=== PATIENT | female | born 1960 | race Caucasian/White ===

== ENCOUNTER 2020-12-22 10:20 | Emergency (ER) | payer MEDICAID, SELFPAY ==
[2020-12-22 10:53] VITALS: BP 140/69; PULSE 76; RESP 16; TEMP 36.8; O2SAT 97
--- NOTE | 2020-12-22 11:11 | ED_ITS ---
HPI - General Adult General Chief complaint: General Medical Stated complaint: fall Time Seen by Provider: 12/22/20 10:54 Source: patient Mode of arrival: ambulatory Limitations: no limitations History of Present Illness HPI narrative: 60yoF asthma, hypothyroidism and chronic pain presenting to the ED with complaints of left anterior/lateral rib cage pain for the past week and a half after she had a mechanical fall while helping her with niece fix up the baby's room and she did not notice there was a board across the door at her niece's house and she tripped over the board hitting her left anterior/la teral rib cage, right knee/lower leg and ankle and since then has been having pain. Patient also requesting a COVID 19 swab as she lives in [place] and is traveling home this week. Denies head injury or loss of consciousness. Denies being on any blood thinners. Denies pre symptoms prior to the fall and any symptoms at this time other than pain. Denies any dizziness, headaches, lightheadedness, changes in vision, nausea/vomiting, jaw pain, paresthesias, focal weakness, chest pain or shortness of breath, symptoms or any other symptoms complaints or concerns at this time. Related Data Previous Rx's Medication Instructions Recorded diphenhydramine HCl [Benadryl 50 mg PO TID PRN #10 tab 12/22/20 Allergy] oxycodone 5 mg PO BID PRN #10 tab 12/22/20 Allergies Allergy/AdvReac Type Severity Reaction Status Date / Time acetaminophen [From VICODIN] Allergy Mild ITCH Unverified 08/14/20 15:53 aspirin [ASA] Allergy Mild BRUISE, Unverified 08/14/20 15:53 bruising hydrocodone [From VICODIN] Allergy Mild ITCH Unverified 08/14/20 15:53 ibuprofen [From MOTRIN] Allergy Mild BRUISE Unverified 08/14/20 15:53 trazodone [TRAZODONE] Allergy Mild RESTLESS Unverified 08/14/20 15:53 quetiapine [From SEROQUEL] AdvReac Mild RESTLESS Unverified 08/14/20 15:53 Motrin Allergy Unknown bruising Uncoded 07/14/20 00:00 Vicodin Allergy Unknown Uncoded 07/14/20 00:00 Review of Systems Review of Systems: Constitutional : No changes in activity, No lethargy, No recent prior head injury, No agitation, No increased fussiness ENT/Mouth : No Ear Pain, No Nasal discharge/drainage Eyes: No Eye Pain, No Swelling, No Redness, No Foreign Body, No Vision Changes Cardiovascular : +Rib cage pain, No Chest Pain, No SOB Respiratory : No Cough Gastrointestinal : No Nausea, No Vomiting, No abdominal Pain Genitourinary : No Dysuria, No Urinary Frequency, No Urinary Incontinence, No Urgency, No Flank Pain Musculoskeletal : No joint pain, No neck stiffness, No back pain/injury Skin : No lacerations Neuro : No unsteady gait, No Paresthesias, No Loss of Consciousness, No altered mental status, No Headache Yes all other systems are reviewed and are negative PMFSH Past Medical History Attestation statement: The following information was validated with the patient. Surgical History H/O tubal ligation History of back surgery Hx of arthroscopy of right knee S/P arthroscopy of left shoulder S/P arthroscopy of right shoulder Social History Social History Smoked in Last 30 Days: No Use of substances other than those prescribed or required for medical reasons: No Advance Directives: No Advance Directives Information Provided: No Physical Exam Vital Signs: Vital Signs: Last Vital Signs Temp 98.3 F 12/22/20 10:53 Pulse 76 12/22/20 10:53 Resp 16 12/22/20 10:53 BP 140/69 H 12/22/20 10:53 Pulse Ox 97 12/22/20 10:53 Body Mass Index 0.3 vital signs have been reviewed as normal and appeared to be correct. Blood pressure normal. Heart rate normal. Respiration rate normal. Temperature normal. Oxygen saturation normal. Appearance: Alert. Oriented X3. No acute distress. Head: Normal external exam. Normocephalic. Atraumatic. No Byers signs noted. No raccoon eyes noted Eyes: PERRLA. EOMI. Conjunctiva and sclera normal. Eyelids normal. ENT: EAC normal. TM's Normal. No septal hematoma. No hemotympanum noted. Pharynx normal. Uvula midline. Moist mucous membranes. No trismus noted. No drooling noted. No muffled voice noted. Neck: Normal inspection. Neck supple. FROM. No adenopathy. Thyroid Normal. No meningeal signs. No neck mass noted. Patient has full range of motion no obvious deformities. No mid cervical tenderness step-offs or deformities noted. Patient neuro intact bilaterally and distally in all 4 extremities. Reflexes intact bilaterally and distally in all 4 extremities. CVS: Normal heart rate and rhythm. Heart sound normal. No murmurs noted. Pulses normal throughout. Respiratory: No respiratory distress. Painless inspiration. Breath sounds normal. No wheezes/rales/rhonchi noted. Left lower anterior/lateral chest wall with tenderness to palpation. No obvious deformity/ecchymosis/abrasion/lacerations noted. No flail chest noted. No accessory muscle usage noted or decreased air movement noted. Abdomen: Soft and nontender. Bowel sounds normal in all 4 quadrants. No distention noted. No organomegaly noted. No visible injury noted. Back: No CVA tenderness. Full range of motion noted. Skin: Skin warm and dry. Normal skin color. Normal skin turgor. No rashes/lesions/lacerations noted. Extremities: Patient tender to palpation to right knee/lower leg/ankle. Ecchymosis noted. Although no obvious deformities noted. No laxity of ligaments or tendons at the knee/lower leg or ankle. No lower extremity edema. No calf tenderness noted. Extremities exhibit normal range of motion. Extremities nontender. Neuro: Oriented X 3. No motor deficit. No sensory deficit. Reflexes normal. Patient has a normal steady gait. Course Course Course Narrative: 11:10am - 60yoF asthma, hypothyroidism and chronic pain presenting to the ED with complaints of left anterior/lateral rib cage pain, right knee/lower leg/ankle pain after she had a mechanical fall. Denies head injury or loss of consciousness. Not on any blood thinners. Denies pre symptoms prior to the fall. Also requesting a COVID swab. Denies any URI symptoms or symptoms. - Plan: x-ray of left ribs/chest, x-ray of right knee/lower leg/ankle and perform a COVID/RSV/flu swab for travel then re-evaluate. Reevaluation(s) Reevaluation #1: - x-ray of rib cage last anterior chest within normal limits no evidence of fractures. X-ray of right knee/ankle/lower leg within normal limits no evidence of fracture. COVID/RSV/flu still pending. Will DC home with symptomatic treatment instructions return if any new or worsening symptoms and to follow up with primary care provider. Patient's and agrees the plan. Time: 12:38 Medical Decision Making Medical Records Medical records reviewed: Yes I reviewed the patient's medical records. Imaging Data Rib/chest/right ankle/right lower leg/right knee: Attestation: I personally reviewed and interpreted this imaging study as follows: Radiologist's impression: EXAMINATION: CHEST AND LEFT RIBS. RIGHT ANKLE, RIGHT KNEE AND RIGHT TIBIA AND FIBULA. CLINICAL INFORMATION: Status post fall x1 week ago. Pain and bruising right knee. COMPARISON: None TECHNIQUE: 3 views right ankle. 2 views right tibia and fibula. 4 views right knee. Chest and left RIBS 4 views. FINDINGS: RIGHT ANKLE: There is no visible acute fracture, dislocation. Ankle mortise and subtalar joints are normal. There is a moderate to large calcaneal heel spur. There is dorsal talonavicular spurring. The soft tissues are normal. RIGHT TIBIA AND FIBULA: There is no visible fracture or bony abnormality. The soft tissues are normal. RIGHT KNEE: There is mild loss of medial and patellofemoral compartment joint space with mild periarticular spurring medial compartment. No loose bodies, joint effusion or bony erosive changes seen. The soft tissues are normal. CHEST AND LEFT RIBS: The lungs are well-expanded and clear of acute process. The heart size and pulmonary vascularity is normal. No gross bony abnormality seen Multiple views of left ribs reveal no visible rib fracture or bony abnormality. The soft tissues are normal. XR/XR ankle RT min 3V IMPRESSION: Unremarkable right ankle, right tibia and fibula. Degenerative arthritic changes medial and patellofemoral compartment joint space. Unremarkable chest x-ray. No visible left rib fractures seen. Discharge Plan Discharge Clinical Impression: Fall Qualifiers: Encounter type: initial encounter Qualified Code(s): W19.XXXA - Unspecified fall, initial encounter Chest wall muscle strain Qualifiers: Encounter type: initial encounter Qualified Code(s): S29.011A - Strain of muscle and tendon of front wall of thorax, initial encounter Right knee sprain Qualifiers: Encounter type: initial encounter Right ankle sprain Qualifiers: Encounter type: initial encounter Sprain of right knee/leg Qualifiers: Encounter type: initial encounter Qualified Code(s): S83.91XA - Sprain of unspecified site of right knee, initial encounter Patient Disposition: Home, Self-Care Instructions: Sprain (ED), Fall Prevention for Older Adults (ED) Additional Instructions: Based on your symptoms and history we have sent a COVID-19. Although your RESULT IS PENDING at this time. RESULTS should return within 72 hours. At this time you will be contacted with either NEGATIVE OR POSITIVE results. -Please wait until we contact you for your results. At this time you will be okay for discharge. Please plan for self quarantine for up to 14 days. Do not expose yourself to others. You may not go to work. If testing does come back negative you may return to activities as long as you are no longer having any symptoms for at least 3 days. Please continue to follow cold instructions and wash your hands frequently. You may take Tylenol as directed on the bottle for pain or fever. Patient seen in the emergency department on 09/12/2020 and should be excused from work until negative test results AND until 72 hours without any symptoms AND at least 10 days have passed since symptoms first appeared or since last exposure to COVID-19 positive patient CDC Guidelines for home isolation: - Stay away from others - WEAR A MASK if you are sick AND STAY HOME - Cover your mouth and nose with a tissue when you cough or sneeze. Dispose of tissues in a lined trash can and wash your hands immediately with soap and water for at least 20 seconds. If soap and water are not available, clean hands with alcohol-based hand platen press operator apprentice that contains at least 60% alcohol. - Clean your hands often with soap and water for at least 20 seconds - Avoid touching your eyes, nose and mouth with unwashed hands - Do not share dishes, drinking glasses, cups, eating utensils, towels, or bedding with other people in your home. After using these items, wash them thoroughly with soap and water or put in the aerial advertiser. - Clean high-touch surfaces in your isolation area ( sick room and bathroom) every day; let a caregiver clean and disinfect high-touch surfaces in other areas of the home. Clean the area or item with soap and water or another detergent if it is dirty. Then, use a household disinfectant. - Limit contact with pets and animals: If you must care for a pet, wash your hands before and after interacting with them). Prescriptions: New oxycodone 5 mg tablet 5 mg PO BID PRN (Reason: pain) Qty: 10 RF: 0 diphenhydramine HCl [Benadryl Allergy] 25 mg tablet 50 mg PO TID PRN (Reason: itching) Qty: 10 RF: 0 Referrals: Physician,None [Primary Care Provider] - 2 days (your pcp) Print Language: Telugu
[2020-12-22] MEDS: oxyCODONE HCl Immed Release 5 MG TABLET PO (12:43)
[2020-12-22 13:05] LABS: Influenza A PCR NEGATIVE (Negative); Influenza B PCR NEGATIVE (Negative); Resp Syncy Virus RNA Qual PCR NEGATIVE (Negative); SARS COV2 PCR INHOUSE NEGATIVE (Negative)
== END 2020-12-22 12:55 | disposition home or self-care (01) ==
PROVIDERS: Physician Assistant Medical; Emergency Provider Internal Medicine
DX: S29.011A Strain of muscle and tendon of front wall of thorax, initial encounter (principal); S83.91XA Sprain of unspecified site of right knee, initial encounter; S93.401A Sprain of unspecified ligament of right ankle, initial encounter; W18.31XA Fall on same level due to stepping on an object, initial encounter; Z20.822 Contact with and (suspected) exposure to COVID-19; Y93.E9 Activity, other interior property and clothing maintenance; Y92.013 Bedroom of single-family (private) house as the place of occurrence of the external cause; Y99.9 Unspecified external cause status
CPT/HCPCS: 0241U; 36415; 71101; 73564; 73590; 73610; 99283

== ENCOUNTER 2022-04-14 09:25 | Emergency (ER) | payer MEDICAID, SELFPAY ==
--- NOTE | ~2022-04-14 | XR_ITS ---
EXAMINATION: XR wrist LT min 3V CLINICAL INFORMATION: Atraumatic pain COMPARISON: None TECHNIQUE: 4 views of the wrist XR/XR wrist LT min 3V FINDINGS/IMPRESSION: * Ulnar styloid avulsion fracture and scaphoid fracture with nonunion and some sclerosis along the margins favoring subacuity however recommend correlation with history of trauma, as there is overlying soft tissue swelling. * Plate and screw fixation of the distal radial metadiaphysis without evidence of hardware failure or complication with mild volar angulation of the wrist. * Mild degenerative changes of the wrist involving the triscaphe joint. * Osteopenia.
--- NOTE | ~2022-04-14 | XR_ITS ---
EXAMINATION: XR knee RT 2V CLINICAL INFORMATION: Pain COMPARISON: None TECHNIQUE: 4 views of the knee XR/XR knee RT 2V FINDINGS/IMPRESSION: * Moderate degenerative changes of the knee predominantly involving the medial compartment with there is loss of joint space with small medial and lateral compartment osteophytes. * No acute fracture or dislocation. * No joint effusion or appreciable soft tissue abnormality.
[2022-04-14 09:31] VITALS: BP 154/65; PULSE 74; RESP 16; TEMP 36.7; O2SAT 96; BMI 36.3
--- NOTE | 2022-04-14 12:41 | ED_ITS ---
HPI - General Adult General Chief complaint: Extremity Problem Stated complaint: knee, wrist inj std ? Time Seen by Provider: 04/14/22 12:41 Source: patient Mode of arrival: ambulatory Limitations: no limitations History of Present Illness HPI narrative: 61-year-old female with a past medical history of chronic pain, arthritis, asthma, hypothyroid, who normally uses a walker to ambulate, presents for right knee pain, left wrist pain, and concern for STDs. Patient states she has had right knee pain that has worsened in last 2 weeks, that she was up all night in tears. No recent trauma. Patient states she has to hold onto her walker, and it is painful to go up and down the stairs. Patient has had left wrist pain, she had a fracture and had surgery in [place] in November of 2021, states that since the surgery she cannot bend her wrist her flows her fingers, and the pain is worsening. Patient states she recently had sex with a person who tested positive for syphilis and gonorrhea, and she wants to be treated for STDs. Denies vaginal bleeding pelvic pain vaginal itching or vaginal discharge. She would like to have sex with a new person, so wants to make sure she has no STDs Related Data Previous Rx's Medication Instructions Recorded diphenhydramine HCl 25 mg tablet 50 mg PO TID PRN #10 tab 12/22/20 (Benadryl Allergy) oxycodone 5 mg tablet 5 mg PO BID PRN #10 tab 12/22/20 doxycycline hyclate 100 mg tablet 100 mg PO BID 7 Days #14 tab 04/14/22 oxycodone 5 mg capsule 5 mg PO BID PRN #9 cap 04/14/22 oxycodone 5 mg capsule 5 mg PO Q8H PRN #9 cap 04/14/22 Allergies Allergy/AdvReac Type Severity Reaction Status Date / Time acetaminophen [From VICODIN] Allergy Mild ITCH Unverified 08/14/20 15:53 aspirin [ASA] Allergy Mild BRUISE, Unverified 08/14/20 15:53 bruising hydrocodone [From VICODIN] Allergy Mild ITCH Unverified 08/14/20 15:53 ibuprofen [From MOTRIN] Allergy Mild BRUISE Unverified 08/14/20 15:53 trazodone [TRAZODONE] Allergy Mild RESTLESS Unverified 08/14/20 15:53 quetiapine [From SEROQUEL] AdvReac Mild RESTLESS Unverified 08/14/20 15:53 Motrin Allergy Unknown bruising Uncoded 07/14/20 00:00 Vicodin Allergy Unknown Uncoded 07/14/20 00:00 Review of Systems Constitutional: Constitutional: Denies body ache(s), Denies chills, Denies fatigue, Denies fever(s), Denies headache(s), Denies malaise and Denies weakness Eyes: Eyes: Denies diplopia ENT: Denies vertigo, Denies dizziness, Denies headache(s) and Denies throat swelling Cardiovascular: Cardiovascular: Denies chest pain, Denies syncope, Denies leg edema, Denies lightheadedness, Denies Loss of Consciousness, Denies palpitations and Denies dyspnea Respiratory: Respiratory: Denies chest congestion, Denies cough and Denies dyspnea Gastrointestinal: Gastrointestinal: Denies abdominal pain, Denies hematochezia, Denies constipation, Denies diarrhea and Denies vomiting Genitourinary: Genitourinary: Denies hematuria, Denies change in libido, Denies genital pruritis, Denies genital lesions, Denies dysuria, Denies pelvic pain, Denies sexual dysfunction, Denies flank pain, Denies urinary incontinence, Denies urinary hesitancy, Denies urinary urgency, Denies vaginal discharge and Denies vaginal pruritus Musculoskeletal: Musculoskeletal: Reports arthralgias and Reports limited range of motion Neurologic: Denies confusion, Denies vertigo, Denies dizziness, Denies syncope, Denies headache(s) and Denies weakness Psychiatric: Psychiatric: Denies anxiety, Denies change in libido, Denies confusion and Denies depression Endocrine: Endocrine: Denies change in libido, Denies fatigue and Denies palpitations Allergic/Immunologic: Allergic/Immunologic: Denies throat swelling PMFSH Past Medical History Surgical History H/O tubal ligation History of back surgery Hx of arthroscopy of right knee S/P arthroscopy of left shoulder S/P arthroscopy of right shoulder Social History Social History Advance Directives: No Advance Directives Information Provided: No Physical Exam ED Vital Signs: Vital Signs - 24 hr 04/14/22 09:31 Temperature 98.0 F Pulse Rate 74 Respiratory Rate 16 Blood Pressure 154/65 H Pulse Oximetry 96 BMI result Body Mass Index 36.3 Const General: no acute distress, alert and awake; No confusion Nutritional Appearance: well nourished and obese Orientation/consciousness: patient oriented x3 and No confusion Limitations: no limitations Eyes Conjunctivae: conjunctivae normal Pupils: Equal, round and reactive pupils present EOM: EOMs intact bilaterally Neck Neck: Yes full ROM, Yes no lymphadenopathy and Yes supple Resp Effort & Inspection: normal respiratory effort and able to speak in complete sentences Auscultation: clear to auscultation bilaterally, no crackles, no rales, no rhonchi and no wheezes Cardio Rate: regular rate Rhythm: regular rhythm Heart sounds: S1 normal heart sound present and S2 normal heart sound present GI Inspection: Yes normal to inspection Palpation (GI): Soft to palpation, nontender, no guarding and not rigid Percussion: Yes normal to percussion Auscultation: normal bowel sounds General: Yes Bimanual renal exam normal bilaterally External Female Exam: normal external appearance Speculum Exam - Vagina: normal appearance of the vagina and No vaginal bleeding Speculum Exam - Cervix: normal appearance of the cervix, normal palpation and normal vervical discharge Bimanual exam- vagina & uterus: normal palpation Bimanual Exam- Adnexa, other: No adnexal tenderness OB/external & speculum: No vaginal bleeding Skin General skin exam: no rashes or lesions noted Neuro General: patient oriented x3 and No confusion Cranial nerves: Yes Equal, round and reactive pupils present Extrem Left upper extremity: normal capillary refill and wrist (left); No ROM limited Right lower extremity: normal capillary refill and knee Details: tenderness Location: of the medial joint line and swelling Location: of the infrapatellar area; No ROM limited, no cyanosis and no edema Psych Appearance: grossly normal Affect: normal affect Attitude: cooperative Thought process: Normal thought process present Course Course Course Narrative: 61-year-old female presents for concerns for STDs, right knee pain, left wrist pain. On gynecological exam, patient had no cervical motion tenderness, no adnexal tenderness, normal vaginal discharge. Patient negative for Trichomonas, yeast, patient treated for syphilis with RPR lab drawn, patient given Rocephin, and doxycycline sent to her pharmacy. Told patient we would call her if her gonorrhea, chlamydia, or syphilis test returns positive, but we have treated her anyways. Urine is negative for infection. X-rays are as follows below, right knee has osteoarthritis especially in the medial compartment, left wrist has scaphoid fracture with nonunion and sclerosis, and ulnar styloid avulsion fracture. Patient splinted and thumb spica, ataxia with orthopedic PA, who is aware of patient, referred patient to orthopedics. Prescribed oxycodone, doxycycline. XR/XR knee RT 2V FINDINGS/IMPRESSION: ? *? Moderate degenerative changes of the knee predominantly involving the medial compartment with there is loss of joint space with small medial and lateral compartment osteophytes. ? *? No acute fracture or dislocation. ? *? No joint effusion or appreciable soft tissue abnormality. XR/XR wrist LT min 3V FINDINGS/IMPRESSION: ? *? Ulnar styloid avulsion fracture and scaphoid fracture with nonunion and some sclerosis along the margins favoring subacuity however recommend correlation with history of trauma, as there is overlying soft tissue swelling. ? *? Plate and screw fixation of the distal radial metadiaphysis without evidence of hardware failure or complication with mild volar angulation of the wrist. ? *? Mild degenerative changes of the wrist involving the triscaphe joint. ? *? Osteopenia. Reevaluation(s) Reevaluation #1: Patient's oxycodone was sent to the wrong pharmacy. Called [facility], discontinued oxycodone, sent new prescription to [facility] Medical Decision Making Lab Data Labs: Lab Results 04/14/22 04/14/22 04/14/22 Range/Units 13:22 13:22 13:22 Urine Color YELLOW Urine Appearance CLEAR Urine pH 6.5 (5.0-8.0) Ur Specific [place] 1.010 (1.005-1.025) Urine Protein NEG (NEG-TRACE) MG/DL Urine Glucose (UA) NEG (NEG) MG/DL Urine Ketones NEG (NEG) MG/DL Urine Blood NEG (NEG) Urine Nitrite NEG (NEG) Ur Leukocyte Esterase NEG (NEG) T.pallidum Ab (EIA) Nonreactive (Nonreactive) Chlam trachomat DNA PCR NOT DETECTED (Not Detect.) N.gonorrhoeae DNA (PCR) NOT DETECTED (Not Detect.) Discharge Plan Discharge Clinical Impression: Exposure to sexually transmitted disease (STD), Fracture of scaphoid bone of left wrist Osteoarthritis of right knee Qualifiers: Osteoarthritis type: unspecified Qualified Code(s): M17.11 - Unilateral primary osteoarthritis, right knee Closed nondisplaced fracture of ulnar styloid with delayed healing Qualifiers: Laterality: left Qualified Code(s): S52.615G - Nondisplaced fracture of left ulna styloid process, subsequent encounter for closed fracture with delayed healing Patient Disposition: Home, Self-Care Instructions: Sexually Transmitted Diseases (ED), Osteoarthritis (ED), Scaphoid Fracture (ED) Additional Instructions: I have referred you to orthopedics. They should be calling you. If you do not hear from them by tomorrow afternoon, please call the following number [phone] Please rest, ice, elevate your knee, and keep the Markell wrap on except when you are sleeping Please keep the splint on your left rest and keep it clean and dry do not remove until you are seen by orthopedics We have tested you for gonorrhea, chlamydia, and syphilis today. Those test results are not back yet, I am treating you with antibiotics and you have been treated for all 3 of these diseases if you finish your outpatient antibiotics, the doxycycline that I prescribed. Your Trichomonas and yeast test were negative today. You have no urinary tract infection today. We will call you if any of the test results come back positive, if you do not hear from us in 3 days and he want to know the results, you may call here as annabelle jasmine. In addition, please use condoms and practice safe sex Prescriptions: New doxycycline hyclate 100 mg tablet 100 mg PO BID 7 Days Qty: 14 0RF oxycodone 5 mg capsule 5 mg PO BID PRN (Reason: pain) Qty: 9 0RF oxycodone 5 mg capsule 5 mg PO Q8H PRN (Reason: pain) Qty: 9 0RF No Action oxycodone 5 mg tablet 5 mg PO BID PRN (Reason: pain) Qty: 10 0RF diphenhydramine HCl [Benadryl Allergy] 25 mg tablet 50 mg PO TID PRN (Reason: itching) Qty: 10 0RF Referrals: Laverne Salgado MD [Physician] - Interventions: ED Discharge Assessment Last Done: 04/14/22 14:55 Discharge Date/Time: 04/14/22 15:04
[2022-04-14 13:39] LABS: Appearance Urine CLEAR; Color Urine YELLOW; Glucose Urine UA NEG (NEG); Leukocyte Esterase Urine NEG (NEG); Nitrite Urine NEG (NEG); PH 6.5 (5.0-8.0); Urine Blood NEG (NEG); Urine Ketones NEG (NEG); Urine Protein NEG (NEG-TRACE)
[2022-04-14] MEDS: oxyCODONE HCl Immed Release 5 MG TABLET PO (13:47)
[2022-04-14] MEDS: cefTRIAXone sodium 500 MG, Lidocaine HCl 1 % MPF 1 ML IM (14:37)
[2022-04-14] MEDS: Penicillin G Benzathine 2,400,000 UNIT/4 ML SYRINGE 2400000 UNIT IM (14:38)
[2022-04-14 14:49] LABS: Syphilis Screen Nonreactive (Nonreactive)
[2022-04-14 19:03] LABS: CT PCR NOT DETECTED (Not Detect.); NG PCR NOT DETECTED (Not Detect.)
[2022-04-15 09:18] LABS: BV Int Neg Control Negative (Negative); BV Int Pos Control Positive (Positive)
== END 2022-04-14 15:04 | disposition home or self-care (01) ==
PROVIDERS: Physician Assistant; Emergency Provider Emergency Medicine
DX: Z20.2 Contact with and (suspected) exposure to infections with a predominantly sexual mode of transmission (principal); M17.11 Unilateral primary osteoarthritis, right knee; M25.561 Pain in right knee; S52.615G Nondisplaced fracture of left ulna styloid process, subsequent encounter for closed fracture with delayed healing; X58.XXXD Exposure to other specified factors, subsequent encounter
CPT/HCPCS: 36415; 73110; 73560; 81003; 86780; 87480; 87491; 87510; 87591; 87660; 96372; 99283; 99284; J0561; J0696

== ENCOUNTER 2022-04-21 11:08 | Outpatient (REF) | payer OTHER, MEDICAID, SELFPAY ==
--- NOTE | ~2022-04-21 | XR_ITS ---
EXAMINATION: XR WRIST, LEFT CLINICAL INFORMATION: Pain left wrist. COMPARISON: Prior radiographs, most recent 04/14/2022. TECHNIQUE: PA, lateral, and oblique views of the left wrist. FINDINGS: Again noted is postsurgical changes in the distal radius with plate and screw fixation overlying the distal radius in the area of previously noted fracture. No change in alignment and appearance. Mildly displaced fracture of the ulnar styloid and ulnar aspect of the distal ulna unchanged. Ununited scaphoid fracture likely old unchanged. Mild osteoarthritis of the 1st metacarpophalangeal joint XR/XR wrist LT min 3V IMPRESSION: No change compared to prior examination 04/14/2022.
== END 2022-04-21 11:09 | disposition home or self-care (01) ==
LOC: HO.HOSX 11:08
PROVIDERS: Visit Provider Physician Assistant
DX: S52.502D Unspecified fracture of the lower end of left radius, subsequent encounter for closed fracture with routine healing (principal)
CPT/HCPCS: 73110; 99202

== ENCOUNTER 2022-04-28 08:58 | Outpatient (REF) | payer OTHER, MEDICAID, SELFPAY ==
--- NOTE | 2022-04-28 09:04 | EMG_ITS ---
This is a 61-year-old woman with fracture of the left wrist in October and surgery in [place]. Since then she feels her hand is nonfunctional and in lot of pain and has very little feeling. PHYSICAL EXAMINATION: On examination, she has a surgical scar on the volar surface of the wrist and restriction of rotation of the wrist, extension, flexion, slight muscle atrophy, but is able to move her fingers, although weakly. IMPRESSION: Wrist fracture, rule out nerve entrapment. Nerve conduction EMG study: Normal electrodiagnostic study of the left upper extremity with no evidence of carpal tunnel syndrome or nerve injury. Normal EMG of the left C7-T1 innervated muscles. MD PAULA Mejias/JOSE CRUZ / [id number]
== END 2022-04-28 08:59 | disposition home or self-care (01) ==
LOC: HO.NEURO 08:58
PROVIDERS: Visit Provider Physician Assistant
DX: R20.0 Anesthesia of skin (principal); R20.2 Paresthesia of skin
CPT/HCPCS: 95885; 95910

== ENCOUNTER 2022-05-04 11:04 | Outpatient (REF) | payer OTHER, MEDICAID, SELFPAY ==
--- NOTE | ~2022-05-04 | CT_ITS ---
EXAMINATION: CT SCAN OF THE LEFT WRIST CLINICAL INFORMATION: Nondisplaced fracture ulnar styloid. COMPARISON: X-rays of the left wrist most recent 04/21/2022. TECHNIQUE: CT scan of the left wrist without contrast. FINDINGS: There is an ununited fracture of the distal ulna including the ulnar styloid and a portion of the ulnar metaphysis unchanged. Postoperative changes along the distal radius with plate and screw fixation noted as before. The most ulnar positioned distal 2 screws extend through the subchondral bone of the radius into the joint space as seen on the sagittal image 51 series 8 and sagittal image 57 series 8. This is located at the junction between the scaphoid and lunate fossa. The hardware is otherwise intact without fracture or surrounding lucency. The distal radius fracture appears healed with osseous bridging noted across the areas of fracture. There is some irregularity of the articular surface of the radius related to residual osteochondral defect from the intercondylar fracture. This measures up to 10 mm AP and 6.5 mm transverse. Remaining bone and joints are normal. CT/CT wrist LT wo con IMPRESSION: The distal radius fracture appears healed with osseous bridging across the fracture. There is some residual incongruity at the articular surface of the radius related to the fracture. Two of the distal screws protrude into the radiocarpal joint space. Ununited distal ulnar fracture.
== END 2022-05-04 11:05 | disposition home or self-care (01) ==
LOC: HO.CT 11:04
PROVIDERS: Visit Provider Physician Assistant
DX: G56.02 Carpal tunnel syndrome, left upper limb (principal); S52.502D Unspecified fracture of the lower end of left radius, subsequent encounter for closed fracture with routine healing; S52.616 Nondisplaced fracture of unspecified ulna styloid process
CPT/HCPCS: 73200

== ENCOUNTER 2022-08-04 09:59 | Emergency (ER) | payer OTHER, SELFPAY ==
--- NOTE | ~2022-08-04 | XR_ITS ---
EXAMINATION: LEFT WRIST X-RAY CLINICAL INFORMATION: Pain COMPARISON: Previous x-ray most recent March [address] April 29 TECHNIQUE: 4 views of the left wrist FINDINGS: No acute fracture or dislocation. There is an old ununited fracture of the scaphoid bone that appears unchanged. There is widening of the scapholunate distance and slight dorsal tilt of the lunate that is unchanged. There is an ununited ulnar styloid fracture that is unchanged. There is hardware with plate and screws in the distal radius. No distal radius fracture is seen. Orthopedic hardware appears unchanged. There is arthritis at the trapezoid trapezium scaphoid joints and mild arthritis at the first PENITENTIARY joint. Soft tissues are unremarkable. XR/XR hand wrist LT IMPRESSION: No acute fracture or dislocation. Evidence of old trauma. Findings are similar to previous exams march and April 2022.
[2022-08-04 10:21] VITALS: BP 134/92; PULSE 85; RESP 17; O2SAT 96; BMI 34.7
== END 2022-08-04 20:12 | disposition left against medical advice (07) ==
PROVIDERS: Emergency Provider Emergency Medicine; PCP Internal Medicine
DX: S89.92XA Unspecified injury of left lower leg, initial encounter (principal); S69.92XA Unspecified injury of left wrist, hand and finger(s), initial encounter; W19.XXXA Unspecified fall, initial encounter; Z91.81 History of falling; Y93.9 Activity, unspecified; Y92.019 Unspecified place in single-family (private) house as the place of occurrence of the external cause; Y99.9 Unspecified external cause status
CPT/HCPCS: 73110; 73130; 99281; 99283; 99284

== ENCOUNTER → 2022-09-14 09:00 | Outpatient (BNVA) | payer OTHER, SELFPAY | PROVIDERS: PCP Internal Medicine; Visit Provider Orthopaedic Surgery | DX: M25.642 Stiffness of left hand, not elsewhere classified (principal); M25.632 Stiffness of left wrist, not elsewhere classified; T85.9XXA Unspecified complication of internal prosthetic device, implant and graft, initial encounter; S52.502D Unspecified fracture of the lower end of left radius, subsequent encounter for closed fracture with routine healing; S52.615G Nondisplaced fracture of left ulna styloid process, subsequent encounter for closed fracture with delayed healing | CPT/HCPCS: 97140; 99202 ==

== ENCOUNTER 2022-09-20 | Outpatient (REF) | payer OTHER, SELFPAY ==
--- NOTE | ~2022-09-20 | XR_ITS ---
EXAMINATION: XR knee RT 1V, XR knee standing BI CLINICAL INFORMATION: Reason for Exam M25.569 - Pain in unspecified knee COMPARISON: 04/18/2022 TECHNIQUE: [place] view of the right knee and standing views of the bilateral knees. XR/XR knee standing BI FINDINGS/IMPRESSION: * Right greater than left narrowing of the medial compartments. * No soft tissue abnormality.
--- NOTE | ~2022-09-20 | XR_ITS ---
EXAMINATION: XR knee RT 1V, XR knee standing BI CLINICAL INFORMATION: Reason for Exam M25.569 - Pain in unspecified knee COMPARISON: 04/18/2022 TECHNIQUE: [place] view of the right knee and standing views of the bilateral knees. XR/XR knee RT 1V FINDINGS/IMPRESSION: * Right greater than left narrowing of the medial compartments. * No soft tissue abnormality.
== END 2022-09-20 00:01 | disposition home or self-care (01) ==
LOC: HO.HOSX
PROVIDERS: Visit Provider Physician Assistant
DX: M17.11 Unilateral primary osteoarthritis, right knee (principal); M54.16 Radiculopathy, lumbar region
CPT/HCPCS: 73560; 73565; 99212

== ENCOUNTER 2022-10-18 16:22 | Outpatient (REF) | payer OTHER, SELFPAY ==
--- NOTE | ~2022-10-18 | XR_ITS ---
EXAMINATION: XR WRIST, LEFT CLINICAL INFORMATION: M25.532 - Pain in left wrist COMPARISON: Radiographs left hand and wrist 08/04/2022, 04/21/2022 TECHNIQUE: PA, lateral, and oblique views of the left wrist. FINDINGS: There are stable old posttraumatic changes again seen. No acute or healing fracture, dislocation, or destructive process. No interval arthropathy. There is a compression plate and screws volar side distal radius. Hardware intact. Ununited corticated fracture fragment again seen distal ulnar. There is a nonunited fracture again noted carpal navicular and mild widening at the scapholunate articulation suggesting ligamentous degeneration/tear. XR/XR wrist LT min 3V IMPRESSION: 1. Old posttraumatic and postsurgical changes similar to prior exam. 2. No acute or healing fracture or dislocation. No interval arthropathy.
== END 2022-10-18 16:23 | disposition home or self-care (01) ==
LOC: HO.HOSX 16:22
PROVIDERS: Visit Provider Orthopaedic Surgery
DX: M25.532 Pain in left wrist (principal)
CPT/HCPCS: 73110

== ENCOUNTER → 2022-10-19 09:04 | Outpatient (BNVA) | payer OTHER, SELFPAY | PROVIDERS: PCP Internal Medicine; Visit Provider Orthopaedic Surgery | DX: M25.532 Pain in left wrist (principal); T85.9XXA Unspecified complication of internal prosthetic device, implant and graft, initial encounter; S52.615G Nondisplaced fracture of left ulna styloid process, subsequent encounter for closed fracture with delayed healing | CPT/HCPCS: 99212 ==

== ENCOUNTER 2022-10-27 14:45 | Outpatient (REF) | payer OTHER, SELFPAY ==
--- NOTE | ~2022-10-27 | XR_ITS ---
EXAMINATION: XR HAND/WRIST, LEFT CLINICAL INFORMATION: Multiple priors, most recent left wrist radiographs dated 10/19/2022. COMPARISON: Multiple priors, most recent hand and wrist radiographs dated 10/19/2022 and 08/04/2022. TECHNIQUE: PA, oblique, and lateral views of the left hand and wrist. FINDINGS: Volar stabilization plate with fixation screws redemonstrated at the anterior radius. No hardware fracture. No perihardware lucency to suggest loosening or infection. Distal screws are again noted to extend into the radiocarpal joint space, unchanged. Chronic ulnar styloid fracture which appears corticated in unchanged anatomic alignment. No acute fracture or dislocation. Joint space narrowing with marginal osteophytes at the triscaphe and 1st carpometacarpal joint as well as scattered throughout the metacarpophalangeal and interphalangeal joints. No new osseous erosion. No abnormal soft tissue calcification. XR/XR hand wrist LT IMPRESSION: 1. Distal radial ORIF without evidence of hardware complication. Distal screws extend into the radiocarpal joint space, unchanged. 2. Chronic ulnar styloid fracture in unchanged anatomic alignment. 3. Mild osteoarthritis at the triscaphe and 1st carpometacarpal joints as well as scattered throughout the metacarpophalangeal and interphalangeal joints, unchanged.
== END 2022-10-27 14:46 | disposition home or self-care (01) ==
LOC: HO.HOSX 14:45
PROVIDERS: Visit Provider Orthopaedic Surgery
DX: T85.9XXA Unspecified complication of internal prosthetic device, implant and graft, initial encounter (principal); S52.615G Nondisplaced fracture of left ulna styloid process, subsequent encounter for closed fracture with delayed healing
CPT/HCPCS: 73110; 73130; 99212

== ENCOUNTER → 2022-11-01 11:17 | Outpatient (BNVA) | payer OTHER, SELFPAY | PROVIDERS: PCP Internal Medicine; Visit Provider Anesthesiology | DX: M96.1 Postlaminectomy syndrome, not elsewhere classified (principal); G24.01 Drug induced subacute dyskinesia; T50.995A Adverse effect of other drugs, medicaments and biological substances, initial encounter; G89.4 Chronic pain syndrome; B18.2 Chronic viral hepatitis C; F31.9 Bipolar disorder, unspecified | CPT/HCPCS: 99202 ==

== ENCOUNTER 2022-11-17 09:36 | Outpatient (REF) | payer OTHER, SELFPAY ==
--- NOTE | ~2022-11-17 | MR_ITS ---
EXAMINATION: MR LUMBAR SPINE WITHOUT AND WITH CONTRAST CLINICAL INFORMATION: Post laminectomy syndrome. Right lower extremity weakness and numbness. COMPARISON: No relevant prior imaging. TECHNIQUE: Multiplanar MR imaging of the lumbar spine was performed without and with contrast. A total of 10 mL Gadavist was utilized for this examination. FINDINGS: There are chronic postoperative changes of a spinal fusion at L5-S1. Alignment is normal. Vertebral heights are preserved. No acute bone marrow signal changes. There are mixed type II degenerative endplate changes at L1-L2. There is loss of intervertebral disc height and T2 signal intensity at multiple levels related to disc degeneration. The tip of the conus medullaris is located at L1. No mass effect on the conus. Visualized distal cord signal intensity is normal. At T12-L1 the annular contour is normal. No canal or neuroforaminal compromise. At L1-L2 there is a slightly bulging disc. Bilateral facet degenerative change. No canal stenosis. No mass effect on the traversing or foraminal nerve roots. At L2-L3 there is a slightly bulging disc. No canal stenosis. No mass effect on the traversing or foraminal nerve roots. At L3-L4 there is a slightly bulging disc. Bilateral facet degenerative change. No canal stenosis. No mass effect on the traversing or foraminal nerve roots. At L4-L5 there is a slightly bulging disc. Bilateral facet degenerative change. No canal stenosis. Moderate compression of the left L4 foraminal nerve root. At L5-S1 there is a slightly bulging disc. No canal stenosis. No mass effect on the traversing or foraminal nerve roots. Postcontrast images reveal no evidence of recurrent disc herniation or perineural fibrosis. Limited visualization of the retroperitoneal anatomy reveals no abnormal finding. Psoas and paraspinal groups are symmetric. MR/MR lumbar spine wo/w con IMPRESSION: There are chronic postoperative changes of a spinal fusion at L5-S1. No evidence of recurrent disc herniation or perineural fibrosis. There is a bulging disc in conjunction with facet degenerative change at L4-L5 causing moderate compression of the left L4 foraminal nerve root. Otherwise no substantial mass effect on the traversing or foraminal nerve roots elsewhere within the lumbar spine. No canal stenosis.
== END 2022-11-17 09:37 | disposition home or self-care (01) ==
LOC: HO.MRI 09:36
PROVIDERS: Visit Provider Anesthesiology
DX: M96.1 Postlaminectomy syndrome, not elsewhere classified (principal); G89.4 Chronic pain syndrome
CPT/HCPCS: 72158; A9585

== ENCOUNTER 2022-11-30 09:01 | Outpatient (REF) | payer OTHER, SELFPAY ==
--- NOTE | ~2022-11-30 | XR_ITS ---
EXAMINATION: XR wrist LT min 3V CLINICAL INFORMATION: Pain COMPARISON: Wrist radiographs 10/27/2022 TECHNIQUE: 3 views of the wrist XR/XR wrist LT min 3V FINDINGS/IMPRESSION: * No acute fracture or dislocation. * Redemonstration of a chronic ulnar styloid fracture and ORIF of the distal radius in unchanged alignment. No evidence of hardware fracture or complication. * Mild degenerative changes of the wrist similar to prior worst involving the triscaphe joint. * Soft tissues are unremarkable.
== END 2022-11-30 09:02 | disposition home or self-care (01) ==
LOC: HO.HOSX 09:01
PROVIDERS: Visit Provider Orthopaedic Surgery
DX: M25.532 Pain in left wrist (principal)
CPT/HCPCS: 73110

== ENCOUNTER → 2022-12-01 09:28 | Outpatient (BNVA) | payer OTHER, SELFPAY | PROVIDERS: PCP Internal Medicine; Visit Provider Orthopaedic Surgery | DX: S52.616 Nondisplaced fracture of unspecified ulna styloid process (principal); T85.9XXA Unspecified complication of internal prosthetic device, implant and graft, initial encounter | CPT/HCPCS: 99212 ==

== ENCOUNTER 2022-12-06 07:13 | Day surgery (SDC) | payer OTHER, SELFPAY ==
[2022-12-01 10:30] VITALS: BMI 38.7
[2022-12-06] VITALS (8 sets, daily range): BP systolic 105–135; BP diastolic 58–89; PULSE 80–88; RESP 16–20; TEMP 36.2–36.9; O2SAT 95–100
--- NOTE | ~2022-12-06 | FL_ITS ---
EXAMINATION: XR FLUOROSCOPY WITH IMAGES CLINICAL INFORMATION: Orthopedic hardware removal left wrist. COMPARISON: Left wrist radiographs 12/01/2022 TECHNIQUE: Fluoroscopy Supervised By: Dr. Laverne Salgado. Fluoroscopy Time: 6 seconds. Cumulative Dose: 0.2026 mGy. DAP: 0.0122 Gycm2. Images: 4. FINDINGS: Distal radial hardware noted on prior study is no longer demonstrated. There are expected screw tracts in the distal radius. There are chronic posttraumatic changes similar to previous study. FL/FL guidance in OR IMPRESSION: Fluoroscopy for orthopedic procedure.
--- NOTE | 2022-12-06 08:43 | P.CONAN_ITS ---
[facility] Active Problems Active Problems: All Active Problems (Updated 11/01/22 @ 12:05 by José Miguel Lopez MD) Chronic pain syndrome (Acute) Postlaminectomy syndrome (Acute) Breast cancer screening by mammogram (Acute) Colon cancer screening (Acute) Tinea corporis (Acute) Bipolar disorder (Acute) Tardive dyskinesia (Acute) Hepatitis C (Acute) Hepatitis B (Acute) Obesity (BMI 30-39.9) (Acute) Lumbar radiculopathy (Acute) Osteoarthritis of right knee (Acute) Closed nondisplaced fracture of ulnar styloid with delayed healing (Acute) Asthma (Acute) S/P arthroscopy of right shoulder (Acute) S/P arthroscopy of left shoulder (Acute) Hx of arthroscopy of right knee (Acute) History of back surgery (Acute) H/O tubal ligation (Acute) Past Medical History Medical History Chronic pain Fracture of distal end of left radius with routine healing Hypothyroidism Stiffness of left hand joint Stiffness of left wrist joint Family History Family History Sister Thyroid cancer Maternal Grandmother Colon cancer Son Substance abuse Depression Surgical History Surgical History H/O tubal ligation History of back surgery History of surgery on wrist Hx of arthroscopy of right knee Hx of hysterectomy S/P arthroscopy of left shoulder S/P arthroscopy of right shoulder S/P tonsillectomy Social History Social History Housing: House Alcohol intake: former Patient Tobacco Use Status: Never used Tobacco e-Cigarette/Vaping Use: Never Used Second Hand Smoke Exposure: No Use of substances other than those prescribed or required for medical reasons: No Are you DNR?: No Advance Directives: No Advance Directives Information Provided: Yes Advance Directives on File: No Current occupational status: disabled Cognitive needs: No Hearing needs: No Vision needs: Yes Meds Allergies Allergy/AdvReac Type Severity Reaction Status Date / Time aspirin [ASA] Allergy Mild BRUISE, Verified 12/01/22 09:49 bruising hydrocodone [From VICODIN] Allergy Mild ITCH/BRUISE Verified 12/01/22 09:49 ibuprofen [From MOTRIN] Allergy Mild BRUISE Verified 12/01/22 09:49 trazodone [TRAZODONE] Allergy Mild RESTLESS Verified 12/01/22 09:49 quetiapine [From SEROQUEL] AdvReac Mild RESTLESS Verified 12/01/22 09:49 Active Medications: Current Medications Lactated Ringer's (Lr) 1,000 mls @ 80 mls/hr IVCONT .[id number] [facility] Home Medications Medication Instructions Recorded Confirmed Last Taken Type acetaminophen 500 mg tablet 500 mg PO Q6H PRN 11/01/22 Unknown History (Tylenol Extra Strength) Exam Exam Date and Time: December 06, 2022 0843 Height,Weight and Vital Signs: Height 5 ft 2 in Weight 96.162 kg Last Vital Signs Temp 98.4 F 12/06/22 08:06 Pulse 87 12/06/22 08:06 Resp 18 12/06/22 08:06 BP 135/89 12/06/22 08:06 Pulse Ox 95 12/06/22 08:06 O2 Del Method 12/06/22 08:06 Airway Mallampati Class: II TM Dist: >3cm Neck ROM: Full Denture: Upper and Lower Assessment and Plan Final Anesthetic Review ASA Class: III Final Preanesthetic Review: No Changes in Pt Med Stat, Meds/Allgs Chart Reviewed, Consent Obtained/Reviewed and Anes Risks/Benef Reviewed Patient Risk: Intermediate Procedure Risk: Intermediate Anesthetic Plan Anesthetic Plan: GA and Regional Block Disposition: Standard PACU
--- NOTE | 2022-12-06 08:59 | MHC.SHP ---
Pre-Procedural Eval Section A Date of Service: 12/06/22 The patient is an INPATIENT: No Changes since office visit: No Cold of Flu in the past 2 weeks, No New Medical Problems, No Changes in Medication and No Patient answered all questions The History & Physical has been completed within 30 days and I have reviewed it.: Yes Section B Chief Complaint: Nondisplaced fracture of unspecified ulna styloid Allergies: Allergies Allergy/AdvReac Type Severity Reaction Status Date / Time aspirin [ASA] Allergy Mild BRUISE, Verified 12/01/22 09:49 bruising hydrocodone [From VICODIN] Allergy Mild ITCH/BRUISE Verified 12/01/22 09:49 ibuprofen [From MOTRIN] Allergy Mild BRUISE Verified 12/01/22 09:49 trazodone [TRAZODONE] Allergy Mild RESTLESS Verified 12/01/22 09:49 quetiapine [From SEROQUEL] AdvReac Mild RESTLESS Verified 12/01/22 09:49 Plan I have reviewed the history and physical and performed a pertinent physical examination on my patient. No changes have occurred unless specified. Time Spent With Patient Time: Total time managing care of this patient today ____ minutes.
--- NOTE | 2022-12-06 09:11 | W.PM.OPN ---
Operative Note Operative Note Date of Service: 12/06/22 Narrative: Operative Note Narrative: Preop diagnosis: 1. left distal radius symptomatic retained implants Postop diagnosis: Same Procedure: 1. Left distal radius removal of implants x9 Surgeon: Laverne Salgado MD Anesthesia: General Anesthesia plus regional block Findings: volar locking plate and screws, with several screws penetrating into the radiocarpal joint Implants: implants removed: A [place] distal radius volar locking plate and 9 screws Tourniquet time: 53 minutes EBL: 5.0 ml Specimen: none Drains: None Complications: None Disposition: Brought to the recovery room in stable condition Plan: Follow-up in 10-14 days for wound check, suture removal and pre clinic radiographs. I counseled the patient about avoiding heavy activities or activities prone to falling, as there is an increased risk of fracture through the screw holes for the next several weeks. Place in of volar locking splint to be used with daytime activities until 4 weeks postop, and for an additional 4 weeks in snowy or icy conditions Begin gentle wrist range of motion exercises, may need OT referral to begin at 4 weeks postop Indications: The patient is a 62 year old woman with a retained left distal radius volar locking plate and screws with several screws penetrating the radiocarpal joint. . The risks and benefits of operative treatment, including but not limited to risk of damage to blood vessels, nerves, tendons, infection, recurrence, persistent pain or numbness, incomplete resolution of preoperative symptoms, or need for further surgery were discussed with the patient and they wished to proceed with surgery. Procedure: Once consent was obtained patient was brought back to the operating suite and placed in the operating table in a supine position. A regional block was performed by the anesthesia team. Perioperative antibiotics and anesthesia was administered by the anesthesia team. A tourniquet was applied to the proximal aspect of the left upper extremity and the limb was prepped and draped in a standard surgical fashion. The limb was elevated exsanguinated with Esmarch bandage and the tourniquet inflated to 250 mm of mercury for a total tourniquet time of 53 minutes. a 7 cm longitudinal incision was made in line with the previous surgical scar over the volar aspect of her left wrist. Was done using a 15. Blade through the skin to the subcutaneous tissues. We then opened up the tendon sheath over the FCR tendon and then opened up the floor of the FCR tendon sheath using tenotomy scissors under direct visualization. The tendons and muscle bellies were retracted ulnarly. We were able to dissect down to the level of the volar locking plate on the volar surface of the distal radius. The scar tissue was dissected free from the volar locking plate and screws using a 15. Blade. I then removed 9 screws from the [place] volar locking plate and screws , and the screws were placed on the back table. I was then able to use a [place] elevator to dissect around the edge of the plate and then elevate the plate off of the volar surface of the distal radius. This was also placed on the back table. I then used a rongeur were to smooth the protruding bone in the area where the screws had been present. I also removed the cicatrix from the screw holes using a rongeur and then using a curette in each of the screw holes to facilitate bony healing through the screw holes. Was very satisfied with the removal of these implants. Fluoroscopic images were then taken. I also performed some gentle range of motion at the wrist joint in took fluoroscopic images in flexion and extension. At this point the tourniquet was deflated and hemostasis obtained with a brief period of local pressure and bipolar electrocautery. The wound was copiously irrigated with normal saline. The subcutaneous layer was closed with 4-0 Vicryl suture, and the skin edges were reapproximated with 5-0 nylon suture. The wound was infiltrated with some 0.5% plain ropivacainefor postop pain control and a sterile dressing and volar splint was applied. The patient appears to have tolerated the procedure well and with no complications. All digits were well vascularized conclusion of the case.
[2022-12-06] MEDS: ondansetron HCL 4 MG/2 ML VIAL IVPUSH (11:12)
== END 2022-12-06 12:11 ==
LOC: HO.SSS 07:13
PROVIDERS: PCP Internal Medicine; Visit Provider Orthopaedic Surgery
PROC: (CPT 20680; principal; 2022-12-06 08:50)
DX: T84.84XA Pain due to internal orthopedic prosthetic devices, implants and grafts, initial encounter (principal); G89.28 Other chronic postprocedural pain; M25.632 Stiffness of left wrist, not elsewhere classified; M25.532 Pain in left wrist; Y79.3 Surgical instruments, materials and orthopedic devices (including sutures) associated with adverse incidents; Y92.9 Unspecified place or not applicable; Z88.8 Allergy status to other drugs, medicaments and biological substances
CPT/HCPCS: 20680; J0690; J1100; J2250; J2370; J2405; J2795; J3010

== ENCOUNTER 2022-12-13 09:03 | Outpatient (REF) | payer OTHER, SELFPAY ==
--- NOTE | ~2022-12-13 | XR_ITS ---
EXAMINATION: XR WRIST, LEFT CLINICAL INFORMATION: Pain left wrist. COMPARISON: Left wrist 12/01/2022 TECHNIQUE: PA, lateral, and oblique views of the left wrist. FINDINGS: The dorsal plate and screws have been removed. The left distal fracture has healed. There is an old ulnar styloid process fracture, unchanged. There is mild left distal forearm and wrist soft tissue swelling. Mild osteopenia. Soft tissues are normal XR/XR wrist LT min 3V IMPRESSION: 1. Mild left distal forearm and wrist soft tissue swelling. 2. The dorsal plate and screws have been removed from the distal radius. There is no acute fracture or dislocation. No change in old ulnar styloid process fracture.
== END 2022-12-13 09:04 | disposition home or self-care (01) ==
LOC: HO.HOSX 09:03
PROVIDERS: Visit Provider Physician Assistant
DX: S52.615G Nondisplaced fracture of left ulna styloid process, subsequent encounter for closed fracture with delayed healing (principal); Z98.890 Other specified postprocedural states
CPT/HCPCS: 73110

== ENCOUNTER 2022-12-21 10:01 | Outpatient (REF) | payer OTHER, SELFPAY ==
--- NOTE | ~2022-12-21 | XR_ITS ---
EXAMINATION: XR WRIST, LEFT CLINICAL INFORMATION: Left wrist pain. COMPARISON: Left wrist radiographs dated 12/13/2022. TECHNIQUE: PA, lateral, and oblique views of the left wrist. FINDINGS: Postsurgical change within the distal radius consistent with multiple screw tracks and prior orthopedic hardware. Healed distal radial fracture in unchanged anatomic alignment. Chronic ulnar styloid fracture, unchanged. No acute fracture or dislocation. Radiocarpal joint space narrowing with marginal osteophytes. There is redemonstration of a chronic scaphoid fracture in unchanged anatomic alignment. Mild anterior and proximal migration of the distal fracture fragment associated with the radiocarpal osteoarthritis. 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 Joint space narrowing with marginal osteophytes at the triscaphe and 1st carpometacarpal joints. No new osseous erosion. No abnormal soft tissue calcification. XR/XR wrist LT min 3V IMPRESSION: 1. Chronic scaphoid fracture in unchanged anatomic alignment with mild anterior and proximal migration of the distal fracture fragment associated with the radiocarpal osteoarthritis. 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 2. Healed distal radial fracture in unchanged anatomic alignment. Chronic ulnar styloid fracture, unchanged. 3. [id number] radiocarpal, triscaphe, and first carpometacarpal joint osteoarthritis, unchanged.
== END 2022-12-21 10:02 | disposition home or self-care (01) ==
LOC: HO.HOSX 10:01
PROVIDERS: Visit Provider Orthopaedic Surgery
DX: S52.615G Nondisplaced fracture of left ulna styloid process, subsequent encounter for closed fracture with delayed healing (principal); Z98.890 Other specified postprocedural states
CPT/HCPCS: 73110

== ENCOUNTER 2023-01-19 09:58 | Outpatient (REF) | payer OTHER, SELFPAY | END 2023-01-19 09:59 | disposition home or self-care (01) | LOC: HO.HOSX 09:58 | PROVIDERS: Visit Provider Orthopaedic Surgery | DX: Z13.89 Encounter for screening for other disorder (principal) ==

== ENCOUNTER 2023-03-09 15:13 | Outpatient (REF) | payer OTHER, SELFPAY ==
--- NOTE | ~2023-03-09 | XR_ITS ---
EXAMINATION: XR FOOT, LEFT CLINICAL INFORMATION: Injury COMPARISON: None available. TECHNIQUE: AP, lateral, and oblique views of the left foot. FINDINGS: Bone alignment is normal. No fracture or dislocation. There are degenerative changes at the midfoot greatest at the talonavicular and naviculocuneiform joints and fifth MTT joint. Joint spaces are otherwise normal. There are are calcaneal spurs. Soft tissues are otherwise normal. XR/XR foot LT min 3V IMPRESSION: No fracture or dislocation. Arthritis of the midfoot. Calcaneal spurs.
== END 2023-03-09 15:14 | disposition home or self-care (01) ==
LOC: HO.HMGCLDS 15:13
PROVIDERS: PCP Internal Medicine; Visit Provider Emergency Medicine
DX: S99.922A Unspecified injury of left foot, initial encounter (principal); X58.XXXA Exposure to other specified factors, initial encounter; Y93.9 Activity, unspecified; Y92.9 Unspecified place or not applicable; Y99.9 Unspecified external cause status
CPT/HCPCS: 73630

== ENCOUNTER 2023-04-14 11:54 | Emergency (ER) | payer OTHER, SELFPAY ==
--- NOTE | ~2023-04-14 | CT_ITS ---
EXAMINATION: CT ABDOMEN AND PELVIS WITHOUT CONTRAST CLINICAL INFORMATION: Diffuse abdominal pain and diarrhea for 2 weeks COMPARISON: None available. TECHNIQUE: Multidetector volumetric imaging was performed from the superior aspect of the liver through the pubic symphysis. Sagittal and coronal reformatted images were obtained on the technologist's workstation. This CT examination was performed using dose optimization techniques as appropriate, variously including the following: *Automated exposure control *Adjustment of mA and/or kV according to patient size (this includes techniques or standardized protocols for targeted exams where dose is matched to indication/reason for exam; i.e. extremities or head) *Use of iterative reconstruction technique DLP: 953 mGy-cm FINDINGS: LUNG BASES: No confluent parenchymal disease identified. No pleural effusion. No pericardial effusion. LIVER, GALLBLADDER, AND BILIARY TREE: There is hepatomegaly with diffuse fatty infiltration of the liver. No focal mass or intrahepatic bile duct dilatation identified. The gallbladder is unremarkable with no evidence of radiopaque gallstones, gallbladder wall thickening, or obvious pericholecystic inflammatory changes. PANCREAS: Unremarkable. No abnormal mass or peripancreatic inflammatory change. SPLEEN: Unremarkable. Small splenial vs 1.2 cm lymph node present. ADRENAL GLANDS: Left renal gland appears unremarkable. The right adrenal gland contains a 1.3 cm in diameter nodule with Hounsfield unit measurements of 27 Hounsfield units which is not a lipid rich nodule. KIDNEYS AND URETERS: The right kidney is normal in size, shape, and attenuation. No hydronephrosis, hydroureter, or calculi seen. No perinephric stranding. The left kidney contains an approximately 6.3 x 4.8 cm simple appearing cyst. No hydronephrosis identified. No renal calculi. No cortical thinning. Ureter appears unremarkable. BLADDER: Decompressed but visualized portions unremarkable. GASTROINTESTINAL TRACT: No dilated loops of large or small bowel are evident. No free air or free fluid is seen. No pericolonic inflammatory changes seen. There is question of possible apple core lesion with some wall thickening seen at the splenic flexure. Question adjacent splenial or lymph node to this region of bowel. Above finding could be related to colonic peristalsis. The appendix is not visualized. ABDOMINAL WALL: No significant hernia is appreciated. LYMPH NODES: No lymphadenopathy identified. VASCULAR: Unremarkable. PELVIC VISCERA: Unremarkable. OSSEOUS STRUCTURES: No suspicious destructive bony lesion identified. There is multilevel degenerative disc disease present. Disc spaces seen in place at the L5-S1 level. CT/CT abdomen pelvis wo IV con IMPRESSION: Septation of the liver with hepatomegaly. 1.3 cm right adrenal gland nodule which is not lipid rich and for which one-year follow-up study is recommended. Question focal region of colonic bowel wall thickening with possible apple core type lesion within the splenic flexure which further evaluation with colonoscopy, barium enema, or CT colonography could be performed. Fleischner guidelines were followed.
[2023-04-14 12:03] VITALS: BP 136/110; PULSE 74; RESP 18; TEMP 36.8; O2SAT 100; BMI 35.1
--- NOTE | 2023-04-14 12:09 | ED_ITS ---
HPI - Abdominal Pain General Chief Complaint: Abdominal Pain Stated Complaint: abd pain Time Seen by Provider: 04/14/23 13:43 Related Data Home Medications Medication Instructions Recorded Confirmed acetaminophen 500 mg tablet 500 mg PO Q6H PRN 11/01/22 (Tylenol Extra Strength) Previous Rx's Medication Instructions Recorded albuterol sulfate 90 mcg/actuation 2 puff inhalation Q4H PRN 10/15/22 aerosol inhaler (ProAir HFA) shortness of breath or wheezing #8.5 grams cyclobenzaprine 5 mg tablet 5 mg PO TID PRN muscle spasm #90 10/15/22 tabs lidocaine 5 % topical patch 1 patch topical DAILY #15 ea 10/15/22 nystatin 100,000 unit/gram topical 1 appl topical TID #3 tubes 10/15/22 cream nystatin 100,000 unit/gram topical 1 appl topical TID #60 grams 10/15/22 powder oxycodone-acetaminophen 5 mg-325 1 tab PO Q8H PRN pain 7 days #21 12/13/22 mg tablet tabs cetirizine 10 mg capsule (Zyrtec) 10 mg PO DAILY #30 caps 03/09/23 Allergies Allergy/AdvReac Type Severity Reaction Status Date / Time aspirin [ASA] Allergy Mild BRUISE, Verified 03/09/23 15:02 bruising hydrocodone [From VICODIN] Allergy Mild ITCH/BRUISE Verified 03/09/23 15:02 ibuprofen [From MOTRIN] Allergy Mild BRUISE Verified 03/09/23 15:02 trazodone [TRAZODONE] Allergy Mild RESTLESS Verified 03/09/23 15:02 quetiapine [From SEROQUEL] AdvReac Mild RESTLESS Verified 03/09/23 15:02 [facility] Past Medical History Medical History Chronic pain Fracture of distal end of left radius with routine healing Hypothyroidism Stiffness of left hand joint Stiffness of left wrist joint Surgical History H/O tubal ligation History of back surgery History of surgery on wrist Hx of arthroscopy of right knee Hx of hysterectomy S/P arthroscopy of left shoulder S/P arthroscopy of right shoulder S/P tonsillectomy Family History Family History Sister Thyroid cancer Maternal Grandmother Colon cancer Son Substance abuse Depression Social History Social History Housing: House Alcohol intake: former Patient Tobacco Use Status: Never used Tobacco e-Cigarette/Vaping Use: Never Used Second Hand Smoke Exposure: No Advance Directives: No Current occupational status: disabled Cognitive needs: No Hearing needs: No Vision needs: Yes Physical Exam ED Vital Signs: Vital Signs - 24 hr 04/14/23 12:03 Temperature 98.3 F Pulse Rate 74 Respiratory Rate 18 Blood Pressure 136/110 H Pulse Oximetry 100 Oxygen Delivery Method Room Air BMI result Body Mass Index 35.1 Course Course Course Narrative: This is an RME: Additional HPI, ROS, PE not included below will be deferred to primary provider. 62-year-old female presents the emergency department for evaluation of diarrhea for the past week and a half, was advised to come in by her primary care provider. Diarrhea is brown, completely liquid, without blood. She reports that this morning she did note that there is some mucus in the diarrhea. She has not been on antibiotics slightly. The area is foul-smelling per patient. Abdominal cramping however no significant pain. No one sick at home. Denies fevers and chills, nausea, vomiting, chest pain, shortness of breath. Eating and drinking well. Physical exam benign plan basic labs, GI panel Medical Decision Making Lab Data 04/14/23 12:23 04/14/23 12:23 Labs: Lab Results 04/14/23 04/14/23 04/14/23 Range/Units 12:23 12:23 12:23 WBC 4.1 L (4.8-10.8) X10*3/uL RBC 4.92 (4.20-5.50) X10*6/uL Hgb 14.8 (12.0-16.0) g/dl Hct 44.5 (37.0-47.0) % MCV 90.4 (80.0-98.0) fL MCH 30.1 (27.0-33.0) pg MCHC 33.3 (31.0-35.0) g/dl RDW 13.5 (11.0-16.0) % Plt Count 305 (160-400) X10*3/uL MPV 9.5 (9.4-12.3) fL Immature Gran % (Auto) 0.5 H (0.0-0.4) % Neut % (Auto) 56.0 (45-73) % Lymph % (Auto) 28.3 (20-40) % [place] % (Auto) 12.8 H (2-11) % Eos % (Auto) 1.9 (0-4) % Baso % (Auto) 0.5 (0-2) % Lymph # (Auto) 1.2 (1.2-4.9) X10*3/uL [place] # (Auto) 0.5 (0.1-1.2) X10*3/uL Eos # (Auto) 0.1 (0.0-0.4) X10*3/uL Baso # (Auto) 0.0 (0.0-0.2) X10*3/uL Abs Immat Gran (auto) 0.02 (0.00-0.03) X10*3/uL Absolute Neuts (auto) 2.3 (2.0-8.3) x10*3/uL Absolute Nucleated RBC 0.000 (0.0-0.012) X10*3/uL Nucleated RBC % (auto) 0.0 (0.0-0.2) /100WBC Sodium 144 (135-145) mmol/L Potassium 4.6 (3.3-5.1) mmol/L Chloride 114 H (96-108) mmol/L Carbon Dioxide 24 (22-29) mmol/L Anion Gap 11 L (12-20) BUN 14 (9-16) mg/dL Creatinine 0.84 (0.5-1.4) mg/dL Estim Creat Clear Calc 79.4 Estimated GFR > 60 Random Glucose 101 (60-115) mg/dL Calcium 8.7 (8.4-10.2) mg/dL Magnesium 2.1 (1.6-2.6) mg/dL Total Bilirubin 0.5 (0.0-1.0) mg/dL AST 26 (5-31) U/L ALT 20 (0-31) U/L Alkaline Phosphatase 122 H (39-117) U/L Total Protein 6.7 (6.5-8.0) g/dL Albumin 3.7 (3.5-5.0) g/dL Lipase 21 (8-78) U/L Urine Color Urine Appearance Urine pH (5.0-9.0) Ur Specific [place] (1.005-1.025) Urine Protein (Neg-Trace) mg/dL Urine Glucose (UA) (Negative) mg/dL Urine Ketones (Negative) mg/dL Urine Blood (Negative) Urine Nitrite (Negative) Ur Leukocyte Esterase (Negative) Urine RBC (0-2) /HPF Urine WBC (0-5) /HPF Ur Squamous Epith Cells (0-2) /HPF Urine Bacteria (None Seen) Hyaline Casts (0-2) /LPF COVID-19 (OTTONIEL) Negative (Negative) COVID-19 Clin Com See Note 04/14/23 Range/Units 12:38 WBC (4.8-10.8) X10*3/uL RBC (4.20-5.50) X10*6/uL Hgb (12.0-16.0) g/dl Hct (37.0-47.0) % MCV (80.0-98.0) fL MCH (27.0-33.0) pg MCHC (31.0-35.0) g/dl RDW (11.0-16.0) % Plt Count (160-400) X10*3/uL MPV (9.4-12.3) fL Immature Gran % (Auto) (0.0-0.4) % Neut % (Auto) (45-73) % Lymph % (Auto) (20-40) % [place] % (Auto) (2-11) % Eos % (Auto) (0-4) % Baso % (Auto) (0-2) % Lymph # (Auto) (1.2-4.9) X10*3/uL [place] # (Auto) (0.1-1.2) X10*3/uL Eos # (Auto) (0.0-0.4) X10*3/uL Baso # (Auto) (0.0-0.2) X10*3/uL Abs Immat Gran (auto) (0.00-0.03) X10*3/uL Absolute Neuts (auto) (2.0-8.3) x10*3/uL Absolute Nucleated RBC (0.0-0.012) X10*3/uL Nucleated RBC % (auto) (0.0-0.2) /100WBC Sodium (135-145) mmol/L Potassium (3.3-5.1) mmol/L Chloride (96-108) mmol/L Carbon Dioxide (22-29) mmol/L Anion Gap (12-20) BUN (9-16) mg/dL Creatinine (0.5-1.4) mg/dL Estim Creat Clear Calc Estimated GFR Random Glucose (60-115) mg/dL Calcium (8.4-10.2) mg/dL Magnesium (1.6-2.6) mg/dL Total Bilirubin (0.0-1.0) mg/dL AST (5-31) U/L ALT (0-31) U/L Alkaline Phosphatase (39-117) U/L Total Protein (6.5-8.0) g/dL Albumin (3.5-5.0) g/dL Lipase (8-78) U/L Urine Color Dark Yellow Urine Appearance Clear Urine pH 5.5 (5.0-9.0) Ur Specific [place] >= 1.030 H (1.005-1.025) Urine Protein Trace (Neg-Trace) mg/dL Urine Glucose (UA) Negative (Negative) mg/dL Urine Ketones Trace (Negative) mg/dL Urine Blood Negative (Negative) Urine Nitrite Negative (Negative) Ur Leukocyte Esterase Small (1+) H (Negative) Urine RBC 0-2 (0-2) /HPF Urine WBC 6-10 H (0-5) /HPF Ur Squamous Epith Cells 6-10 (0-2) /HPF Urine Bacteria None Seen (None Seen) Hyaline Casts 0-2 (0-2) /LPF COVID-19 (OTTONIEL) (Negative) COVID-19 Clin Com Discharge Plan Discharge Prescriptions: No Action albuterol sulfate [ProAir HFA] 90 mcg/actuation HFA aerosol inhaler 2 puff inhalation Q4H PRN (Reason: shortness of breath or wheezing) Qty: 8.5 0RF nystatin 100,000 unit/gram cream 1 appl topical TID Qty: 3 3RF nystatin 100,000 unit/gram powder 1 appl topical TID Qty: 60 2RF lidocaine 5 % adhesive patch,medicated 1 patch topical DAILY Qty: 15 3RF Rx Instructions: leave on most painful area for up to 12 hrs cyclobenzaprine 5 mg tablet 5 mg PO TID PRN (Reason: muscle spasm) Qty: 90 1RF Zyrtec 10 mg capsule 10 mg PO DAILY Qty: 30 0RF acetaminophen [Tylenol Extra Strength] 500 mg tablet 500 mg PO Q6H PRN oxycodone-acetaminophen 5-325 mg tablet 1 tab PO Q8H PRN (Reason: pain) 7 Days Qty: 21 0RF Rx Instructions: Partial Fill upon patient request.
[2023-04-14 12:28] LABS: MANUAL DIFF FLAG NO
[2023-04-14 12:30] LABS: Basophils Percent Auto 0.5 % (0-2); Eosinophils Absolute Auto 0.1 X10*3/uL (0.0-0.4); Eosinophils Percent Auto 1.9 % (0-4); Hematocrit 44.5 % (37.0-47.0); Hemoglobin 14.8 g/dl (12.0-16.0); Imm Gran Abs Auto 0.02 X10*3/uL (0.00-0.03); Imm Gran Pct Auto 0.5 % (0.0-0.4); Lymphocytes Absolute Auto 1.2 X10*3/uL (1.2-4.9); Lymphocytes Percent Auto 28.3 % (20-40); Mean Corpuscular HGB Conc 33.3 g/dl (31.0-35.0); Mean Corpuscular Hemoglobin 30.1 pg (27.0-33.0); Mean Corpuscular Volume 90.4 fL (80.0-98.0); Mean Platelet Volume 9.5 fL (9.4-12.3); Monocytes Absolute Auto 0.5 X10*3/uL (0.1-1.2); Monocytes Percent Auto 12.8 % (2-11); Neutrophils Absolute Auto 2.3 x10*3/uL (2.0-8.3); Platelet Count 305 X10*3/uL (160-400); Red Blood Count 4.92 X10*6/uL (4.20-5.50); Red Cell Distribution Width 13.5 % (11.0-16.0); White Blood Count 4.1 X10*3/uL (4.8-10.8)
[2023-04-14 12:45] LABS: Appearance Urine Clear; Color Urine Dark Yellow; Glucose Urine UA Negative (Negative); Leukocyte Esterase Urine Small (1+) (Negative); Nitrite Urine Negative (Negative); PH 5.5 (5.0-9.0); Specific Gravity - Urine >= 1.030 (1.005-1.025); UMIC TRIGGER UACC YES; Urine Blood Negative (Negative); Urine Ketones Trace mg/dL (Negative); Urine Protein Trace mg/dL (Neg-Trace)
[2023-04-14 12:48] LABS: Bacteria Urine None Seen (None Seen); Hyaline Casts Urine 0-2 /LPF (0-2); RBC Urine 0-2 /HPF (0-2); UACC Culture Trigger YES
[2023-04-14 12:59] LABS: Alanine Aminotransferase 20 U/L (0-31); Albumin Level 3.7 g/dL (3.5-5.0); Alkaline Phosphatase 122 U/L (39-117); Anion Gap 11 (12-20); Aspartate Amino Transferase 26 U/L (5-31); Bilirubin Total 0.5 mg/dL (0.0-1.0); Blood Urea Nitrogen 14 mg/dL (9-16); Calcium 8.7 mg/dL (8.4-10.2); Carbon Dioxide 24 mmol/L (22-29); Chloride 114 mmol/L (96-108); Creatinine Clr Calc Pharmacy 79.4; Estimated Glomerular Filt Rate > 60; Glucose Random 101 mg/dL (60-115); Lipase 21 U/L (8-78); Magnesium 2.1 mg/dL (1.6-2.6); Potassium 4.6 mmol/L (3.3-5.1); Sodium 144 mmol/L (135-145); Total Protein 6.7 g/dL (6.5-8.0)
[2023-04-14 13:06] LABS: COVID-19 Test Negative (Negative); IDNOW Serial# BCCEAD1C
--- NOTE | 2023-04-14 13:57 | ED.GENADULT ---
HPI - General Adult General Chief complaint: Abdominal Pain Stated complaint: abd pain Time Seen by Provider: 04/14/23 13:43 Source: patient Mode of arrival: ambulatory Limitations: no limitations History of Present Illness HPI narrative: 62-year-old female came in for evaluation of 2 weeks of generalized abdominal pain with nonbloody watery diarrhea, patient declined any recent use of antibiotics, no recent travel, no history of eating a suspicious bad food. Patient declined any blood in the diarrhea, while patient in the emergency department unable to give stool sample for further evaluation. Related Data Home Medications Medication Instructions Recorded Confirmed acetaminophen 500 mg tablet 500 mg PO Q6H PRN 11/01/22 (Tylenol Extra Strength) Previous Rx's Medication Instructions Recorded albuterol sulfate 90 mcg/actuation 2 puff inhalation Q4H PRN 10/15/22 aerosol inhaler (ProAir HFA) shortness of breath or wheezing #8.5 grams cyclobenzaprine 5 mg tablet 5 mg PO TID PRN muscle spasm #90 10/15/22 tabs lidocaine 5 % topical patch 1 patch topical DAILY #15 ea 10/15/22 nystatin 100,000 unit/gram topical 1 appl topical TID #3 tubes 10/15/22 cream nystatin 100,000 unit/gram topical 1 appl topical TID #60 grams 10/15/22 powder oxycodone-acetaminophen 5 mg-325 1 tab PO Q8H PRN pain 7 days #21 12/13/22 mg tablet tabs cetirizine 10 mg capsule (Zyrtec) 10 mg PO DAILY #30 caps 03/09/23 Allergies Allergy/AdvReac Type Severity Reaction Status Date / Time aspirin [ASA] Allergy Mild BRUISE, Verified 03/09/23 15:02 bruising hydrocodone [From VICODIN] Allergy Mild ITCH/BRUISE Verified 03/09/23 15:02 ibuprofen [From MOTRIN] Allergy Mild BRUISE Verified 03/09/23 15:02 trazodone [TRAZODONE] Allergy Mild RESTLESS Verified 03/09/23 15:02 quetiapine [From SEROQUEL] AdvReac Mild RESTLESS Verified 03/09/23 15:02 Review of Systems Review of Systems: All other systems are reviewed and are negative Constitutional: Reports as per HPI and Reports no additional constitutional complaints Eyes: Reports as per HPI and Reports no additional eye complaints Reports system reviewed and no additional complaints, except as documented Cardiovascular: Reports as per HPI and Reports no additional cardiovascular complaints Respiratory: Reports as per HPI and Reports no additional respiratory complaints Gastrointestinal: Reports as per HPI and Reports no additional gastrointestinal complaints Genitourinary: Reports no additional female genitourinary complaints Musculoskeletal: Reports no additional musculoskeletal complaints Skin/Breast: Reports system reviewed and no additional complaints, except as docu Psychiatric: Reports no additional psychiatric complaints Endocrine: Reports no additional endocrine complaints Hematologic/Lymphatic: Reports no additional hematologic/lymphatic complaints Allergic/Immunologic: Reports no additional allergic/immunologic complaints Reports system reviewed and no additional complaints, except as documented and Reports Abnormal speech present [facility] Past Medical History Medical History Chronic pain Fracture of distal end of left radius with routine healing Hypothyroidism Stiffness of left hand joint Stiffness of left wrist joint Surgical History H/O tubal ligation History of back surgery History of surgery on wrist Hx of arthroscopy of right knee Hx of hysterectomy S/P arthroscopy of left shoulder S/P arthroscopy of right shoulder S/P tonsillectomy Family History Family History Sister Thyroid cancer Maternal Grandmother Colon cancer Son Substance abuse Depression Social History Social History Housing: House Alcohol intake: former Patient Tobacco Use Status: Never used Tobacco e-Cigarette/Vaping Use: Never Used Second Hand Smoke Exposure: No Advance Directives: No Current occupational status: disabled Cognitive needs: No Hearing needs: No Vision needs: Yes Physical Exam ED Vital Signs: Vital Signs - 24 hr 04/14/23 12:03 Temperature 98.3 F Pulse Rate 74 Respiratory Rate 18 Blood Pressure 136/110 H Pulse Oximetry 100 Oxygen Delivery Method Room Air BMI result Body Mass Index 35.1 Vital signs have been reviewed as appeared to be correct. Blood pressure normal. Heart rate normal. Respiration rate normal. Temperature normal. Oxygen saturation normal. Appearance: Alert. Oriented X3. No acute distress. Head: Normal external exam. Normocephalic. Atraumatic. No Byers signs noted. No raccoon eyes noted Eyes: PERRLA. EOMI. Conjunctiva and sclera normal. Eyelids normal. ENT: TM's Normal. Pharynx normal. Uvula midline. Moist mucous membranes. No trismus noted. No drooling noted. No muffled voice noted. Neck: Normal inspection. Neck supple. FROM. No adenopathy. Thyroid Normal. No meningeal signs. No neck mass noted. CVS: Normal heart rate and rhythm. Heart sound normal. No murmurs noted. Pulses normal throughout. Respiratory: No respiratory distress. Painless inspiration. Breath sounds normal. No wheezes/rales/rhonchi noted. Chest nontender. No accessory muscle usage noted or decreased air movement noted. Abdomen: Soft and nontender. Bowel sounds normal in all 4 quadrants. No distention noted. No organomegaly noted. No visible injury noted. Rectal exam: Empty vault, no fluctuation, no mass, no hemorrhoid. Back: No CVA tenderness. Full range of motion noted. Skin: Skin warm and dry. Normal skin color. Normal skin turgor. No rashes/lesions/lacerations noted. Extremities: No lower extremity edema. Extremities exhibit normal range of motion. Extremities nontender. Neuro: Oriented X 3. Cranial nerve exam: II-XII are grossly intact No motor deficit. No sensory deficit. Reflexes normal. Course Course Course Narrative: 62-year-old female came in with 2 weeks of abdominal pain and constant nonbloody watery diarrhea for the past 2 weeks, however patient unable to provide stool sample and the vault is empty from stool, patient at low risk for C diff no recent use of antibiotic, CT is concerning of colonic lesion, patient just missed her appointment for colonoscopy I explained to the patient the importance of getting colonoscopy to biopsy the lesion of concern on the CT scan patient fully understood my instruction and will call her PCP to schedule colonoscopy. Patient otherwise hemodynamically stable with unremarkable labs. Medical Decision Making Differential Diagnosis Differential Diagnoses: The differential diagnosis associated with the presentation includes (Abdominal pain, colitis, diverticulitis, GI bleed, C diff, electrolyte abnormalities, dehydration, severe anemia.) Admission/Observation Consideration of admission/observation: Escalation of care including admission/observation considered Lab Data MDM Lab Attestation statement: I reviewed the patient's lab results. 04/14/23 12:23 04/14/23 12:23 Labs: Lab Results 0504/14/23 04/14/23 Range/Units 12:23 12:23 12:23 WBC 4.1 L (4.8-10.8) X10*3/uL RBC 4.92 (4.20-5.50) X10*6/uL Hgb 14.8 (12.0-16.0) g/dl Hct 44.5 (37.0-47.0) % MCV 90.4 (80.0-98.0) fL MCH 30.1 (27.0-33.0) pg MCHC 33.3 (31.0-35.0) g/dl RDW 13.5 (11.0-16.0) % Plt Count 305 (160-400) X10*3/uL MPV 9.5 (9.4-12.3) fL Immature Gran % (Auto) 0.5 H (0.0-0.4) % Neut % (Auto) 56.0 (45-73) % Lymph % (Auto) 28.3 (20-40) % [place] % (Auto) 12.8 H (2-11) % Eos % (Auto) 1.9 (0-4) % Baso % (Auto) 0.5 (0-2) % Lymph # (Auto) 1.2 (1.2-4.9) X10*3/uL [place] # (Auto) 0.5 (0.1-1.2) X10*3/uL Eos # (Auto) 0.1 (0.0-0.4) X10*3/uL Baso # (Auto) 0.0 (0.0-0.2) X10*3/uL Abs Immat Gran (auto) 0.02 (0.00-0.03) X10*3/uL Absolute Neuts (auto) 2.3 (2.0-8.3) x10*3/uL Absolute Nucleated RBC 0.000 (0.0-0.012) X10*3/uL Nucleated RBC % (auto) 0.0 (0.0-0.2) /100WBC Sodium 144 (135-145) mmol/L Potassium 4.6 (3.3-5.1) mmol/L Chloride 114 H (96-108) mmol/L Carbon Dioxide 24 (22-29) mmol/L Anion Gap 11 L (12-20) BUN 14 (9-16) mg/dL Creatinine 0.84 (0.5-1.4) mg/dL Estim Creat Clear Calc 79.4 Estimated GFR > 60 Random Glucose 101 (60-115) mg/dL Calcium 8.7 (8.4-10.2) mg/dL Magnesium 2.1 (1.6-2.6) mg/dL Total Bilirubin 0.5 (0.0-1.0) mg/dL AST 26 (5-31) U/L ALT 20 (0-31) U/L Alkaline Phosphatase 122 H (39-117) U/L Total Protein 6.7 (6.5-8.0) g/dL Albumin 3.7 (3.5-5.0) g/dL Lipase 21 (8-78) U/L Urine Color Urine Appearance Urine pH (5.0-9.0) Ur Specific [place] (1.005-1.025) Urine Protein (Neg-Trace) mg/dL Urine Glucose (UA) (Negative) mg/dL Urine Ketones (Negative) mg/dL Urine Blood (Negative) Urine Nitrite (Negative) Ur Leukocyte Esterase (Negative) Urine RBC (0-2) /HPF Urine WBC (0-5) /HPF Ur Squamous Epith Cells (0-2) /HPF Urine Bacteria (None Seen) Hyaline Casts (0-2) /LPF COVID-19 ([facility]IEL) Negative (Negative) COVID-19 Clin Com See Note 04/14/23 Range/Units 12:38 WBC (4.8-10.8) X10*3/uL RBC (4.20-5.50) X10*6/uL Hgb (12.0-16.0) g/dl Hct (37.0-47.0) % MCV (80.0-98.0) fL MCH (27.0-33.0) pg MCHC (31.0-35.0) g/dl RDW (11.0-16.0) % Plt Count (160-400) X10*3/uL MPV (9.4-12.3) fL Immature Gran % (Auto) (0.0-0.4) % Neut % (Auto) (45-73) % Lymph % (Auto) (20-40) % [place] % (Auto) (2-11) % Eos % (Auto) (0-4) % Baso % (Auto) (0-2) % Lymph # (Auto) (1.2-4.9) X10*3/uL [place] # (Auto) (0.1-1.2) X10*3/uL Eos # (Auto) (0.0-0.4) X10*3/uL Baso # (Auto) (0.0-0.2) X10*3/uL Abs Immat Gran (auto) (0.00-0.03) X10*3/uL Absolute Neuts (auto) (2.0-8.3) x10*3/uL Absolute Nucleated RBC (0.0-0.012) X10*3/uL Nucleated RBC % (auto) (0.0-0.2) /100WBC Sodium (135-145) mmol/L Potassium (3.3-5.1) mmol/L Chloride (96-108) mmol/L Carbon Dioxide (22-29) mmol/L Anion Gap (12-20) BUN (9-16) mg/dL Creatinine (0.5-1.4) mg/dL Estim Creat Clear Calc Estimated GFR Random Glucose (60-115) mg/dL Calcium (8.4-10.2) mg/dL Magnesium (1.6-2.6) mg/dL Total Bilirubin (0.0-1.0) mg/dL AST (5-31) U/L ALT (0-31) U/L Alkaline Phosphatase (39-117) U/L Total Protein (6.5-8.0) g/dL Albumin (3.5-5.0) g/dL Lipase (8-78) U/L Urine Color Dark Yellow Urine Appearance Clear Urine pH 5.5 (5.0-9.0) Ur Specific [place] >= 1.030 H (1.005-1.025) Urine Protein Trace (Neg-Trace) mg/dL Urine Glucose (UA) Negative (Negative) mg/dL Urine Ketones Trace (Negative) mg/dL Urine Blood Negative (Negative) Urine Nitrite Negative (Negative) Ur Leukocyte Esterase Small (1+) H (Negative) Urine RBC 0-2 (0-2) /HPF Urine WBC 6-10 H (0-5) /HPF Ur Squamous Epith Cells 6-10 (0-2) /HPF Urine Bacteria None Seen (None Seen) Hyaline Casts 0-2 (0-2) /LPF COVID-19 (OTTONIEL) (Negative) COVID-19 Clin Com Independent Interpretation I performed an independent interpretation of an: CT Scan (Abdomen and pelvis: Focal colonic bowel wall thickening with possible apple-core type lesion within the splenic flexure.) Radiology Impression Discussion of test interpretation with radiology: I have reviewed the radiologist's reading. Discharge Plan Discharge Clinical Impression: Abdominal pain, Lesion of colon Patient Disposition: Home, Self-Care Instructions: Abdominal Pain (ED) Additional Instructions: Need to follow-up with your PCP and arrange for sooner in a copy as we discussed your CT scan is concern of cold region that need to be biopsied carlos manuel. Prescriptions: No Action albuterol sulfate [ProAir HFA] 90 mcg/actuation HFA aerosol inhaler 2 puff inhalation Q4H PRN (Reason: shortness of breath or wheezing) Qty: 8.5 0RF nystatin 100,000 unit/gram cream 1 appl topical TID Qty: 3 3RF nystatin 100,000 unit/gram powder 1 appl topical TID Qty: 60 2RF lidocaine 5 % adhesive patch,medicated 1 patch topical DAILY Qty: 15 3RF Rx Instructions: leave on most painful area for up to 12 hrs cyclobenzaprine 5 mg tablet 5 mg PO TID PRN (Reason: muscle spasm) Qty: 90 1RF Zyrtec 10 mg capsule 10 mg PO DAILY Qty: 30 0RF acetaminophen [Tylenol Extra Strength] 500 mg tablet 500 mg PO Q6H PRN oxycodone-acetaminophen 5-325 mg tablet 1 tab PO Q8H PRN (Reason: pain) 7 Days Qty: 21 0RF Rx Instructions: Partial Fill upon patient request. Referrals: Denise Redmond MD [Physician] - Po,Alan Andrade MD [Primary Care Provider] -
--- NOTE | 2023-04-14 15:59 | PC.NURSE ---
given food and drink per request. md mckay
== END 2023-04-14 17:56 | disposition home or self-care (01) ==
PROVIDERS: Physician Assistant; Emergency Provider Emergency Medicine; PCP Internal Medicine
DX: R10.9 Unspecified abdominal pain (principal); K63.9 Disease of intestine, unspecified; R19.7 Diarrhea, unspecified; Z20.822 Contact with and (suspected) exposure to COVID-19
CPT/HCPCS: 74176; 80053; 81001; 83690; 83735; 85025; 87086; 87635; 99284

== ENCOUNTER 2023-05-18 10:58 | Emergency (ER) | payer OTHER, SELFPAY ==
--- NOTE | ~2023-05-18 | XR_ITS ---
EXAMINATION: XR FOOT, RIGHT CLINICAL INFORMATION: Pain, discolored toes COMPARISON: None available. TECHNIQUE: Right foot is imaged in 3 views. FINDINGS: There is a transverse fracture versus congenital bifid lateral sesamoid beneath the first metatarsal head. Recommend correlation with patient's symptoms and clinical exam. Otherwise, there is no acute or healing fracture, dislocation, or destructive process. No periostitis. No focal joint narrowing or erosive changes. There is bulky plantar and smaller posterior calcaneal spurs. Retrocalcaneal recess is preserved. There is dorsal spurring from the talonavicular region. XR/XR foot RT min 3V IMPRESSION: - Transverse fracture versus congenital bifid lateral sesamoid beneath first metatarsal head. Recommend correlation with patient's symptoms and clinical exam. - Otherwise, no acute or healing fracture, dislocation, or destructive process.
[2023-05-18 11:04] VITALS: BP 96/70; PULSE 72; RESP 18; TEMP 36.6; O2SAT 96; BMI 33.6
[2023-05-18 15:03] VITALS: BP 140/94; PULSE 74; RESP 18; O2SAT 96
--- NOTE | 2023-05-18 16:09 | ED_ITS ---
HPI - General Adult General Chief complaint: General Medical Stated complaint: Multiple Complaints Time Seen by Provider: 05/18/23 15:51 Source: patient Mode of arrival: ambulatory Limitations: no limitations History of Present Illness HPI narrative: 62 yo female with history of bipolar disorder, asthma, hepatitis C, substance abuse, chronic pain syndrome who presents to the ER for evaluation of cold/flu like symptoms that started yesterday, including chills, N/V, coughing, lightheadedness. She also reports acute on chronic pain in the right lateral foot & with bruising & a lump to the bottom foot that she noticed yesterday. She states no trauma to the right foot. She denies SOB, dyspnea, fever, and sick contacts. She reports cocaine use a few days ago, stating she relapsed after the passing of her family member. She states that she has been experiencing depression like symptoms since the passing of a close family member. She denies suicidal ideation or self harm. MD complaint: flu/covid symptoms, right foot pain Onset (ago): day(s) Location: lower extremity Radiation: non-radiation Severity: moderate Quality: aching Pain Consistency: constant Relieving factors: none Exacerbating factors: none Associated symptoms: denies other symptoms Treatments prior to arrival: none Related Data Home Medications Medication Instructions Recorded Confirmed acetaminophen 500 mg tablet 500 mg PO Q6H PRN 11/01/22 04/20/23 (Tylenol Extra Strength) Previous Rx's Medication Instructions Recorded albuterol sulfate 90 mcg/actuation 2 puff inhalation Q4H PRN 10/15/22 aerosol inhaler (ProAir HFA) shortness of breath or wheezing #8.5 grams cyclobenzaprine 5 mg tablet 5 mg PO TID PRN muscle spasm #90 10/15/22 tabs lidocaine 5 % topical patch 1 patch topical DAILY #15 ea 10/15/22 nystatin 100,000 unit/gram topical 1 appl topical TID #3 tubes 10/15/22 cream nystatin 100,000 unit/gram topical 1 appl topical TID #60 grams 10/15/22 powder cetirizine 10 mg capsule (Zyrtec) 10 mg PO DAILY #30 caps 03/09/23 naproxen 500 mg tablet 500 mg PO BID PRN pain #20 tabs 05/18/23 Allergies Allergy/AdvReac Type Severity Reaction Status Date / Time aspirin [ASA] Allergy Mild BRUISE, Verified 04/20/23 16:15 bruising hydrocodone [From VICODIN] Allergy Mild ITCH/BRUISE Verified 04/20/23 16:15 ibuprofen [From MOTRIN] Allergy Mild BRUISE Verified 04/20/23 16:15 trazodone [TRAZODONE] Allergy Mild RESTLESS Verified 04/20/23 16:15 quetiapine [From SEROQUEL] AdvReac Mild RESTLESS Verified 04/20/23 16:15 Review of Systems Review of Systems: Yes all other systems are reviewed and are negative [facility] Past Medical History Medical History (Updated 05/18/23 @ 18:52 by GENIE Goodwin) Abdominal pain Chronic pain Fracture of distal end of left radius with routine healing Hypothyroidism Lesion of colon Stiffness of left hand joint Stiffness of left wrist joint Surgical History H/O tubal ligation History of back surgery History of surgery on wrist Hx of arthroscopy of right knee Hx of hysterectomy S/P arthroscopy of left shoulder S/P arthroscopy of right shoulder S/P tonsillectomy Family History Family History Sister Thyroid cancer Maternal Grandmother Colon cancer Son Substance abuse Depression Social History Social History Housing: House Alcohol intake: former Patient Tobacco Use Status: Never used Tobacco e-Cigarette/Vaping Use: Never Used Second Hand Smoke Exposure: No Advance Directives: No Advance Directives Information Provided: No Current occupational status: disabled Cognitive needs: No Hearing needs: No Vision needs: Yes Physical Exam ED Vital Signs: Vital Signs - 24 hr 05/18/23 11:04 05/18/23 15:03 05/18/23 16:43 Temperature 97.8 F Pulse Rate 72 74 82 Respiratory Rate 18 18 16 Blood Pressure 96/70 140/94 H 112/55 L Pulse Oximetry 96 96 98 Oxygen Delivery Method Room Air Room Air BMI result Body Mass Index 33.6 Appearance: Alert. Oriented X3. No acute distress. Head: normocephalic, atraumatic. Eyes: Pupils equal, round and reactive to light. ENT: Pharynx normal. No tonsillar swelling or exudate. Mildly erythematour turbinates with clear dischrage Neck: Normal inspection. Neck supple. CVS: Normal heart rate and rhythm. Pulses normal. Respiratory: No respiratory distress. Breath sounds normal. Lungs clear to auscultation bilaterally Abdomen: Soft and nontender. +BS x4 Skin: Skin warm and dry. Normal skin color. Normal skin turgor. No rashes. Extremities: No lower extremity edema. No joint swelling. Large tender mass on the lateral aspect of the right bottom of the foot with callused skin overylying, second to the fourth digit of the dorsal right foot is tender to palpation with reddish dark discoloration. no tenderness of the 1st metatarsal. warm and well perfused, normal pulses Neuro/psych: Oriented X 3. No motor deficit. No sensory deficit. CN II-XII intact. Normal speech and cognition. Medical Decision Making Medical Decision Making [facility] Narrative: 62 yo female with history of bipolar disorder, asthma, hepatitis C, substance abuse, chronic pain syndrome who presents to the ER for evaluation of cold/flu like symptoms that started yesterday, including chills, N/V, coughing, lightheadedness. She also reports acute on chronic pain in the right foot with bruising & a lump to the foot that she noticed yesterday. Physical exam demonstrated a large tender boggy fluctuant mass on the lateral aspect of the right foot and discoloration and tenderness on the dorsal side of the right foot long the second though 4th digits. Longstanding history of arthritis in her feet and follows w/ podiatry. Xr reviewed - unlikely fx given exam of the 1st metatarsal without tenderness. Labs unremarkable, covid negative. chronic pain of the foot and will need to see podiatry. attempted to provide a walking boot but none available at s time. Differential Diagnosis Differential Diagnoses: The differential diagnosis associated with the presentation includes PVD, fracture, cellulitis, arthritis, plantar wart Lab Data [facility] Lab Attestation statement: I reviewed the patient's lab results. 05/18/23 16:48 05/18/23 16:48 Labs: Lab Results 05/18/23 05/18/23 05/18/23 Range/Units 15:53 16:44 16:48 WBC 6.1 (4.8-10.8) X10*3/uL RBC 4.68 (4.20-5.50) X10*6/uL Hgb 13.9 (12.0-16.0) g/dl Hct 42.8 (37.0-47.0) % MCV 91.5 (80.0-98.0) fL MCH 29.7 (27.0-33.0) pg MCHC 32.5 (31.0-35.0) g/dl RDW 13.4 (11.0-16.0) % Plt Count 317 (160-400) X10*3/uL MPV 8.6 L (9.4-12.3) fL Immature Gran % (Auto) 0.5 H (0.0-0.4) % Neut % (Auto) 65.1 (45-73) % Lymph % (Auto) 21.9 (20-40) % [place] % (Auto) 7.9 (2-11) % Eos % (Auto) 3.9 (0-4) % Baso % (Auto) 0.7 (0-2) % Lymph # (Auto) 1.3 (1.2-4.9) X10*3/uL [place] # (Auto) 0.5 (0.1-1.2) X10*3/uL Eos # (Auto) 0.2 (0.0-0.4) X10*3/uL Baso # (Auto) 0.0 (0.0-0.2) X10*3/uL Abs Immat Gran (auto) 0.03 (0.00-0.03) X10*3/uL Absolute Neuts (auto) 4.0 (2.0-8.3) x10*3/uL Absolute Nucleated RBC 0.000 (0.0-0.012) X10*3/uL Nucleated RBC % (auto) 0.0 (0.0-0.2) /100WBC Sodium (135-145) mmol/L Potassium (3.3-5.1) mmol/L Chloride (96-108) mmol/L Carbon Dioxide (22-29) mmol/L Anion Gap (12-20) BUN (9-16) mg/dL Creatinine (0.5-1.4) mg/dL Estim Creat Clear Calc Estimated GFR Random Glucose (60-115) mg/dL Calcium (8.4-10.2) mg/dL Magnesium (1.6-2.6) mg/dL Total Bilirubin (0.0-1.0) mg/dL Direct Bilirubin (0.0-0.5) mg/dL AST (5-31) U/L ALT (0-31) U/L Alkaline Phosphatase (39-117) U/L Total Protein (6.5-8.0) g/dL Albumin (3.5-5.0) g/dL Lipase (8-78) U/L Urine Color Yellow Urine Appearance Clear Urine pH 6.5 (5.0-9.0) Ur Specific [place] 1.010 (1.005-1.025) Urine Protein Negative (Neg-Trace) mg/dL Urine Glucose (UA) Negative (Negative) mg/dL Urine Ketones Negative (Negative) mg/dL Urine Blood Negative (Negative) Urine Nitrite Negative (Negative) Ur Leukocyte Esterase Moderate (2+) H (Negative) Urine RBC 0-2 (0-2) /HPF Urine WBC 0-5 (0-5) /HPF Ur Squamous Epith Cells 3-5 (0-2) /HPF Urine Bacteria Trace (None Seen) Hyaline Casts 0-2 (0-2) /LPF Ethyl Alcohol mg/dL COVID-19 (OTTONIEL) Negative (Negative) COVID-19 Clin Com See Note 05/18/23 Range/Units 16:48 WBC (4.8-10.8) X10*3/uL RBC (4.20-5.50) X10*6/uL Hgb (12.0-16.0) g/dl Hct (37.0-47.0) % MCV (80.0-98.0) fL MCH (27.0-33.0) pg MCHC (31.0-35.0) g/dl RDW (11.0-16.0) % Plt Count (160-400) X10*3/uL MPV (9.4-12.3) fL Immature Gran % (Auto) (0.0-0.4) % Neut % (Auto) (45-73) % Lymph % (Auto) (20-40) % [place] % (Auto) (2-11) % Eos % (Auto) (0-4) % Baso % (Auto) (0-2) % Lymph # (Auto) (1.2-4.9) X10*3/uL [place] # (Auto) (0.1-1.2) X10*3/uL Eos # (Auto) (0.0-0.4) X10*3/uL Baso # (Auto) (0.0-0.2) X10*3/uL Abs Immat Gran (auto) (0.00-0.03) X10*3/uL Absolute Neuts (auto) (2.0-8.3) x10*3/uL Absolute Nucleated RBC (0.0-0.012) X10*3/uL Nucleated RBC % (auto) (0.0-0.2) /100WBC Sodium 143 (135-145) mmol/L Potassium 4.1 (3.3-5.1) mmol/L Chloride 109 H (96-108) mmol/L Carbon Dioxide 27 (22-29) mmol/L Anion Gap 11 L (12-20) BUN 11 (9-16) mg/dL Creatinine 0.73 (0.5-1.4) mg/dL Estim Creat Clear Calc 89.3 Estimated GFR > 60 Random Glucose 92 (60-115) mg/dL Calcium 9.4 D (8.4-10.2) mg/dL Magnesium 2.2 (1.6-2.6) mg/dL Total Bilirubin 0.4 (0.0-1.0) mg/dL Direct Bilirubin 0.2 (0.0-0.5) mg/dL AST 19 (5-31) U/L ALT 14 (0-31) U/L Alkaline Phosphatase 128 H (39-117) U/L Total Protein 6.8 (6.5-8.0) g/dL Albumin 3.5 (3.5-5.0) g/dL Lipase 33 (8-78) U/L Urine Color Urine Appearance Urine pH (5.0-9.0) Ur Specific [place] (1.005-1.025) Urine Protein (Neg-Trace) mg/dL Urine Glucose (UA) (Negative) mg/dL Urine Ketones (Negative) mg/dL Urine Blood (Negative) Urine Nitrite (Negative) Ur Leukocyte Esterase (Negative) Urine RBC (0-2) /HPF Urine WBC (0-5) /HPF Ur Squamous Epith Cells (0-2) /HPF Urine Bacteria (None Seen) Hyaline Casts (0-2) /LPF Ethyl Alcohol < 10 mg/dL COVID-19 (OTTONIEL) (Negative) COVID-19 Clin Com Independent Interpretation I performed an independent interpretation of an: Plain X-Ray Interpretation: x-ray reviewed - agree w/ radiology read Radiology Impression Discussion of test interpretation with radiology: I have reviewed the ra diologist's reading. 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 Recommend correlation with patient's symptoms and clinical exam. ? - Otherwise, no acute or healing fracture, dislocation, or destructive process. External Record Review External record reviewed: Office record, Outpatient record and Prior outpatient labs Prescription Management I considered prescription management with: Pain Medication Social Determinants Patient?s care significantly limited by Social Determinants of Health including: Problems related to primary support group, Unemployment and Other Social Determinant of Health Critical Care Time Critical Care Time Critical Care Time: No Discharge Plan Discharge Clinical Impression: Chronic pain in right foot, Acute viral syndrome Patient Disposition: Home, Self-Care Instructions: Viral Syndrome (ED), Metatarsalgia (DC) Additional Instructions: Follow up with your fpga engineer Take the prescribed medications as directed Rest, ice and elevate your foot when possible Use the MARIO wrap as needed for compression and support If you develop new or worsening symptoms call 911 or come back to the ER for further evaluation. Prescriptions: New naproxen 500 mg tablet 500 mg PO BID PRN (Reason: pain) Qty: 20 0RF No Action albuterol sulfate [ProAir HFA] 90 mcg/actuation HFA aerosol inhaler 2 puff inhalation Q4H PRN (Reason: shortness of breath or wheezing) Qty: 8.5 0RF nystatin 100,000 unit/gram cream 1 appl topical TID Qty: 3 3RF nystatin 100,000 unit/gram powder 1 appl topical TID Qty: 60 2RF lidocaine 5 % adhesive patch,medicated 1 patch topical DAILY Qty: 15 3RF Rx Instructions: leave on most painful area for up to 12 hrs cyclobenzaprine 5 mg tablet 5 mg PO TID PRN (Reason: muscle spasm) Qty: 90 1RF Zyrtec 10 mg capsule 10 mg PO DAILY Qty: 30 0RF acetaminophen [Tylenol Extra Strength] 500 mg tablet 500 mg PO Q6H PRN
[2023-05-18 16:12] LABS: Appearance Urine Clear; Color Urine Yellow; Glucose Urine UA Negative (Negative); Leukocyte Esterase Urine Moderate (2+) (Negative); Nitrite Urine Negative (Negative); PH 6.5 (5.0-9.0); UMIC TRIGGER UACC YES; Urine Blood Negative (Negative); Urine Ketones Negative (Negative); Urine Protein Negative (Neg-Trace)
[2023-05-18 16:43] VITALS: BP 112/55; PULSE 82; RESP 16; O2SAT 98
[2023-05-18 16:53] LABS: MANUAL DIFF FLAG NO
[2023-05-18 16:55] LABS: Basophils Percent Auto 0.7 % (0-2); Eosinophils Absolute Auto 0.2 X10*3/uL (0.0-0.4); Eosinophils Percent Auto 3.9 % (0-4); Hematocrit 42.8 % (37.0-47.0); Hemoglobin 13.9 g/dl (12.0-16.0); Imm Gran Abs Auto 0.03 X10*3/uL (0.00-0.03); Imm Gran Pct Auto 0.5 % (0.0-0.4); Lymphocytes Absolute Auto 1.3 X10*3/uL (1.2-4.9); Lymphocytes Percent Auto 21.9 % (20-40); Mean Corpuscular HGB Conc 32.5 g/dl (31.0-35.0); Mean Corpuscular Hemoglobin 29.7 pg (27.0-33.0); Mean Corpuscular Volume 91.5 fL (80.0-98.0); Mean Platelet Volume 8.6 fL (9.4-12.3); Monocytes Absolute Auto 0.5 X10*3/uL (0.1-1.2); Monocytes Percent Auto 7.9 % (2-11); Neutrophils Percent Auto 65.1 % (45-73); Platelet Count 317 X10*3/uL (160-400); Red Blood Count 4.68 X10*6/uL (4.20-5.50); Red Cell Distribution Width 13.4 % (11.0-16.0); White Blood Count 6.1 X10*3/uL (4.8-10.8)
[2023-05-18 17:11] LABS: Alanine Aminotransferase 14 U/L (0-31); Albumin Level 3.5 g/dL (3.5-5.0); Alkaline Phosphatase 128 U/L (39-117); Anion Gap 11 (12-20); Aspartate Amino Transferase 19 U/L (5-31); Bilirubin Direct 0.2 mg/dL (0.0-0.5); Bilirubin Total 0.4 mg/dL (0.0-1.0); Blood Urea Nitrogen 11 mg/dL (9-16); Calcium 9.4 mg/dL (8.4-10.2); Carbon Dioxide 27 mmol/L (22-29); Chloride 109 mmol/L (96-108); Creatinine Clr Calc Pharmacy 89.3; Estimated Glomerular Filt Rate > 60; Ethanol < 10 mg/dL; Glucose Random 92 mg/dL (60-115); Lipase 33 U/L (8-78); Magnesium 2.2 mg/dL (1.6-2.6); Potassium 4.1 mmol/L (3.3-5.1); Sodium 143 mmol/L (135-145); Total Protein 6.8 g/dL (6.5-8.0)
[2023-05-18 17:41] LABS: COVID-19 Test Negative (Negative); IDNOW Serial# 6674DD1D
[2023-05-18 18:33] LABS: Bacteria Urine Trace (None Seen); Hyaline Casts Urine 0-2 /LPF (0-2); RBC Urine 0-2 /HPF (0-2); WBC Urine 0-5 /HPF (0-5)
[2023-05-18 19:59] LABS: Amphetamine Screen Urine Not Detected (Not Detect); Barbiturates, Urine Not Detected (Not Detect); Benzodiazepines Screen Urine Not Detected (Not Detect); Cannabinoid Screen Urine Not Detected (Not Detect); Cocaine Screen Urine POSITIVE (Not Detect); Fentanyl, urine Not Detected (Not Detect); Opiate Screen Urine Not Detected (Not Detect); Phencyclidine Screen Urine Not Detected (Not Detect)
== END 2023-05-18 19:37 | disposition home or self-care (01) ==
PROVIDERS: Physician Assistant; Emergency Provider Emergency Medicine Emergency Medical Services; PCP Internal Medicine
DX: B34.9 Viral infection, unspecified (principal); M79.671 Pain in right foot; G89.4 Chronic pain syndrome; Z20.822 Contact with and (suspected) exposure to COVID-19; F19.10 Other psychoactive substance abuse, uncomplicated
CPT/HCPCS: 73630; 80048; 80076; 80307; 81001; 81003; 83690; 83735; 85025; 87635; 99283

== ENCOUNTER → 2023-05-30 13:36 | Outpatient (BNVA) | payer OTHER, SELFPAY | PROVIDERS: PCP Internal Medicine; Visit Provider Internal Medicine | DX: K63.9 Disease of intestine, unspecified (principal); B19.20 Unspecified viral hepatitis C without hepatic coma; B19.10 Unspecified viral hepatitis B without hepatic coma | CPT/HCPCS: 99202 ==

== ENCOUNTER 2023-06-16 08:25 | Outpatient (REF) | payer OTHER, SELFPAY ==
--- NOTE | ~2023-06-16 | MM_ITS ---
EXAMINATION: MM SCREENING DIGITAL BREAST TOMOSYNTHESIS, BILATERAL CLINICAL INFORMATION: Screening. Asymptomatic. The lifetime risk of breast cancer based on the Tyrer-Cuzick Model is 6.3%. COMPARISON: Mammography: This study is compared with prior exams dating back to TECHNIQUE: Digital breast tomosynthesis is performed in both the craniocaudal and mediolateral oblique views along with computer-aided detection (CAD). Synthesized 2D images are generated from the tomosynthesis. FINDINGS: The breasts are almost entirely fatty (ACR BI-RADS breast composition Category a). There are no significant masses, abnormal calcifications, or other abnormalities. MM/MM tomosynthesis screening BI IMPRESSION: No mammographic evidence of malignancy. ASSESSMENT: BI-RADS BI-RADS 1 - Negative RECOMMENDATION: Routine annual mammography screening. 1 year F/U This examination should not preclude the clinical evaluation of a suspicious palpable abnormality. This patient's information was entered into a reminder system with a target due date for their next mammogram.
== END 2023-06-16 08:26 | disposition home or self-care (01) ==
LOC: HO.MAMMO 08:25
PROVIDERS: PCP Internal Medicine; Visit Provider Internal Medicine
DX: Z12.31 Encounter for screening mammogram for malignant neoplasm of breast (principal)
CPT/HCPCS: 77063; 77067

== ENCOUNTER → 2023-06-16 08:45 | Outpatient (BNV) | payer OTHER, SELFPAY | PROVIDERS: PCP Internal Medicine; Visit Provider Radiology Diagnostic Radiology | DX: Z12.31 Encounter for screening mammogram for malignant neoplasm of breast (principal) | CPT/HCPCS: 77063; 77067 ==

== ENCOUNTER 2023-06-17 09:58 | Outpatient (AMB) | payer OTHER, SELFPAY ==
--- NOTE | 2023-06-17 10:00 | MHC.PC.OV ---
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 Required: No Accompanied by: Self / Same As Patient Allergies aspirin [ASA] Allergy (Mild, Verified 06/17/23 10:00) BRUISE, bruising hydrocodone [From VICODIN] Allergy (Mild, Verified 06/17/23 10:00) ITCH/BRUISE ibuprofen [From MOTRIN] Allergy (Mild, Verified 06/17/23 10:00) BRUISE trazodone [TRAZODONE] Allergy (Mild, Verified 06/17/23 10:00) RESTLESS quetiapine [From SEROQUEL] Adverse Reaction (Mild, Verified 06/17/23 10:00) RESTLESS Medication List - Last Reconciled 06/17/23 by Alan Mccray MD acetaminophen (Tylenol Extra Strength) 500 mg PO Q6H PRN albuterol sulfate 90 mcg/actuation (Ventolin HFA) 2 puffs inhalation Q6H PRN cyclobenzaprine 5 mg PO TID PRN diclofenac sodium 1% (Arthritis Pain (diclofenac)) 4 grams topical QID gabapentin 300 mg PO BEDTIME lidocaine 5% 1 patch topical DAILY nystatin 1 appl topical TID Tobacco use date assessed: 04/20/23 Dental Screening Dental Screen Date: 06/17/23 Did you have a dental visit in the last 12 months?: No Did you have a dental problem in the last 6 months where you did not have access to dental care?: No Was dental information given to patient?: Patient declined HPI follow up HPI Details 63-year-old obese female with a history of left nondisplaced fracture of the ulnar styloid(November 2021 to [facility]), adrenal nodule hypersomnia tardive dyskinesia bipolar disorder coming in for follow-up. Patient has been referred to Gastroenterology the last time and for sleep study last seen March 2023. Patient has seen gastroenterology 05/30/2023 colonoscopy scheduled for June 03. colon test rescheduled. sleep study - does not want to do the test . decline CPAP. PAtient complains of having arthritis of the feet and was advised to off load and be in a wheelchair. Presently on the walker. Discuss with the patient concerns about being on wheelchair. [facility] Medical History Abdominal pain Chronic pain Fracture of distal end of left radius with routine healing Hypothyroidism Lesion of colon Stiffness of left hand joint Stiffness of left wrist joint Surgical History H/O tubal ligation History of back surgery History of surgery on wrist Hx of arthroscopy of right knee Hx of colonoscopy Hx of hysterectomy S/P arthroscopy of left shoulder S/P arthroscopy of right shoulder S/P tonsillectomy Family History Sister Thyroid cancer Maternal Grandmother Colon cancer Son Substance abuse Depression Social History Housing: House Alcohol intake: former Patient Tobacco Use Status: Never used Tobacco e-Cigarette/Vaping Use: Never Used Second Hand Smoke Exposure: No Current occupational status: disabled Cognitive needs: No Hearing needs: No Vision needs: Yes Questionnaire Thrive Questionnaire Date Thrive assessed: 04/20/23 ROMA-7 AMB Questionnaire ROMA-7 Date ROMA - 7 assessed: 04/20/23 Source: Developed by Drs. Lukas Walton, Liliana Naranjo, Andre Del Angel and colleagues, with an educational princess from [employer]. Physical exam (Primary Care) Vital Signs: Last Vital Signs Pulse 78 06/17/23 10:01 BP 140/70 H 06/17/23 10:01 Pulse Ox 98 06/17/23 10:01 Oxygen Delivery Method Room Air 06/17/23 10:01 BMI result Body Mass Index 34.5 Tobacco/Smoking Status: Tobacco use Status Tobacco use date assessed 04/20/23 06/17/23 10:06 Patient Tobacco Use Status Never used Tobacco 06/17/23 10:06 e-Cigarette/Vaping Use Never Used 06/17/23 10:06 Thrive Assessment: Date of Thrive Assessment Date Thrive assessed 04/20/23 06/17/23 10:06 Const General: alert; No acute distress Eyes Conjunctivae: conjunctivae normal Resp Auscultation: clear to auscultation bilaterally Cardio Rate: regular rate Rhythm: regular rhythm GI Inspection: Yes normal to inspection Extrem General: Yes normal to inspection and No edema Assessment and Plan Assessment & Plan (1) Closed nondisplaced fracture of ulnar styloid with delayed healing: Comment: 10/2021 surgery in [place] Left Code(s): S52.616G - Nondisplaced fracture of unspecified ulna styloid process, subsequent encounter for closed fracture with delayed healing Qualifiers: Laterality: left Qualified Code(s): S52.615G - Nondisplaced fracture of left ulna styloid process, subsequent encounter for closed fracture with delayed healing Plan: Stable (2) Asthma: Code(s): J45.909 - Unspecified asthma, uncomplicated Plan: Continue with inhaler, refill done on the rescue inhaler (3) Tardive dyskinesia: Comment: [place] Code(s): G24.01 - Drug induced subacute dyskinesia Plan: Continue with medication (4) Bipolar disorder: Comment: decline counselling Code(s): F31.9 - Bipolar disorder, unspecified Plan: Continue with the medication (5) Hypersomnia: Comment: sleepy afternoon , sleep after meals always tired, states dx of ARMANDO before Code(s): G47.10 - Hypersomnia, unspecified Plan: Sleep study requested will follow-up (6) Lesion of colon: Code(s): K63.9 - Disease of intestine, unspecified Plan: Patient has met with gastroenterology but colonoscopy not done yet. Discussed importance of getting this scheduled, on the other hand will call Gastroenterology to make the schedule. (7) Postlaminectomy syndrome: Code(s): M96.1 - Postlaminectomy syndrome, not elsewhere classified Plan: Gabapentin prescription sent in. Medications: New albuterol sulfate 90 mcg/actuation (Ventolin HFA) 2 puffs inhalation Q6H PRN 8.5 grams 0RF shortness of breath or wheezing gabapentin 300 mg PO BEDTIME 30 caps 0RF M96.1 - Postlaminectomy syndrome, not elsewhere classified Discontinued albuterol sulfate 90 mcg/actuation (ProAir HFA) Discontinued Reason: Ancillary Entered New Order 2 puffs inhalation Q4H PRN 8.5 grams 0RF shortness of breath or wheezing J45.909 - Unspecified asthma, uncomplicated Coding Level of Care Code Est Pt Level 4 (91545) Diagnoses Closed nondisplaced fracture of ulnar styloid with delayed healing S52.615G Laterality: left Asthma J45.909 Tardive dyskinesia G24.01 Bipolar disorder F31.9 Hypersomnia G47.10 Lesion of colon K63.9 Postlaminectomy syndrome M96.1
[2023-06-17 10:01] VITALS: BP 140/70; PULSE 78; O2SAT 98; BMI 34.5
== END 2023-06-17 10:57 | disposition home or self-care (01) ==
PROVIDERS: PCP Internal Medicine; Visit Provider Internal Medicine
DX: J45.909 Unspecified asthma, uncomplicated (principal); F31.9 Bipolar disorder, unspecified; G24.01 Drug induced subacute dyskinesia; S52.615G Nondisplaced fracture of left ulna styloid process, subsequent encounter for closed fracture with delayed healing; G47.10 Hypersomnia, unspecified; K63.9 Disease of intestine, unspecified; M96.1 Postlaminectomy syndrome, not elsewhere classified
CPT/HCPCS: 99214

== ENCOUNTER 2023-06-17 11:08 | Outpatient (REF) | payer OTHER, SELFPAY ==
[2023-06-17 13:55] LABS: MANUAL DIFF FLAG NO
[2023-06-17 14:23] LABS: Basophils Absolute Auto 0.1 X10*3/uL (0.0-0.2); Basophils Percent Auto 0.9 % (0-2); Eosinophils Absolute Auto 0.2 X10*3/uL (0.0-0.4); Eosinophils Percent Auto 3.3 % (0-4); Hematocrit 44.5 % (37.0-47.0); Hemoglobin 14.5 g/dl (12.0-16.0); Imm Gran Abs Auto 0.02 X10*3/uL (0.00-0.03); Imm Gran Pct Auto 0.3 % (0.0-0.4); Lymphocytes Absolute Auto 1.3 X10*3/uL (1.2-4.9); Lymphocytes Percent Auto 19.2 % (20-40); Mean Corpuscular HGB Conc 32.6 g/dl (31.0-35.0); Mean Corpuscular Hemoglobin 30.1 pg (27.0-33.0); Mean Corpuscular Volume 92.5 fL (80.0-98.0); Monocytes Absolute Auto 0.6 X10*3/uL (0.1-1.2); Monocytes Percent Auto 8.8 % (2-11); Neutrophils Absolute Auto 4.5 x10*3/uL (2.0-8.3); Neutrophils Percent Auto 67.5 % (45-73); Platelet Count 309 X10*3/uL (160-400); Red Blood Count 4.81 X10*6/uL (4.20-5.50); Red Cell Distribution Width 13.5 % (11.0-16.0); White Blood Count 6.7 X10*3/uL (4.8-10.8)
[2023-06-17 14:36] LABS: Estimated Average Glucose 91 mg/dL; Hemoglobin A1c % 4.8 %
[2023-06-17 14:47] LABS: Appearance Urine Clear; Color Urine Yellow; Glucose Urine UA Negative (Negative); Leukocyte Esterase Urine Negative (Negative); Nitrite Urine Negative (Negative); PH 7.5 (5.0-9.0); Specific Gravity - Urine 1.015 (1.005-1.025); Urine Blood Negative (Negative); Urine Ketones Negative (Negative); Urine Protein Negative (Neg-Trace)
[2023-06-17 14:52] LABS: Bacteria Urine None Seen (None Seen); Hyaline Casts Urine 0-2 /LPF (0-2); RBC Urine 0-2 /HPF (0-2); Squamous Epithelial Cell Urine 0-2 /HPF (0-2); WBC Urine 0-5 /HPF (0-5)
[2023-06-17 15:31] LABS: Alanine Aminotransferase 23 U/L (0-31); Albumin Level 3.9 g/dL (3.5-5.0); Alkaline Phosphatase 132 U/L (39-117); Anion Gap 10 (12-20); Aspartate Amino Transferase 23 U/L (5-31); Bilirubin Direct 0.1 mg/dL (0.0-0.5); Bilirubin Total 0.4 mg/dL (0.0-1.0); Blood Urea Nitrogen 12 mg/dL (9-16); Calcium 9.1 mg/dL (8.4-10.2); Carbon Dioxide 27 mmol/L (22-29); Chloride 109 mmol/L (96-108); Cholesterol 139 mg/dL; Estimated Glomerular Filt Rate > 60; Glucose Random 70 mg/dL (60-115); HDL Cholesterol 51 mg/dL; LDL Cholesterol Calculated 61 mg/dl; Potassium 3.7 mmol/L (3.3-5.1); Sodium 142 mmol/L (135-145); Total Protein 6.9 g/dL (6.5-8.0); Triglycerides 137 mg/dL
[2023-06-17 15:55] LABS: Free T4 (Free Thyroxine) 0.73 ng/dL (0.71-1.85); Vitamin D 25-OH Total 18.9 ng/mL (>30)
[2023-06-17 15:59] LABS: Ferritin 35 ng/mL (10-250); Folate 6.6 ng/mL (> or = 4.0); Thyroid Stimulating Hormone 5.92 uIU/mL (0.32-4.0); Vitamin B12 397 pg/mL (200-900)
[2023-06-20 08:52] LABS: HBS Num1 110.51 mIU/mL (0-7.99); HBc Num1 7.25 S/CO (0.00-0.79); HBsAGNum1 0.34 S/CO (0.00-0.99); Hepatitis B Surface Antigen Negative (Negative); ~Hepatitis B Surface Antibody REACTIVE (Nonreactive)
[2023-06-20 09:13] LABS: HBS Num1 105.76 mIU/mL (0-7.99); HIV AB/AG Nonreactive (Nonreactive); HIV Num 1 0.07 S/CO (0.00-0.99); Hepatitis B Surface Antigen Negative (Negative); ~HepC Num1 1.69 S/CO (0.00-0.79); ~Hepatitis B Surface Antibody REACTIVE (Nonreactive); ~Hepatitis C Antibody Reactive (Nonreactive)
[2023-06-20 10:14] LABS: HBc Num2 7.48 S/CO; HBc Num3 7.26 S/CO; Hepatitis B Core Antibody Reactive (Nonreactive)
[2023-06-21 15:14] LABS: Hepatitis B Viral DNA Qn - cp NOT DETECTED Log IU/mL (NOT DETECTED); Hepatitis B Viral DNA Qn-IU/mL NOT DETECTED (NOT DETECTED)
[2023-06-22 14:18] LABS: HCV RNA PCR Qn <1.18 NOT DETECTED Log IU/mL (NOT DETECTED); HCV RNA PCR Qn <15 NOT DETECTED IU/mL (NOT DETECTED)
== END 2023-06-17 11:09 | disposition home or self-care (01) ==
LOC: HO.LAB 11:08
PROVIDERS: Internal Medicine; PCP Internal Medicine; Visit Provider Internal Medicine
DX: Z11.4 Encounter for screening for human immunodeficiency virus [HIV] (principal); B19.20 Unspecified viral hepatitis C without hepatic coma; R79.89 Other specified abnormal findings of blood chemistry; E66.9 Obesity, unspecified; E78.00 Pure hypercholesterolemia, unspecified
CPT/HCPCS: 36415; 80053; 80061; 80076; 81001; 82248; 82306; 82607; 82728; 82746; 83036; 84439; 84443; 85025; 86704; 86706; 86803; 87340; 87389; 87517; 87522; 87902

== ENCOUNTER 2023-08-04 09:28 | Outpatient (AMB) | payer OTHER, SELFPAY ==
[2023-08-04 09:29] VITALS: BP 126/78; PULSE 72; O2SAT 98; BMI 34.8
--- NOTE | 2023-08-04 09:29 | A.OFFPC_ITS ---
Vital Signs 08/04/23 09:29 Height 5 ft 5 in Weight 209 lb BMI 34.8 BP 126/78 Blood Pressure Location Lt brachial Position Sitting Pulse 72 Pulse Source Pulse Oximeter Temp Source Skin Pulse Oximetry (%) 98 Oxygen Delivery Method Room Air Intake Visit Reasons: 3mth f/u Allergies aspirin [ASA] Allergy (Mild, Verified 08/04/23 09:30) BRUISE, bruising hydrocodone [From VICODIN] Allergy (Mild, Verified 08/04/23 09:30) ITCH/BRUISE ibuprofen [From MOTRIN] Allergy (Mild, Verified 08/04/23 09:30) BRUISE trazodone [TRAZODONE] Allergy (Mild, Verified 08/04/23 09:30) RESTLESS quetiapine [From SEROQUEL] Adverse Reaction (Mild, Verified 08/04/23 09:30) RESTLESS Tobacco use date assessed: 08/04/23 Dental Screening Dental Screen Date: 08/04/23 Did you have a dental visit in the last 12 months?: No Did you have a dental problem in the last 6 months where you did not have access to dental care?: No HPI 3mth f/u HPI Details 63-year-old female with a history of L u lnar styloid fracture which is stable asthma tardive dyskinesia bipolar disorder hypersomnia (decline sleep study) and colon lesion w()will have colon test tomorrow) patient was last seen in May 2023. Patient also has a history of post laminectomy syndrome and on gabapentin patient is here for follow-up review of the notes April 2023 had positive cocaine in the urine. Patient is asking for me to see the next patient 09:58 PAteint admits to do cacaine 04/2023 and know not to do them - states son and was desperate . [facility] Medical History Abdominal pain Chronic pain Fracture of distal end of left radius with routine healing Hypothyroidism Lesion of colon Stiffness of left hand joint Stiffness of left wrist joint Surgical History H/O tubal ligation History of back surgery History of surgery on wrist Hx of arthroscopy of right knee Hx of colonoscopy Hx of hysterectomy S/P arthroscopy of left shoulder S/P arthroscopy of right shoulder S/P tonsillectomy Family History Sister Thyroid cancer Maternal Grandmother Colon cancer Son Substance abuse Depression Social History Housing: House Alcohol intake: former Patient Tobacco Use Status: Never used Tobacco e-Cigarette/Vaping Use: Never Used Second Hand Smoke Exposure: No Current occupational status: disabled Cognitive needs: No Hearing needs: No Vision needs: Yes Questionnaire PHQ-9 Over the last 2 weeks, how often have you been bothered by any of the following problems? 1. Little interest or pleasure in doing things: not at all 2. Feeling down, depressed, or hopeless: not at all 3. Trouble falling or staying asleep, or sleeping too much: not at all 4. Feeling tired or having little energy: not at all 5. Poor appetite or overeating: not at all 6. Feeling bad about yourself - or that you are a failure or have let yourself or your family down: not at all 7. Trouble concentrating on things, such as reading the newspaper or watching television: not at all 8. Moving or speaking so slowly that other people could have noticed. Or the opposite - being so fidgety or restless that you have been moving around a lot more than usual: not at all 9. Thoughts that you would be better off or of hurting yourself in some way: not at all Total score: 0 Depression Screening Interpretation: Negative Source: Developed by Drs. Lukas Walton, Liliana Naranjo, Andre Del Angel and colleagues, with an educational princess from [email or web address]. Thrive Questionnaire Date Thrive assessed: 04/20/23 AUDIT C Alcohol Use Questionnaire (AUDIT-C) 1. How often do you have a drink containing alcohol?: Monthly or less 2. How many drinks containing alcohol do you have on a typical day when you are drinking?: 1 or 2 3. How often do you have six or more drinks on one occasion?: Never Total Score: 1 ROMA-7 AMB Questionnaire ROMA-7 Date ROMA - 7 assessed: 04/20/23 Source: Developed by Drs. Lukas Walton, Andre Sweet and colleagues, with an educational princess from [email or web address]. Physical exam (Primary Care) Vital Signs: Last Vital Signs Pulse 72 08/04/23 09:29 BP 126/78 08/04/23 09:29 Pulse Ox 98 08/04/23 09:29 Oxygen Delivery Method Room Air 08/04/23 09:29 BMI result Body Mass Index 34.8 Tobacco/Smoking Status: Tobacco use Status Tobacco use date assessed 08/04/23 08/04/23 09:31 Patient Tobacco Use Status Never used Tobacco 08/04/23 09:30 e-Cigarette/Vaping Use Never Used 08/04/23 09:30 PHQ-9: PHQ-9 Score PHQ-9: Total score 0 08/04/23 09:57 Depression Screening Interpretation: Negative Thrive Assessment: Date of Thrive Assessment Date Thrive assessed 04/20/23 08/04/23 09:30 Const General: alert; No acute distress Eyes Conjunctivae: conjunctivae normal Resp Auscultation: clear to auscultation bilaterally Cardio Rate: regular rate Rhythm: regular rhythm GI Inspection: Yes normal to inspection Extrem General: Yes normal to inspection and No edema Assessment and Plan Assessment & Plan (1) Asthma: Code(s): J45.909 - Unspecified asthma, uncomplicated Plan: Continue with the inhalers as needed (2) TSH elevation: Code(s): R79.89 - Other specified abnormal findings of blood chemistry Plan: Patient has advised repeat test in about 2-3 months (3) Obesity (BMI 30-39.9): Code(s): E66.9 - Obesity, unspecified Plan: Diet and exercise (4) Bipolar disorder: Comment: decline counselling Code(s): F31.9 - Bipolar disorder, unspecified Plan: Continue with present medication declined counseling (5) Lesion of colon: Code(s): K63.9 - Disease of intestine, unspecified Plan: Patient was advised to follow-up with gastroenterology (6) Postlaminectomy syndrome: Code(s): M96.1 - Postlaminectomy syndrome, not elsewhere classified Plan: Continue with gabapentin Medications: Changed From gabapentin 300 mg PO BEDTIME 30 caps 0RF M96.1 - Postlaminectomy syndrome, not elsewhere classified To gabapentin 100 mg PO BEDTIME 30 caps 0RF M96.1 - Postlaminectomy syndrome, not elsewhere classified Refilled albuterol sulfate 90 mcg/actuation (Ventolin HFA) 2 puffs inhalation Q6H PRN 8.5 grams 0RF shortness of breath or wheezing diclofenac sodium 1% (Arthritis Pain (diclofenac)) apply to single knee, ankle, foot; for foot includes sole/toes/top of foot 4 grams topical QID 100 grams 0RF lidocaine 5% leave on most painful area for up to 12 hrs 1 patch topical DAILY 15 ea 3RF Z98.890 - Other specified postprocedural states cyclobenzaprine 5 mg PO TID PRN 90 tabs 1RF muscle spasm M54.16 - Radiculopathy, lumbar region Coding Level of Care Code Est Pt Level 4 (77018) Diagnoses Asthma J45.909 TSH elevation R79.89 Obesity (BMI 30-39.9) E66.9 Bipolar disorder F31.9 Lesion of colon K63.9 Postlaminectomy syndrome M96.1
== END 2023-08-04 10:41 | disposition home or self-care (01) ==
PROVIDERS: PCP Internal Medicine; Visit Provider Internal Medicine
DX: J45.909 Unspecified asthma, uncomplicated (principal); R94.6 Abnormal results of thyroid function studies; F31.9 Bipolar disorder, unspecified; K63.9 Disease of intestine, unspecified
CPT/HCPCS: 99214

== ENCOUNTER 2023-08-05 07:22 | Day surgery (SDC) | payer OTHER, SELFPAY ==
[2023-06-14 14:22] VITALS: BMI 34.8
--- NOTE | 2023-06-16 09:33 | HO.ANESPROP2 ---
HPI - Anesthesia Eval Consult details Narrative: 63yo F for Colonoscopy PMFSH Active Problems Active Problems: All Active Problems (Updated 06/14/23 @ 14:17 by Kaci Tran, RN) Asthma (Acute) Closed nondisplaced fracture of ulnar styloid with delayed healing (Acute) Osteoarthritis of right knee (Acute) Lumbar radiculopathy (Acute) Obesity (BMI 30-39.9) (Acute) Hepatitis B (Acute) Hepatitis C (Acute) Tardive dyskinesia (Acute) Bipolar disorder (Acute) Tinea corporis (Acute) Colon cancer screening (Acute) Breast cancer screening by mammogram (Acute) Postlaminectomy syndrome (Acute) Chronic pain syndrome (Acute) Status post hardware removal (Acute) Adrenal nodule (Acute) Hypersomnia (Acute) Lesion of colon (Acute) S/P arthroscopy of right shoulder (Acute) S/P arthroscopy of left shoulder (Acute) Hx of arthroscopy of right knee (Acute) History of back surgery (Acute) H/O tubal ligation (Acute) Past Medical History Medical History (Updated 05/30/23 @ 14:29 by Edith Murphy MD) Abdominal pain Chronic pain Fracture of distal end of left radius with routine healing Hypothyroidism Lesion of colon Stiffness of left hand joint Stiffness of left wrist joint Family History Family History Sister Thyroid cancer Maternal Grandmother Colon cancer Son Substance abuse Depression Surgical History Surgical History (Updated 06/14/23 @ 14:17 by Kaci Tran RN) H/O tubal ligation History of back surgery History of surgery on wrist Hx of arthroscopy of right knee Hx of colonoscopy Hx of hysterectomy S/P arthroscopy of left shoulder S/P arthroscopy of right shoulder S/P tonsillectomy Social History Social History Housing: House Alcohol intake: former Patient Tobacco Use Status: Never used Tobacco e-Cigarette/Vaping Use: Never Used Second Hand Smoke Exposure: No Current occupational status: disabled Cognitive needs: No Hearing needs: No Vision needs: Yes Meds Allergies Allergy/AdvReac Type Severity Reaction Status Date / Time aspirin [ASA] Allergy Mild BRUISE, Verified 05/30/23 13:43 bruising hydrocodone [From VICODIN] Allergy Mild ITCH/BRUISE Verified 05/30/23 13:43 ibuprofen [From MOTRIN] Allergy Mild BRUISE Verified 05/30/23 13:43 trazodone [TRAZODONE] Allergy Mild RESTLESS Verified 05/30/23 13:43 quetiapine [From SEROQUEL] AdvReac Mild RESTLESS Verified 05/30/23 13:43 Home Medications Medication Instructions Recorded Confirmed Last Taken Type acetaminophen 500 mg tablet 500 mg PO Q6H PRN 11/01/22 04/20/23 Unknown History (Tylenol Extra Strength) Exam Exam Date and Time: June 16, 2023 0933 Height,Weight and Vital Signs: Height 5 ft 5 in Weight 94.801 kg Pertinent Lab Results Pertinent Lab Results: Laboratory Tests 05/18/23 05/18/23 16:48 16:48 WBC 6.1 Hgb 13.9 Hct 42.8 Plt Count 317 Sodium 143 Potassium 4.1 Chloride 109 H Carbon Dioxide 27 BUN 11 Creatinine 0.73 Assessment and Plan Assessment Anesthesia Assessment: Chart Reviewed
[2023-08-03 09:42] VITALS: BMI 34.4
--- NOTE | 2023-08-04 12:58 | P.CONAN_ITS ---
Documented by User: Charmaine Valdivia NP 08/04/23 12:59 HPI - Anesthesia Eval Consult details Narrative: 63yo F for Colonoscopy PMFSH Active Problems Active Problems: All Active Problems (Updated 06/14/23 @ 14:17 by Kaci Tran RN) Hearing difficulty (Acute) Vision changes (Acute) TSH elevation (Acute) Asthma (Acute) Closed nondisplaced fracture of ulnar styloid with delayed healing (Acute) Osteoarthritis of right knee (Acute) Lumbar radiculopathy (Acute) Obesity (BMI 30-39.9) (Acute) Hepatitis B (Acute) Hepatitis C (Acute) Tardive dyskinesia (Acute) Bipolar disorder (Acute) Tinea corporis (Acute) Colon cancer screening (Acute) Breast cancer screening by mammogram (Acute) Postlaminectomy syndrome (Acute) Chronic pain syndrome (Acute) Status post hardware removal (Acute) Adrenal nodule (Acute) Hypersomnia (Acute) Lesion of colon (Acute) S/P arthroscopy of right shoulder (Acute) S/P arthroscopy of left shoulder (Acute) Hx of arthroscopy of right knee (Acute) History of back surgery (Acute) H/O tubal ligation (Acute) Past Medical History Medical History Abdominal pain Chronic pain Fracture of distal end of left radius with routine healing Hypothyroidism Lesion of colon Stiffness of left hand joint Stiffness of left wrist joint Family History Family History Sister Thyroid cancer Maternal Grandmother Colon cancer Son Substance abuse Depression Surgical History Surgical History H/O tubal ligation History of back surgery History of surgery on wrist Hx of arthroscopy of right knee Hx of colonoscopy Hx of hysterectomy S/P arthroscopy of left shoulder S/P arthroscopy of right shoulder S/P tonsillectomy Social History Social History Housing: House Alcohol intake: former Patient Tobacco Use Status: Never used Tobacco e-Cigarette/Vaping Use: Never Used Second Hand Smoke Exposure: No Are you DNR?: No Advance Directives: No Advance Directives Information Provided: Yes Nutrition Risks: No Nutritional Risk Current occupational status: disabled Cognitive needs: No Hearing needs: No Vision needs: Yes Meds Allergies Allergy/AdvReac Type Severity Reaction Status Date / Time aspirin [ASA] Allergy Mild BRUISE, Verified 08/04/23 09:30 bruising hydrocodone [From VICODIN] Allergy Mild ITCH/BRUISE Verified 08/04/23 09:30 ibuprofen [From MOTRIN] Allergy Mild BRUISE Verified 08/04/23 09:30 trazodone [TRAZODONE] Allergy Mild RESTLESS Verified 08/04/23 09:30 quetiapine [From SEROQUEL] AdvReac Mild RESTLESS Verified 08/04/23 09:30 Home Medications Medication Instructions Recorded Confirmed Last Taken Type acetaminophen 500 mg tablet 500 mg PO Q6H PRN 11/01/22 06/17/23 Unknown History (Tylenol Extra Strength) Exam Exam Date and Time: August 04, 2023 1258 Height,Weight and Vital Signs: Height 5 ft 5 in Weight 93.894 kg Pertinent Lab Results Pertinent Lab Results: Laboratory Tests 06/17/23 11:33 WBC 6.7 Hgb 14.5 Hct 44.5 Plt Count 309 Sodium 142 Potassium 3.7 Chloride 109 H Carbon Dioxide 27 BUN 12 Creatinine 0.71 Assessment and Plan Assessment Anesthesia Assessment: Chart Reviewed Documented by User: Paul Carrillo MD 08/05/23 08:07 [facility] Past Medical History Medical History Abdominal pain Chronic pain Fracture of distal end of left radius with routine healing Hypothyroidism Lesion of colon Stiffness of left hand joint Stiffness of left wrist joint Family History Family History Sister Thyroid cancer Maternal Grandmother Colon cancer Son Substance abuse Depression Family history of problems with anesthesia: No Surgical History Surgical History H/O tubal ligation History of back surgery History of surgery on wrist Hx of arthroscopy of right knee Hx of colonoscopy Hx of hysterectomy S/P arthroscopy of left shoulder S/P arthroscopy of right shoulder S/P tonsillectomy History of Problems with Anesthesia: No Social History Social History Housing: House Alcohol intake: former Patient Tobacco Use Status: Never used Tobacco e-Cigarette/Vaping Use: Never Used Second Hand Smoke Exposure: No Are you DNR?: No Advance Directives: No Advance Directives Information Provided: Yes Nutrition Risks: No Nutritional Risk Current occupational status: disabled Cognitive needs: No Hearing needs: No Vision needs: Yes Meds Allergies Allergy/AdvReac Type Severity Reaction Status Date / Time aspirin [ASA] Allergy Mild BRUISE, Verified 08/04/23 09:30 bruising hydrocodone [From VICODIN] Allergy Mild ITCH/BRUISE Verified 08/04/23 09:30 ibuprofen [From MOTRIN] Allergy Mild BRUISE Verified 08/04/23 09:30 trazodone [TRAZODONE] Allergy Mild RESTLESS Verified 08/04/23 09:30 quetiapine [From SEROQUEL] AdvReac Mild RESTLESS Verified 08/04/23 09:30 Home Medications Medication Instructions Recorded Confirmed Last Taken Type acetaminophen 500 mg tablet 500 mg PO Q6H PRN 11/01/22 06/17/23 Unknown History (Tylenol Extra Strength) Exam Airway Mallampati Class: II TM Dist: >3cm Neck ROM: Full Denture: Upper Loose/Missing/Broken Teeth: Yes and Lower Assessment and Plan Assessment Anesthesia Assessment: Anesthesia Plan Discussed Final Anesthetic Review Family History of Problems with Anesthesia: No History of Problems with Anesthesia: No NPO: Yes ASA Class: III Final Preanesthetic Review: No Changes in Pt Med Stat, Meds/Allgs Chart Reviewed, Consent Obtained/Reviewed and Anes Risks/Benef Reviewed Patient Risk: Intermediate Procedure Risk: Low Anesthetic Plan Anesthetic Plan: MAC: Disposition: Standard PACU
[2023-08-05] MEDS: Lactated Ringers 1,000 ML 100 ML IVCONT (08:19)
[2023-08-05 08:20] VITALS: BP 125/77; PULSE 81; RESP 18; TEMP 36.7; O2SAT 94
--- NOTE | 2023-08-05 08:33 | MHC.SHP ---
Pre-Procedural Eval Section A Date of Service: 08/05/23 Section B Chief Complaint: Abnormal weight loss,malignant neoplasm of colon Details of Present Illness: PMH: Abdominal pain Chronic pain Fracture of distal end of left radius with routine healing Hypothyroidism Lesion of colon Stiffness of left hand joint Stiffness of left wrist joint Surgical History H/O tubal ligation History of back surgery History of surgery on wrist Hx of arthroscopy of right knee Hx of colonoscopy Hx of hysterectomy S/P arthroscopy of left shoulder S/P arthroscopy of right shoulder S/P tonsillectomy Present Medications: see Short Stay Collaborative assessment Allergies: Allergies Allergy/AdvReac Type Severity Reaction Status Date / Time aspirin [ASA] Allergy Mild BRUISE, Verified 08/05/23 08:21 bruising hydrocodone [From VICODIN] Allergy Mild ITCH/BRUISE Verified 08/05/23 08:21 ibuprofen [From MOTRIN] Allergy Mild BRUISE Verified 08/05/23 08:21 trazodone [TRAZODONE] Allergy Mild RESTLESS Verified 08/05/23 08:21 quetiapine [From SEROQUEL] AdvReac Mild RESTLESS Verified 08/05/23 08:21 Review of Systems Review of Systems Comment: 10 point ROS negative Exam Exam Comment: Gen appear: No acute distress HEENT: no icterus Chest: No overt resp distress Abd: soft, nontender, nondistended Psych: Stable affect, answering questions appropriately Neuro: A/Ox3 noted to move all extremities spontaneously Ext: no peripheral edema Plan Diagnosis/Plan: Unchanged I have reviewed the history and physical and performed a pertinent physical examination on my patient. No changes have occurred unless specified. Time Spent With Patient Time: Total time managing care of this patient today ____ minutes.
--- NOTE | 2023-08-05 08:34 | P.OP_ITS ---
Operative Note Operative Note Date of Service: 08/05/23 Narrative: Procedure: Colonoscopy Indication: Abnormal CT scan, colon wall thickening Endoscopist: Edith Murphy MD Anesthesia Provider: Michaelle Cotter CRNA Anesthesia type: MAC Instrument: Olympus [id number]-[id number] Consent: Indication, risks vs benefits, and alternatives were discussed with the patient who gave written informed consent to proceed. EKG, pulse, pulse oximetry and blood pressure were monitored throughout the procedure. Please see anesthesia flowsheet. Procedure: The patient was brought to the procedure room and placed in the left lateral decubitus position. IV medications were administered by the anesthesia provider in attendance. A digital rectal exam was performed which was normal. A distal attachment cap was affixed to the tip of the colonoscope which was then inserted through the anus and advanced through the colon to the cecum at 75 cm,and terminal ileum. Mucosa was carefully examined under high definition white light as the instrument was slowly withdrawn in a retrograde panoramic fashion. Retroflexion was performed in rectum. The procedure was not difficult. There were no immediate obvious complications. The quality of the prep was BBPS: 1+2+2 = inadequate in R colon Withdrawal time 17 minutes. Limitations: Poor prep. Findings: Mucosa: Semisolid and liquid stool was noted throughout the colon which was extensively flushed and suctioned x 25 minutes. Mucosa otherwise normal to cecum and terminal ileum to the extent visualised. No large mass or stricture was noted in the colon, specifically at the level of splenic flexure. Protruding lesions: * 2 sessile polyp of size 3-5 mm in transverse colon. Cold snare polypectomy was performed. The polyps were completely removed and retrieved. * Medium internal hemorrhoids without stigmata of recent bleeding. Excavated lesions: * Moderate diverticulosis of sigmoid colon. Impression: 1. Poor prep 2. Normal colon and T.I mucosa to the extent visualised 3. Total of 2 polyps removed from transverse colon. 4. Internal hemorrhoids Recommendations: - Follow path results. - Repeat colonoscopy in 6-12 months due to poor prep
[2023-08-05 09:17] VITALS: BP 104/62; PULSE 73; RESP 16; TEMP 36.6; O2SAT 98
[2023-08-05 09:35] VITALS: BP 112/81; PULSE 72; RESP 17; TEMP 36.8; O2SAT 97
== END 2023-08-05 10:05 | disposition home or self-care (01) ==
PROVIDERS: PCP Internal Medicine; Visit Provider Internal Medicine
PROC: 0DJD8ZZ Inspection of Lower Intestinal Tract, Via Natural or Artificial Opening Endoscopic (ICD-10-PCS; CPT 45378; principal; 2023-08-05 08:30)
DX: K63.9 Disease of intestine, unspecified (principal); D12.3 Benign neoplasm of transverse colon; K57.30 Diverticulosis of large intestine without perforation or abscess without bleeding; K64.8 Other hemorrhoids; R19.7 Diarrhea, unspecified; R10.9 Unspecified abdominal pain; G89.29 Other chronic pain; B19.20 Unspecified viral hepatitis C without hepatic coma; R63.4 Abnormal weight loss; B19.10 Unspecified viral hepatitis B without hepatic coma; Z68.34 Body mass index [BMI] 34.0-34.9, adult; E03.9 Hypothyroidism, unspecified; J45.909 Unspecified asthma, uncomplicated; F31.9 Bipolar disorder, unspecified; G24.01 Drug induced subacute dyskinesia; Z79.899 Other long term (current) drug therapy; Z88.8 Allergy status to other drugs, medicaments and biological substances; Z98.51 Tubal ligation status
CPT/HCPCS: 45385; 88305

== ENCOUNTER → 2023-08-05 07:22 | Outpatient (BNV) | payer OTHER, SELFPAY | PROVIDERS: PCP Internal Medicine; Visit Provider Internal Medicine | DX: D12.3 Benign neoplasm of transverse colon (principal); K57.30 Diverticulosis of large intestine without perforation or abscess without bleeding; K64.8 Other hemorrhoids; Z91.199 Patient's noncompliance with other medical treatment and regimen due to unspecified reason; R93.89 Abnormal findings on diagnostic imaging of other specified body structures | CPT/HCPCS: 45385 ==

== ENCOUNTER 2023-11-29 15:31 | Outpatient (REF) | payer OTHER, SELFPAY | END 2023-11-29 15:32 | disposition home or self-care (01) | LOC: HO.SH 15:31 | PROVIDERS: Visit Provider Internal Medicine | DX: Z01.118 Encounter for examination of ears and hearing with other abnormal findings (principal); H90.3 Sensorineural hearing loss, bilateral | CPT/HCPCS: 92557; 92567 ==

== ENCOUNTER 2023-12-29 10:13 | Outpatient (AMB) | payer OTHER, SELFPAY ==
--- NOTE | 2023-12-29 10:16 | A.OFFPC_ITS ---
Vital Signs 12/29/23 10:17 Height 5 ft 5 in Weight 213 lb BMI 35.4 BP 116/70 Blood Pressure Location Lt brachial Position Sitting Pulse 70 Pulse Source Pulse Oximeter Pulse Oximetry (%) 97 Oxygen Delivery Method Room Air Intake Visit Reasons: Bilateral Leg Swelling and Redness, varicose veins Intake Note: pt states bilateral leg swelling and redness X3days Allergies aspirin [ASA] Allergy (Mild, Verified 12/29/23 10:33) BRUISE, bruising hydrocodone [From VICODIN] Allergy (Mild, Verified 12/29/23 10:33) ITCH/BRUISE ibuprofen [From MOTRIN] Allergy (Mild, Verified 12/29/23 10:33) BRUISE trazodone [TRAZODONE] Allergy (Mild, Verified 12/29/23 10:33) RESTLESS quetiapine [From SEROQUEL] Adverse Reaction (Mild, Verified 12/29/23 10:33) RESTLESS Tobacco use date assessed: 12/29/23 Dental Screening Dental Screen Date: 12/29/23 HPI Bilateral Leg Swelling and Redness, varicose veins HPI Details 63-year-old obese female with asthma bip olar disorder post laminectomy syndrome coming in for follow-up. Last seen in July 2023. Review of the notes in July 2023 had colonoscopy done showing poor prep normal colon 2 polyps removed hemorrhoids. Patient was advised repeat colonoscopy in 6-12 months. These were tubular adenoma 3 days ago noted whitish leg discoloration and placedd support stocking.. Patient also complains of having some dysuria and would like to have the urinalysis tested. PFS Medical History Abdominal pain Chronic pain Fracture of distal end of left radius with routine healing Hypothyroidism Lesion of colon Stiffness of left hand joint Stiffness of left wrist joint Surgical History H/O tubal ligation History of back surgery History of surgery on wrist Hx of arthroscopy of right knee Hx of colonoscopy Hx of hysterectomy S/P arthroscopy of left shoulder S/P arthroscopy of right shoulder S/P tonsillectomy Family History Sister Thyroid cancer Maternal Grandmother Colon cancer Son Substance abuse Depression Social History Housing: House Alcohol intake: former Patient Tobacco Use Status: Never used Tobacco e-Cigarette/Vaping Use: Never Used Second Hand Smoke Exposure: No Current occupational status: disabled Cognitive needs: No Hearing needs: No Vision needs: Yes Questionnaire Thrive Questionnaire Date Thrive assessed: 04/20/23 ROMA-7 AMB Questionnaire ROMA-7 Date ROMA - 7 assessed: 04/20/23 Source: Developed by Drs. Lukas Walton, Liliana Naranjo, Andre Del Angel and colleagues, with an educational princess from [employer]. Physical exam (Primary Care) Vital Signs: Last Vital Signs Pulse 70 12/29/23 10:17 BP 116/70 12/29/23 10:17 Pulse Ox 97 12/29/23 10:17 Oxygen Delivery Method Room Air 12/29/23 10:17 BMI result Body Mass Index 35.4 Tobacco/Smoking Status: Tobacco use Status Tobacco use date assessed 12/29/23 12/29/23 10:36 Patient Tobacco Use Status Never used Tobacco 12/29/23 10:17 e-Cigarette/Vaping Use Never Used 12/29/23 10:17 Thrive Assessment: Date of Thrive Assessment Date Thrive assessed 04/20/23 12/29/23 10:17 Const General: alert; No acute distress Eyes Conjunctivae: conjunctivae normal Resp Auscultation: clear to auscultation bilaterally Cardio Rate: regular rate Rhythm: regular rhythm GI Inspection: Yes normal to inspection Extrem General: Yes normal to inspection and No edema Results AMB Urinalysis, Automated UA Leukoctes 15 Thelma/uL Last Edit by FADI Griggs on 12/29/23 11:25 UA Nitrite Negative Last Edit by FADI Griggs on 12/29/23 11:25 UA Urobilinogen 0.2 mg/dL Last Edit by FADI Griggs on 12/29/23 11:25 UA Protein 0 mg/dL Last Edit by FADI Griggs on 12/29/23 11:25 UA pH 7.0 Last Edit by FADI Griggs on 12/29/23 11:25 UA Blood 0 Gavin/uL Last Edit by FADI Griggs on 12/29/23 11:25 UA Specific [place] 1.015 Last Edit by FADI Griggs on 12/29/23 11:25 UA Ketone Negative Last Edit by FADI Griggs on 12/29/23 11:25 UA Bilirubin 0 mg/dL Last Edit by FADI Griggs on 12/29/23 11:25 UA Glucose 0 mg/dL Last Edit by FADI Griggs on 12/29/23 11:25 Assessment and Plan Assessment & Plan (1) Tubular adenoma of colon: Comment: July 2023 Code(s): D12.6 - Benign neoplasm of colon, unspecified Plan: Patient was advised to repeat colonoscopy in 6-12 months due to poor prep. Tubular adenoma noted (2) Postlaminectomy syndrome: Code(s): M96.1 - Postlaminectomy syndrome, not elsewhere classified Plan: Presently on gabapentin 100 mg at bedtime (3) Bipolar disorder: Comment: decline counselling Code(s): F31.9 - Bipolar disorder, unspecified Plan: Stable declined referral for counseling (4) Obesity (BMI 30-39.9): Code(s): E66.9 - Obesity, unspecified Plan: Diet and exercise (5) Peripheral vascular disease: Code(s): I73.9 - Peripheral vascular disease, unspecified Plan: When sitting down elevate the legs, exercise, and support stockings (6) Varicose vein of leg: Code(s): I83.90 - Asymptomatic varicose veins of unspecified lower extremity Plan: When sitting down elevate the legs, exercise, and support stockings but would like to have vascular surgeon to see. (7) Dysuria: Code(s): R30.0 - Dysuria Plan: Urinalysis requested Orders: Orders UA w Microscopic Today I73.9 - Peripheral vascular disease, unspecified Vitamin B12 and Folate Today I73.9 - Peripheral vascular disease, unspecified Vitamin D 25-OH Total Today I73.9 - Peripheral vascular disease, unspecified Phosphorus Today I73.9 - Peripheral vascular disease, unspecified AMB Urinalysis Automated Today R30.0 - Dysuria, Z13.9 - Encounter for screening, unspecified Complete Blood Count Auto Diff Today I73.9 - Peripheral vascular disease, unspecified Comprehensive Met. Panel Today I73.9 - Peripheral vascular disease, unspecified Free T4 (Free Thyroxine) Today I73.9 - Peripheral vascular disease, unspecified Thyroid Stimulating Hormone Today I73.9 - Peripheral vascular disease, unspecified Lipid Panel Today E78.00 - Pure hypercholesterolemia, unspecified, I73.9 - Peripheral vascular disease, unspecified Hemoglobin A1c Today I73.9 - Peripheral vascular disease, unspecified Magnesium Today I73.9 - Peripheral vascular disease, unspecified Referrals Vascular Surgery Referral I73.9 - Peripheral vascular disease, unspecified, I83.90 - Asymptomatic varicose veins of unspecified lower extremity Medications: Refilled lidocaine 5% leave on most painful area for up to 12 hrs 1 patch topical DAILY 15 ea 3RF Z98.890 - Other specified postprocedural states Discontinued gabapentin Discontinued Reason: Change Referral Type 100 mg PO BEDTIME 30 caps 0RF M96.1 - Postlaminectomy syndrome, not elsewhere classified nystatin Discontinued Reason: Doctor's Order 1 appl topical TID 60 grams 2RF B35.4 - Tinea corporis cyclobenzaprine Discontinued Reason: Doctor's Order 5 mg PO TID PRN 90 tabs 1RF muscle spasm M54.16 - Radiculopathy, lumbar region Coding Level of Care Code Est Pt Level 4 (22609) Diagnoses Tubular adenoma of colon D12.6 Postlaminectomy syndrome M96.1 Bipolar disorder F31.9 Obesity (BMI 30-39.9) E66.9 Peripheral vascular disease I73.9 Varicose vein of leg I83.90 Dysuria R30.0
[2023-12-29 10:17] VITALS: BP 116/70; PULSE 70; O2SAT 97; BMI 35.4
== END 2023-12-29 12:43 | disposition home or self-care (01) ==
PROVIDERS: PCP Internal Medicine; Visit Provider Internal Medicine
DX: I73.9 Peripheral vascular disease, unspecified (principal); F31.9 Bipolar disorder, unspecified; D12.6 Benign neoplasm of colon, unspecified; R30.0 Dysuria; M96.1 Postlaminectomy syndrome, not elsewhere classified; E66.9 Obesity, unspecified; I83.90 Asymptomatic varicose veins of unspecified lower extremity
CPT/HCPCS: 81003; 99214

== ENCOUNTER 2024-01-23 14:24 | Outpatient (AMB) | payer OTHER, SELFPAY ==
[2024-01-23 14:32] VITALS: BP 112/78; PULSE 76; O2SAT 97; BMI 35.8
--- NOTE | 2024-01-23 14:32 | A.OFFPC_ITS ---
Vital Signs 01/23/24 14:32 Height 5 ft 5 in Weight 215 lb BMI 35.8 BP 112/78 Blood Pressure Location Lt brachial Position Sitting Pulse 76 Pulse Source Pulse Oximeter Pulse Oximetry (%) 97 Oxygen Delivery Method Room Air Intake Visit Reasons: f/u appt Intake Note: Patient is here to follow up Therapeutic Dietitian Required: No Allergies aspirin [ASA] Allergy (Mild, Verified 01/23/24 14:33) BRUISE, bruising hydrocodone [From VICODIN] Allergy (Mild, Verified 01/23/24 14:33) ITCH/BRUISE ibuprofen [From MOTRIN] Allergy (Mild, Verified 01/23/24 14:33) BRUISE trazodone [TRAZODONE] Allergy (Mild, Verified 01/23/24 14:33) RESTLESS quetiapine [From SEROQUEL] Adverse Reaction (Mild, Verified 01/23/24 14:33) RESTLESS Medication List - Last Reconciled 01/23/24 by Alan Mccray MD acetaminophen (Tylenol Extra Strength) 500 mg PO Q6H PRN albuterol sulfate 90 mcg/actuation (Ventolin HFA) 2 puffs inhalation Q6H PRN amoxicillin-pot clavulanate 500-125 mg (Augmentin) 1 tab PO TID diclofenac sodium 1% (Arthritis Pain (diclofenac)) 4 grams topical QID fexofenadine (Leah Allergy) 180 mg PO DAILY lidocaine 5% 1 patch topical DAILY nystatin 1 appl topical BID Tobacco use date assessed: 01/23/24 Dental Screening Dental Screen Date: 01/23/24 Did you have a dental visit in the last 12 months?: Yes Did you have a dental problem in the last 6 months where you did not have access to dental care?: No Was dental information given to patient?: Patient has dentist HPI f/u appt HPI Details 63-year-old obese female with a history of post laminectomy syndrome on gabapentin bipolar disorder peripheral vascular disease coming in for follow-up. Last seen in December 2023 has tubular adenoma was advised to repeat colon test in 6-12 months.. Patient has peripheral vascular disease and has seen the vascular surgeon. Radiofrequency ablation ff up 04/2024. cough, 1 week , family i s sick, , congested, sneezing , no sore throat, feels tired. [facility] Medical History Abdominal pain Chronic pain Fracture of distal end of left radius with routine healing Hypothyroidism Lesion of colon Stiffness of left hand joint Stiffness of left wrist joint Surgical History H/O tubal ligation History of back surgery History of surgery on wrist Hx of arthroscopy of right knee Hx of colonoscopy Hx of hysterectomy S/P arthroscopy of left shoulder S/P arthroscopy of right shoulder S/P tonsillectomy Family History Sister Thyroid cancer Maternal Grandmother Colon cancer Son Substance abuse Depression Social History Housing: House Alcohol intake: former Patient Tobacco Use Status: Never used Tobacco e-Cigarette/Vaping Use: Never Used Second Hand Smoke Exposure: No Current occupational status: disabled Cognitive needs: No Hearing needs: No Vision needs: Yes Questionnaire Thrive Questionnaire Date Thrive assessed: 01/23/24 I am a: Patient What is your living situation today?: I have a steady place to live Within the past 12 months, did the food you bought not last and you didn't have the money to get more?: Never true Within the past 12 months, did you worry whether your food would run out before you got money to buy more?: Never true Do you have trouble paying for medicines?: No Do you have trouble getting transportation to medical appointments?: No Do you have trouble paying your heating and electricity bill?: No Do you have trouble taking care of your child, family member or friend?: No Do you have trouble with day-to-day activities such as bathing, preparing meals, shopping, managing finances, etc.?: No Are you currently unemployed and looking for a job?: No Are you interested in more education?: No Please select the resources that you would like help with: None THRIVE Score: 0 AUDIT C Alcohol Use Questionnaire (AUDIT-C) 1. How often do you have a drink containing alcohol?: Monthly or less 2. How many drinks containing alcohol do you have on a typical day when you are drinking?: 1 or 2 3. How often do you have six or more drinks on one occasion?: Never Total Score: 1 ROMA-7 AMB Questionnaire ROMA-7 Date ROMA - 7 assessed: 04/20/23 Source: Developed by Drs. Lukas Walton, Liliana Naranjo, Andre Del Angel and colleagues, with an educational princess from [employer]. Physical exam (Primary Care) Vital Signs: Last Vital Signs Pulse 76 01/23/24 14:32 BP 112/78 01/23/24 14:32 Pulse Ox 97 01/23/24 14:32 Oxygen Delivery Method Room Air 01/23/24 14:32 BMI result Body Mass Index 35.8 Tobacco/Smoking Status: Tobacco use Status Tobacco use date assessed 01/23/24 01/23/24 14:33 Patient Tobacco Use Status Never used Tobacco 01/23/24 14:33 e-Cigarette/Vaping Use Never Used 01/23/24 14:33 Thrive Assessment: Date of Thrive Assessment Date Thrive assessed 01/23/24 01/23/24 14:42 Const Other: noted writhing movements of the entire body General: alert; No acute distress Eyes Conjunctivae: conjunctivae normal Resp Auscultation: clear to auscultation bilaterally Cardio Rate: regular rate Rhythm: regular rhythm GI Inspection: Yes normal to inspection Extrem General: Yes normal to inspection and No edema Assessment and Plan Assessment & Plan (1) Peripheral vascular disease: Code(s): I73.9 - Peripheral vascular disease, unspecified Plan: Patient is being followed up by the vascular surgeon. When sitting down elevate the legs, exercise, and support stockings (2) Postlaminectomy syndrome: Code(s): M96.1 - Postlaminectomy syndrome, not elsewhere classified Plan: Continuing on present medication (3) Obesity (BMI 30-39.9): Code(s): E66.9 - Obesity, unspecified Plan: Diet and exercise (4) Asthma: Code(s): J45.909 - Unspecified asthma, uncomplicated Plan: Continue with the inhaler as needed (5) Nasal congestion: Code(s): R09.81 - Nasal congestion Medications: New fexofenadine (Leah Allergy) 180 mg PO DAILY 30 tabs 3RF R09.81 - Nasal congestion amoxicillin-pot clavulanate 500-125 mg (Augmentin) 1 tab PO TID 21 tabs 0RF R09.81 - Nasal congestion Coding Level of Care Code Est Pt Level 4 (87664) Diagnoses Peripheral vascular disease I73.9 Postlaminectomy syndrome M96.1 Obesity (BMI 30-39.9) E66.9 Asthma J45.909 Nasal congestion R09.81
== END 2024-01-23 15:07 | disposition home or self-care (01) ==
PROVIDERS: PCP Internal Medicine; Visit Provider Internal Medicine
DX: I73.9 Peripheral vascular disease, unspecified (principal); M96.1 Postlaminectomy syndrome, not elsewhere classified; Z68.35 Body mass index [BMI] 35.0-35.9, adult; E66.9 Obesity, unspecified; J45.909 Unspecified asthma, uncomplicated; R09.81 Nasal congestion
CPT/HCPCS: 99214

== ENCOUNTER 2024-02-22 12:45 | Outpatient (AMB) | payer OTHER, SELFPAY ==
--- NOTE | 2024-02-22 12:48 | A.OFFVIS_ITS ---
Intake Vital Signs 02/22/24 12:52 Height 5 ft 5 in Weight 209 lb 7.026 oz BMI 34.8 BP 131/60 Blood Pressure Location Lt brachial Position Sitting Pulse 67 Intake Visit Reasons: discuss repeat colonoscopy Intake Note: Idania presents in the office as a follow up. CC: She is here today because her bowels are not under control. Between diarrhea and constipation. Allergies aspirin [ASA] Allergy (Mild, Verified 02/22/24 12:53) BRUISE, bruising hydrocodone [From VICODIN] Allergy (Mild, Verified 02/22/24 12:53) ITCH/BRUISE ibuprofen [From MOTRIN] Allergy (Mild, Verified 02/22/24 12:53) BRUISE trazodone [TRAZODONE] Allergy (Mild, Verified 02/22/24 12:53) RESTLESS quetiapine [From SEROQUEL] Adverse Reaction (Mild, Verified 02/22/24 12:53) RESTLESS HPI HPI Comments History of Present Illness Details 63 y.o F with PMH asthma hepatitis C hep atitis B close nondisplaced fracture of the ulnar styloid(ORIF left distal radial fracture November 2021 in [place]) history of back surgery tardive dyskinesia bipolar disorder coming in for follow up. 05/30/23: Was seen in ER last month for abdominal pain and diarrhea and was found to have questionable apple core lesion in transverse suspicious for colon mass for which she has been referred. Pt reports that for the past 3 months has been noticing persistent diarrhea including at night time. Assoc with night sweats and weight loss of almost 20 lbs in 6 months. No blood in stool. No fam hx of CRC. Last colo was >10 years ago and did have polyps at that time. 08/05/23: [place] 1. Poor prep 2. Normal colon and T.I mucosa to the ex tent visualised 3. Total of 2 polyps removed from transv erse colon. 4. Internal hemorrhoids Recommendations: - Follow path results. - Repeat colonoscopy in 6-12 months due to poor prep Path: Diagnosis Colon, transverse, polypectomy x2: Tubular adenoma (2); negative for high-grade dysplasia 02/22/24: Here for follow up. Reports no acute concerns including abd pain, N,V, weight change. Has adjusted well to her son's (1y ago). Due for repeat colo due to poor prep last time. Reports she cont to be homeless and lives in a detention. Unable to live with her mom (whos in elder care) or sister (having active tx for thyroid cancer). [facility] Medical History Lesion of colon Abdominal pain Stiffness of left wrist joint Stiffness of left hand joint Fracture of distal end of left radius with routine healing Chronic pain Hypothyroidism Surgical History Hx of colonoscopy S/P tonsillectomy Hx of hysterectomy History of surgery on wrist History of back surgery S/P arthroscopy of left shoulder S/P arthroscopy of right shoulder Hx of arthroscopy of right knee H/O tubal ligation Family History Sister Thyroid cancer Maternal Grandmother Colon cancer Son Substance abuse Depression Social History Housing: House Alcohol intake: former Patient Tobacco Use Status: Never used Tobacco e-Cigarette/Vaping Use: Never Used Second Hand Smoke Exposure: No Current occupational status: disabled Cognitive needs: No Hearing needs: No Vision needs: Yes Review of Systems Const All systems reviewed & are unremarkable except as noted in HPI and below Physical Exam Vital Signs: Last Vital Signs Pulse 67 02/22/24 12:52 BP 131/60 02/22/24 12:52 BMI result Body Mass Index 34.8 NAD Nonicteric Abd soft, nondistended A/Ox3, ambulates with a walker Assessment & Plan Assessment & Plan (1) Tubular adenoma of colon: Comment: July 2023 Code(s): D12.6 - Benign neoplasm of colon, unspecified Plan Due for repeat colo due to prep last year. Pt informed that will be booked on an elective basis. Advised to take CLD the day before Start miralax BID 3 days before colo GoLYTELY split prep as per instructions Also add senna 2 tabs the day before colo Follow up after procedure Medications: New peg 3350-electrolytes 236-22.74-6.74 -5.86 gram (Golytely) as per split prep instructions, until fecal effluent is clear 240 mL PO Q10M 4,000 mL 0RF colonoscopy polyethylene glycol 3350 (Miralax) Take twice a day starting 3 days before your colonoscopy 17 grams PO BID 238 grams 0RF sennosides (senna) 17.2 mg (2 x 8.6 mg) PO ONCE 2 tabs 0RF a day before colo noscopy Coding Level of Care Code Est Pt Level 3 (29867) Diagnoses Tubular adenoma of colon D12.6
[2024-02-22 12:52] VITALS: BP 131/60; PULSE 67; BMI 34.8
== END 2024-02-22 14:18 | disposition home or self-care (01) ==
PROVIDERS: PCP Internal Medicine; Visit Provider Internal Medicine
DX: D12.6 Benign neoplasm of colon, unspecified (principal)
CPT/HCPCS: 99213

== ENCOUNTER → 2024-02-22 12:45 | Outpatient (BNVA) | payer OTHER, SELFPAY | PROVIDERS: PCP Internal Medicine; Visit Provider Internal Medicine | DX: D12.6 Benign neoplasm of colon, unspecified (principal); R19.7 Diarrhea, unspecified; K59.00 Constipation, unspecified; R10.9 Unspecified abdominal pain | CPT/HCPCS: 99212 ==

== ENCOUNTER 2024-04-27 14:19 | Outpatient (AMB) | payer OTHER, SELFPAY ==
--- NOTE | 2024-04-27 14:20 | A.OFFPC_ITS ---
Vital Signs 04/27/24 14:21 Height 5 ft 5 in Weight 216 lb 0.6 oz BMI 35.9 BP 118/80 Blood Pressure Location Lt brachial Position Sitting Pulse 76 Pulse Source Pulse Oximeter Pulse Oximetry (%) 97 Oxygen Delivery Method Room Air Intake Visit Reasons: post laminectomy syndrome Biology Specimen Technician Required: No Allergies aspirin [ASA] Allergy (Mild, Verified 04/27/24 14:21) BRUISE, bruising hydrocodone [From VICODIN] Allergy (Mild, Verified 04/27/24 14:21) ITCH/BRUISE ibuprofen [From MOTRIN] Allergy (Mild, Verified 04/27/24 14:21) BRUISE trazodone [TRAZODONE] Allergy (Mild, Verified 04/27/24 14:21) RESTLESS quetiapine [From SEROQUEL] Adverse Reaction (Mild, Verified 04/27/24 14:21) RESTLESS Medication List - Last Reconciled 04/27/24 by Alan Mccray MD acetaminophen (Tylenol Extra Strength) 500 mg PO Q6H PRN albuterol sulfate 90 mcg/actuation (Ventolin HFA) 2 puffs inhalation Q6H PRN cyclobenzaprine 10 mg PO BEDTIME PRN diclofenac sodium 1% (Arthritis Pain (diclofenac)) 4 grams topical QID fexofenadine (Leah Allergy) 180 mg PO DAILY fluticasone propionate 50 mcg/actuation (Flonase Allergy Relief) 2 sprays intranasal DAILY lidocaine 5% 1 patch topical DAILY nystatin 1 appl topical BID nystatin topical peg 3350-electrolytes 236-22.74-6.74 -5.86 gram (Golytely) 240 mL PO Q10M polyethylene glycol 3350 (Miralax) 17 grams PO BID sennosides (senna) 17.2 mg (2 x 8.6 mg) PO ONCE Tobacco use date assessed: 04/27/24 Dental Screening Dental Screen Date: 01/23/24 HPI post laminectomy syndrome HPI Details 63-year-old obese female with a history of post laminectomy syndrome peripheral vascular disease and asthma last seen in 01/17/2024. Mammogram is up-to-date 06/16/2023. Colonoscopy is up-to-date 08/17/2023 and was advised repeat in this year. Patient did see the exhibitor sales 02/15/2024 patient complains of a lot of leg cramps as well as finger cramps and wants some medication for this. Also having headaches because of not sleeping. Patient also has a lot of gas and wants to get some medication for this as for Mary intertrigo states that nystatin is not working would like you to take a different 1. As for blood work noted that the last time it was done was 06/16/2023. Will request for new blood work [facility] Medical History (Updated 04/27/24 @ 14:48 by Alan Mccray MD) Breast cancer screening by mammogram Lesion of colon Abdominal pain Stiffness of left wrist joint Stiffness of left hand joint Fracture of distal end of left radius with routine healing Chronic pain Hypothyroidism Surgical History Hx of colonoscopy S/P tonsillectomy Hx of hysterectomy History of surgery on wrist History of back surgery S/P arthroscopy of left shoulder S/P arthroscopy of right shoulder Hx of arthroscopy of right knee H/O tubal ligation Family History Sister Thyroid cancer Maternal Grandmother Colon cancer Son Substance abuse Depression Social History Housing: House Alcohol intake: former Patient Tobacco Use Status: Never used Tobacco e-Cigarette/Vaping Use: Never Used Second Hand Smoke Exposure: No Current occupational status: disabled Cognitive needs: No Hearing needs: No Vision needs: Yes Questionnaire PHQ-9 Over the last 2 weeks, how often have you been bothered by any of the following problems? 1. Little interest or pleasure in doing things: not at all 2. Feeling down, depressed, or hopeless: not at all 3. Trouble falling or staying asleep, or sleeping too much: not at all 4. Feeling tired or having little energy: not at all 5. Poor appetite or overeating: not at all 6. Feeling bad about yourself - or that you are a failure or have let yourself or your family down: not at all 7. Trouble concentrating on things, such as reading the newspaper or watching television: not at all 8. Moving or speaking so slowly that other people could have noticed. Or the opposite - being so fidgety or restless that you have been moving around a lot more than usual: not at all 9. Thoughts that you would be better off or of hurting yourself in some way: not at all Total score: 0 Depression Screening Interpretation: Negative Depression Screening Done: Yes Source: Developed by Drs. Lukas Walton, Liliana Naranjo, Andre Del Angel and colleagues, with an educational princess from [employer]. Thrive Questionnaire Date Thrive assessed: 01/23/24 I am a: Patient What is your living situation today?: I have a steady place to live Within the past 12 months, did the food you bought not last and you didn't have the money to get more?: Never true Within the past 12 months, did you worry whether your food would run out before you got money to buy more?: Never true Do you have trouble paying for medicines?: No Do you have trouble getting transportation to medical appointments?: No Do you have trouble paying your heating and electricity bill?: No Do you have trouble taking care of your child, family member or friend?: No Do you have trouble with day-to-day activities such as bathing, preparing meals, shopping, managing finances, etc.?: No Are you currently unemployed and looking for a job?: No Are you interested in more education?: No Please select the resources that you would like help with: None THRIVE Score: 0 AUDIT C Alcohol Use Questionnaire (AUDIT-C) 1. How often do you have a drink containing alcohol?: Never 3. How often do you have six or more drinks on one occasion?: Never Total Score: 0 ROMA-7 AMB Questionnaire ROMA-7 Date ROMA - 7 assessed: 04/27/24 Feeling nervous, anxious, or on edge: 0 = Not at all Not being able to stop or control worryin = Not at all Worrying too much about different things: 0 = Not at all Trouble relaxin = Not at all Being so restless that it is hard to sit still: 0 = Not at all Becoming easily annoyed or irritable: 0 = Not at all Feeling afraid as if something awful might happen: 0 = Not at all Total ROMA-7 score (0-4 normal; 5-9 mild; 10-14 moderate; 15-21 severe): 0 Source: Developed by Drs. Lukas Walton, Liliana Naranjo, Andre Del Angel and colleagues, with an educational princess from [employer]. ROMA-7 Assessment Billing ROMA-7 Assessment Tool: ROMA-7 Assessment 15354 Physical exam (Primary Care) Vital Signs: Last Vital Signs Pulse 76 04/27/24 14:21 BP 118/80 04/27/24 14:21 Pulse Ox 97 04/27/24 14:21 Oxygen Delivery Method Room Air 04/27/24 14:21 BMI result Body Mass Index 35.9 Tobacco/Smoking Status: Tobacco use Status Tobacco use date assessed 04/27/24 04/27/24 14:22 Patient Tobacco Use Status Never used Tobacco 04/27/24 14:22 e-Cigarette/Vaping Use Never Used 04/27/24 14:22 PHQ-9: PHQ-9 Score PHQ-9: Total score 0 04/27/24 14:47 Depression Screening Interpretation: Negative Thrive Assessment: Date of Thrive Assessment Date Thrive assessed 01/23/24 04/27/24 14:22 Const General: alert; No acute distress Eyes Conjunctivae: conjunctivae normal Resp Auscultation: clear to auscultation bilaterally Cardio Rate: regular rate Rhythm: regular rhythm GI Inspection: Yes normal to inspection Extrem General: Yes normal to inspection and No edema Results AMB Urinalysis, Automated UA Leukoctes 70 Thelma/uL Last Edit by FADI Griggs on 04/27/24 15:08 UA Nitrite Negative Last Edit by FADI Griggs on 04/27/24 15:08 UA Urobilinogen 0.2 mg/dL Last Edit by FADI Griggs on 04/27/24 15:08 UA Protein 0 mg/dL Last Edit by FADI Griggs on 04/27/24 15:08 UA pH 6.0 Last Edit by FADI Griggs on 04/27/24 15:08 UA Blood 0 Gavin/uL Last Edit by FADI Griggs on 04/27/24 15:08 UA Specific [place] 1.030 Last Edit by FADI Griggs on 04/27/24 15:08 UA Ketone Positive Last Edit by FADI Griggs on 04/27/24 15:08 UA Bilirubin 0 mg/dL Last Edit by FADI Griggs on 04/27/24 15:08 UA Glucose 0 mg/dL Last Edit by FADI Griggs on 04/27/24 15:08 Assessment and Plan Assessment & Plan (1) Obesity (BMI 30-39.9): Code(s): E66.9 - Obesity, unspecified Plan: Diet and exercise (2) Colon cancer screening: Code(s): Z12.11 - Encounter for screening for malignant neoplasm of colon Plan: Patient has met with Gastroenterology and will have colonoscopy done this year (3) Asthma: Code(s): J45.909 - Unspecified asthma, uncomplicated Plan: Continuing with albuterol inhaler (4) Postlaminectomy syndrome: Code(s): M96.1 - Postlaminectomy syndrome, not elsewhere classified Plan: Muscle relaxants sent in (5) Urinary incontinence: Code(s): R32 - Unspecified urinary incontinence Plan: Advised to get urinalysis done Orders: Orders AMB Urinalysis Automated Today R32 - Unspecified urinary incontinence, Z13.9 - Encounter for screening, unspecified UA CC w/rflx Micro + Cult Today E66.9 - Obesity, unspecified, R30.0 - Dysuria Medications: New fluticasone propionate 50 mcg/actuation (Flonase Allergy Relief) administer into each nostril 2 sprays intranasal DAILY 16 grams 0RF R09.81 - Nasal congestion ketoconazole 2% 1 appl topical BID 60 grams 0RF B37.2 - Candidiasis of skin and nail cyclobenzaprine 10 mg PO BEDTIME PRN 30 tabs 0RF muscle spasm M96.1 - Postlaminectomy syndrome, not elsewhere classified simethicone (Gas Relief (simethicone)) 125 mg PO BID-QID PRN 30 caps 0RF abdominal distention E66.9 - Obesity, unspecified Discontinued nystatin Discontinued Reason: Change Referral Type 1 appl topical BID 30 grams 0RF B37.2 - Candidiasis of skin and nail Coding Level of Care Code Est Pt Level 4 (66934) Diagnoses Obesity (BMI 30-39.9) E66.9 Colon cancer screening Z12.11 Asthma J45.909 Postlaminectomy syndrome M96.1 Urinary incontinence R32 Additional Codes ROMA-7 Assessment Billing - ROMA-7 Assessment Tool: ROMA-7 Assessment [id number] ([id number])
[2024-04-27 14:21] VITALS: BP 118/80; PULSE 76; O2SAT 97; BMI 35.9
== END 2024-04-27 15:01 | disposition home or self-care (01) ==
LOC: HO.HMGH 14:19
PROVIDERS: PCP Internal Medicine; Visit Provider Internal Medicine
DX: J45.909 Unspecified asthma, uncomplicated (principal); R32 Unspecified urinary incontinence; E66.9 Obesity, unspecified; Z68.35 Body mass index [BMI] 35.0-35.9, adult; Z12.11 Encounter for screening for malignant neoplasm of colon; M96.1 Postlaminectomy syndrome, not elsewhere classified
CPT/HCPCS: 81003; 99214

== ENCOUNTER 2024-05-21 10:51 | Outpatient (REF) | payer OTHER, SELFPAY ==
--- NOTE | 2024-05-21 11:27 | MHC.AU.HA1 ---
Hearing Aid Evaluation Date of Visit: 05/21/24 Historical Information: Description of Hearing: Right Ear: Mild sensorineural hearing loss through 6 kHz, moderate at 8 kHz; Left Ear: Within normal sloping to moderately-severe sensorineural hearing loss Current personal amplification information: Described as BTEs, fit >15 years ago Summary: Provided updated hearing test and medical clearance from [facility]NT Surgeons. Previous hearing aid user >15 years ago. Has not worn hearing aids in many years, misses being able to hear. Ready to pursue new hearing aids due to increasing frustration with hearing difficulties and understanding speech. Often noisy at home with with nieces and nephews. Attends doctors' appointments, shopping. Discussed styles, manufacturers, and technology. Opted to trial rechargeable RITE compatible with Android cell phone. Will start with dome and discussed possibility of custom ear mold in future, if needed. Hearing Aid Prescription: Based on the individual?s shared listening needs, communication environments, dexterity, desire for connectivity, and personal preferences, the following prescription for amplification has been made: Right ear: Make, Model, Color: Phonak Audeo L70-R Color: Graphite López Battery Size: Rechargeable Managed Care Specialist/Slim Tube: 1M Type of Earmold/Dome/CShell/SlimTip: Medium vented dome Left ear: Left ear prescription to be same as Right Hearing Aid above: Make, Model, Color: Phonak Audeo L70-R Color: Graphite López Battery Size: Rechargeable Managed Care Specialist/Slim Tube: 1M Type of Earmold/Dome/CShell/SlimTip: Medium vented dome Accessories/Assistive Technology: Club Waiter/Waitress Plan of Care: Patient wishes to purchase hearing aids as prescribed Action Taken/Action Needed: Hearing Instrument Fitting to be scheduled when materials arrive Primary Diagnosis: H90.3 Bilateral Sensorineural Hearing Loss Signature: Provider: Red Frost, [facility]
== END 2024-05-21 10:52 | disposition home or self-care (01) ==
LOC: HO.HAP 10:51
PROVIDERS: Visit Provider Internal Medicine
DX: Z46.1 Encounter for fitting and adjustment of hearing aid (principal); H90.3 Sensorineural hearing loss, bilateral
CPT/HCPCS: 92591

== ENCOUNTER 2024-06-04 10:54 | Outpatient (REF) | payer OTHER, SELFPAY ==
--- NOTE | 2024-06-04 11:32 | MHC.AU.HA2 ---
Hearing Instrument Fitting- Adult- Binaural Date of Visit: 06/04/24 Hearing Instruments Dispensed: Right Ear: Sabas, Model, Color, Serial Number: Dante Irving [id number]-[id number] SN: [id number] Color: Graphite López Shipper Receiver Repair Warranty: 06/19/2027 Shipper Receiver Loss and Damage Warranty: 06/19/2027 [facility] Service Plan: 06/04/2025 Battery Size: Rechargeable Padded Products Inspector Trimmer/Slim Tube: 1M Earmold/Dome/CShell/SlimTip: Medium vented dome (no retention tail) Type of Wax Guard: CeruStop Left Ear: Make, Model, Color, Serial Number: Dante Newtono L70-[id number] SN: [id number] Color: Graphite López Shipper Receiver Repair Warranty: 06/19/2027 Shipper Receiver Loss and Damage Warranty: 06/19/2027 [facility] Service Plan: 06/04/2025 Battery Size: Rechargeable Padded Products Inspector Trimmer/Slim Tube: 1M Earmold/Dome/CShell/SlimTip: Medium vented dome (no retention tail) Type of Wax Guard: CeruStop Accessories/Assistive Technology: Phonak Apron Operator Ease SN: [id number] Summary of Fitting: Performed feedback analyzer and real ear measures. Comfortable at real ear settings. Own voice loud but tolerable. Discussed importance of consistent use in acclimating to hearing aids. Discussed care, use, and rechargeability including manually turning on/off, VC use, and changing domes and wax guards. Practiced insertion/removal. Paired to cell phone. Recommendations: A hearing instrument follow-up was scheduled. Diagnosis Code(s): Primary Diagnosis: H90.3 Bilateral Sensorineural Hearing Loss Signature: Provider: Red Frost, [facility]
== END 2024-06-04 10:55 | disposition home or self-care (01) ==
LOC: HO.HAP 10:54
PROVIDERS: Visit Provider Otolaryngology
DX: Z46.1 Encounter for fitting and adjustment of hearing aid (principal)
CPT/HCPCS: V5011; V5020; V5160; V5261

== ENCOUNTER 2024-06-10 09:47 | Emergency (ER) | payer OTHER, SELFPAY ==
--- NOTE | ~2024-06-10 | XR_ITS ---
EXAMINATION: XR FOOT, RIGHT CLINICAL INFORMATION: Erythema pain base of fifth metatarsal COMPARISON: X-ray of the right foot May 18, 2023 TECHNIQUE: AP, lateral, and oblique views of the right foot. FINDINGS: There is a prominent plantar calcaneal spur and small posterior calcaneal spur unchanged. Small ossification overlying the dorsal aspect of the talonavicular joint likely related to old trauma of the capsule. Mild arthrosis of the naviculocuneiform joint. Probable bipartite tibial sesamoid of the hallux sesamoid joints no change. XR/XR foot RT min 3V IMPRESSION: 1. No acute abnormality. Fifth metatarsal base intact without fracture. 2. Calcaneal spurs. 3. Mild arthrosis of the naviculocuneiform joint.
[2024-06-10 10:00] VITALS: BP 152/93; PULSE 79; RESP 20; TEMP 36.8; O2SAT 96; BMI 35.8
--- NOTE | 2024-06-10 10:16 | ED_ITS ---
HPI - General Adult General Chief complaint: Skin/Abscess/Foreign Body Stated complaint: Infected L foot red/painful Time Seen by Provider: 06/10/24 10:14 Source: patient Mode of arrival: ambulatory Limitations: no limitations History of Present Illness ED Provider: Bill FREEMAN narrative: Patient is a 64-year-old female with history of bipolar disorder, chronic pain syndrome, hepatitis-B, hepatitis-C presenting to the emergency department with complaint of right foot pain and redness for the past 7-10 days. She denies any known injury or trauma. States that she never walks around her house barefoot and always wears her slippers even if going to the bathroom. Denies any discharge or drainage from the area. Denies fevers. States she came in today as the redness began to swell to the plantar surface of her foot. Reports history of gout in the past but states this feels different. Has not taken any [id number] medications for her symptoms. MD complaint: Right foot pain Onset (ago): week(s) Location: right and lower extremity Radiation: non-radiation Severity: moderate Quality: aching Pain Consistency: constant Relieving factors: rest Exacerbating factors: movement and other (Weightbearing) Associated symptoms: denies other symptoms Treatments prior to arrival: none Related Data Home Medications ?Medication ?Instructions ?Recorded ?Confirmed acetaminophen 500 mg tablet 500 mg PO Q6H PRN Pain 11/01/22 04/27/24 (Tylenol Extra Strength) Previous Rx's ?Medication ?Instructions ?Recorded diclofenac sodium 1 % topical gel 4 g topical QID #100 grams 08/04/23 (Arthritis Pain (diclofenac)) albuterol sulfate 90 mcg/actuation 2 puff inhalation Q6H PRN 11/09/23 aerosol inhaler (Ventolin HFA) shortness of breath or wheezing #8.5 grams lidocaine 5 % topical patch 1 patch topical DAILY #15 ea 12/29/23 fexofenadine 180 mg tablet 180 mg PO DAILY #30 tabs 01/23/24 (Leah Allergy) peg 3350-electrolytes 236 240 ml PO Q10M colonoscopy #4,000 02/22/24 gram-22.74 gram-6.74 gram-5.86 mL gram solution (Golytely) polyethylene glycol 3350 17 17 g PO BID #238 grams 02/22/24 gram/dose oral powder (Miralax) sennosides 8.6 mg tablet (senna) 17.2 mg (2 x 8.6 mg) PO ONCE a day 02/22/24 before colonoscopy #2 tabs cyclobenzaprine 10 mg tablet 10 mg PO BEDTIME PRN muscle spasm 04/27/24 #30 tabs fluticasone propionate 50 2 spray intranasal DAILY #16 grams 04/27/24 mcg/actuation nasal spray,suspension (Flonase Allergy Relief) ketoconazole 2 % topical cream 1 appl topical BID #60 grams 04/27/24 simethicone 125 mg capsule (Gas 125 mg PO BID-QID PRN abdominal 04/27/24 Relief (simethicone)) distention #30 caps cephalexin 500 mg capsule 500 mg PO QID #28 caps 06/10/24 Allergies Allergy/AdvReac Type Severity Reaction Status Date / Time aspirin [ASA] Allergy Mild BRUISE, Verified 06/10/24 10:01 bruising hydrocodone [From VICODIN] Allergy Mild ITCH/BRUISE Verified 06/10/24 10:01 ibuprofen [From MOTRIN] Allergy Mild BRUISE Verified 06/10/24 10:01 trazodone [TRAZODONE] Allergy Mild RESTLESS Verified 06/10/24 10:01 quetiapine [From SEROQUEL] AdvReac Mild RESTLESS Verified 06/10/24 10:01 Review of Systems 2 Review of Systems: As per HPI. Yes all other systems are reviewed and are negative Constitutional: Constitutional: Reports as per HPI [facility] Past Medical History Medical History (Updated 06/10/24 @ 11:05 by Marta Kahn NP) Breast cancer screening by mammogram Lesion of colon Abdominal pain Stiffness of left wrist joint Stiffness of left hand joint Fracture of distal end of left radius with routine healing Chronic pain Hypothyroidism Surgical History Hx of colonoscopy S/P tonsillectomy Hx of hysterectomy History of surgery on wrist History of back surgery S/P arthroscopy of left shoulder S/P arthroscopy of right shoulder Hx of arthroscopy of right knee H/O tubal ligation Family History Family History Sister Thyroid cancer Maternal Grandmother Colon cancer Son Substance abuse Depression Social History Social History Housing: House Alcohol intake: former Patient Tobacco Use Status: Never used Tobacco e-Cigarette/Vaping Use: Never Used Second Hand Smoke Exposure: No Advance Directives: No Advance Directives Information Provided: No Current occupational status: disabled Cognitive needs: No Hearing needs: No Vision needs: Yes Physical Exam ED Vital Signs: Vital Signs - 24 hr 06/10/24 10:00 Temperature 98.2 F Pulse Rate 79 Respiratory Rate 20 Blood Pressure 152/93 H Pulse Oximetry 96 Oxygen Delivery Method Room Air BMI result Body Mass Index 35.8 Vital signs have been reviewed and appear to be correct. Blood pressure elevated. Heart rate normal. Respiratory rate normal. Temperature normal. Oxygen saturation normal. Const General: cooperative, healthy appearing and no acute distress Orientation/consciousness: oriented to person, oriented to place, oriented to time and patient oriented x3 Limitations: no limitations HENMT Head: Yes normocephalic and Yes atraumatic Ears: external ears normal General nose exam: Normal external nose present Face and sinus: Yes face symmetric Mouth: oropharynx normal and moist mucous membranes Throat: Yes uvula midline Eyes Pupils: Equal, round and reactive pupils present Neck Neck: Yes normal visual inspection and Yes supple Resp Effort & Inspection: normal respiratory effort and able to speak in complete sentences Auscultation: clear to auscultation bilaterally Cardio Rate: regular rate Rhythm: regular rhythm Heart sounds: S1 normal heart sound present and S2 normal heart sound present Skin General skin exam: elasticity normal and turgor normal Neuro General: oriented to person, oriented to place, oriented to time, patient oriented x3, moves all extremities, no focal motor deficits and CN's II-XI intact bilaterally Cranial nerves: Yes Equal, round and reactive pupils present Cognition (Neuro): normal cognition Extrem General: Yes full ROM, Yes no pedal edema and Yes no calf tenderness Ankle/foot/toe images: 2 1. erythema, tenderness 2. erythema, tenderness Psych Mental Status: mental status grossly normal Affect: normal affect Thought process: Normal thought process present Medical Decision Making Medical Decision Making MDM Narrative: Patient is a 64-year-old female with history of bipolar disorder, chronic pain syndrome, hepatitis-B, hepatitis-C presenting to the emergency department with complaint of right foot pain and redness for the past 7-10 days. On exam patient is awake, A+Ox3, VS WNL, afebrile, normal neurological exam without focal deficits, physical exam findings as above. Given reported symptoms and physical exam findings, initial differential includes cellulitis, foreign body, gout, fracture. X-ray notable for no fracture, no evidence of foreign body or osteomyelitis. My interpretation is in agreement with the radiologist's interpretation. Will treat for cellulitis with cephalexin. Advised patient to keep foot elevated while at rest and assess area daily for signs of worsening infection. Instructed patient to follow up with PCP. Return precautions discussed. Patient verbalized understanding of and agreement with plan. Differential Diagnosis Differential Diagnoses: The differential diagnosis associated with the presentation includes As per MDM. Independent Interpretation I performed an independent interpretation of an: Plain X-Ray Interpretation: X-ray notable for no fracture, no evidence of foreign body or osteomyelitis. Radiology Impression Discussion of test interpretation with radiology: I have reviewed the radiologist's reading. Radiologist Impression: XR/XR foot RT min 3V IMPRESSION: 1. No acute abnormality. Fifth metatarsal base intact without fracture. 2. Calcaneal spurs. 3. Mild arthrosis of the naviculocuneiform joint. External Record Review External record reviewed: Inpatient record, Office record and Outpatient record Prescription Management I considered prescription management with: Antibiotic Discharge Plan Discharge Clinical Impression: Cellulitis of foot without toes, right Patient Disposition: Home, Self-Care Instructions: Cephalexin (By mouth), Cellulitis (DC) Additional Instructions: You have been evaluated in the emergency department today for skin infection, also known as cellulitis. If the area of inflammation was outlined today in the ER, please return to the ER immediately if the area of redness increases beyond the border. Please take your prescribed antibiotics as directed for the full course of the medication. You can use Tylenol or ibuprofen per package instructions every 6 hours as needed for pain. If necessary, you can alternate these medications so that you can take one medication every 3 hours. For instance, at noon take ibuprofen, then at 3:00 p.m. take Tylenol, then at 6:00 p.m. take ibuprofen. Please schedule an appointment for follow-up with your primary care physician as soon as possible. Return to the emergency department if you experience recurrent vomiting, fevers greater than 100.4? F, increasing area of redness, warmth around the area, foul-smelling discharge from the area, increased tenderness around the area, or any other concerning symptoms. Prescriptions: New cephalexin 500 mg capsule 500 mg PO QID Qty: 28 0RF No Action albuterol sulfate [Ventolin HFA] 90 mcg/actuation HFA aerosol inhaler 2 puff inhalation Q6H PRN (Reason: shortness of breath or wheezing) Qty: 8.5 3RF fexofenadine [Leah Allergy] 180 mg tablet 180 mg PO DAILY Qty: 30 3RF cyclobenzaprine 10 mg tablet 10 mg PO BEDTIME PRN (Reason: muscle spasm) Qty: 30 0RF fluticasone propionate [Flonase Allergy Relief] 50 mcg/actuation spray,suspension 2 spray intranasal DAILY Qty: 16 0RF Rx Instructions: administer into each nostril ketoconazole 2 % cream 1 appl topical BID Qty: 60 0RF simethicone [Gas Relief (simethicone)] 125 mg capsule 125 mg PO BID-QID PRN (Reason: abdominal distention) Qty: 30 0RF diclofenac sodium [Arthritis Pain (diclofenac)] 1 % gel 4 g topical QID Qty: 100 0RF Rx Instructions: apply to single knee, ankle, foot; for foot includes sole/toes/top of foot lidocaine 5 % adhesive patch,medicated 1 patch topical DAILY Qty: 15 3RF Rx Instructions: leave on most painful area for up to 12 hrs acetaminophen [Tylenol Extra Strength] 500 mg tablet 500 mg PO Q6H PRN (Reason: Pain) peg 3350-electrolytes [Golytely] 236-22.74-6.74 -5.86 gram recon soln 240 ml PO Q10M Qty: 4000 0RF Rx Instructions: as per split prep instructions, until fecal effluent is clear polyethylene glycol 3350 [Miralax] 17 gram/dose powder 17 g PO BID Qty: 238 0RF Rx Instructions: Take twice a day starting 3 days before your colonoscopy sennosides [senna] 8.6 mg tablet 17.2 mg PO ONCE Qty: 2 0RF Print Language: Ukrainian
[2024-06-10 11:49] VITALS: BP 152/93; PULSE 79; RESP 20; TEMP 36.8; O2SAT 96
== END 2024-06-10 11:52 | disposition home or self-care (01) ==
PROVIDERS: Emergency Provider Emergency Medicine; PCP Internal Medicine
DX: L03.115 Cellulitis of right lower limb (principal); M79.671 Pain in right foot
CPT/HCPCS: 73630; 99282; 99283

== ENCOUNTER 2024-06-12 09:44 | Emergency (ER) | payer OTHER, SELFPAY ==
--- NOTE | ~2024-06-12 | CT_ITS ---
EXAMINATION: CT FOOT WITHOUT CONTRAST, RIGHT CLINICAL INFORMATION: Lateral cellulitis. COMPARISON: Radiographs 06/10/2024. TECHNIQUE: A noncontrast CT of the right foot is performed with sagittal and coronal reformats. This CT examination was performed using dose optimization techniques as appropriate, variously including the following: *Automated exposure control *Adjustment of mA and/or kV according to patient size (this includes techniques or standardized protocols for targeted exams where dose is matched to indication/reason for exam; i.e. extremities or head) *Use of iterative reconstruction technique DLP: 144 mGy-cm FINDINGS: There are areas of subcutaneous edema and probable skin thickening including the plantar/lateral aspect of the midfoot which may represent cellulitis. I do not see an ulcer/skin defect. No abscess is evident. No cortical erosion or periosteal reaction to suggest osteomyelitis. There are degenerative changes which are most prominent at the junction of the navicular and the middle and lateral cuneiforms. No acute osseous abnormality. Prominent heel spur. CT/CT foot RT wo IV con IMPRESSION: Possible cellulitis along the plantar/lateral aspect of the midfoot. No abscess or evidence of osteomyelitis.
[2024-06-12 09:47] VITALS: BP 131/74; PULSE 79; RESP 16; TEMP 36.8; O2SAT 95; BMI 36.6
--- NOTE | 2024-06-12 10:45 | ED.LOWEXIN ---
HPI - Extremity Injury (Lower) General Chief Complaint: Extremity Injury, Lower Stated Complaint: R foot infection Time Seen by Provider: 06/12/24 10:13 Source: patient, RN notes reviewed and old records reviewed Mode of arrival: ambulatory Limitations: no limitations History of Present Illness ED Provider: FRENCH YAN PA-C HPI Narrative: 64 year old female with pmhx significant for bipolar disorder, chronic pain syndrome, hepatitis B and hepatitis C presents to the ED today with complaint of right foot pain x12 days. Reports pain and redness along the outer aspect of her right foot. Denies injury or trauma. Admits she was evaluated at [facility] 2 days ago with unremarkable work up. The area was marked with skin pen and she was discharged home with keflex which she has been taking as prescribed. She states the redness has not extended past the marked line however the pain has persisted which makes it difficult for her to stand/ walk. She has not been taking any OTC pain meds at home for this. Admits she was seen at this morning and was advised to come to the ED immediately for MRI. Denies any other concerns at present. Denies fever/chills. Related Data Home Medications ?Medication ?Instructions ?Recorded ?Confirmed acetaminophen 500 mg tablet 500 mg PO Q6H PRN Pain 11/01/22 04/27/24 (Tylenol Extra Strength) Previous Rx's ?Medication ?Instructions ?Recorded diclofenac sodium 1 % topical gel 4 g topical QID #100 grams 08/04/23 (Arthritis Pain (diclofenac)) albuterol sulfate 90 mcg/actuation 2 puff inhalation Q6H PRN 11/09/23 aerosol inhaler (Ventolin HFA) shortness of breath or wheezing #8.5 grams lidocaine 5 % topical patch 1 patch topical DAILY #15 ea 12/29/23 fexofenadine 180 mg tablet 180 mg PO DAILY #30 tabs 01/23/24 (Leah Allergy) peg 3350-electrolytes 236 240 ml PO Q10M colonoscopy #4,000 02/22/24 gram-22.74 gram-6.74 gram-5.86 mL gram solution (Golytely) polyethylene glycol 3350 17 17 g PO BID #238 grams 02/22/24 gram/dose oral powder (Miralax) sennosides 8.6 mg tablet (senna) 17.2 mg (2 x 8.6 mg) PO ONCE a day 02/22/24 before colonoscopy #2 tabs cyclobenzaprine 10 mg tablet 10 mg PO BEDTIME PRN muscle spasm 04/27/24 #30 tabs fluticasone propionate 50 2 spray intranasal DAILY #16 grams 04/27/24 mcg/actuation nasal spray,suspension (Flonase Allergy Relief) ketoconazole 2 % topical cream 1 appl topical BID #60 grams 04/27/24 simethicone 125 mg capsule (Gas 125 mg PO BID-QID PRN abdominal 04/27/24 Relief (simethicone)) distention #30 caps cephalexin 500 mg capsule 500 mg PO QID #28 caps 06/10/24 doxycycline hyclate 100 mg tablet 100 mg PO BID 7 days #14 tabs 06/12/24 oxycodone 5 mg tablet 5 mg PO TID PRN pain (scale score 06/12/24 4-6) 3 days #9 tabs Allergies Allergy/AdvReac Type Severity Reaction Status Date / Time aspirin [ASA] Allergy Mild BRUISE, Verified 06/12/24 09:48 bruising hydrocodone [From VICODIN] Allergy Mild ITCH/BRUISE Verified 06/12/24 09:48 ibuprofen [From MOTRIN] Allergy Mild BRUISE Verified 06/12/24 09:48 trazodone [TRAZODONE] Allergy Mild RESTLESS Verified 06/12/24 09:48 quetiapine [From SEROQUEL] AdvReac Mild RESTLESS Verified 06/12/24 09:48 Review of Systems Review of Systems: Constitutional: No fever, chills, fatigue, night sweats, weight changes ENT/Mouth: No ear pain, hearing loss, nasal congestion, sinus pain, rhinorrhea, sore throat Eyes: No eye pain, swelling, redness, vision changes, discharge Cardio: No chest pain, palpitations, BUSTILLOS, orthopnea, peripheral edema Pulm: No SOB, cough, sputum, wheezing, dyspnea, hemoptysis GI: No nausea, vomiting, hematemesis, abdominal pain, diarrhea, constipation, hematochezia, melena : No irregular bleeding, dysuria, frequency, urgency, hesitancy, hematuria, flank pain, urinary flow changes, urinary incontinence or retention MSK: No back pain, neck pain, joint pain, myalgias, +right foot pain Skin: No lesions, rashes Neuro: No weakness, numbness, paresthesias, LOC, dizziness, headache Psych: No anxiety/panic, depression, SI/HI, AH/VH All other systems reviewed and are negative. [facility] Past Medical History Attestation statement: The following information was validated with the patient. Source: old records reviewed and nursing notes reviewed Medical History Breast cancer screening by mammogram Lesion of colon Abdominal pain Stiffness of left wrist joint Stiffness of left hand joint Fracture of distal end of left radius with routine healing Chronic pain Hypothyroidism Surgical History Hx of colonoscopy S/P tonsillectomy Hx of hysterectomy History of surgery on wrist History of back surgery S/P arthroscopy of left shoulder S/P arthroscopy of right shoulder Hx of arthroscopy of right knee H/O tubal ligation Family History Family History Sister Thyroid cancer Maternal Grandmother Colon cancer Son Substance abuse Depression Social History Social History Housing: House Alcohol intake: former Patient Tobacco Use Status: Never used Tobacco Smoked in Last 30 Days: No e-Cigarette/Vaping Use: Never Used Second Hand Smoke Exposure: No Use of substances other than those prescribed or required for medical reasons: No Advance Directives: No Do you have a plan to hurt others: No Plan Current occupational status: disabled Cognitive needs: No Hearing needs: No Vision needs: Yes Physical Exam Vital Signs: Vital Signs: Last Vital Signs Temp 98.3 F 06/12/24 09:47 Pulse 79 06/12/24 09:47 Resp 16 06/12/24 09:47 BP 131/74 06/12/24 09:47 Pulse Ox 95 06/12/24 09:47 O2 Del Method Room Air 06/12/24 09:47 BMI result Body Mass Index 36.6 vitals stable, afebrile Const: General: cooperative, healthy appearing, comfortable and no acute distress Orientation/consciousness: patient oriented x3 Limitations: no limitations HEENT: Head: Yes normal to inspection, Yes No palpable skull fracture present, Yes normocephalic and Yes atraumatic Eyes: General: appearance normal, both eyes and all related structures Pupils: Equal, round and reactive pupils present Resp: Effort & Inspection: normal respiratory effort and able to speak in complete sentences Auscultation: clear to auscultation bilaterally Cardio: Rate: regular rate Rhythm: regular rhythm Skin: Other: + refer to below Neuro: General: patient oriented x3 and gait normal Cranial nerves: Yes Equal, round and reactive pupils present Extrem: Other: + refer to photos below + area of erythema and induration noted to lateral aspect of right foot extending to the plantar aspect. no extension beyond marked lines. exquisitely tender to palpation. no fluctuance. no pointing. no streaking. no palpable deformity or FB. 2+ dp/pt pulse intact. Course Course Course Narrative: 1200-- CBC without leukocytosis or left shift. no anemia. h&h stable. chemistry without acute electrolyte abnormality requiring intervention. normal renal function. CT right foot showing possible cellulitis of plantar/lateral aspect without evidence of abscess of osteo. > discussed all work up results with patient. oxycodone given for pain control. will add on doxy to her current keflex regimen and send oxycodone to pharmacy for break through pain. patient agreeable. Patient has remained stable throughout ED visit today. Discussed worrisome signs and symptoms and when to return to the ED. All questions answered at this time. Patient is agreeable with disposition and stable for discharge. Medications Administered Discontinued Medications Generic Name Dose Route Start Last Admin Trade Name Freq PRN Reason Stop Dose Admin Oxycodone HCl 5 mg 06/12/24 11:36 06/12/24 11:53 Oxycodone Hcl Immed Release 5 Mg Tablet PO 06/12/24 11:37 5 mg ONCE ONE Administration Medical Decision Making Medical Decision Making [facility] Narrative: 64 year old female with pmhx significant for bipolar disorder, chronic pain syndrome, hepatitis B and hepatitis C presents to the ED today with complaint of right foot pain x12 days. On exam, area of erythema and induration noted to lateral aspect of right foot extending to the plantar aspect. no extension beyond marked lines. exquisitely tender to palpation. no fluctuance. no pointing. no streaking. no palpable deformity or FB. ambulating with steady gait. 2+ pt/dp pulse intact. Differential diagnosis includes cellulitis, callus, plantar fasciitis. unlikely osteomyelitis, retained FB, abscess. Plan for basic labs, CT, pain control, and re-evaluation. Differential Diagnosis Differential Diagnoses: The differential diagnosis associated with the presentation includes as above Admission/Observation Not indicated. Lab Data MDM Lab Attestation statement: I reviewed the patient's lab results. as above. 06/12/24 11:22 06/12/24 11:22 Labs: Lab Results 06/12/24 Range/Units 11:22 WBC 6.2 (4.8-10.8) X10*3/uL RBC 4.73 (4.20-5.50) X10*6/uL Hgb 14.2 (12.0-16.0) g/dl Hct 42.8 (37.0-47.0) % MCV 90.5 (80.0-98.0) fL MCH 30.0 (27.0-33.0) pg MCHC 33.2 (31.0-35.0) g/dl RDW 13.5 (11.0-16.0) % Plt Count 282 (160-400) X10*3/uL MPV 9.2 L (9.4-12.3) fL Immature Gran % (Auto) 0.8 H (0.0-0.4) % Neut % (Auto) 57.1 (45-73) % Lymph % (Auto) 23.8 (20-40) % [place] % (Auto) 12.2 H (2-11) % Eos % (Auto) 5.0 H (0-4) % Baso % (Auto) 1.1 (0-2) % Lymph # (Auto) 1.5 (1.2-4.9) X10*3/uL [place] # (Auto) 0.8 (0.1-1.2) X10*3/uL Eos # (Auto) 0.3 (0.0-0.4) X10*3/uL Baso # (Auto) 0.1 (0.0-0.2) X10*3/uL Abs Immat Gran (auto) 0.05 H (0.00-0.03) X10*3/uL Absolute Neuts (auto) 3.6 (2.0-8.3) x10*3/uL Absolute Nucleated RBC 0.000 (0.0-0.012) X10*3/uL Nucleated RBC % (auto) 0.0 (0.0-0.2) /100WBC Sodium 144 (135-145) mmol/L Potassium 4.5 (3.3-5.1) mmol/L Chloride 110 H (96-108) mmol/L Carbon Dioxide 27 (22-29) mmol/L Anion Gap 12 (12-20) BUN 11 (9-16) mg/dL Creatinine 0.62 (0.5-1.4) mg/dL Estim Creat Clear Calc 107.2 Estimated GFR > 60 Random Glucose 92 (60-115) mg/dL Calcium 9.0 (8.4-10.2) mg/dL Independent Interpretation I performed an independent interpretation of an: Plain X-Ray and CT Scan Interpretation: XR right foot without evidence of fracture, agree with radiologist's interpretation. CT right foot with SQ edema, agree with radiologist's interpretation. Radiology Impression Discussion of test interpretation with radiology: I have reviewed the radiologist's reading. Radiologist Impression: EXAMINATION: XR FOOT, RIGHT CLINICAL INFORMATION: Erythema pain base of fifth metatarsal COMPARISON: X-ray of the right foot May 18, 2023 TECHNIQUE: AP, lateral, and oblique views of the right foot. FINDINGS: There is a prominent plantar calcaneal spur and small posterior calcaneal spur unchanged. Small ossification overlying the dorsal aspect of the talonavicular joint likely related to old trauma of the capsule. Mild arthrosis of the naviculocuneiform joint. Probable bipartite tibial sesamoid of the hallux sesamoid joints no change. XR/XR foot RT min 3V IMPRESSION: 1. No acute abnormality. Fifth metatarsal base intact without fracture. 2. Calcaneal spurs. 3. Mild arthrosis of the naviculocuneiform joint. EXAMINATION: CT FOOT WITHOUT CONTRAST, RIGHT CLINICAL INFORMATION: Lateral cellulitis. COMPARISON: Radiographs 06/10/2024. TECHNIQUE: A noncontrast CT of the right foot is performed with sagittal and coronal reformats. This CT examination was performed using dose optimization techniques as appropriate, variously including the following: *Automated exposure control *Adjustment of mA and/or kV according to patient size (this includes techniques or standardized protocols for targeted exams where dose is matched to indication/reason for exam; i.e. extremities or head) *Use of iterative reconstruction technique DLP: 144 mGy-cm FINDINGS: There are areas of subcutaneous edema and probable skin thickening including the plantar/lateral aspect of the midfoot which may represent cellulitis. I do not see an ulcer/skin defect. No abscess is evident. No cortical erosion or periosteal reaction to suggest osteomyelitis. There are degenerative changes which are most prominent at the junction of the navicular and the middle and lateral cuneiforms. No acute osseous abnormality. Prominent heel spur. CT/CT foot RT wo IV con IMPRESSION: Possible cellulitis along the plantar/lateral aspect of the midfoot. No abscess or evidence of osteomyelitis. External Record Review External record reviewed: Inpatient record, Office record, Outpatient record, Prior outpatient labs, Prior outpatient radiology, Primary care record and Outside ED record Prescription Management I considered prescription management with: Pain Medication (oxycodone) and Antibiotic (doxycycline) Chronic Conditions Patient?s care impacted by: Other (chronic pain syndrome) Social Determinants Patient?s care significantly limited by Social Determinants of Health including: Other Social Determinant of Health Critical Care Time Critical Care Time Critical Care Time: No Discharge Plan Discharge Clinical Impression: Cellulitis of foot without toes, right Patient Disposition: Home, Self-Care Instructions: Cellulitis (ED) Additional Instructions: Your blood work today is reassuring. The CT scan of your foot shows redmonstration of skin infection without involvement of the bone. Doxycycline is an antibiotic that will be added to the current antibiotic you are taking (Keflex). Take this twice daily for 7 days. take this to completion. Continue Keflex. Take tylenol at home as needed for pain. Oxycodone has been sent to your pharamcy for you to take for breal through pain. Use this with caution as this medication can cause addiction. Follow up with your PCP. Return to the ED with new or worsening symptoms. In the case of an emergency call 911. Prescriptions: New doxycycline hyclate 100 mg tablet 100 mg PO BID 7 Days Qty: 14 0RF oxycodone 5 mg tablet 5 mg PO TID PRN (Reason: pain (scale score 4-6)) 3 Days Qty: 9 0RF Rx Instructions: Partial Fill upon patient request. No Action albuterol sulfate [Ventolin HFA] 90 mcg/actuation HFA aerosol inhaler 2 puff inhalation Q6H PRN (Reason: shortness of breath or wheezing) Qty: 8.5 3RF cephalexin 500 mg capsule 500 mg PO QID Qty: 28 0RF fexofenadine [Leah Allergy] 180 mg tablet 180 mg PO DAILY Qty: 30 3RF cyclobenzaprine 10 mg tablet 10 mg PO BEDTIME PRN (Reason: muscle spasm) Qty: 30 0RF fluticasone propionate [Flonase Allergy Relief] 50 mcg/actuation spray,suspension 2 spray intranasal DAILY Qty: 16 0RF Rx Instructions: administer into each nostril ketoconazole 2 % cream 1 appl topical BID Qty: 60 0RF simethicone [Gas Relief (simethicone)] 125 mg capsule 125 mg PO BID-QID PRN (Reason: abdominal distention) Qty: 30 0RF diclofenac sodium [Arthritis Pain (diclofenac)] 1 % gel 4 g topical QID Qty: 100 0RF Rx Instructions: apply to single knee, ankle, foot; for foot includes sole/toes/top of foot lidocaine 5 % adhesive patch,medicated 1 patch topical DAILY Qty: 15 3RF Rx Instructions: leave on most painful area for up to 12 hrs acetaminophen [Tylenol Extra Strength] 500 mg tablet 500 mg PO Q6H PRN (Reason: Pain) peg 3350-electrolytes [Golytely] 236-22.74-6.74 -5.86 gram recon soln 240 ml PO Q10M Qty: 4000 0RF Rx Instructions: as per split prep instructions, until fecal effluent is clear polyethylene glycol 3350 [Miralax] 17 gram/dose powder 17 g PO BID Qty: 238 0RF Rx Instructions: Take twice a day starting 3 days before your colonoscopy sennosides [senna] 8.6 mg tablet 17.2 mg PO ONCE Qty: 2 0RF Referrals: Po,Alan Andrade MD [Primary Care Provider] - Print Language: Belgian
[2024-06-12 11:28] LABS: MANUAL DIFF FLAG NO
[2024-06-12 11:31] LABS: Basophils Absolute Auto 0.1 X10*3/uL (0.0-0.2); Basophils Percent Auto 1.1 % (0-2); Eosinophils Absolute Auto 0.3 X10*3/uL (0.0-0.4); Hematocrit 42.8 % (37.0-47.0); Hemoglobin 14.2 g/dl (12.0-16.0); Imm Gran Abs Auto 0.05 X10*3/uL (0.00-0.03); Imm Gran Pct Auto 0.8 % (0.0-0.4); Lymphocytes Absolute Auto 1.5 X10*3/uL (1.2-4.9); Lymphocytes Percent Auto 23.8 % (20-40); Mean Corpuscular HGB Conc 33.2 g/dl (31.0-35.0); Mean Corpuscular Volume 90.5 fL (80.0-98.0); Mean Platelet Volume 9.2 fL (9.4-12.3); Monocytes Absolute Auto 0.8 X10*3/uL (0.1-1.2); Monocytes Percent Auto 12.2 % (2-11); Neutrophils Absolute Auto 3.6 x10*3/uL (2.0-8.3); Neutrophils Percent Auto 57.1 % (45-73); Platelet Count 282 X10*3/uL (160-400); Red Blood Count 4.73 X10*6/uL (4.20-5.50); Red Cell Distribution Width 13.5 % (11.0-16.0); White Blood Count 6.2 X10*3/uL (4.8-10.8)
[2024-06-12] MEDS: oxyCODONE HCl Immed Release 5 MG TABLET PO (11:53)
[2024-06-12 11:54] LABS: Anion Gap 12 (12-20); Blood Urea Nitrogen 11 mg/dL (9-16); Carbon Dioxide 27 mmol/L (22-29); Chloride 110 mmol/L (96-108); Creatinine Clr Calc Pharmacy 107.2; Estimated Glomerular Filt Rate > 60; Glucose Random 92 mg/dL (60-115); Potassium 4.5 mmol/L (3.3-5.1); Sodium 144 mmol/L (135-145)
[2024-06-12 13:53] VITALS: BP 134/72; PULSE 74; RESP 17; TEMP 36.6; O2SAT 98
== END 2024-06-12 13:53 | disposition home or self-care (01) ==
PROVIDERS: Physician Assistant Medical; Emergency Provider Student in an Organized Health Care Education/Training Program; PCP Internal Medicine
DX: L03.115 Cellulitis of right lower limb (principal); M79.671 Pain in right foot; Z79.899 Other long term (current) drug therapy
CPT/HCPCS: 36415; 73700; 80048; 85025; 99284

== ENCOUNTER 2024-06-23 11:30 | Emergency (ER) | payer OTHER, SELFPAY ==
--- NOTE | ~2024-06-23 | XR_ITS ---
EXAMINATION: XR SHOULDER, LEFT XR HAND/WRIST, RIGHT CLINICAL INFORMATION: Right wrist pain. Fall. Left shoulder pain. COMPARISON: None available. TECHNIQUE: 3 views of the left shoulder. 4 views of the right wrist and hand FINDINGS: Left shoulder: Bones are osteopenic. No fracture or malalignment. Mild and glenohumeral osteoarthritis with marginal osteophytes. Blunting of the undersurface of the distal clavicle is likely result of prior distal clavicular resection. Mild acromioclavicular osteoarthritis. Chronic avulsion fracture at the anterolateral margin of the acromion. Soft tissues are unremarkable. Right hand/wrist : There is mild to moderate osteoarthritis at the first CMC joint and more mild osteoarthritis in the MCP and interphalangeal joints. No erosions. No acute fractures. Mild soft tissue swelling at the wrist. XR/XR shoulder LT min 2V IMPRESSION: 1. No acute fracture or malalignment in the left shoulder, right hand, and right wrist. 2. Mild osteoarthritis in the left glenohumeral and acromioclavicular joints. 3. Mild to moderate osteoarthritis in the right first CMC joint.
--- NOTE | ~2024-06-23 | XR_ITS ---
EXAMINATION: XR SHOULDER, LEFT XR HAND/WRIST, RIGHT CLINICAL INFORMATION: Right wrist pain. Fall. Left shoulder pain. COMPARISON: None available. TECHNIQUE: 3 views of the left shoulder. 4 views of the right wrist and hand FINDINGS: Left shoulder: Bones are osteopenic. No fracture or malalignment. Mild and glenohumeral osteoarthritis with marginal osteophytes. Blunting of the undersurface of the distal clavicle is likely result of prior distal clavicular resection. Mild acromioclavicular osteoarthritis. Chronic avulsion fracture at the anterolateral margin of the acromion. Soft tissues are unremarkable. Right hand/wrist : There is mild to moderate osteoarthritis at the first CMC joint and more mild osteoarthritis in the MCP and interphalangeal joints. No erosions. No acute fractures. Mild soft tissue swelling at the wrist. XR/XR hand wrist RT IMPRESSION: 1. No acute fracture or malalignment in the left shoulder, right hand, and right wrist. 2. Mild osteoarthritis in the left glenohumeral and acromioclavicular joints. 3. Mild to moderate osteoarthritis in the right first CMC joint.
--- NOTE | 2024-06-23 11:45 | ED_ITS ---
HPI - Extremity Injury (Upper) General Chief Complaint: Fall Stated Complaint: L shoulder pain; R wrist pain Time Seen by Provider: 06/23/24 12:00 Source: patient, RN notes reviewed and old records reviewed Mode of arrival: ambulatory History of Present Illness ED Provider: Natalia Valentino PA-C HPI narrative: 64-year-old female with a past medical history hypothyroid, PVD, asthma, bipolar, osteoarthritis, presenting to the ED complaining of left shoulder pain s/p mechanical trip and fall when getting out of bed use bathroom last night. Also reports right hand pain s/p helping her sister move a couch. Denies head trauma or LOC. Denies injury to other area, neck/back pain, symptoms prior to fall Related Data Home Medications ?Medication ?Instructions ?Recorded ?Confirmed acetaminophen 500 mg tablet 500 mg PO Q6H PRN Pain 11/01/22 04/27/24 (Tylenol Extra Strength) Previous Rx's ?Medication ?Instructions ?Recorded diclofenac sodium 1 % topical gel 4 g topical QID #100 grams 08/04/23 (Arthritis Pain (diclofenac)) albuterol sulfate 90 mcg/actuation 2 puff inhalation Q6H PRN 11/09/23 aerosol inhaler (Ventolin HFA) shortness of breath or wheezing #8.5 grams lidocaine 5 % topical patch 1 patch topical DAILY #15 ea 12/29/23 fexofenadine 180 mg tablet 180 mg PO DAILY #30 tabs 01/23/24 (Leah Allergy) peg 3350-electrolytes 236 240 ml PO Q10M colonoscopy #4,000 02/22/24 gram-22.74 gram-6.74 gram-5.86 mL gram solution (Golytely) polyethylene glycol 3350 17 17 g PO BID #238 grams 02/22/24 gram/dose oral powder (Miralax) sennosides 8.6 mg tablet (senna) 17.2 mg (2 x 8.6 mg) PO ONCE a day 02/22/24 before colonoscopy #2 tabs cyclobenzaprine 10 mg tablet 10 mg PO BEDTIME PRN muscle spasm 04/27/24 #30 tabs fluticasone propionate 50 2 spray intranasal DAILY #16 grams 04/27/24 mcg/actuation nasal spray,suspension (Flonase Allergy Relief) ketoconazole 2 % topical cream 1 appl topical BID #60 grams 04/27/24 simethicone 125 mg capsule (Gas 125 mg PO BID-QID PRN abdominal 04/27/24 Relief (simethicone)) distention #30 caps cephalexin 500 mg capsule 500 mg PO QID #28 caps 06/10/24 doxycycline hyclate 100 mg tablet 100 mg PO BID 7 days #14 tabs 06/12/24 oxycodone 5 mg tablet 5 mg PO TID PRN pain (scale score 06/12/24 4-6) 3 days #9 tabs acetaminophen 500 mg tablet 500 mg PO Q6H PRN fever or pain 06/23/24 (Tylenol Extra Strength) #14 tabs cyclobenzaprine 5 mg tablet 5 mg PO Q8H PRN pain (scale score 06/23/24 7-10) 5 days #14 tabs lidocaine 5 % topical patch 1 patch topical DAILY PRN pain #30 06/23/24 (Lidoderm) ea Allergies Allergy/AdvReac Type Severity Reaction Status Date / Time aspirin [ASA] Allergy Mild BRUISE, Verified 06/23/24 11:49 bruising hydrocodone [From VICODIN] Allergy Mild ITCH/BRUISE Verified 06/23/24 11:49 ibuprofen [From MOTRIN] Allergy Mild BRUISE Verified 06/23/24 11:49 trazodone [TRAZODONE] Allergy Mild RESTLESS Verified 06/23/24 11:49 quetiapine [From SEROQUEL] AdvReac Mild RESTLESS Verified 06/23/24 11:49 NSAIDS (Non-Steroidal AdvReac Unknown Verified 06/23/24 11:49 Anti-Inflamma Review of Systems Review of Systems: Constitutional: No Fever, No Chills ENT/Mouth: No Ear Pain, No Nasal Congestion, No sore throat, No Rhinorrhea, No Swallowing Difficulty Cardiovascular: No Chest Pain, No SOB Respiratory: No Cough Gastrointestinal: No Nausea, No Vomiting, No Abdominal pain Genitourinary: No Dysuria, No Urinary Frequency, No Hematuria Musculoskeletal: + joint pain, No Myalgias, +Joint Swelling Skin: + Skin Lesions, No rash Neuro: No Weakness, No Numbness, No Paresthesias Yes all other systems are reviewed and are negative Constitutional: Constitutional: Reports as per [facility] Past Medical History Attestation statement: The following information was validated with the patient. Source: old records reviewed Medical History Breast cancer screening by mammogram Lesion of colon Abdominal pain Stiffness of left wrist joint Stiffness of left hand joint Fracture of distal end of left radius with routine healing Chronic pain Hypothyroidism Surgical History Hx of colonoscopy S/P tonsillectomy Hx of hysterectomy History of surgery on wrist History of back surgery S/P arthroscopy of left shoulder S/P arthroscopy of right shoulder Hx of arthroscopy of right knee H/O tubal ligation Family History Family History Sister Thyroid cancer Maternal Grandmother Colon cancer Son Substance abuse Depression Social History Social History Housing: House Alcohol intake: former Patient Tobacco Use Status: Never used Tobacco e-Cigarette/Vaping Use: Never Used Second Hand Smoke Exposure: No Advance Directives: No Advance Directives Information Provided: No Do you have a plan to hurt others: No Plan Current occupational status: disabled Cognitive needs: No Hearing needs: No Vision needs: Yes Physical Exam Vital Signs: Vital Signs: Last Vital Signs Temp 97.1 F 06/23/24 14:27 Pulse 78 06/23/24 14:27 Resp 19 06/23/24 14:27 BP 144/75 H 06/23/24 14:27 Pulse Ox 95 06/23/24 14:27 O2 Del Method Room Air 06/23/24 14:27 BMI result Body Mass Index 36.8 Const: General: cooperative, healthy appearing and no acute distress Orientation/consciousness: patient oriented x3 Limitations: no limitations HEENT: Head: Yes normal to inspection and Yes atraumatic Ears: hearing grossly normal bilaterally General nose exam: Normal external nose present Face and sinus: Yes normal facial exam Eyes: General: appearance normal, both eyes and all related structures EOM: EOMs intact bilaterally Neck: Neck: Yes normal visual inspection and Yes no meningeal signs Resp: Effort & Inspection: normal respiratory effort and no respiratory distress Auscultation: clear to auscultation bilaterally Cardio: Rate: regular rate Heart sounds: S1 normal heart sound present and S2 normal heart sound present Peripheral pulses: Peripheral pulses 2+ throughout Back/Spine/Pelvis: Other: No midline cervical/thoracic/lumbar spinous tenderness/step-off or deformity Skin: Rashes: no rashes Neuro: General: patient oriented x3, tone normal and no meningeal signs Cranial nerves: Yes CN's II-XII intact bilaterally Gait exam (Neuro): Normal gait present Extrem: Other: abrasion & ecchymosis to left shoulder with tenderness to palpation. Limited ROM. Neurovascular intact distally. Right hand volar aspect with palpable lump with tenderness. No fluctuance/induration erythema. No snuffbox tenderness. ROM intact. Elbow nontender Course Course Course Narrative: This is a Rapid Medical Exam performed in triage by Natalia Valentino PA-C. Full HPI, ROS and PE to be performed by primary ED provider. 64 year-old F w/ PMHx Asthma, OA, hypothyroid, presenting to the ED c/o L shoulder pain s/p fall when getting out of bed to use bathroom last night. denies head trauma or LOC. Also reports R hand pain s/p helping move couch yesterday PE: abrasion/ecchymosis L shoulder w/ttp. NV intact. R hand with palpable lump with ttp Plan: XRs 1401--XR shoulder LT min 2V/XR hand wrist RT IMPRESSION: 1. No acute fracture or malalignment in the left shoulder, right hand, and right wrist. 2. Mild osteoarthritis in the left glenohumeral and acromioclavicular joints. 3. Mild to moderate osteoarthritis in the right first CMC joint. > wrist splint applied for comfort Results discussed with patient including worrisome signs and symptoms and strict return precautions, and when to return to the emergency department. They verbalized understanding and feel safe for discharge at this time. Medications Administered Discontinued Medications Generic Name Dose Route Start Last Admin Trade Name Freq PRN Reason Stop Dose Admin Acetaminophen 975 mg 06/23/24 14:15 06/23/24 14:24 Acetaminophen 325 Mg Tablet PO 06/23/24 14:16 975 mg ONCE ONE Administration Lidocaine 1 patch 06/23/24 14:15 06/23/24 14:24 Lidocaine 4 % Patch Adh..Patch TRANSDERMA 06/23/24 14:16 1 patch ONCE ONE Administration Protocol Medical Decision Making Medical Decision Making MDM Narrative: 64-year-old female with a past medical history hypothyroid, PVD, asthma, bipolar, osteoarthritis, presenting to the ED complaining of left shoulder pain s/p mechanical trip and fall when getting out of bed use bathroom last night. Also reports right hand pain s/p helping her sister move a couch. On exam vital signs stable, NAD, nontoxic appearing physical exam as noted above. Concern for MSK pain/strain vs fracture vs contusion. Low suspicion for ACS. No snuffbox tenderness Plan: X-ray Please refer to course for remaining clinical decision making, interpretation of labs/imaging results, and discussions with consultants and/or family members. Differential Diagnosis Differential Diagnoses: The differential diagnosis associated with the presentation includes As above Lab Data MDM Lab Attestation statement: I reviewed the patient's lab results. Independent Interpretation I performed an independent interpretation of an: Plain X-Ray Radiology Impression Discussion of test interpretation with radiology: I have reviewed the radiologist's reading. External Record Review External record reviewed: Inpatient record, Office record, Outpatient record, Prior outpatient labs, Prior outpatient radiology, Primary care record and Outside ED record Tests considered The following testing was considered but not selected: As above Prescription Management I considered prescription management with: Pain Medication Discharge Plan Discharge Clinical Impression: Osteoarthritis of shoulder, Hand pain, right Patient Disposition: Home, Self-Care Instructions: Arthralgia (ED) Additional Instructions: Your x-rays do not show any fractures, you do have osteoarthritis of her shoulder Ice shoulder and hand Take Tylenol and use Lidoderm patches as prescribed In addition Flexeril is a muscle relaxer, take as needed, take at night as this will make you drowsy, do not drive, drink alcohol or operate machinery while taking Follow-up with her doctor If pain persists or worsens return to the ED Prescriptions: New acetaminophen [Tylenol Extra Strength] 500 mg tablet 500 mg PO Q6H PRN (Reason: fever or pain) Qty: 14 0RF lidocaine [Lidoderm] 5 % adhesive patch,medicated 1 patch topical DAILY MDD remove after 12 hours PRN (Reason: pain) Qty: 30 0RF Rx Instructions: leave on most painful area for up to 12 hrs cyclobenzaprine 5 mg tablet 5 mg PO Q8H PRN (Reason: pain (scale score 7-10)) 5 Days Qty: 14 0RF No Action albuterol sulfate [Ventolin HFA] 90 mcg/actuation HFA aerosol inhaler 2 puff inhalation Q6H PRN (Reason: shortness of breath or wheezing) Qty: 8.5 3RF cephalexin 500 mg capsule 500 mg PO QID Qty: 28 0RF doxycycline hyclate 100 mg tablet 100 mg PO BID 7 Days Qty: 14 0RF oxycodone 5 mg tablet 5 mg PO TID PRN (Reason: pain (scale score 4-6)) 3 Days Qty: 9 0RF Rx Instructions: Partial Fill upon patient request. fexofenadine [Leah Allergy] 180 mg tablet 180 mg PO DAILY Qty: 30 3RF cyclobenzaprine 10 mg tablet 10 mg PO BEDTIME PRN (Reason: muscle spasm) Qty: 30 0RF fluticasone propionate [Flonase Allergy Relief] 50 mcg/actuation spray,suspension 2 spray intranasal DAILY Qty: 16 0RF Rx Instructions: administer into each nostril ketoconazole 2 % cream 1 appl topical BID Qty: 60 0RF simethicone [Gas Relief (simethicone)] 125 mg capsule 125 mg PO BID-QID PRN (Reason: abdominal distention) Qty: 30 0RF diclofenac sodium [Arthritis Pain (diclofenac)] 1 % gel 4 g topical QID Qty: 100 0RF Rx Instructions: apply to single knee, ankle, foot; for foot includes sole/toes/top of foot lidocaine 5 % adhesive patch,medicated 1 patch topical DAILY Qty: 15 3RF Rx Instructions: leave on most painful area for up to 12 hrs acetaminophen [Tylenol Extra Strength] 500 mg tablet 500 mg PO Q6H PRN (Reason: Pain) peg 3350-electrolytes [Golytely] 236-22.74-6.74 -5.86 gram recon soln 240 ml PO Q10M Qty: 4000 0RF Rx Instructions: as per split prep instructions, until fecal effluent is clear polyethylene glycol 3350 [Miralax] 17 gram/dose powder 17 g PO BID Qty: 238 0RF Rx Instructions: Take twice a day starting 3 days before your colonoscopy sennosides [senna] 8.6 mg tablet 17.2 mg PO ONCE Qty: 2 0RF Referrals: Po,Alan Andrade MD [Primary Care Provider] - 5 days Interventions: ED Discharge Assessment Last Done: 06/23/24 14:27 Discharge Date/Time: 06/23/24 14:29 Print Language: Telugu
[2024-06-23 11:47] VITALS: BP 141/75; PULSE 83; RESP 18; TEMP 36.8; O2SAT 95; BMI 36.8
[2024-06-23 14:19] VITALS: BP 144/75; PULSE 78; RESP 19; TEMP 36.2; O2SAT 95
[2024-06-23] MEDS: Acetaminophen 325 MG TABLET 975 MG PO (14:24)
[2024-06-23] MEDS: Lidocaine 4 % Patch ADH..PATCH 1 PATCH TRANSDERMA (14:24)
[2024-06-23 14:27] VITALS: BP 144/75; PULSE 78; RESP 19; TEMP 36.2; O2SAT 95
== END 2024-06-23 14:29 | disposition home or self-care (01) ==
PROVIDERS: Emergency Provider Emergency Medicine; PCP Internal Medicine
DX: M19.011 Primary osteoarthritis, right shoulder (principal); M19.041 Primary osteoarthritis, right hand; M25.512 Pain in left shoulder; M79.641 Pain in right hand
CPT/HCPCS: 73030; 73110; 73130; 99283

== ENCOUNTER 2024-06-26 10:12 | Outpatient (AMB) | payer OTHER, SELFPAY ==
[2024-06-26 10:15] VITALS: BP 110/70; PULSE 85; O2SAT 98
--- NOTE | 2024-06-26 10:15 | A.OFFPC_ITS ---
Vital Signs 06/26/24 10:15 Height 5 ft 5 in BMI Reason not done Patient refused/unable BP 110/70 Blood Pressure Location Lt brachial Position Sitting Pulse 85 Pulse Source Pulse Oximeter Pulse Oximetry (%) 98 Oxygen Delivery Method Room Air Intake Visit Reasons: EDF [facility] [place]- R hand/shoulder sprain Safety Advisor: Not Required per policy Accompanied by: Self / Same As Patient Allergies aspirin [ASA] Allergy (Mild, Verified 06/26/24 10:16) BRUISE, bruising hydrocodone [From VICODIN] Allergy (Mild, Verified 06/26/24 10:16) ITCH/BRUISE ibuprofen [From MOTRIN] Allergy (Mild, Verified 06/26/24 10:16) BRUISE trazodone [TRAZODONE] Allergy (Mild, Verified 06/26/24 10:16) RESTLESS quetiapine [From SEROQUEL] Adverse Reaction (Mild, Verified 06/26/24 10:16) RESTLESS NSAIDS (Non-Steroidal Anti-Inflamma Adverse Reaction (Verified 06/26/24 10:16) Unknown Tobacco use date assessed: 04/27/24 Dental Screening Dental Screen Date: 01/23/24 HPI HPI Comments History of Present Illness Details 64 y/o female patient who presents to [facility] for EDF. Pt was admitted on 06/23/24 at [facility] [place] for c/o left shoulder pain and right wrist/hand pain. She was discharged home on pain relief medications. Today Pt reports still has pain and nothing given works for her. Pt asking for a different Wrist Brace. Pt does have h/o Osteoarthritis both shoulders, with prior h/o scope surgeries. PFSH Medical History Breast cancer screening by mammogram Lesion of colon Abdominal pain Stiffness of left wrist joint Stiffness of left hand joint Fracture of distal end of left radius with routine healing Chronic pain Hypothyroidism Surgical History Hx of colonoscopy S/P tonsillectomy Hx of hysterectomy History of surgery on wrist History of back surgery S/P arthroscopy of left shoulder S/P arthroscopy of right shoulder Hx of arthroscopy of right knee H/O tubal ligation Family History Sister Thyroid cancer Maternal Grandmother Colon cancer Son Substance abuse Depression Social History Housing: House Alcohol intake: former Patient Tobacco Use Status: Never used Tobacco e-Cigarette/Vaping Use: Never Used Second Hand Smoke Exposure: No Current occupational status: disabled Cognitive needs: No Hearing needs: No Vision needs: Yes Questionnaire Thrive Questionnaire Date Thrive assessed: 01/23/24 ROMA-7 AMB Questionnaire ROMA-7 Date ROMA - 7 assessed: 04/27/24 Source: Developed by Drs. Lukas Walton, Liliana Naranjo, Andre Del Angel and colleagues, with an educational princess from [employer]. Review of Systems Const All systems reviewed & are unremarkable except as noted in HPI and below Physical exam (Primary Care) Vital Signs: Last Vital Signs Pulse 85 06/26/24 10:15 BP 110/70 06/26/24 10:15 Pulse Ox 98 06/26/24 10:15 Oxygen Delivery Method Room Air 06/26/24 10:15 Tobacco/Smoking Status: Tobacco use Status Tobacco use date assessed 04/27/24 06/26/24 10:16 Patient Tobacco Use Status Never used Tobacco 06/26/24 10:16 e-Cigarette/Vaping Use Never Used 06/26/24 10:16 Thrive Assessment: Date of Thrive Assessment Date Thrive assessed 01/23/24 06/26/24 10:16 Const General: healthy appearing and comfortable Nutritional Appearance: obese Orientation/consciousness: patient oriented x3 Limitations: ambulation with walker Skin General skin exam: no rashes or lesions noted Neuro General: patient oriented x3, gait normal and moves all extremities Extrem Right upper extremity: wrist Details: tenderness; no swelling and Extremity exam: right hand (limited ROM. Right hand Volar aspect with palpable lump and tenderness.) Left upper extremity: shoulder/upper arm Details: tenderness, axillary nerve sensory function normal, abnormal ROM (limited ROM due to pain.) Details: pain with active ROM, abrasion (left shoulder) and ecchymosis (left shoulder); no sw elling Psych Speech and movement: Normal speech and movement present Vital Signs: Last Vital Signs Pulse 85 06/26/24 10:15 BP 110/70 06/26/24 10:15 Pulse Ox 98 06/26/24 10:15 Oxygen Delivery Method Room Air 06/26/24 10:15 Const General: healthy appearing and comfortable Nutritional Appearance: obese Orientation/consciousness: patient oriented x3 Limitations: ambulation with walker Skin General skin exam: no rashes or lesions noted Neuro General: patient oriented x3, gait normal and moves all extremities Extrem Right upper extremity: wrist Details: tenderness; no swelling and Extremity exam: right hand (limited ROM. Right hand Volar aspect with palpable lump and tenderness.) Left upper extremity: shoulder/upper arm Details: tenderness, axillary nerve sensory function normal, abnormal ROM (limited ROM due to pain.) Details: pain with active ROM, abrasion (left shoulder) and ecchymosis (left shoulder); no swelling Psych Speech and movement: Normal speech and movement present Assessment and Plan Assessment & Plan (1) Osteoarthritis of left shoulder: Code(s): M19.012 - Primary osteoarthritis, left shoulder Qualifiers: Osteoarthritis type: unspecified Qualified Code(s): M19.012 - Primary osteoarthritis, left shoulder Plan: Ice/Hot Acetaminophen or Ibuprofen for pain relief Recomm Physical Therapy. (2) Osteoarthritis of right hand: Code(s): M19.041 - Primary osteoarthritis, right hand Qualifiers: Osteoarthritis type: unspecified Qualified Code(s): M19.041 - Primary osteoarthritis, right hand Plan: Gave patient a new Brace Ice/Hot Acetaminophen or Ibuprofen for pain relief Recomm Physical Therapy. Coding Level of Care Code Est Pt Level 4 (22290) Diagnoses Osteoarthritis of left shoulder, unspecified osteoarthritis type M19.012 Osteoarthritis type: unspecified Osteoarthritis of right hand, unspecified osteoarthritis type M19.041 Osteoarthritis type: unspecified Comment Spent 20 minutes on hospital review notes and imaging.
== END 2024-06-26 10:38 | disposition home or self-care (01) ==
PROVIDERS: PCP Internal Medicine; Visit Provider Nurse Practitioner Family
DX: M19.012 Primary osteoarthritis, left shoulder (principal); M19.041 Primary osteoarthritis, right hand
CPT/HCPCS: 99214

== ENCOUNTER 2024-07-03 09:14 | Emergency (ER) | payer OTHER, SELFPAY ==
--- NOTE | ~2024-07-03 | XR_ITS ---
EXAMINATION: XR KNEE, LEFT CLINICAL INFORMATION: Patient states no known injury or trauma, pain left knee. COMPARISON: 09/20/2022 TECHNIQUE: 4 views of the left knee. FINDINGS: Moderate joint effusion. Mild narrowing of the medial compartment. Tiny tricompartmental osteophytes. XR/XR knee LT 4V IMPRESSION: Moderate joint effusion. Mild degenerative changes. This study was presented today July 03, 2024 for interpretation. Stat results provided at this time as requested by referring provider.
--- NOTE | ~2024-07-03 | US_ITS ---
EXAMINATION: US VENOUS ULTRASOUND WITH DOPPLER LOWER EXTREMITY, LEFT CLINICAL INFORMATION: Left lower extremity pain and swelling COMPARISON: None available. TECHNIQUE: Ultrasound of the deep veins is performed from the hip to the calf with compression sonography and color and pulse Doppler assessment. Spectral analysis with color-flow imaging is performed. FINDINGS: There is normal venous compression and respiratory variation and augmented flow. The visualized common femoral vein, superficial femoral vein, profunda femoral vein, popliteal vein, and the trifurcation region shows no evidence of deep venous thrombosis. There is a 2.9 x 0.9 x 2.1 cm Summers's cyst present along with an additional fluid collection anterolaterally in the area of the patient's discomfort Thrombus is present in the left great saphenous vein in this patient status post ablation. If the patient's symptoms persist, followup ultrasound in 5 days 7 days might be of value to exclude proximal propagation from a non-visualized calf vein. US/US venous duplex LE IMPRESSION: 1. No DVT demonstrated in the left lower extremity. 2. Thrombus in the left great saphenous vein in this patient status post ablation. 3. Summers's cyst and additional fluid collection anterolaterally in the area of the patient's discomfort.
[2024-07-03 09:53] VITALS: BP 152/81; PULSE 90; RESP 18; TEMP 36.6; O2SAT 95; BMI 36.1
--- NOTE | 2024-07-03 10:03 | ED.GENADULT ---
HPI - General Adult General Chief complaint: Extremity Problem Stated complaint: Pain L leg Time Seen by Provider: 07/03/24 10:03 Source: patient Mode of arrival: ambulatory Limitations: no limitations History of Present Illness ED Provider: delvin FREEMAN narrative: Patient is a 64-year-old female with history of PVD, varicose veins, asthma, osteoarthritis, Hepatitis B&C, chronic pain syndrome presenting to the emergency department with complaint of left knee pain and swelling radiating down left leg for several days. Denies fall or other injury. Seen at urgent care today and referred to ED to rule out DVT. She denies chest pain, dyspnea, palpitations. Denies recent travel, recent surgery or immobilization. She is not anticoagulated. Used Tylenol with little relief. Denies any weakness, numbness or tingling to leg. complaint: left leg pain Onset (ago): day(s) Location: left and lower extremity Radiation: distal Severity: severe Quality: aching Pain Consistency: constant Relieving factors: rest Exacerbating factors: movement Associated symptoms: denies other symptoms Treatments prior to arrival: other Related Data Home Medications ?Medication ?Instructions ?Recorded ?Confirmed acetaminophen 500 mg tablet 500 mg PO Q6H PRN Pain 11/01/22 04/27/24 (Tylenol Extra Strength) Previous Rx's ?Medication ?Instructions ?Recorded diclofenac sodium 1 % topical gel 4 g topical QID #100 grams 08/04/23 (Arthritis Pain (diclofenac)) albuterol sulfate 90 mcg/actuation 2 puff inhalation Q6H PRN 11/09/23 aerosol inhaler (Ventolin HFA) shortness of breath or wheezing #8.5 grams lidocaine 5 % topical patch 1 patch topical DAILY #15 ea 12/29/23 fexofenadine 180 mg tablet 180 mg PO DAILY #30 tabs 01/23/24 (Leah Allergy) peg 3350-electrolytes 236 240 ml PO Q10M colonoscopy #4,000 02/22/24 gram-22.74 gram-6.74 gram-5.86 mL gram solution (Golytely) polyethylene glycol 3350 17 17 g PO BID #238 grams 02/22/24 gram/dose oral powder (Miralax) sennosides 8.6 mg tablet (senna) 17.2 mg (2 x 8.6 mg) PO ONCE a day 02/22/24 before colonoscopy #2 tabs cyclobenzaprine 10 mg tablet 10 mg PO BEDTIME PRN muscle spasm 04/27/24 #30 tabs fluticasone propionate 50 2 spray intranasal DAILY #16 grams 04/27/24 mcg/actuation nasal spray,suspension (Flonase Allergy Relief) ketoconazole 2 % topical cream 1 appl topical BID #60 grams 04/27/24 simethicone 125 mg capsule (Gas 125 mg PO BID-QID PRN abdominal 04/27/24 Relief (simethicone)) distention #30 caps cephalexin 500 mg capsule 500 mg PO QID #28 caps 06/10/24 doxycycline hyclate 100 mg tablet 100 mg PO BID 7 days #14 tabs 06/12/24 oxycodone 5 mg tablet 5 mg PO TID PRN pain (scale score 06/12/24 4-6) 3 days #9 tabs acetaminophen 500 mg tablet 500 mg PO Q6H PRN fever or pain 06/23/24 (Tylenol Extra Strength) #14 tabs cyclobenzaprine 5 mg tablet 5 mg PO Q8H PRN pain (scale score 06/23/24 7-10) 5 days #14 tabs lidocaine 5 % topical patch 1 patch topical DAILY PRN pain #30 06/23/24 (Lidoderm) ea diclofenac sodium 1 % topical gel 2 g topical QID #100 grams 07/03/24 Allergies Allergy/AdvReac Type Severity Reaction Status Date / Time aspirin [ASA] Allergy Mild BRUISE, Verified 07/03/24 10:00 bruising hydrocodone [From VICODIN] Allergy Mild ITCH/BRUISE Verified 07/03/24 10:00 ibuprofen [From MOTRIN] Allergy Mild BRUISE Verified 07/03/24 10:00 trazodone [TRAZODONE] Allergy Mild RESTLESS Verified 07/03/24 10:00 quetiapine [From SEROQUEL] AdvReac Mild RESTLESS Verified 07/03/24 10:00 NSAIDS (Non-Steroidal AdvReac Unknown Verified 07/03/24 10:00 Anti-Inflamma Review of Systems Review of Systems: As per HPI. Yes all other systems are reviewed and are negative Constitutional: Constitutional: Reports as per HPI [facility] Past Medical History Medical History Breast cancer screening by mammogram Lesion of colon Abdominal pain Stiffness of left wrist joint Stiffness of left hand joint Fracture of distal end of left radius with routine healing Chronic pain Hypothyroidism Surgical History Hx of colonoscopy S/P tonsillectomy Hx of hysterectomy History of surgery on wrist History of back surgery S/P arthroscopy of left shoulder S/P arthroscopy of right shoulder Hx of arthroscopy of right knee H/O tubal ligation Family History Family History Sister Thyroid cancer Maternal Grandmother Colon cancer Son Substance abuse Depression Social History Social History Housing: House Alcohol intake: former Patient Tobacco Use Status: Never used Tobacco e-Cigarette/Vaping Use: Never Used Second Hand Smoke Exposure: No Advance Directives: No Advance Directives Information Provided: No Current occupational status: disabled Cognitive needs: No Hearing needs: No Vision needs: Yes Physical Exam ED Vital Signs: Vital Signs - 24 hr 07/03/24 09:53 Temperature 97.9 F Pulse Rate 90 Respiratory Rate 18 Blood Pressure 152/81 H Pulse Oximetry 95 Oxygen Delivery Method Room Air BMI result Body Mass Index 36.1 Vital signs have been reviewed and appear to be correct. Blood pressure elevated. Heart rate normal. Respiratory rate normal. Temperature normal. Oxygen saturation normal. Const General: cooperative, healthy appearing and no acute distress Orientation/consciousness: oriented to person, oriented to place, oriented to time and patient oriented x3 Limitations: no limitations [facility] Head: Yes normocephalic and Yes atraumatic Ears: external ears normal General nose exam: Normal external nose present Face and sinus: Yes face symmetric Mouth: oropharynx normal and moist mucous membranes Throat: Yes uvula midline Eyes Pupils: Equal, round and reactive pupils present Neck Neck: Yes normal visual inspection and Yes supple Resp Effort & Inspection: normal respiratory effort and able to speak in complete sentences Auscultation: clear to auscultation bilaterally Cardio Rate: regular rate Rhythm: regular rhythm Heart sounds: S1 normal heart sound present and S2 normal heart sound present GI Palpation (GI): Soft to palpation and nontender Auscultation: normoactive bowel sounds General: Yes no CVA tenderness Back/Spine/Pelvis Back: no CVA tenderness Skin General skin exam: elasticity normal and turgor normal Neuro General: oriented to person, oriented to place, oriented to time, patient oriented x3, moves all extremities, no focal motor deficits and CN's II-XI intact bilaterally Cranial nerves: Yes Equal, round and reactive pupils present Cognition (Neuro): normal cognition Extrem Other: General: Yes full ROM, Yes no pedal edema and Yes no calf tenderness Left lower extremity: knee Details: swelling (diffuse), normal ROM and knee ligament exam normal, lower leg Details: erythema Location: of the distal lower leg Location: medially (streaking proximally) and tenderness Location: of the posterior calf; no palpable cords and no unusual warmth and foot Details: normal capillary refill and vascular exam Details: dorsalis pedis pulse present and posterior tibial pulse present Psych Mental Status: mental status grossly normal Affect: normal affect Thought process: Normal thought process present Medical Decision Making Medical Decision Making MDM Narrative: Patient is a 64-year-old female with history of PVD, varicose veins, asthma, osteoarthritis, Hepatitis B&C, chronic pain syndrome presenting to the emergency department with complaint of left knee pain and swelling radiating down left leg for several days. On exam patient is awake, A+Ox3, BP elevated, VS otherwise WNL, afebrile, normal neurological exam without focal deficits, physical exam findings as above. Given reported symptoms and physical exam findings, initial differential includes DVT, vasculitis, Summers's cyst, knee effusion, osteoarthritis. Labs unremarkable. U/S notable for no DVT, Summers's cyst, thrombus to great saphenous vein. My interpretation is in agreement with the radiologist's interpretation. Case discussed with Dr. Marquez who states patient does not need to be prophylactically treated with anticoagulation, recommends warm compresses and NSAIDS. Patient has documented allergy to NSAIDs, but has previously tolerated diclofenac, will send prescription for this. States she has ample MARIO wraps at home. Instructed patient to follow-up with primary care provider within the next 2 days. Return precautions discussed at bedside. Patient verbalized understanding of and with plan. Differential Diagnosis Differential Diagnoses: The differential diagnosis associated with the presentation includes As per MDM. Admission/Observation Consideration of admission/observation: Escalation of care including admission/observation considered Patient would have been admitted to the hospital had their work up had any findings where hospital admission was appropriate and their clinical presentation warranted hospital admission. Consult Healthcare Provider Management of the patient was discussed with: Apartment Leasing Specialist (Dr. Marquez) Lab Data [facility] Lab Attestation statement: I reviewed the patient's lab results. as per [facility] 07/03/24 10:28 07/03/24 10:28 Labs: Lab Results 07/03/24 Range/Units 10:28 WBC 9.2 (4.8-10.8) X10*3/uL RBC 4.37 (4.20-5.50) X10*6/uL Hgb 13.2 (12.0-16.0) g/dl Hct 39.7 (37.0-47.0) % MCV 90.8 (80.0-98.0) fL MCH 30.2 (27.0-33.0) pg MCHC 33.2 (31.0-35.0) g/dl RDW 13.6 (11.0-16.0) % Plt Count 299 (160-400) X10*3/uL MPV 8.8 L (9.4-12.3) fL Immature Gran % (Auto) 0.3 (0.0-0.4) % Neut % (Auto) 66.4 (45-73) % Lymph % (Auto) 19.3 L (20-40) % Treasure % (Auto) 11.3 H (2-11) % Eos % (Auto) 1.8 (0-4) % Baso % (Auto) 0.9 (0-2) % Lymph # (Auto) 1.8 (1.2-4.9) X10*3/uL Treasure # (Auto) 1.0 (0.1-1.2) X10*3/uL Eos # (Auto) 0.2 (0.0-0.4) X10*3/uL Baso # (Auto) 0.1 (0.0-0.2) X10*3/uL Abs Immat Gran (auto) 0.03 (0.00-0.03) X10*3/uL Absolute Neuts (auto) 6.1 (2.0-8.3) x10*3/uL Absolute Nucleated RBC 0.000 (0.0-0.012) X10*3/uL Nucleated RBC % (auto) 0.0 (0.0-0.2) /100WBC PT 13.0 (11.1-13.3) SEC INR 1.1 (0.9-1.1) Sodium 144 (135-145) mmol/L Potassium 3.6 (3.3-5.1) mmol/L Chloride 108 (96-108) mmol/L Carbon Dioxide 27 (22-29) mmol/L Anion Gap 13 (12-20) BUN 18 H (9-16) mg/dL Creatinine 0.82 (0.5-1.4) mg/dL Estim Creat Clear Calc 80.5 Estimated GFR > 60 Random Glucose 77 (60-115) mg/dL Calcium 8.9 (8.4-10.2) mg/dL Total Bilirubin 0.6 (0.0-1.0) mg/dL AST 18 (5-31) U/L ALT 16 (0-31) U/L Alkaline Phosphatase 114 (39-117) U/L Total Protein 6.8 (6.5-8.0) g/dL Albumin 3.8 (3.5-5.0) g/dL Independent Interpretation I performed an independent interpretation of an: Ultrasound Interpretation: U/S notable for no DVT, Summers's cyst, thrombus to great saphenous vein. Radiology Impression Discussion of test interpretation with radiology: I have reviewed the radiologist's reading. Radiologist Impression: US/US venous duplex LE LT IMPRESSION: 1. No DVT demonstrated in the left lower extremity. 2. Thrombus in the left great saphenous vein in this patient status post ablation. 3. Summers's cyst and additional fluid collection anterolaterally in the area of the patient's discomfort. External Record Review External record reviewed: Inpatient record, Office record and Outpatient record Prescription Management I considered prescription management with: Other Discharge Plan Discharge Clinical Impression: Summers's cyst of knee, Superficial thrombophlebitis Patient Disposition: Home, Self-Care Instructions: Bakers Cyst (ED) Additional Instructions: You were evaluated in the emergency department today for left leg pain. Your ultrasound did not show evidence of a DVT, but you do have a clot in a superficial vein in your leg. You were also found to have a Summers's cyst on ultrasound. We recommend that you use compression (MARIO wrap, compression socks), apply warm compresses, and keep your legs elevated at rest. You are being prescribed a topical anti-inflammation cream, use as prescribed. Call your primary care provider to schedule a follow up appointment. Return to the emergency department if you develop worsening/severe pain, new weakness, numbness, tingling, change of color to your leg, fever, chest pain or shortness of breath, palpitations or any other concerning symptoms. Prescriptions: New diclofenac sodium 1 % gel 2 g topical QID Qty: 100 0RF Rx Instructions: apply to single elbow, wrist or hand; for hand includes palm/fingers/back of hand No Action albuterol sulfate [Ventolin HFA] 90 mcg/actuation HFA aerosol inhaler 2 puff inhalation Q6H PRN (Reason: shortness of breath or wheezing) Qty: 8.5 3RF cephalexin 500 mg capsule 500 mg PO QID Qty: 28 0RF acetaminophen [Tylenol Extra Strength] 500 mg tablet 500 mg PO Q6H PRN (Reason: fever or pain) Qty: 14 0RF lidocaine [Lidoderm] 5 % adhesive patch,medicated 1 patch topical DAILY MDD remove after 12 hours PRN (Reason: pain) Qty: 30 0RF Rx Instructions: leave on most painful area for up to 12 hrs cyclobenzaprine 5 mg tablet 5 mg PO Q8H PRN (Reason: pain (scale score 7-10)) 5 Days Qty: 14 0RF doxycycline hyclate 100 mg tablet 100 mg PO BID 7 Days Qty: 14 0RF oxycodone 5 mg tablet 5 mg PO TID PRN (Reason: pain (scale score 4-6)) 3 Days Qty: 9 0RF Rx Instructions: Partial Fill upon patient request. fexofenadine [Leah Allergy] 180 mg tablet 180 mg PO DAILY Qty: 30 3RF cyclobenzaprine 10 mg tablet 10 mg PO BEDTIME PRN (Reason: muscle spasm) Qty: 30 0RF fluticasone propionate [Flonase Allergy Relief] 50 mcg/actuation spray,suspension 2 spray intranasal DAILY Qty: 16 0RF Rx Instructions: administer into each nostril ketoconazole 2 % cream 1 appl topical BID Qty: 60 0RF simethicone [Gas Relief (simethicone)] 125 mg capsule 125 mg PO BID-QID PRN (Reason: abdominal distention) Qty: 30 0RF diclofenac sodium [Arthritis Pain (diclofenac)] 1 % gel 4 g topical QID Qty: 100 0RF Rx Instructions: apply to single knee, ankle, foot; for foot includes sole/toes/top of foot lidocaine 5 % adhesive patch,medicated 1 patch topical DAILY Qty: 15 3RF Rx Instructions: leave on most painful area for up to 12 hrs acetaminophen [Tylenol Extra Strength] 500 mg tablet 500 mg PO Q6H PRN (Reason: Pain) peg 3350-electrolytes [Golytely] 236-22.74-6.74 -5.86 gram recon soln 240 ml PO Q10M Qty: 4000 0RF Rx Instructions: as per split prep instructions, until fecal effluent is clear polyethylene glycol 3350 [Miralax] 17 gram/dose powder 17 g PO BID Qty: 238 0RF Rx Instructions: Take twice a day starting 3 days before your colonoscopy sennosides [senna] 8.6 mg tablet 17.2 mg PO ONCE Qty: 2 0RF Print Language: Croatian
[2024-07-03 10:32] LABS: MANUAL DIFF FLAG NO
[2024-07-03 10:35] LABS: Basophils Absolute Auto 0.1 X10*3/uL (0.0-0.2); Basophils Percent Auto 0.9 % (0-2); Eosinophils Absolute Auto 0.2 X10*3/uL (0.0-0.4); Eosinophils Percent Auto 1.8 % (0-4); Hematocrit 39.7 % (37.0-47.0); Hemoglobin 13.2 g/dl (12.0-16.0); Imm Gran Abs Auto 0.03 X10*3/uL (0.00-0.03); Imm Gran Pct Auto 0.3 % (0.0-0.4); Lymphocytes Absolute Auto 1.8 X10*3/uL (1.2-4.9); Lymphocytes Percent Auto 19.3 % (20-40); Mean Corpuscular HGB Conc 33.2 g/dl (31.0-35.0); Mean Corpuscular Hemoglobin 30.2 pg (27.0-33.0); Mean Corpuscular Volume 90.8 fL (80.0-98.0); Mean Platelet Volume 8.8 fL (9.4-12.3); Monocytes Percent Auto 11.3 % (2-11); Neutrophils Absolute Auto 6.1 x10*3/uL (2.0-8.3); Neutrophils Percent Auto 66.4 % (45-73); Platelet Count 299 X10*3/uL (160-400); Red Blood Count 4.37 X10*6/uL (4.20-5.50); Red Cell Distribution Width 13.6 % (11.0-16.0); White Blood Count 9.2 X10*3/uL (4.8-10.8)
[2024-07-03 10:47] LABS: INTERNATIONAL NORM RATIO 1.1 (0.9-1.1)
--- NOTE | 2024-07-03 10:50 | PC.NURSE ---
pt returned from radiology, labs obtained
[2024-07-03 10:56] LABS: Alanine Aminotransferase 16 U/L (0-31); Albumin Level 3.8 g/dL (3.5-5.0); Alkaline Phosphatase 114 U/L (39-117); Anion Gap 13 (12-20); Aspartate Amino Transferase 18 U/L (5-31); Bilirubin Total 0.6 mg/dL (0.0-1.0); Blood Urea Nitrogen 18 mg/dL (9-16); Calcium 8.9 mg/dL (8.4-10.2); Carbon Dioxide 27 mmol/L (22-29); Chloride 108 mmol/L (96-108); Creatinine Clr Calc Pharmacy 80.5; Estimated Glomerular Filt Rate > 60; Glucose Random 77 mg/dL (60-115); Potassium 3.6 mmol/L (3.3-5.1); Sodium 144 mmol/L (135-145); Total Protein 6.8 g/dL (6.5-8.0)
--- NOTE | 2024-07-03 13:22 | MHC.EDTECH ---
This tech responded to call davida. Patient asking for pillows. This tech is unable to locate an unused pillow. Provided patient with towels for head support.
[2024-07-03 14:54] VITALS: BP 123/78; PULSE 87; RESP 20; TEMP 36.5; O2SAT 95
== END 2024-07-03 14:59 | disposition home or self-care (01) ==
PROVIDERS: Registered Nurse Emergency; Emergency Provider Emergency Medicine; PCP Internal Medicine
DX: M71.22 Synovial cyst of popliteal space [Baker], left knee (principal); I80.02 Phlebitis and thrombophlebitis of superficial vessels of left lower extremity; M25.562 Pain in left knee; M25.462 Effusion, left knee; I73.9 Peripheral vascular disease, unspecified; J45.909 Unspecified asthma, uncomplicated; Z86.19 Personal history of other infectious and parasitic diseases
CPT/HCPCS: 36415; 73564; 80053; 85025; 85610; 93971; 99283; 99284

== ENCOUNTER 2024-07-06 12:56 | Outpatient (AMB) | payer OTHER, SELFPAY ==
[2024-07-06 13:02] VITALS: BP 132/88; PULSE 87; O2SAT 96
--- NOTE | 2024-07-06 13:02 | A.OFFPC_ITS ---
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: No Allergies aspirin [ASA] Allergy (Mild, Verified 07/06/24 13:07) BRUISE, bruising hydrocodone [From VICODIN] Allergy (Mild, Verified 07/06/24 13:07) ITCH/BRUISE ibuprofen [From MOTRIN] Allergy (Mild, Verified 07/06/24 13:07) BRUISE trazodone [TRAZODONE] Allergy (Mild, Verified 07/06/24 13:07) RESTLESS quetiapine [From SEROQUEL] Adverse Reaction (Mild, Verified 07/06/24 13:07) RESTLESS NSAIDS (Non-Steroidal Anti-Inflamma Adverse Reaction (Verified 07/06/24 13:07) Unknown Medication List - Last Reconciled 07/06/24 by Sisi Means PA-C acetaminophen (Tylenol Extra Strength) 500 mg PO Q6H PRN acetaminophen (Tylenol Extra Strength) 500 mg PO Q6H PRN albuterol sulfate 90 mcg/actuation (Ventolin HFA) 2 puffs inhalation Q6H PRN cyclobenzaprine 5 mg PO Q8H PRN 5 days cyclobenzaprine 10 mg PO BEDTIME PRN diclofenac sodium 1% 2 grams topical QID diclofenac sodium 1% (Arthritis Pain (diclofenac)) 4 grams topical QID fexofenadine (Leah Allergy) 180 mg PO DAILY fluticasone propionate 50 mcg/actuation (Flonase Allergy Relief) 2 sprays intranasal DAILY ketoconazole 2% 1 appl topical BID lidocaine 5% (Lidoderm) 1 patch topical DAILY PRN MDD remove after 12 hours lidocaine 5% 1 patch topical DAILY oxycodone 5 mg PO TID PRN 3 days peg 3350-electrolytes 236-22.74-6.74 -5.86 gram (Golytely) 240 mL PO Q10M polyethylene glycol 3350 (Miralax) 17 grams PO BID sennosides (senna) 17.2 mg (2 x 8.6 mg) PO ONCE simethicone (Gas Relief (simethicone)) 125 mg PO BID-QID PRN Tobacco use date assessed: 04/27/24 Fall risk assessment: No Falls in past year Last assessed Fall Risk: 07/06/24 Dental Screening Dental Screen Date: 01/23/24 [facility] 07/03 Summers's Cyst HPI Details 63-year-old obese female with a history of post laminectomy syndrome, peripheral vascular disease, and asthma last seen by Dr. Mccray 03/2024 coming in for hospital follow up. In reviewing notes, patient was seen by [facility] 07/03[place]2024 for left knee pain and swelling. Ultrasound negative for DVT but did find Summers's cyst and thrombus to great saphenous vein. Discussed with vascular surgery who did not think anticoagulation was appropriate and recommended warm compress with NSAIDs. Patient states today she continues to have severe left leg pain and difficulty with bending the left leg. She also mentioned that she has pain in bilateral feet and bilateral knees as well as left shoulder. She has been taking Tylenol and Flexeril for her pain with very mild relief. She does mentioned she had good relief from pain with the oxycodone. Also requesting a refill of her albuterol inhaler. [facility] Medical History Breast cancer screening by mammogram Lesion of colon Abdominal pain Stiffness of left wrist joint Stiffness of left hand joint Fracture of distal end of left radius with routine healing Chronic pain Hypothyroidism Surgical History Hx of colonoscopy S/P tonsillectomy Hx of hysterectomy History of surgery on wrist History of back surgery S/P arthroscopy of left shoulder S/P arthroscopy of right shoulder Hx of arthroscopy of right knee H/O tubal ligation Family History Sister Thyroid cancer Maternal Grandmother Colon cancer Son Substance abuse Depression Social History Housing: House Alcohol intake: former Patient Tobacco Use Status: Never used Tobacco e-Cigarette/Vaping Use: Never Used Second Hand Smoke Exposure: No Current occupational status: disabled Cognitive needs: No Hearing needs: No Vision needs: Yes Questionnaire Thrive Questionnaire Date Thrive assessed: 01/23/24 AUDIT C Alcohol Use Questionnaire (AUDIT-C) 1. How often do you have a drink containing alcohol?: Never 3. How often do you have six or more drinks on one occasion?: Never Total Score: 0 ROMA-7 AMB Questionnaire ROMA-7 Date ROMA - 7 assessed: 04/27/24 Source: Developed by Drs. Lukas Walton, Liliana Naranjo, Andre Del Angel and colleagues, with an educational princess from [employer]. Review of Systems Const Denies body aches, Denies chills, Denies fever(s) and Denies poor appetite Eyes Reports no additional complaints ENT Reports no additional complaints Card Denies chest pain, Denies edema, Denies lightheadedness and Denies dyspnea Resp Denies dyspnea GI Reports no additional complaints Reports no additional complaints Musc Reports as per HPI and Reports abnormal gait Skin/Breast Reports system reviewed and no additional complaints, except as documented Neuro Reports abnormal gait Psych Reports no additional complaints Physical exam (Primary Care) Vital Signs: Last Vital Signs Pulse 87 07/06/24 13:02 BP 132/88 07/06/24 13:02 Pulse Ox 96 07/06/24 13:02 Oxygen Delivery Method Room Air 07/06/24 13:02 Tobacco/Smoking Status: Tobacco use Status Tobacco use date assessed 04/27/24 07/06/24 13:05 Patient Tobacco Use Status Never used Tobacco 07/06/24 13:05 e-Cigarette/Vaping Use Never Used 07/06/24 13:05 Thrive Assessment: Date of Thrive Assessment Date Thrive assessed 01/23/24 07/06/24 13:05 Const General: cooperative, healthy appearing, comfortable and no acute distress Orientation/consciousness: patient oriented x3 [facility] Head: Yes normocephalic Ears: hearing grossly normal bilaterally General nose exam: Normal external nose present Eyes General: appearance normal, both eyes and all related structures Conjunctivae: conjunctivae normal Neck Neck: Yes full ROM and Yes no lymphadenopathy Resp Effort & Inspection: normal respiratory effort Auscultation: clear to auscultation bilaterally, no crackles, no rales, no rhonchi and no wheezes Cardio Rate: regular rate Rhythm: regular rhythm Skin General skin exam: no rashes or lesions noted Neuro General: patient oriented x3 Gait exam (Neuro): Normal gait present Extrem Other: Tenderness to left lower extremity primarily on the anterior and posterior aspect of the knee. Mild tenderness to palpation in the left lower leg. No overlying erythema, warmth, or skin changes. Pulses, strength, sensation intact in bilateral lower extremities. General: Yes full ROM and Yes edema Psych Affect: normal affect Attitude: cooperative Insight: Good insight present (Psych) Judgement: Good judgement present (Psych) Assessment and Plan Assessment & Plan (1) Summers's cyst: Code(s): M71.20 - Synovial cyst of popliteal space [Summers], unspecified knee Plan: Patient is still complaining of severe pain in the left lower extremity. Patient did have evidence of Summers's cyst on imaging. Has been taking Tylenol and using lidocaine patches and compression therapy. She did mentioned she just got new compression stockings and has not tried yet. Her Flexeril was not working for her pain and we can trial baclofen for a short period of time. We will try compression stockings and refer to ortho for possible drainage or injection. Please follow up if symptoms worsen or do not improve. Plan This note was constructed using voice recognition software. While every effort has been made to ensure accuracy and recreational specialist, still areas may have been included sometimes these areas may affect the content or meeting of the given symptoms. Total time spent caring for the patient today was 20 minutes. This includes time spent before the visit reviewing the chart, time spent during the visit, and time spent after the visit and documentation. Orders: Referrals Orthopedics Referral M71.20 - Synovial cyst of popliteal space [Summers], unspecified knee Medications: New baclofen 5 mg PO BID 14 tabs 0RF Refilled albuterol sulfate 90 mcg/actuation (Ventolin HFA) 2 puffs inhalation Q6H PRN 8.5 grams 3RF shortness of breath or wheezing J45.909 - Unspecified asthma, uncomplicated Discontinued oxycodone Partial Fill upon patient request. Discontinued Reason: Patient no longer taking 5 mg PO TID 3 days PRN 9 tabs 0RF pain (scale score 4-6) cyclobenzaprine Discontinued Reason: Patient no longer taking 5 mg PO Q8H 5 days PRN 14 tabs 0RF pain (scale score 7-10) diclofenac sodium 1% (Arthritis Pain (diclofenac)) apply to single knee, ankle, foot; for foot includes sole/toes/top of foot Discontinued Reason: Patient no longer taking 4 grams topical QID 100 grams 0RF cyclobenzaprine Discontinued Reason: Patient no longer taking 10 mg PO BEDTIME PRN 30 tabs 0RF muscle spasm M96.1 - Postlaminectomy syndrome, not elsewhere classified Coding Level of Care Code Tele Est Pt Level 4 (61142) Diagnoses Summers's cyst M71.20
== END 2024-07-06 13:52 | disposition home or self-care (01) ==
PROVIDERS: PCP Internal Medicine
DX: M71.20 Synovial cyst of popliteal space [Baker], unspecified knee (principal)
CPT/HCPCS: 99214

== ENCOUNTER 2024-07-26 10:29 | Outpatient (REF) | payer OTHER, SELFPAY | END 2024-07-26 10:30 | disposition home or self-care (01) | LOC: HO.HOSX 10:29 | PROVIDERS: Visit Provider Physician Assistant | DX: M17.12 Unilateral primary osteoarthritis, left knee (principal); M71.22 Synovial cyst of popliteal space [Baker], left knee; M25.561 Pain in right knee | CPT/HCPCS: 99212 ==

== ENCOUNTER 2024-07-26 12:31 | Outpatient (AMB) | payer OTHER, SELFPAY ==
--- NOTE | 2024-07-26 12:53 | MHC.OFFVIS ---
Intake Visit Reasons: New prob- Left Knee Summers's Cyst Intake Note: Idania a 64 year old female who presents today for an evaluation of left knee. Patient reports a painful lump located at the posterior aspect of knee has been present for about a month. She was seen by her PCP who referred to orthopedics. States having an US done and was told having a small blood clot. Her pain radiates up the posterior aspect of leg. Her foot will turn black and julio as well as swelling. Denies injury. Finds no relief with Tylenol, topical cream or lidocaine patches. Allergies aspirin [ASA] Allergy (Mild, Verified 07/26/24 13:03) BRUISE, bruising hydrocodone [From VICODIN] Allergy (Mild, Verified 07/26/24 13:03) ITCH/BRUISE ibuprofen [From MOTRIN] Allergy (Mild, Verified 07/26/24 13:03) BRUISE trazodone [TRAZODONE] Allergy (Mild, Verified 07/26/24 13:03) RESTLESS quetiapine [From SEROQUEL] Adverse Reaction (Mild, Verified 07/26/24 13:03) RESTLESS NSAIDS (Non-Steroidal Anti-Inflamma Adverse Reaction (Verified 07/26/24 13:03) Unknown HPI HPI New prob- Left Knee Summers's Cyst: Details: 64-year-old female who presents to the office today for an evaluation of left knee. She reports she noticed a lump at the posterior aspect of her knee about a month ago. She was seen in the ED, u/s positive for bakers cyst and thrombus in the saphenous vein. She was seen by her PCP for a f/u who referred her to our office [place] to her left knee pain. She currently states she has swelling and pain in the knee that radiates up to posterior aspect of her leg. She also c/o black and blue discoloration in her foot. She has not had any injury in the past. She finds no relief with Tylenol, lidocaine patches or topical cream. [facility] Medical History Breast cancer screening by mammogram Lesion of colon Abdominal pain Stiffness of left wrist joint Stiffness of left hand joint Fracture of distal end of left radius with routine healing Chronic pain Hypothyroidism Surgical History Hx of colonoscopy S/P tonsillectomy Hx of hysterectomy History of surgery on wrist History of back surgery S/P arthroscopy of left shoulder S/P arthroscopy of right shoulder Hx of arthroscopy of right knee H/O tubal ligation Family History Sister Thyroid cancer Maternal Grandmother Colon cancer Son Substance abuse Depression Social History Housing: House Alcohol intake: former Patient Tobacco Use Status: Never used Tobacco e-Cigarette/Vaping Use: Never Used Second Hand Smoke Exposure: No Current occupational status: disabled Cognitive needs: No Hearing needs: No Vision needs: Yes Review of Systems Const All systems reviewed & are unremarkable except as noted in HPI and below Physical Exam Extrem Other: Left knee: Skin intact, no erythema or joint effusion. Tenderness along the medial and lateral joint line. Full ROM with crepitus. Negative Nellie?s. No ligamentous laxity. NVI. ? Results Reviewed Results Reviewed: IMPRESSION: 1. No DVT demonstrated in the left lower extremity. 2. Thrombus in the left great saphenous vein in this patient status post ablation. 3. Summers's cyst and additional fluid collection anterolaterally in the area of the patient's discomfort. Assessment & Plan Assessment & Plan (1) Osteoarthritis of left knee: Code(s): M17.12 - Unilateral primary osteoarthritis, left knee Category: Medical Plan We discussed options today which include cortisone injection and bracing. She will hold off on injection today as she states this does not give her much relief. She was fit for a knee brace in the office today. I recommend compression for her summers?s cyst and anti-inflammatories as needed. If symptoms persist or worsen, patient will contact the office, otherwise follow-up as needed. Orders: Orders XR knee RT 1V Today M25.561 - Pain in right knee XR knee LT 3V Today M25.562 - Pain in left knee Medications: New celecoxib (Celebrex) 200 mg PO BID 60 caps 3RF 30 days Patient Instructions: Scribed for Ta-Kiesha Johnson PA-C, by Jonathan Cash director medical affairs, on 07/26/2024 at 12:45 PM EST.? I, Nimisha Johnson PA-C, have personally reviewed and agree with the information entered by the scribe. Coding Level of Care Code Est Pt Level 3 (37725) Diagnoses Osteoarthritis of left knee M17.12
== END 2024-07-26 13:35 | disposition home or self-care (01) ==
PROVIDERS: PCP Internal Medicine; Visit Provider Physician Assistant
DX: M17.12 Unilateral primary osteoarthritis, left knee (principal)
CPT/HCPCS: 99214

== ENCOUNTER 2024-07-27 10:48 | Outpatient (REF) | payer OTHER, SELFPAY ==
--- NOTE | ~2024-07-27 | XR_ITS ---
EXAMINATION: CR LEFT KNEE. CR RIGHT KNEE. CR RIGHT FOOT. CLINICAL INFORMATION: Pain in left knee. Patient states Summers cyst in posterior left knee. Pain in right knee. Pain and swelling fifth metatarsal. No trauma. COMPARISON: Left knee films dated 07/03/2024, right knee films dated 04/14/2022 CT scan of the right foot dated 06/12/2024, right foot x-ray dated 06/10/2024. TECHNIQUE: Standing upright bilateral AP view of the knees. Lateral and sunrise views of the left knee. 3 views of the right foot. FINDINGS: Left knee: No acute fracture or dislocation. Trace suprapatellar knee joint effusion. Mild joint space narrowing in the patellofemoral and medial femoral compartments seen with associated minimal spurring, consistent with minimal osteoarthritic changes. No chondrocalcinosis or soft tissue calcification noted. Quadriceps tendon and patellar tendon shadows appear intact. Right knee: On single AP standing view, there is moderate, asymmetric to the contralateral mild, joint space narrowing in the medial femoral compartment with associated spurring and mild cystic change. Relative widening of the lateral femoral compartment is noted. No acute fracture or dislocation seen. Right foot: There is focal soft tissue swelling over the base of the fifth metatarsal bone. No associated radiopaque foreign body or soft tissue calcification is seen. The underlying fifth metatarsal head appears intact with no evidence of acute fracture. There is, however, a prominent spur seen arising from the base of the fifth metatarsal bone. There is mild spurring in the intertarsal joints. Prominent plantar calcaneal spur is seen. No ankle joint effusion is noted. XR/XR knee RT 1V IMPRESSION: Right foot: 1. Focal soft tissue swelling over the base of the right fifth metatarsal bone with underlying prominent bony spur arising from the base of the fifth metatarsal bone. 2. Prominent plantar calcaneal spur in the right foot. 3. Mild degenerative changes in the intertarsal joints of the right foot. Bilateral knees: 1. No acute fracture of the left knee or right knee. 2. Mild osteoarthritic changes in both knees. Electronically signed by: Samira Fajardo MD 08/06/2024 10:12 AM EDT
[2024-07-27 11:14] LABS: MANUAL DIFF FLAG NO
[2024-07-27 11:39] LABS: Basophils Absolute Auto 0.1 X10*3/uL (0.0-0.2); Basophils Percent Auto 1.1 % (0-2); Eosinophils Absolute Auto 0.2 X10*3/uL (0.0-0.4); Eosinophils Percent Auto 4.5 % (0-4); Hematocrit 42.4 % (37.0-47.0); Hemoglobin 14.3 g/dl (12.0-16.0); Imm Gran Abs Auto 0.01 X10*3/uL (0.00-0.03); Imm Gran Pct Auto 0.2 % (0.0-0.4); Lymphocytes Absolute Auto 1.5 X10*3/uL (1.2-4.9); Lymphocytes Percent Auto 27.1 % (20-40); Mean Corpuscular HGB Conc 33.7 g/dl (31.0-35.0); Mean Corpuscular Hemoglobin 29.9 pg (27.0-33.0); Mean Corpuscular Volume 88.5 fL (80.0-98.0); Mean Platelet Volume 9.6 fL (9.4-12.3); Monocytes Absolute Auto 0.5 X10*3/uL (0.1-1.2); Monocytes Percent Auto 9.5 % (2-11); Neutrophils Absolute Auto 3.1 x10*3/uL (2.0-8.3); Neutrophils Percent Auto 57.6 % (45-73); Platelet Count 319 X10*3/uL (160-400); Red Blood Count 4.79 X10*6/uL (4.20-5.50); Red Cell Distribution Width 12.7 % (11.0-16.0); White Blood Count 5.4 X10*3/uL (4.8-10.8)
[2024-07-27 12:11] LABS: Appearance Urine Clear; Color Urine Yellow; Glucose Urine UA Negative (Negative); Leukocyte Esterase Urine Small (1+) (Negative); Nitrite Urine Negative (Negative); PH 7.5 (5.0-9.0); UMIC TRIGGER UACC YES; Urine Blood Negative (Negative); Urine Ketones Negative (Negative); Urine Protein Negative (Neg-Trace)
[2024-07-27 12:23] LABS: Bacteria Urine None Seen (None Seen); Hyaline Casts Urine 0-2 /LPF (0-2); RBC Urine 0-2 /HPF (0-2); UACC Culture Trigger YES; WBC Urine 0-5 /HPF (0-5)
[2024-07-27 12:31] LABS: Estimated Average Glucose 100 mg/dL; Hemoglobin A1c % 5.1 % (<6.0)
[2024-07-27 12:36] LABS: Alanine Aminotransferase 28 U/L (0-31); Albumin Level 3.8 g/dL (3.5-5.0); Alkaline Phosphatase 131 U/L (39-117); Anion Gap 9 (12-20); Aspartate Amino Transferase 23 U/L (5-31); Bilirubin Total 0.5 mg/dL (0.0-1.0); Blood Urea Nitrogen 15 mg/dL (9-16); Calcium 9.3 mg/dL (8.4-10.2); Carbon Dioxide 26 mmol/L (22-29); Chloride 109 mmol/L (96-108); Cholesterol 143 mg/dL (<200); Estimated Glomerular Filt Rate > 60; Free T4 (Free Thyroxine) 0.63 ng/dL (0.71-1.85); Glucose Random 101 mg/dL (60-115); HDL Cholesterol 47 mg/dL (>40); LDL Cholesterol Calculated 74 mg/dL (<100); Magnesium 2.1 mg/dL (1.6-2.6); Phosphorus 3.2 mg/dL (2.7-4.5); Potassium 4.2 mmol/L (3.3-5.1); Sodium 140 mmol/L (135-145); Thyroid Stimulating Hormone 2.52 uIU/mL (0.32-4.0); Triglycerides 114 mg/dL (<150); Vitamin D 25-OH Total 13.6 ng/mL (>30)
[2024-07-27 12:51] LABS: Folate 6.8 ng/mL (> or = 4.0); Vitamin B12 341 pg/mL (200-900)
== END 2024-07-27 10:49 | disposition home or self-care (01) ==
LOC: HO.LAB 10:48
PROVIDERS: PCP Internal Medicine; Referring Provider Internal Medicine; Visit Provider Physician Assistant
DX: R79.89 Other specified abnormal findings of blood chemistry (principal); I73.9 Peripheral vascular disease, unspecified; E78.00 Pure hypercholesterolemia, unspecified; M25.561 Pain in right knee; M25.562 Pain in left knee; R30.0 Dysuria; E66.9 Obesity, unspecified
CPT/HCPCS: 36415; 73560; 73562; 80053; 80061; 81001; 82306; 82607; 82746; 83036; 83735; 84100; 84439; 84443; 85025; 87086

== ENCOUNTER 2024-08-06 08:46 | Emergency (ER) | payer OTHER, SELFPAY ==
--- NOTE | ~2024-08-06 | XR_ITS ---
EXAMINATION: CR LEFT KNEE. CR RIGHT KNEE. CR RIGHT FOOT. CLINICAL INFORMATION: Pain in left knee. Patient states Summers cyst in posterior left knee. Pain in right knee. Pain and swelling fifth metatarsal. No trauma. COMPARISON: Left knee films dated 07/03/2024, right knee films dated 04/14/2022 CT scan of the right foot dated 06/12/2024, right foot x-ray dated 06/10/2024. TECHNIQUE: Standing upright bilateral AP view of the knees. Lateral and sunrise views of the left knee. 3 views of the right foot. FINDINGS: Left knee: No acute fracture or dislocation. Trace suprapatellar knee joint effusion. Mild joint space narrowing in the patellofemoral and medial femoral compartments seen with associated minimal spurring, consistent with minimal osteoarthritic changes. No chondrocalcinosis or soft tissue calcification noted. Quadriceps tendon and patellar tendon shadows appear intact. Right knee: On single AP standing view, there is moderate, asymmetric to the contralateral mild, joint space narrowing in the medial femoral compartment with associated spurring and mild cystic change. Relative widening of the lateral femoral compartment is noted. No acute fracture or dislocation seen. Right foot: There is focal soft tissue swelling over the base of the fifth metatarsal bone. No associated radiopaque foreign body or soft tissue calcification is seen. The underlying fifth metatarsal head appears intact with no evidence of acute fracture. There is, however, a prominent spur seen arising from the base of the fifth metatarsal bone. There is mild spurring in the intertarsal joints. Prominent plantar calcaneal spur is seen. No ankle joint effusion is noted. XR/XR foot RT min 3V IMPRESSION: Right foot: 1. Focal soft tissue swelling over the base of the right fifth metatarsal bone with underlying prominent bony spur arising from the base of the fifth metatarsal bone. 2. Prominent plantar calcaneal spur in the right foot. 3. Mild degenerative changes in the intertarsal joints of the right foot. Bilateral knees: 1. No acute fracture of the left knee or right knee. 2. Mild osteoarthritic changes in both knees. Electronically signed by: Samira Fajardo MD 08/06/2024 10:12 AM EDT
--- NOTE | ~2024-08-06 | US_ITS ---
EXAMINATION: US TRIPLEX LOWER EXTREMITY, LEFT CLINICAL INFORMATION: Calf pain COMPARISON: 07/03/2024 TECHNIQUE: Color-flow triplex imaging with spectral analysis and compression Doppler were performed on the left lower extremity. FINDINGS: Respiratory variation, normal compression and augmented flow are noted throughout the left lower extremity. The visualized common femoral vein, superficial femoral vein, profunda femoral vein, popliteal vein and midcalf peroneal and posterior tibial venous segments show no evidence of deep venous thrombosis. There is noncompressibility within the great saphenous vein in the proximal calf with no significant flow on color flow and duplex Doppler consistent with focal thrombophlebitis Summers's cyst in the popliteal fossa measuring 3.8 x 4.4 x 1.0 cm US/US venous duplex LE LT IMPRESSION: 1. No evidence of deep venous thrombosis involving the left lower extremity. 2. Focal thrombophlebitis in the great saphenous vein in the proximal calf. 3. Summers's cyst. Electronically signed by: Drake Rendon MD 08/06/2024 10:42 AM EDT
[2024-08-06 08:50] VITALS: BP 151/81; PULSE 72; RESP 20; TEMP 36.5; O2SAT 97; BMI 38.3
--- NOTE | 2024-08-06 09:11 | ED_ITS ---
HPI - General Adult General Chief complaint: Extremity Injury, Lower Stated complaint: lump l leg, cyst and dvt multiple issues Time Seen by Provider: 08/06/24 09:11 Source: patient Mode of arrival: ambulatory Limitations: no limitations History of Present Illness ED Provider: delvin FREEMAN narrative: Patient is a 64-year-old female with history of PVD, varicose veins, asthma, osteoarthritis, Hepatitis B&C, chronic pain syndrome presenting to the emergency department with complaint of left knee and lower leg pain as well as pain and swelling to right lateral foot. Patient seen here for similar symptoms on 07/03 and had ultrasound with negative DVT, notable for Summers's cyst. Patient states that she was prescribed Celebrex but was unable to tolerate this as it caused GI upset. Has not been using an Markell wrap to her knee but states she was provided with a knee brace and has been using that. Also complains of pain and swelling to right lateral foot for months, states the swelling is increasing in size. Denies numbness or tingling to lower extremities. MD complaint: Left lower leg pain, right foot pain Onset (ago): week(s) Quality: aching Pain Consistency: constant Treatments prior to arrival: other Related Data Home Medications ?Medication ?Instructions ?Recorded ?Confirmed acetaminophen 500 mg tablet 500 mg PO Q6H PRN Pain 11/01/22 07/06/24 (Tylenol Extra Strength) Previous Rx's ?Medication ?Instructions ?Recorded lidocaine 5 % topical patch 1 patch topical DAILY #15 ea 12/29/23 fexofenadine 180 mg tablet 180 mg PO DAILY #30 tabs 01/23/24 (Leah Allergy) peg 3350-electrolytes 236 240 ml PO Q10M colonoscopy #4,000 02/22/24 gram-22.74 gram-6.74 gram-5.86 mL gram solution (Golytely) polyethylene glycol 3350 17 17 g PO BID #238 grams 02/22/24 gram/dose oral powder (Miralax) sennosides 8.6 mg tablet (senna) 17.2 mg (2 x 8.6 mg) PO ONCE a day 02/22/24 before colonoscopy #2 tabs ketoconazole 2 % topical cream 1 appl topical BID #60 grams 04/27/24 simethicone 125 mg capsule (Gas 125 mg PO BID-QID PRN abdominal 04/27/24 Relief (simethicone)) distention #30 caps acetaminophen 500 mg tablet 500 mg PO Q6H PRN fever or pain 06/23/24 (Tylenol Extra Strength) #14 tabs lidocaine 5 % topical patch 1 patch topical DAILY PRN pain #30 06/23/24 (Lidoderm) ea diclofenac sodium 1 % topical gel 2 g topical QID #100 grams 07/03/24 albuterol sulfate 90 mcg/actuation 2 puff inhalation Q6H PRN 07/06/24 aerosol inhaler (Ventolin HFA) shortness of breath or wheezing #8.5 grams baclofen 5 mg tablet 5 mg PO BID #14 tabs 07/06/24 fluticasone propionate 50 2 spray intranasal DAILY #16 grams 07/25/24 mcg/actuation nasal spray,suspension (Flonase Allergy Relief) celecoxib 200 mg capsule (Celebrex) 200 mg PO BID 30 days #60 caps 07/26/24 Allergies Allergy/AdvReac Type Severity Reaction Status Date / Time aspirin [ASA] Allergy Mild BRUISE, Verified 08/06/24 08:55 bruising hydrocodone [From VICODIN] Allergy Mild ITCH/BRUISE Verified 08/06/24 08:55 ibuprofen [From MOTRIN] Allergy Mild BRUISE Verified 08/06/24 08:55 trazodone [TRAZODONE] Allergy Mild RESTLESS Verified 08/06/24 08:55 quetiapine [From SEROQUEL] AdvReac Mild RESTLESS Verified 08/06/24 08:55 NSAIDS (Non-Steroidal AdvReac Unknown Verified 08/06/24 08:55 Anti-Inflamma Review of Systems Review of Systems: As per HPI Yes all other systems are reviewed and are negative Constitutional: Constitutional: Reports as per HPI PMFSH Past Medical History Medical History Breast cancer screening by mammogram Lesion of colon Abdominal pain Stiffness of left wrist joint Stiffness of left hand joint Fracture of distal end of left radius with routine healing Chronic pain Hypothyroidism Surgical History Hx of colonoscopy S/P tonsillectomy Hx of hysterectomy History of surgery on wrist History of back surgery S/P arthroscopy of left shoulder S/P arthroscopy of right shoulder Hx of arthroscopy of right knee H/O tubal ligation Family History Family History Sister Thyroid cancer Maternal Grandmother Colon cancer Son Substance abuse Depression Social History Social History Housing: House Alcohol intake: former Patient Tobacco Use Status: Never used Tobacco e-Cigarette/Vaping Use: Never Used Second Hand Smoke Exposure: No Current occupational status: disabled Cognitive needs: No Hearing needs: No Vision needs: Yes Physical Exam ED Vital Signs: Vital Signs - 24 hr 08/06/24 08:50 Temperature 97.7 F Pulse Rate 72 Respiratory Rate 20 Blood Pressure 151/81 H Pulse Oximetry 97 Oxygen Delivery Method Room Air BMI result Body Mass Index 38.3 Vital signs have been reviewed and appear to be correct. Blood pressure elevated. Heart rate normal. Respiratory rate normal. Temperature normal. Oxygen saturation normal. Const General: cooperative, healthy appearing and no acute distress Orientation/consciousness: oriented to person, oriented to place, oriented to time and patient oriented x3 Limitations: no limitations HENMT Head: Yes normocephalic and Yes atraumatic Ears: external ears normal General nose exam: Normal external nose present Face and sinus: Yes face symmetric Mouth: oropharynx normal and moist mucous membranes Throat: Yes uvula midline Eyes Pupils: Equal, round and reactive pupils present Neck Neck: Yes normal visual inspection and Yes supple Resp Effort & Inspection: normal respiratory effort and able to speak in complete sentences Auscultation: clear to auscultation bilaterally Cardio Rate: regular rate Rhythm: regular rhythm Heart sounds: S1 normal heart sound present and S2 normal heart sound present GI Palpation (GI): Soft to palpation and nontender Auscultation: normoactive bowel sounds General: Yes no CVA tenderness Back/Spine/Pelvis Back: no CVA tenderness Skin General skin exam: elasticity normal and turgor normal Neuro General: oriented to person, oriented to place, oriented to time, patient oriented x3, moves all extremities, no focal motor deficits and CN's II-XI intact bilaterally Cranial nerves: Yes Equal, round and reactive pupils present Cognition (Neuro): normal cognition Extrem General: Yes full ROM, Yes no pedal edema and Yes no calf tenderness Right lower extremity: foot Details: normal capillary refill, tenderness Location: of the lateral foot Location: in the mid-section, toes with normal ROM, vascular exam Details: dorsalis pedis pulse present and posterior tibial pulse present and other (erythema, swelling mid 5th metatarsal); no unusual warmth Left lower extremity: knee Details: normal to inspection, tenderness Location: of the popliteal fossa, normal ROM and knee ligament exam normal; no swelling and lower leg Details: normal to inspection, tenderness Location: of the posterior calf and no edema; no erythema, no localized swelling, no palpable cords, no ecchymosis and no unusual warmth Psych Mental Status: mental status grossly normal Affect: normal affect Thought process: Normal thought process present Medical Decision Making Medical Decision Making MDM Narrative: Patient is a 64-year-old female with history of PVD, varicose veins, asthma, osteoarthritis, Hepatitis B&C, chronic pain syndrome presenting to the emergency department with complaint of left knee and lower leg pain as well as pain and swelling to right lateral foot. On exam patient is awake, A+Ox3, BP elevated, VS otherwise WNL, afebrile, normal neurological exam without focal deficits, physical exam findings as above. Given reported symptoms and physical exam findings, initial differential includes LLE DVT, Summers's cyst/ruptured cyst, hallux vargus versus fracture, osteoarthritis. Ultrasound notable for no DVT, focal thrombophlebitis of great saphenous vein, Summers's cyst still present. X- ray notable for focal soft tissue swelling over base of 5th metatarsal with underlying prominent bone spur, no evidence of acute fracture. My interpretation is in agreement with the radiologist's interpretation. Results discussed with patient and all questions answered. Patient offered treatment with diclofenac gel or lidocaine patches, states she has sufficient supply of both. Advised patient to continue to utilize Markell bandage to left knee to decrease pain related to Summers's cyst. Instructed patient follow-up with PCP. Return precautions discussed at bedside. Patient verbalized understanding of and agreement with plan. Differential Diagnosis Differential Diagnoses: The differential diagnosis associated with the presentation includes As per MDM. Admission/Observation Consideration of admission/observation: Escalation of care including admission/observation considered Patient would have been admitted to the hospital had their work up had any findings where hospital admission was appropriate and their clinical pres entation warranted hospital admission. Independent Interpretation I performed an independent interpretation of an: Plain X-Ray and Ultrasound Interpretation: Ultrasound notable for no DVT, focal thrombophlebitis of great saphenous vein, Summers's cyst still present. X-ray notable for focal soft tissue swelling over base of 5th metatarsal with underlying prominent bone spur, no evidence of acute fracture. Radiology Impression Discussion of test interpretation with radiology: I have reviewed the radiologist's reading. Radiologist Impression: XR/XR foot RT min 3V IMPRESSION: Right foot: 1. Focal soft tissue swelling over the base of the right fifth metatarsal bone with underlying prominent bony spur arising from the base of the fifth metatarsal bone. 2. Prominent plantar calcaneal spur in the right foot. 3. Mild degenerative changes in the intertarsal joints of the right foot. US/US venous duplex LE LT IMPRESSION: 1. No evidence of deep venous thrombosis involving the left lower extremity. 2. Focal thrombophlebitis in the great saphenous vein in the proximal calf. 3. Summers's cyst. External Record Review External record reviewed: Inpatient record, Office record and Outpatient record Prescription Management I considered prescription management with: Pain Medication Discharge Plan Discharge Clinical Impression: Thrombophlebitis, Summers's cyst of knee, Bone spur of right foot Patient Disposition: Home, Self-Care Instructions: Bakers Cyst (ED), Heel Spur (ED) Additional Instructions: You were evaluated in the emergency department today for left leg and right foot pain. Your ultrasound did not show evidence of a DVT, but you still have a clot in a superficial vein in your leg. You were also found to still have a Summers's cyst on ultrasound. We recommend that you use compression (MARKELL wrap, compression socks), apply warm compresses, and keep your legs elevated at rest. Call your primary care provider to schedule a follow up appointment. Return to the emergency department if you develop worsening/severe pain, new weakness, numbness, tingling, change of color to your leg, fever, chest pain or shortness of breath, palpitations or any other concerning symptoms. Prescriptions: No Action fluticasone propionate [Flonase Allergy Relief] 50 mcg/actuation spray,suspension 2 spray intranasal DAILY Qty: 16 0RF Rx Instructions: administer into each nostril acetaminophen [Tylenol Extra Strength] 500 mg tablet 500 mg PO Q6H PRN (Reason: fever or pain) Qty: 14 0RF lidocaine [Lidoderm] 5 % adhesive patch,medicated 1 patch topical DAILY MDD remove after 12 hours PRN (Reason: pain) Qty: 30 0RF Rx Instructions: leave on most painful area for up to 12 hrs diclofenac sodium 1 % gel 2 g topical QID Qty: 100 0RF Rx Instructions: apply to single elbow, wrist or hand; for hand includes palm/fingers/back of hand fexofenadine [Leah Allergy] 180 mg tablet 180 mg PO DAILY Qty: 30 3RF ketoconazole 2 % cream 1 appl topical BID Qty: 60 0RF simethicone [Gas Relief (simethicone)] 125 mg capsule 125 mg PO BID-QID PRN (Reason: abdominal distention) Qty: 30 0RF lidocaine 5 % adhesive patch,medicated 1 patch topical DAILY Qty: 15 3RF Rx Instructions: leave on most painful area for up to 12 hrs albuterol sulfate [Ventolin HFA] 90 mcg/actuation HFA aerosol inhaler 2 puff inhalation Q6H PRN (Reason: shortness of breath or wheezing) Qty: 8.5 3RF baclofen 5 mg tablet 5 mg PO BID Qty: 14 0RF acetaminophen [Tylenol Extra Strength] 500 mg tablet 500 mg PO Q6H PRN (Reason: Pain) peg 3350-electrolytes [Golytely] 236-22.74-6.74 -5.86 gram recon soln 240 ml PO Q10M Qty: 4000 0RF Rx Instructions: as per split prep instructions, until fecal effluent is clear polyethylene glycol 3350 [Miralax] 17 gram/dose powder 17 g PO BID Qty: 238 0RF Rx Instructions: Take twice a day starting 3 days before your colonoscopy sennosides [senna] 8.6 mg tablet 17.2 mg PO ONCE Qty: 2 0RF celecoxib [Celebrex] 200 mg capsule 200 mg PO BID 30 Days Qty: 60 3RF Print Language: Micronesian
[2024-08-06 11:19] VITALS: BP 150/99; PULSE 83; RESP 20; TEMP 36.3; O2SAT 95
[2024-08-06 11:33] VITALS: BP 150/99; PULSE 83; RESP 20; TEMP 36.3; O2SAT 95
== END 2024-08-06 11:33 | disposition home or self-care (01) ==
PROVIDERS: Emergency Provider Emergency Medicine Emergency Medical Services; PCP Internal Medicine
DX: I80.3 Phlebitis and thrombophlebitis of lower extremities, unspecified (principal); M71.21 Synovial cyst of popliteal space [Baker], right knee; R60.0 Localized edema; M79.671 Pain in right foot
CPT/HCPCS: 73630; 93971; 99284

== ENCOUNTER 2024-08-18 19:53 | Emergency (ER) | payer OTHER, SELFPAY ==
--- NOTE | ~2024-08-18 | CT_ITS ---
EXAMINATION: CT FOOT WITHOUT CONTRAST, RIGHT CLINICAL INFORMATION: Fluctuant mass at the lateral plantar foot. COMPARISON: Radiographs dated 08/06/2024 TECHNIQUE: Multidetector volumetric imaging was obtained through the right foot without contrast. Multiplanar reformatted images in coronal and sagittal orientations were submitted. This CT examination was performed using dose optimization techniques as appropriate, variously including the following: *Automated exposure control *Adjustment of mA and/or kV according to patient size (this includes techniques or standardized protocols for targeted exams where dose is matched to indication/reason for exam; i.e. extremities or head) *Use of iterative reconstruction technique DLP: 174 mGy-cm FINDINGS: No fracture or malalignment. 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 More mild to moderate osteoarthritis of the tarsometatarsal joints and multiple interphalangeal joints. No erosions. Mild osteoarthritis in the first MTP and talocrural joints. Bipartite medial hallux sesamoid. Tendons appear intact. No appreciable tenosynovitis on these images. Mild fatty atrophy of the intrinsic foot musculature. Moderate-sized plantar calcaneal enthesopathic spur and smaller enthesopathic spur at the Achilles tendon insertion. There is marked fat stranding at the plantar soft tissues of the foot, most notably at the plantar/lateral aspect of the midfoot. Within the plantar subcutaneous fat at the level of the fourth and fifth TMT joints, there is a 2.5 x 1.5 x 2.5 cm region of ill-defined soft tissue attenuation which could correspond to an adventitious bursa or a developing phlegmon. Specificity is limited without intravenous contrast material. No subcutaneous gas. CT/CT foot RT wo IV con IMPRESSION: 1. A 2.5 cm region of ill-defined soft tissue attenuation in the plantar subcutaneous fat at the level of the fourth and fifth TMT joints. This could correspond to an adventitious bursa or a developing phlegmon. Specificity is limited without intravenous contrast material. 2. 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 Electronically signed by: Wil Starkey MD 08/18/2024 10:55 PM EDT
--- NOTE | 2024-08-18 20:10 | ED_ITS ---
HPI - General Adult General Chief complaint: General Medical Stated complaint: abscess/rt foot came from urgent care Time Seen by Provider: 08/18/24 20:48 Related Data Home Medications ?Medication ?Instructions ?Recorded ?Confirmed acetaminophen 500 mg tablet 500 mg PO Q6H PRN Pain 11/01/22 07/06/24 (Tylenol Extra Strength) Previous Rx's ?Medication ?Instructions ?Recorded lidocaine 5 % topical patch 1 patch topical DAILY #15 ea 12/29/23 fexofenadine 180 mg tablet 180 mg PO DAILY #30 tabs 01/23/24 (Leah Allergy) peg 3350-electrolytes 236 240 ml PO Q10M colonoscopy #4,000 02/22/24 gram-22.74 gram-6.74 gram-5.86 mL gram solution (Golytely) polyethylene glycol 3350 17 17 g PO BID #238 grams 02/22/24 gram/dose oral powder (Miralax) sennosides 8.6 mg tablet (senna) 17.2 mg (2 x 8.6 mg) PO ONCE a day 02/22/24 before colonoscopy #2 tabs ketoconazole 2 % topical cream 1 appl topical BID #60 grams 04/27/24 simethicone 125 mg capsule (Gas 125 mg PO BID-QID PRN abdominal 04/27/24 Relief (simethicone)) distention #30 caps acetaminophen 500 mg tablet 500 mg PO Q6H PRN fever or pain 06/23/24 (Tylenol Extra Strength) #14 tabs lidocaine 5 % topical patch 1 patch topical DAILY PRN pain #30 06/23/24 (Lidoderm) ea diclofenac sodium 1 % topical gel 2 g topical QID #100 grams 07/03/24 albuterol sulfate 90 mcg/actuation 2 puff inhalation Q6H PRN 07/06/24 aerosol inhaler (Ventolin HFA) shortness of breath or wheezing #8.5 grams baclofen 5 mg tablet 5 mg PO BID #14 tabs 07/06/24 fluticasone propionate 50 2 spray intranasal DAILY #16 grams 07/25/24 mcg/actuation nasal spray,suspension (Flonase Allergy Relief) celecoxib 200 mg capsule (Celebrex) 200 mg PO BID 30 days #60 caps 07/26/24 doxycycline hyclate 100 mg tablet 100 mg PO BID #20 tabs 08/18/24 Allergies Allergy/AdvReac Type Severity Reaction Status Date / Time aspirin [ASA] Allergy Mild BRUISE, Verified 08/18/24 20:11 bruising hydrocodone [From VICODIN] Allergy Mild ITCH/BRUISE Verified 08/18/24 20:11 ibuprofen [From MOTRIN] Allergy Mild BRUISE Verified 08/18/24 20:11 trazodone [TRAZODONE] Allergy Mild RESTLESS Verified 08/18/24 20:11 quetiapine [From SEROQUEL] AdvReac Mild RESTLESS Verified 08/18/24 20:11 NSAIDS (Non-Steroidal AdvReac Unknown Verified 08/18/24 20:11 Anti-Inflamma PMFSH Past Medical History Medical History Breast cancer screening by mammogram Lesion of colon Abdominal pain Stiffness of left wrist joint Stiffness of left hand joint Fracture of distal end of left radius with routine healing Chronic pain Hypothyroidism Surgical History Hx of colonoscopy S/P tonsillectomy Hx of hysterectomy History of surgery on wrist History of back surgery S/P arthroscopy of left shoulder S/P arthroscopy of right shoulder Hx of arthroscopy of right knee H/O tubal ligation Family History Family History Sister Thyroid cancer Maternal Grandmother Colon cancer Son Substance abuse Depression Social History Social History Housing: House Alcohol intake: former Patient Tobacco Use Status: Never used Tobacco e-Cigarette/Vaping Use: Never Used Second Hand Smoke Exposure: No Advance Directives: No Advance Directives Information Provided: No Do you have a plan to hurt others: No Plan Current occupational status: disabled Cognitive needs: No Hearing needs: No Vision needs: Yes Physical Exam ED Vital Signs: BMI result Body Mass Index 35.8 Course Course Course Narrative: This is a rapid medical exam performed by Celsa Khan NP: Additional HPI, ROS, PE not included below will be deferred to primary provider. Patient is a 64-year-old female history of PVD, varicose veins, asthma, osteoarthritis, Hepatitis B&C, chronic pain syndrome presenting with complaint of right foot pain. Seen at urgent care today and referred to the ED for evaluation of possible abscess to right foot, told patient she needs CT scan. Fluctuant swelling and erythema to right lateral and plantar foot. Plan: labs, CT foot Medications Administered Discontinued Medications Generic Name Dose Route Start Last Admin Trade Name Freq PRN Reason Stop Dose Admin Doxycycline Monohydrate 100 mg 08/18/24 21:31 08/18/24 21:36 Doxycycline Monohydrate 100 Mg Capsule PO 08/18/24 21:32 100 mg ONCE ONE Administration Medical Decision Making Lab Data 08/18/24 20:57 08/18/24 20:57 Labs: Lab Results 08/18/24 Range/Units 20:57 WBC 7.6 (4.8-10.8) X10*3/uL RBC 4.82 (4.20-5.50) X10*6/uL Hgb 14.4 (12.0-16.0) g/dl Hct 43.4 (37.0-47.0) % MCV 90.0 (80.0-98.0) fL MCH 29.9 (27.0-33.0) pg MCHC 33.2 (31.0-35.0) g/dl RDW 13.0 (11.0-16.0) % Plt Count 294 (160-400) X10*3/uL MPV 9.1 L (9.4-12.3) fL Immature Gran % (Auto) 0.5 H (0.0-0.4) % Neut % (Auto) 55.4 (45-73) % Lymph % (Auto) 28.1 (20-40) % Sebastian % (Auto) 11.4 H (2-11) % Eos % (Auto) 3.7 (0-4) % Baso % (Auto) 0.9 (0-2) % Lymph # (Auto) 2.1 (1.2-4.9) X10*3/uL Sebastian # (Auto) 0.9 (0.1-1.2) X10*3/uL Eos # (Auto) 0.3 (0.0-0.4) X10*3/uL Baso # (Auto) 0.1 (0.0-0.2) X10*3/uL Abs Immat Gran (auto) 0.04 H (0.00-0.03) X10*3/uL Absolute Neuts (auto) 4.2 (2.0-8.3) x10*3/uL Absolute Nucleated RBC 0.000 (0.0-0.012) X10*3/uL Nucleated RBC % (auto) 0.0 (0.0-0.2) /100WBC ESR 14 (0-20) MM/HR Sodium 142 (135-145) mmol/L Potassium 3.9 (3.3-5.1) mmol/L Chloride 108 (96-108) mmol/L Carbon Dioxide 28 (22-29) mmol/L Anion Gap 10 L (12-20) BUN 18 H (9-16) mg/dL Creatinine 0.84 (0.5-1.4) mg/dL Estim Creat Clear Calc 78.1 Estimated GFR > 60 Random Glucose 97 (60-115) mg/dL Calcium 8.9 (8.4-10.2) mg/dL Total Bilirubin 0.5 (0.0-1.0) mg/dL AST 21 (5-31) U/L ALT 19 (0-31) U/L Alkaline Phosphatase 129 H (39-117) U/L C-Reactive Protein 1.09 H (< or = 0.50) mg/dL Total Protein 6.9 (6.5-8.0) g/dL Albumin 3.7 (3.5-5.0) g/dL Discharge Plan Discharge Clinical Impression: Cellulitis of right foot Patient Disposition: Home, Self-Care Instructions: Cellulitis (ED) Additional Instructions: Likely have infected right foot bursitis Take antibiotics as prescribed Local care as advised Follow with your PCP Prescriptions: New doxycycline hyclate 100 mg tablet 100 mg PO BID Qty: 20 0RF No Action fluticasone propionate [Flonase Allergy Relief] 50 mcg/actuation spray,suspension 2 spray intranasal DAILY Qty: 16 0RF Rx Instructions: administer into each nostril acetaminophen [Tylenol Extra Strength] 500 mg tablet 500 mg PO Q6H PRN (Reason: fever or pain) Qty: 14 0RF lidocaine [Lidoderm] 5 % adhesive patch,medicated 1 patch topical DAILY MDD remove after 12 hours PRN (Reason: pain) Qty: 30 0RF Rx Instructions: leave on most painful area for up to 12 hrs diclofenac sodium 1 % gel 2 g topical QID Qty: 100 0RF Rx Instructions: apply to single elbow, wrist or hand; for hand includes palm/fingers/back of hand fexofenadine [Leah Allergy] 180 mg tablet 180 mg PO DAILY Qty: 30 3RF ketoconazole 2 % cream 1 appl topical BID Qty: 60 0RF simethicone [Gas Relief (simethicone)] 125 mg capsule 125 mg PO BID-QID PRN (Reason: abdominal distention) Qty: 30 0RF lidocaine 5 % adhesive patch,medicated 1 patch topical DAILY Qty: 15 3RF Rx Instructions: leave on most painful area for up to 12 hrs albuterol sulfate [Ventolin HFA] 90 mcg/actuation HFA aerosol inhaler 2 puff inhalation Q6H PRN (Reason: shortness of breath or wheezing) Qty: 8.5 3RF baclofen 5 mg tablet 5 mg PO BID Qty: 14 0RF acetaminophen [Tylenol Extra Strength] 500 mg tablet 500 mg PO Q6H PRN (Reason: Pain) peg 3350-electrolytes [Golytely] 236-22.74-6.74 -5.86 gram recon soln 240 ml PO Q10M Qty: 4000 0RF Rx Instructions: as per split prep instructions, until fecal effluent is clear polyethylene glycol 3350 [Miralax] 17 gram/dose powder 17 g PO BID Qty: 238 0RF Rx Instructions: Take twice a day starting 3 days before your colonoscopy sennosides [senna] 8.6 mg tablet 17.2 mg PO ONCE Qty: 2 0RF celecoxib [Celebrex] 200 mg capsule 200 mg PO BID 30 Days Qty: 60 3RF Interventions: ED Discharge Assessment Last Done: 08/18/24 21:41 Discharge Date/Time: 08/18/24 21:42 Print Language: Latvian
[2024-08-18 20:11] VITALS: BP 142/80; PULSE 85; RESP 18; TEMP 36.6; O2SAT 97; BMI 35.8
[2024-08-18 21:02] LABS: MANUAL DIFF FLAG NO
[2024-08-18 21:03] LABS: Basophils Absolute Auto 0.1 X10*3/uL (0.0-0.2); Basophils Percent Auto 0.9 % (0-2); Eosinophils Absolute Auto 0.3 X10*3/uL (0.0-0.4); Eosinophils Percent Auto 3.7 % (0-4); Hematocrit 43.4 % (37.0-47.0); Hemoglobin 14.4 g/dl (12.0-16.0); Imm Gran Abs Auto 0.04 X10*3/uL (0.00-0.03); Imm Gran Pct Auto 0.5 % (0.0-0.4); Lymphocytes Absolute Auto 2.1 X10*3/uL (1.2-4.9); Lymphocytes Percent Auto 28.1 % (20-40); Mean Corpuscular HGB Conc 33.2 g/dl (31.0-35.0); Mean Corpuscular Hemoglobin 29.9 pg (27.0-33.0); Mean Platelet Volume 9.1 fL (9.4-12.3); Monocytes Absolute Auto 0.9 X10*3/uL (0.1-1.2); Monocytes Percent Auto 11.4 % (2-11); Neutrophils Absolute Auto 4.2 x10*3/uL (2.0-8.3); Neutrophils Percent Auto 55.4 % (45-73); Platelet Count 294 X10*3/uL (160-400); Red Blood Count 4.82 X10*6/uL (4.20-5.50); White Blood Count 7.6 X10*3/uL (4.8-10.8)
[2024-08-18 21:15] LABS: Alanine Aminotransferase 19 U/L (0-31); Albumin Level 3.7 g/dL (3.5-5.0); Alkaline Phosphatase 129 U/L (39-117); Anion Gap 10 (12-20); Aspartate Amino Transferase 21 U/L (5-31); Bilirubin Total 0.5 mg/dL (0.0-1.0); Blood Urea Nitrogen 18 mg/dL (9-16); C Reactive Protein 1.09 mg/dL (< or = 0.50); Calcium 8.9 mg/dL (8.4-10.2); Carbon Dioxide 28 mmol/L (22-29); Chloride 108 mmol/L (96-108); Creatinine Clr Calc Pharmacy 78.1; Estimated Glomerular Filt Rate > 60; Glucose Random 97 mg/dL (60-115); Potassium 3.9 mmol/L (3.3-5.1); Sodium 142 mmol/L (135-145); Total Protein 6.9 g/dL (6.5-8.0)
[2024-08-18] MEDS: Doxycycline Monohydrate 100 MG CAPSULE PO (21:36)
[2024-08-18 21:39] LABS: Erythrocyte Sedimentation Rate 14 MM/HR (0-20)
[2024-08-18 21:41] VITALS: BP 142/80; PULSE 85; RESP 18; TEMP 36.6; O2SAT 97
== END 2024-08-18 21:42 | disposition home or self-care (01) ==
PROVIDERS: Registered Nurse Emergency; Emergency Provider Internal Medicine; PCP Internal Medicine
DX: L03.115 Cellulitis of right lower limb (principal); L02.611 Cutaneous abscess of right foot; E03.9 Hypothyroidism, unspecified; Z79.899 Other long term (current) drug therapy
CPT/HCPCS: 36415; 73700; 80053; 85025; 85652; 86140; 99282; 99284

== ENCOUNTER 2024-08-24 14:12 | Outpatient (AMB) | payer OTHER, SELFPAY ==
[2024-08-24 14:17] VITALS: BP 142/90; PULSE 78; O2SAT 94
--- NOTE | 2024-08-24 14:17 | A.OFFPC_ITS ---
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 Allergies aspirin [ASA] Allergy (Mild, Verified 08/24/24 14:17) BRUISE, bruising hydrocodone [From VICODIN] Allergy (Mild, Verified 08/24/24 14:17) ITCH/BRUISE ibuprofen [From MOTRIN] Allergy (Mild, Verified 08/24/24 14:17) BRUISE trazodone [TRAZODONE] Allergy (Mild, Verified 08/24/24 14:17) RESTLESS quetiapine [From SEROQUEL] Adverse Reaction (Mild, Verified 08/24/24 14:17) RESTLESS NSAIDS (Non-Steroidal Anti-Inflamma Adverse Reaction (Verified 08/24/24 14:17) Unknown Medication List - Last Reconciled 08/24/24 by Sisi Means PA-C acetaminophen (Tylenol Extra Strength) 500 mg PO Q6H PRN acetaminophen (Tylenol Extra Strength) 500 mg PO Q6H PRN albuterol sulfate 90 mcg/actuation (Ventolin HFA) 2 puffs inhalation Q6H PRN baclofen 5 mg PO BID celecoxib (Celebrex) 200 mg PO BID 30 days diclofenac sodium 1% 2 grams topical QID doxycycline hyclate 100 mg PO BID fexofenadine (Leah Allergy) 180 mg PO DAILY fluticasone propionate 50 mcg/actuation (Flonase Allergy Relief) 2 sprays intranasal DAILY ketoconazole 2% 1 appl topical BID lidocaine 5% (Lidoderm) 1 patch topical DAILY PRN MDD remove after 12 hours lidocaine 5% 1 patch topical DAILY peg 3350-electrolytes 236-22.74-6.74 -5.86 gram (Golytely) 240 mL PO Q10M polyethylene glycol 3350 (Miralax) 17 grams PO BID sennosides (senna) 17.2 mg (2 x 8.6 mg) PO ONCE simethicone (Gas Relief (simethicone)) 125 mg PO BID-QID PRN Tobacco use date assessed: 08/24/24 Fall risk assessment: No Falls in past year Last assessed Fall Risk: 08/24/24 Dental Screening Dental Screen Date: 01/23/24 HPI [facility] 08/06 lump l leg, cyst and dvt/ xray results HPI Details 63-year-old obese female with a history of post laminectomy syndrome, peripheral vascular disease, and asthma last seen 06/2024 coming in for hospital follow up.? Review of the notes, patient was seen in [facility] ED 08/18/2024 for abscess of right foot patient was diagnosed with cellulitis and given antibiotics and discharged home. Patient was seen by [facility] and was told she needs a right total knee replacement and will eventually need a left total knee replacement with Dr. Simmons. 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 Regarding the abscess patient states the pain and swelling has been worsening since the ER and she has 4 days left of the antibiotic. She is maintained antibiotic as prescribed with no improvement in her symptoms. She still has significant pain over the lateral aspect and bottom of the foot. [facility]MERLY [facility], [facility] Medical History Breast cancer screening by mammogram Lesion of colon Abdominal pain Stiffness of left wrist joint Stiffness of left hand joint Fracture of distal end of left radius with routine healing Chronic pain Hypothyroidism Surgical History Hx of colonoscopy S/P tonsillectomy Hx of hysterectomy History of surgery on wrist History of back surgery S/P arthroscopy of left shoulder S/P arthroscopy of right shoulder Hx of arthroscopy of right knee H/O tubal ligation Family History Sister Thyroid cancer Maternal Grandmother Colon cancer Son Substance abuse Depression Social History Housing: House Alcohol intake: former Patient Tobacco Use Status: Never used Tobacco e-Cigarette/Vaping Use: Never Used Second Hand Smoke Exposure: No Current occupational status: disabled Cognitive needs: No Hearing needs: No Vision needs: Yes Questionnaire Thrive Questionnaire Date Thrive assessed: 01/23/24 I am a: Patient What is your living situation today?: I have a steady place to live Within the past 12 months, did the food you bought not last and you didn't have the money to get more?: Never true Within the past 12 months, did you worry whether your food would run out before you got money to buy more?: Never true Do you have trouble paying for medicines?: No Do you have trouble getting transportation to medical appointments?: No Do you have trouble paying your heating and electricity bill?: No Do you have trouble taking care of your child, family member or friend?: No Do you have trouble with day-to-day activities such as bathing, preparing meals, shopping, managing finances, etc.?: No Are you currently unemployed and looking for a job?: No Are you interested in more education?: No Please select the resources that you would like help with: None Currently or been in a relationship where the following occur: No concerns reported THRIVE Score: 0 AUDIT C Alcohol Use Questionnaire (AUDIT-C) 1. How often do you have a drink containing alcohol?: Never 3. How often do you have six or more drinks on one occasion?: Never Total Score: 0 ROMA-7 AMB Questionnaire ROMA-7 Date ROMA - 7 assessed: 04/27/24 Source: Developed by Drs. Lukas Walton, Liliana Naranjo, Andre Del Angel and colleagues, with an educational princess from [employer]. Review of Systems Const Denies body aches, Denies chills, Denies fever(s), Denies headache(s) and Denies poor appetite Eyes Reports no additional complaints ENT Denies dysphagia, Denies dizziness, Denies headache(s) and Denies odynophagia Card Denies chest pain, Denies syncope, Denies edema, Denies irregular heart rhythm, Denies lightheadedness and Denies dyspnea Resp Denies cough and Denies dyspnea GI Denies abdominal pain, Denies constipation, Denies dysphagia, Denies diarrhea, Denies nausea, Denies odynophagia and Denies vomiting Reports no additional complaints Musc Reports no additional complaints and Denies abnormal gait Skin/Breast Reports system reviewed and no additional complaints, except as documented Neuro Denies abnormal gait, Denies dizziness, Denies syncope and Denies headache(s) Psych Reports no additional complaints Physical exam (Primary Care) Vital Signs: Last Vital Signs Pulse 78 08/24/24 14:17 BP 142/90 H 08/24/24 14:17 Pulse Ox 94 08/24/24 14:17 Oxygen Delivery Method Room Air 08/24/24 14:17 Tobacco/Smoking Status: Tobacco use Status Tobacco use date assessed 08/24/24 08/24/24 14:18 Patient Tobacco Use Status Never used Tobacco 08/24/24 14:18 e-Cigarette/Vaping Use Never Used 08/24/24 14:18 Thrive Assessment: Date of Thrive Assessment Date Thrive assessed 01/23/24 08/24/24 14:18 Currently or been in a relationship where the following occur: No concerns reported Const General: cooperative, healthy appearing, comfortable and no acute distress Orientation/consciousness: patient oriented x3 HENMT Head: Yes normocephalic Ears: hearing grossly normal bilaterally General nose exam: Normal external nose present Eyes General: appearance normal, both eyes and all related structures Conjunctivae: conjunctivae normal Neck Neck: Yes full ROM and Yes no lymphadenopathy Resp Effort & Inspection: normal respiratory effort Auscultation: clear to auscultation bilaterally, no crackles, no rales, no rhonchi and no wheezes Cardio Rate: regular rate Rhythm: regular rhythm Skin General skin exam: no rashes or lesions noted Neuro General: patient oriented x3 Gait exam (Neuro): Normal gait present Extrem Other: Significant swelling over the lateral aspect of the right foot extending into the bottom of the foot. 1-2 cm open incision without surrounding erythema or drainage. General: Yes normal to inspection, Yes full ROM and No edema Psych Affect: normal affect Attitude: cooperative Insight: Good insight present (Psych) Judgement: Good judgement present (Psych) Assessment and Plan Assessment & Plan (1) Swelling of right foot: Code(s): M79.89 - Other specified soft tissue disorders Plan: Discussed with Dr. Mccray who also examined this patient. We will switch antibiotic to Augmentin twice daily for 10 days as she is not having good relief from doxycycline. Also referred to General surgery for urgent appointment as the swelling is growing and may need further intervention. At this point IV antibiotics are not indicated but did discuss with patient if swelling worsens or pain increases or symptoms change she must present to the ER for further evaluation. Patient has a appointment next week with Dr. Mccray for follow up. Patient requesting muscle relaxant for pain and prescription sent. Plan This note was constructed using voice recognition software. While every effort has been made to ensure accuracy and pharmaceutical development technician, still areas may have been included sometimes these areas may affect the content or meeting of the given symptoms. Total time spent caring for the patient today was 30 minutes. This includes time spent before the visit reviewing the chart, time spent during the visit, and time spent after the visit and documentation. Orders: Referrals General Surgery Referral M79.89 - Other specified soft tissue disorders Medications: New methocarbamol 500 mg PO BEDTIME 14 tabs 0RF amoxicillin-pot clavulanate 875-125 mg 1 tab PO BID 10 days 20 tabs 0RF Discontinued doxycycline hyclate Discontinued Reason: Patient no longer taking 100 mg PO BID 20 tabs 0RF baclofen Discontinued Reason: Patient no longer taking 5 mg PO BID 14 tabs 0RF Coding Level of Care Code Est Pt Level 4 (02032) Diagnoses Swelling of right foot M79.89
== END 2024-08-24 15:07 | disposition home or self-care (01) ==
PROVIDERS: PCP Internal Medicine
DX: M79.89 Other specified soft tissue disorders (principal)

== ENCOUNTER → 2024-08-24 14:12 | Outpatient (BNVA) | payer OTHER, SELFPAY | PROVIDERS: PCP Internal Medicine | DX: M79.89 Other specified soft tissue disorders (principal) | CPT/HCPCS: 99212 ==

== ENCOUNTER 2024-08-30 10:35 | Outpatient (AMB) | payer OTHER, SELFPAY ==
--- NOTE | 2024-08-30 10:34 | MHC.PC.OV ---
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 Accompanied by: Self / Same As Patient Allergies aspirin [ASA] Allergy (Mild, Verified 08/30/24 10:36) BRUISE, bruising hydrocodone [From VICODIN] Allergy (Mild, Verified 08/30/24 10:36) ITCH/BRUISE ibuprofen [From MOTRIN] Allergy (Mild, Verified 08/30/24 10:36) BRUISE trazodone [TRAZODONE] Allergy (Mild, Verified 08/30/24 10:36) RESTLESS quetiapine [From SEROQUEL] Adverse Reaction (Mild, Verified 08/30/24 10:36) RESTLESS NSAIDS (Non-Steroidal Anti-Inflamma Adverse Reaction (Verified 08/30/24 10:36) Unknown Tobacco use date assessed: 08/24/24 Fall risk assessment: 1 Fall in past year Last assessed Fall Risk: 08/30/24 Dental Screening Dental Screen Date: 08/30/24 Did you have a dental visit in the last 12 months?: Yes Did you have a dental problem in the last 6 months where you did not have access to dental care?: No Was dental information given to patient?: Patient has dentist HPI 3 Month F/U HPI Details 64-year-old obese female with a history of post laminectomy syndrome bipolar disorder, asthma peripheral vascular disease coming in for follow-up through Telehealth. Last seen in the office 08/24/2024 regarding right foot swelling treated as infection and antibiotic change done. complains of vominting and diarrhea. No fevers concern still of the leg infection. [facility] Medical History Breast cancer screening by mammogram Lesion of colon Abdominal pain Stiffness of left wrist joint Stiffness of left hand joint Fracture of distal end of left radius with routine healing Chronic pain Hypothyroidism Surgical History Hx of colonoscopy S/P tonsillectomy Hx of hysterectomy History of surgery on wrist History of back surgery S/P arthroscopy of left shoulder S/P arthroscopy of right shoulder Hx of arthroscopy of right knee H/O tubal ligation Family History Sister Thyroid cancer Maternal Grandmother Colon cancer Son Substance abuse Depression Social History Housing: House Alcohol intake: former Patient Tobacco Use Status: Never used Tobacco e-Cigarette/Vaping Use: Never Used Second Hand Smoke Exposure: No Current occupational status: disabled Cognitive needs: No Hearing needs: No Vision needs: Yes Questionnaire Thrive Questionnaire Date Thrive assessed: 01/23/24 ROMA-7 AMB Questionnaire ROMA-7 Date ROMA - 7 assessed: 04/27/24 Source: Developed by Drs. Lukas Walton, Liliana Naranjo, Andre Del Angel and colleagues, with an educational princess from [employer] Physical exam (Primary Care) Tobacco/Smoking Status: Tobacco use Status Tobacco use date assessed 08/24/24 08/30/24 10:35 Patient Tobacco Use Status Never used Tobacco 08/30/24 10:35 e-Cigarette/Vaping Use Never Used 08/30/24 10:35 Thrive Assessment: Date of Thrive Assessment Date Thrive assessed 01/23/24 08/30/24 10:35 Office Procedures Flu Questionnaire Does the patient have a severe egg allergy?: No Immunizations Fluarix Triv 8450-1383 (PF) 45 mcg (15 mcg x 3)/0.5 mL IM syringe Performing Provider: Alan Mccray MD [facility] [place] Documented (not given) by: FADI Roach on 08/30/24 10:58 Reason Not Given: Not Given Telehealth Telehealth Telehealth Platform: Telephone Location of provider rendering services: practice address Location of patient: address on file Patient Identification confirmed using: Name, : Yes Telehealth method: voice only Patient verbally consented to treatment: Yes Patient verbally consented to billing insurance company: Yes Patient informed of any privacy concerns related to visit: Yes Minutes spent on Phone/Video with Pt.: 25 Coding Level of Care Code Tele Est Pt Level 4 (47161) Diagnoses Swelling of right foot M79.89 Peripheral vascular disease I73.9 Asthma J45.909 Bipolar disorder F31.9 Postlaminectomy syndrome M96.1 Nausea R11.0 Assessment & Plan Assessment & Plan (1) Swelling of right foot: Code(s): M79.89 - Other specified soft tissue disorders Category: Medical Plan: Patient has been treated with a different antibiotic. As patient complains of nausea vomiting diarrhea. (2) Peripheral vascular disease: Code(s): I73.9 - Peripheral vascular disease, unspecified Category: Medical Plan: When sitting down elevate the legs, exercise, and support stockings (3) Asthma: Code(s): J45.909 - Unspecified asthma, uncomplicated Category: Medical Plan: Patient is on albuterol inhaler only (4) Bipolar disorder: Comment: decline counselling Code(s): F31.9 - Bipolar disorder, unspecified Category: Medical Plan: Continue with present medication declined counseling (5) Postlaminectomy syndrome: Code(s): M96.1 - Postlaminectomy syndrome, not elsewhere classified Category: Medical Plan: Try to lose the weight and keep active (6) Nausea: Code(s): R11.0 - Nausea Category: Medical Plan: Nausea medication prescription sent in Orders: Orders Influenza [id number] Immunization Today Z23 - Encounter for immunization Medications: New Lactobacillus rhamnosus GG (Culturelle) 1 cap PO DAILY 20 caps 0RF M79.89 - Other specified soft tissue disorders sulfamethoxazole-trimethoprim 800-160 mg (Bactrim DS) 1 tab PO BID 14 tabs 0RF M79.89 - Other specified soft tissue disorders Lactobacillus rhamnosus GG (Culturelle) 1 cap PO DAILY 20 caps 0RF M79.89 - Other specified soft tissue disorders sulfamethoxazole-trimethoprim 800-160 mg (Bactrim DS) 1 tab PO BID 14 tabs 0RF M79.89 - Other specified soft tissue disorders ondansetron 8 mg PO Q12H PRN 14 tabs 0RF nausea and vomiting R11.0 - Nausea ondansetron 8 mg PO Q12H PRN 14 tabs 0RF nausea and vomiting R11.0 - Nausea Discontinued amoxicillin-pot clavulanate 875-125 mg Discontinued Reason: Doctor's Order 1 tab PO BID 10 days 20 tabs 0RF
== END 2024-08-30 11:21 | disposition home or self-care (01) ==
LOC: HO.HMCH 10:35
PROVIDERS: PCP Internal Medicine; Visit Provider Internal Medicine
DX: M79.89 Other specified soft tissue disorders (principal); I73.9 Peripheral vascular disease, unspecified; J45.909 Unspecified asthma, uncomplicated; F31.9 Bipolar disorder, unspecified; M96.1 Postlaminectomy syndrome, not elsewhere classified; R11.0 Nausea; Z23 Encounter for immunization

== ENCOUNTER → 2024-08-30 10:35 | Outpatient (BNVA) | payer OTHER, SELFPAY | PROVIDERS: PCP Internal Medicine; Visit Provider Internal Medicine | DX: M79.89 Other specified soft tissue disorders (principal); I73.9 Peripheral vascular disease, unspecified; J45.909 Unspecified asthma, uncomplicated; F41.3 Other mixed anxiety disorders; M96.1 Postlaminectomy syndrome, not elsewhere classified; R11.0 Nausea | CPT/HCPCS: 90471 ==

== ENCOUNTER 2024-09-04 08:50 | Outpatient (AMB) | payer OTHER, SELFPAY ==
--- NOTE | 2024-09-04 09:00 | MHC.OFFVIS ---
Vital Signs 09/04/24 09:07 Height 5 ft 5 in Weight 219 lb BMI 36.4 BP 126/60 Blood Pressure Location Rt brachial Position Sitting Pulse 89 Intake Visit Reasons: Abscess~ Rt foot Intake Note: Patient referred by Herminia Means PA-C for abscess on Rt foot. Present for 1m. Patient c/o: painful. Denies trauma. Blister under foot. 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 She has been seen by a promotions coordinator for many years time and has had a variety of injections with limited success of the right foot complaints. Unfortunately explained to the patient that I am not a promotions coordinator and this is not my field of expertise. Chart was reviewed and patient evaluate. Patient has a collection of intercurrent medical problems and comorbidities. FORMERLY [facility] Medical History Breast cancer screening by mammogram Lesion of colon Abdominal pain Stiffness of left wrist joint Stiffness of left hand joint Fracture of distal end of left radius with routine healing Chronic pain Hypothyroidism Surgical History Hx of colonoscopy S/P tonsillectomy Hx of hysterectomy History of surgery on wrist History of back surgery S/P arthroscopy of left shoulder S/P arthroscopy of right shoulder Hx of arthroscopy of right knee H/O tubal ligation Family History Sister Thyroid cancer Maternal Grandmother Colon cancer Son Substance abuse Depression Social History Housing: House Alcohol intake: former Patient Tobacco Use Status: Never used Tobacco e-Cigarette/Vaping Use: Never Used Second Hand Smoke Exposure: No Current occupational status: disabled Cognitive needs: No Hearing needs: No Vision needs: Yes Physical Exam Vital Signs: Last Vital Signs Pulse 89 09/04/24 09:07 BP 126/60 09/04/24 09:07 BMI result Body Mass Index 36.4 Extrem Other: Patient has a soft tissue mass along the mid lateral aspect of the right foot. She also has what appears to be arthritic changes to the right foot toes. Extremities grossly neurovascularly intact Assessment & Plan Assessment & Plan (1) Mass of right foot: Code(s): R22.41 - Localized swelling, mass and lump, right lower limb Category: Surgical Plan As stated earlier, I am not of podiatric surgeon and I gave the patient options of returning to original promotions coordinator or we can see if we can find another 1 for her. She would like to try the latter. Arrangements made for this if possible. Patient will otherwise follow-up with me p.r.n.. Coding Level of Care Code New Pt Level 4 (24604) Diagnoses Mass of right foot R22.41
[2024-09-04 09:07] VITALS: BP 126/60; PULSE 89; BMI 36.4
== END 2024-09-04 09:21 | disposition home or self-care (01) ==
PROVIDERS: PCP Internal Medicine; Visit Provider Surgery
DX: R22.41 Localized swelling, mass and lump, right lower limb (principal)
CPT/HCPCS: 99204

== ENCOUNTER → 2024-09-04 08:50 | Outpatient (BNVA) | payer OTHER, SELFPAY | PROVIDERS: PCP Internal Medicine; Visit Provider Surgery | DX: R22.41 Localized swelling, mass and lump, right lower limb (principal) | CPT/HCPCS: 99202 ==

== ENCOUNTER 2024-09-14 14:19 | Emergency (ER) | payer OTHER, SELFPAY ==
--- NOTE | ~2024-09-14 | XR_ITS ---
EXAMINATION: XR FOOT, RIGHT CLINICAL INFORMATION: Plantar pain and swelling. Rule out osteomyelitis. COMPARISON: None available. TECHNIQUE: AP, lateral, and oblique views of the right foot. FINDINGS: Examination demonstrates soft tissue swelling over the plantar/lateral soft tissues overlying the base of the fifth metatarsal bone. No subjacent fracture is seen. No lytic or sclerotic bony lesion identified. No significant periosteal reaction appreciated. Plantar calcaneal spur. Mild degenerative changes of the second through fifth interphalangeal joints. XR/XR foot RT min 3V IMPRESSION: Findings as above. Electronically signed by: Grzegorz Dunn MD 09/14/2024 06:27 PM EDT
[2024-09-14 14:21] VITALS: BP 135/92; PULSE 79; RESP 20; TEMP 36.9; O2SAT 96; BMI 35.8
--- NOTE | 2024-09-14 14:21 | ED.GENADULT ---
HPI - General Adult General Chief complaint: Extremity Injury, Lower Stated complaint: R foot pain Time Seen by Provider: 09/14/24 15:12 History of Present Illness HPI narrative: Patient complains of right foot pain unchanged and continuing from prior visits and from many months previous she had a question of an abscess in her foot and it was recently incised with no discharge of pus She has had scans and x-rays which show some swelling in the plantar foot and has been treated with multiple by antibiotics for some possible infection, CT and x-ray have reported it is possibly some arthritic phenomenon She does have an appointment with a conference planning manager but is many months way She denies any acute change or any new injury, pain that has been there for some time does continue Related Data Previous Rx's ?Medication ?Instructions ?Recorded lidocaine 5 % topical patch 1 patch topical DAILY #15 ea 12/29/23 fexofenadine 180 mg tablet 180 mg PO DAILY #30 tabs 01/23/24 (Leah Allergy) peg 3350-electrolytes 236 240 ml PO Q10M colonoscopy #4,000 02/22/24 gram-22.74 gram-6.74 gram-5.86 mL gram solution (Golytely) polyethylene glycol 3350 17 17 g PO BID #238 grams 02/22/24 gram/dose oral powder (Miralax) sennosides 8.6 mg tablet (senna) 17.2 mg (2 x 8.6 mg) PO ONCE a day 02/22/24 before colonoscopy #2 tabs ketoconazole 2 % topical cream 1 appl topical BID #60 grams 04/27/24 simethicone 125 mg capsule (Gas 125 mg PO BID-QID PRN abdominal 04/27/24 Relief (simethicone)) distention #30 caps acetaminophen 500 mg tablet 500 mg PO Q6H PRN fever or pain 06/23/24 (Tylenol Extra Strength) #14 tabs lidocaine 5 % topical patch 1 patch topical DAILY PRN pain #30 06/23/24 (Lidoderm) ea diclofenac sodium 1 % topical gel 2 g topical QID #100 grams 07/03/24 albuterol sulfate 90 mcg/actuation 2 puff inhalation Q6H PRN 07/06/24 aerosol inhaler (Ventolin HFA) shortness of breath or wheezing #8.5 grams fluticasone propionate 50 2 spray intranasal DAILY #16 grams 07/25/24 mcg/actuation nasal spray,suspension (Flonase Allergy Relief) celecoxib 200 mg capsule (Celebrex) 200 mg PO BID 30 days #60 caps 07/26/24 methocarbamol 500 mg tablet 500 mg PO BEDTIME #14 tabs 08/24/24 Lactobacillus rhamnosus GG 10 1 cap PO DAILY #20 caps 08/30/24 billion cell capsule (Culturelle) ondansetron 8 mg disintegrating 8 mg PO Q12H PRN nausea and 08/30/24 tablet vomiting #14 tabs sulfamethoxazole 800 1 tab PO BID #14 tabs 08/30/24 mg-trimethoprim 160 mg tablet (Bactrim DS) oxycodone 5 mg tablet 5 mg PO TID PRN pain 3 days #7 tabs 09/14/24 Allergies Allergy/AdvReac Type Severity Reaction Status Date / Time aspirin [ASA] Allergy Mild BRUISE, Verified 09/14/24 14:23 bruising hydrocodone [From VICODIN] Allergy Mild ITCH/BRUISE Verified 09/14/24 14:23 ibuprofen [From MOTRIN] Allergy Mild BRUISE Verified 09/14/24 14:23 trazodone [TRAZODONE] Allergy Mild RESTLESS Verified 09/14/24 14:23 quetiapine [From SEROQUEL] AdvReac Mild RESTLESS Verified 09/14/24 14:23 NSAIDS (Non-Steroidal AdvReac Unknown Verified 09/14/24 14:23 Anti-Inflamma PMFSH Past Medical History Source: nursing notes reviewed Medical History Breast cancer screening by mammogram Lesion of colon Abdominal pain Stiffness of left wrist joint Stiffness of left hand joint Fracture of distal end of left radius with routine healing Chronic pain Hypothyroidism Surgical History Hx of colonoscopy S/P tonsillectomy Hx of hysterectomy History of surgery on wrist History of back surgery S/P arthroscopy of left shoulder S/P arthroscopy of right shoulder Hx of arthroscopy of right knee H/O tubal ligation Family History Family History Sister Thyroid cancer Maternal Grandmother Colon cancer Son Substance abuse Depression Social History Social History Housing: House Alcohol intake: former Patient Tobacco Use Status: Never used Tobacco e-Cigarette/Vaping Use: Never Used Second Hand Smoke Exposure: No Advance Directives: No Advance Directives Information Provided: Yes Do you have a plan to hurt others: No Plan Current occupational status: disabled Cognitive needs: No Hearing needs: No Vision needs: Yes Physical Exam ED Vital Signs: Vital Signs - 24 hr 09/14/24 14:21 09/14/24 16:53 09/14/24 18:51 Temperature 98.4 F 96.9 F 96.9 F Pulse Rate 79 88 88 Respiratory Rate 20 16 16 Blood Pressure 135/92 H 150/87 H 150/87 H Pulse Oximetry 96 96 96 Oxygen Delivery Method Room Air Room Air Room Air BMI result Body Mass Index 35.8 General appearance no acute distress Neck is supple Respiratory no distress Extremities full range motion x4 including right foot The patient ambulates easily but with a limp The right foot exam there is no significant erythema in the plantar aspect of the foot, there is a healing wound where it was recently incised to make sure there was no abscess in the area of swelling, there is an area of induration and tenderness in the plantar surface of the foot, there is no fluctuance no significant erythema no warmth Neuro no focal deficits Course Course Course Narrative: This is a rapid medical exam performed by Celsa Khan NP: Additional HPI, ROS, PE not included below will be deferred to primary provider. Patient is a 64-year-old female presenting with complaint of right foot pain. Seen here on 08/18, treated with doxycycline. States had some improvement after antibiotics, but pain has worsened. She followed up with surgery who referred her to specialist/conference planning manager, not seeing them until Nov. X-ray did not report any no evidence of osteomyelitis or gas, it did demonstrate the continued soft tissue swelling, it did demonstrate some arthritic changes but no acute finding on the x-ray A CT scan done 3 weeks ago identified in the region of swelling and ill-defined soft tissue attenuation and plantar subcutaneous fat, likely a bursitis or at the time possibly a developing abscess but it has since been incised and today there is no clinical evidence of an abscess on exam, there is no evidence of cellulitis and the incision is healing well in the foot Patient is discharged to follow with orthopedics and can return here any time for any worse condition Discharge Plan Discharge Clinical Impression: Foot pain, right Patient Disposition: Home, Self-Care Additional Instructions: The x-ray did not show any bone infection As the problem has been going on for many months without improvement we are recommending you follow with our orthopedist who should be able to see you within a couple of weeks and provide expert advice Return to the ER any time any worse condition or any concerns Prescriptions: New oxycodone 5 mg tablet 5 mg PO TID PRN (Reason: pain) 3 Days Qty: 7 0RF Rx Instructions: Partial Fill upon patient request. No Action fluticasone propionate [Flonase Allergy Relief] 50 mcg/actuation spray,suspension 2 spray intranasal DAILY Qty: 16 0RF Rx Instructions: administer into each nostril acetaminophen [Tylenol Extra Strength] 500 mg tablet 500 mg PO Q6H PRN (Reason: fever or pain) Qty: 14 0RF lidocaine [Lidoderm] 5 % adhesive patch,medicated 1 patch topical DAILY MDD remove after 12 hours PRN (Reason: pain) Qty: 30 0RF Rx Instructions: leave on most painful area for up to 12 hrs diclofenac sodium 1 % gel 2 g topical QID Qty: 100 0RF Rx Instructions: apply to single elbow, wrist or hand; for hand includes palm/fingers/back of hand fexofenadine [Leah Allergy] 180 mg tablet 180 mg PO DAILY Qty: 30 3RF ketoconazole 2 % cream 1 appl topical BID Qty: 60 0RF simethicone [Gas Relief (simethicone)] 125 mg capsule 125 mg PO BID-QID PRN (Reason: abdominal distention) Qty: 30 0RF lidocaine 5 % adhesive patch,medicated 1 patch topical DAILY Qty: 15 3RF Rx Instructions: leave on most painful area for up to 12 hrs albuterol sulfate [Ventolin HFA] 90 mcg/actuation HFA aerosol inhaler 2 puff inhalation Q6H PRN (Reason: shortness of breath or wheezing) Qty: 8.5 3RF peg 3350-electrolytes [Golytely] 236-22.74-6.74 -5.86 gram recon soln 240 ml PO Q10M Qty: 4000 0RF Rx Instructions: as per split prep instructions, until fecal effluent is clear polyethylene glycol 3350 [Miralax] 17 gram/dose powder 17 g PO BID Qty: 238 0RF Rx Instructions: Take twice a day starting 3 days before your colonoscopy sennosides [senna] 8.6 mg tablet 17.2 mg PO ONCE Qty: 2 0RF celecoxib [Celebrex] 200 mg capsule 200 mg PO BID 30 Days Qty: 60 3RF sulfamethoxazole-trimethoprim [Bactrim DS] 800-160 mg tablet 1 tab PO BID Qty: 14 0RF ondansetron 8 mg tablet,disintegrating 8 mg PO Q12H PRN (Reason: nausea and vomiting) Qty: 14 0RF Culturelle 10 billion cell capsule 1 cap PO DAILY Qty: 20 0RF methocarbamol 500 mg tablet 500 mg PO BEDTIME Qty: 14 0RF Referrals: Kevin Obrien MD [Physician] - Interventions: ED Discharge Assessment Last Done: 09/14/24 18:51 Discharge Date/Time: 09/14/24 18:51 Print Language: Haitian
[2024-09-14 16:53] VITALS: BP 150/87; PULSE 88; RESP 16; TEMP 36.1; O2SAT 96
[2024-09-14 18:51] VITALS: BP 150/87; PULSE 88; RESP 16; TEMP 36.1; O2SAT 96
== END 2024-09-14 18:51 | disposition home or self-care (01) ==
PROVIDERS: Emergency Provider Internal Medicine; PCP Internal Medicine
DX: M79.671 Pain in right foot (principal); L02.611 Cutaneous abscess of right foot; E03.9 Hypothyroidism, unspecified; Z79.899 Other long term (current) drug therapy
CPT/HCPCS: 73630; 99283

== ENCOUNTER 2024-10-03 08:56 | Outpatient (AMB) | payer OTHER, SELFPAY ==
--- NOTE | 2024-10-03 09:20 | A.OFFPC_ITS ---
Vital Signs 10/03/24 09:21 Height 5 ft 5 in Weight 219 lb BMI 36.4 BP 128/88 Blood Pressure Location Lt brachial Position Sitting Pulse 80 Pulse Source Pulse Oximeter Pulse Oximetry (%) 96 Oxygen Delivery Method Room Air Intake Visit Reasons: [facility] 09/14 rt foot pain Medical Economics Consultant Required: No Accompanied by: Self / Same As Patient Allergies aspirin [ASA] Allergy (Mild, Verified 10/03/24 09:22) BRUISE, bruising hydrocodone [From VICODIN] Allergy (Mild, Verified 10/03/24 09:22) ITCH/BRUISE ibuprofen [From MOTRIN] Allergy (Mild, Verified 10/03/24 09:22) BRUISE trazodone [TRAZODONE] Allergy (Mild, Verified 10/03/24 09:22) RESTLESS quetiapine [From SEROQUEL] Adverse Reaction (Mild, Verified 10/03/24 09:22) RESTLESS NSAIDS (Non-Steroidal Anti-Inflamma Adverse Reaction (Verified 10/03/24 09:22) Unknown Medication List - Last Reconciled 10/03/24 by Sisi Means PA-C acetaminophen (Tylenol Extra Strength) 500 mg PO Q6H PRN albuterol sulfate 90 mcg/actuation (Ventolin HFA) 2 puffs inhalation Q6H PRN celecoxib (Celebrex) 200 mg PO BID 30 days diclofenac sodium 1% 2 grams topical QID fexofenadine (Leah Allergy) 180 mg PO DAILY fluticasone propionate 50 mcg/actuation (Flonase Allergy Relief) 2 sprays intranasal DAILY ketoconazole 2% 1 appl topical BID Lactobacillus rhamnosus GG (Culturelle) 1 cap PO DAILY lidocaine 5% (Lidoderm) 1 patch topical DAILY PRN MDD remove after 12 hours lidocaine 5% 1 patch topical DAILY methocarbamol 500 mg PO BEDTIME ondansetron 8 mg PO Q12H PRN oxycodone 5 mg PO TID PRN 3 days NS peg 3350-electrolytes 236-22.74-6.74 -5.86 gram (Golytely) 240 mL PO Q10M polyethylene glycol 3350 (Miralax) 17 grams PO BID sennosides (senna) 17.2 mg (2 x 8.6 mg) PO ONCE simethicone (Gas Relief (simethicone)) 125 mg PO BID-QID PRN sulfamethoxazole-trimethoprim 800-160 mg (Bactrim DS) 1 tab PO BID Tobacco use date assessed: 08/24/24 Dental Screening Dental Screen Date: 08/30/24 HPI [facility] 09/14 rt foot pain HPI Details 64-year-old obese female with a history of post laminectomy syndrome, peripheral vascular disease, and asthma last seen 08/2024 coming in for hospital follow up. Patient presented to [facility] ED 09/14/2024 for right foot pain x-ray was negative for osteomyelitis or gas but did demonstrate continued soft tissue swelling and arthritic changes. CT 3 weeks prior showed possibility of developing abscess which was incised at the ED without drainage. Patient was referred to orthopedics and given short dose of oxycodone. Orthopedics recommended following up with Podiatry. Patient states she has not scheduled an appointment with a admin assistant at this time. The right foot pain and swelling has greatly improved she does have chronic pain in that leg and we will have swelling at the end of the day but overall the pain and swelling has improved. She does mentioned she is scheduled to have a left total hip replacement with Dr. Lara through [facility] 11/06/2024. This week she began having left leg swelling, redness and warmth with severe pain and tenderness. [facility] Medical History Breast cancer screening by mammogram Lesion of colon Abdominal pain Stiffness of left wrist joint Stiffness of left hand joint Fracture of distal end of left radius with routine healing Chronic pain Hypothyroidism Surgical History Hx of colonoscopy S/P tonsillectomy Hx of hysterectomy History of surgery on wrist History of back surgery S/P arthroscopy of left shoulder S/P arthroscopy of right shoulder Hx of arthroscopy of right knee H/O tubal ligation Family History Sister Thyroid cancer Maternal Grandmother Colon cancer Son Substance abuse Depression Social History Housing: House Alcohol intake: former Patient Tobacco Use Status: Never used Tobacco e-Cigarette/Vaping Use: Never Used Second Hand Smoke Exposure: No Current occupational status: disabled Cognitive needs: No Hearing needs: No Vision needs: Yes Questionnaire Thrive Questionnaire Date Thrive assessed: 01/23/24 ROMA-7 AMB Questionnaire ROMA-7 Date ROMA - 7 assessed: 04/27/24 Source: Developed by Drs. Lukas Walton, Liliana Naranjo, Andre Del Angel and colleagues, with an educational princess from [employer]. Review of Systems Const Denies body aches, Denies chills and Denies fever(s) Eyes Reports no additional complaints ENT Reports no additional complaints Card Denies chest pain, Denies syncope, Denies edema, Reports leg edema, Denies lightheadedness, Denies dyspnea and Reports dyspnea on exertion (Chronic) Resp Details: Has been out of her inhaler for several weeks Denies cough, Denies dyspnea and Reports dyspnea on exertion (Chronic) GI Reports no additional complaints Reports no additional complaints Musc Reports as per HPI Skin/Breast Reports system reviewed and no additional complaints, except as documented Neuro Reports no additional complaints and Denies syncope Psych Reports no additional complaints Physical exam (Primary Care) Vital Signs: Last Vital Signs Pulse 80 10/03/24 09:21 BP 128/88 10/03/24 09:21 Pulse Ox 96 10/03/24 09:21 Oxygen Delivery Method Room Air 10/03/24 09:21 BMI result Body Mass Index 36.4 Tobacco/Smoking Status: Tobacco use Status Tobacco use date assessed 08/24/24 10/03/24 09:25 Patient Tobacco Use Status Never used Tobacco 10/03/24 09:25 e-Cigarette/Vaping Use Never Used 10/03/24 09:25 Thrive Assessment: Date of Thrive Assessment Date Thrive assessed 01/23/24 10/03/24 09:25 Const General: cooperative, healthy appearing, comfortable and no acute distress Orientation/consciousness: patient oriented x3 HENMT Head: Yes normocephalic Ears: hearing grossly normal bilaterally General nose exam: Normal external nose present Eyes General: appearance normal, both eyes and all related structures Conjunctivae: conjunctivae normal Neck Neck: Yes full ROM and Yes no lymphadenopathy Resp Effort & Inspection: normal respiratory effort Auscultation: clear to auscultation bilaterally, no crackles, no rales, no rhonchi and no wheezes Cardio Rate: regular rate Rhythm: regular rhythm Skin General skin exam: no rashes or lesions noted Neuro General: patient oriented x3 Gait exam (Neuro): Normal gait present Extrem Other: Intact strength, sensation, pulses of Bilateral extremities. Left lower extremity edema, redness, warmth and tenderness to palpation. Right lower extremity tenderness to palpation without swelling, redness or warmth. Mass of right foot significantly improved without redness, warmth or drainage. No pedal edema or erythema General: Yes normal to inspection, Yes full ROM and No edema Psych Affect: normal affect Attitude: cooperative Insight: Good insight present (Psych) Judgement: Good judgement present (Psych) Office Procedures Flu Questionnaire Does the patient have a severe egg allergy?: No Does the patient have severe life threatening allergies?: No Does the patient have a fever or illness today?: No Has the patient ever had Guillain-Cabot Syndrome?: No Has the patient ever had any past reaction to a flu shot?: No Immunizations Fluarix Triv 1616-1412 (PF) 45 mcg (15 mcg x 3)/0.5 mL IM syringe Performing Provider: Sisi Means PA-C [facility] Administered by: PETER Mon on 10/03/24 09:40 Dose Route Admin Location Dispensed Lot Number Expiration Date [facility] Studio Model 0.5 mL IM Right Deltoid 0.5 mL [id number] 05/27/25 30120-654-02 [employer] VIS Given Date VIS Provided VIS Publication Date 10/03/24 Single Vaccine 21 Eligibility Eligibility Date Funding Source Not [facility] Eligible 10/03/24 Private Coding Level of Care Code Est Pt Level 4 (28099) Diagnoses Left leg swelling M79.89 Left hip pain M25.552 Swelling of right foot M79.89 Assessment & Plan Assessment & Plan (1) Left leg swelling: Code(s): M79.89 - Other specified soft tissue disorders Category: Medical Plan: Patient has new onset left-sided leg pain, swelling, redness and severe tenderness on exam. Suspicious for DVT and we will have patient go for stat ultrasound to rule out DVT. If ultrasound is negative for DVT advised patient to elevate the legs when possible, wear compression stockings, and encouraged exercise as tolerated. (2) Left hip pain: Code(s): M25.552 - Pain in left hip Category: Medical Plan: Patient states she is scheduled for left total hip replacement next month with Dr. Lara through [facility]. (3) Swelling of right foot: Code(s): M79.89 - Other specified soft tissue disorders Category: Medical Plan: Swelling of the right foot has improved since we last saw her. Extensive imaging shows most likely an arthritic process and recommended follow up with Orthopedics or Podiatry. Orthopedics recommended follow up with admin assistant and strongly advised patient to schedule an appointment with them. Patient was provided with Podiatry number to book appointment. Advised patient to continue to keep this area clean and well moisturized with Aquaphor or Eucerin as the skin is cracked and dry and risk for infection is high. Plan This note was constructed using voice recognition software. While every effort has been made to ensure accuracy and assembler trim, still areas may have been included sometimes these areas may affect the content or meeting of the given symptoms. Total time spent caring for the patient today was 30 minutes. This includes time spent before the visit reviewing the chart, time spent during the visit, and time spent after the visit and documentation. Orders: Orders Influenza [id number] Immunization Today Z23 - Encounter for immunization US venous duplex LE LT Today M79.89 - Other specified soft tissue disorders Referrals Pain Management Referral G89.4 - Chronic pain syndrome, M17.11 - Unilateral primary osteoarthritis, right knee, M25.552 - Pain in left hip Medications: Refilled albuterol sulfate 90 mcg/actuation (Ventolin HFA) 2 puffs inhalation Q6H PRN 8.5 grams 3RF shortness of breath or wheezing J45.909 - Unspecified asthma, uncomplicated fluticasone propionate 50 mcg/actuation (Flonase Allergy Relief) administer into each nostril 2 sprays intranasal DAILY 16 grams 0RF R09.81 - Nasal congestion methocarbamol 500 mg PO BEDTIME 14 tabs 0RF Discontinued celecoxib (Celebrex) Discontinued Reason: Patient no longer taking 200 mg PO BID 30 days 60 caps 3RF
[2024-10-03 09:21] VITALS: BP 128/88; PULSE 80; O2SAT 96; BMI 36.4
== END 2024-10-03 09:58 | disposition home or self-care (01) ==
LOC: HO.HMCH 08:57
PROVIDERS: PCP Internal Medicine
DX: M79.89 Other specified soft tissue disorders (principal); M25.552 Pain in left hip; Z23 Encounter for immunization

== ENCOUNTER 2024-10-03 10:13 | Outpatient (REF) | payer OTHER, SELFPAY ==
--- NOTE | ~2024-10-03 | US_ITS ---
EXAMINATION: US TRIPLEX LOWER EXTREMITY, LEFT CLINICAL INFORMATION: Left leg pain and edema COMPARISON: Venous defects ultrasound of the left lower extremity dated 08/06/2024 TECHNIQUE: Color-flow triplex imaging with spectral analysis and compression Doppler were performed on the left lower extremity. FINDINGS: Respiratory variation, normal compression and augmented flow are noted throughout the left lower extremity. The visualized common femoral vein, superficial femoral vein, profunda femoral vein, popliteal vein and midcalf peroneal and posterior tibial venous segments show no evidence of deep venous thrombosis. The contralateral right common femoral vein demonstrates normal respiratory variation. Persistent noncompressibility and echogenic thrombus seen within the great saphenous vein in the proximal and mid calf with no significant flow on color Doppler consistent with persistent focal thrombophlebitis. Summers's cyst in the left popliteal fossa measures 3.6 x 0.9 x 1.4 cm. US/US venous duplex LE LT IMPRESSION: 1. No evidence of deep venous thrombosis involving the left lower extremity. 2. Persistent focal thrombophlebitis of the great saphenous vein in the proximal and mid calf. 3. Summers's cyst in the left popliteal fossa measures 3.6 cm. Electronically signed by: Dara Lopez MD 10/03/2024 12:19 PM [facility]
== END 2024-10-03 10:14 | disposition home or self-care (01) ==
LOC: HO.US 10:13
PROVIDERS: PCP Internal Medicine
DX: Z23 Encounter for immunization (principal); R60.0 Localized edema; M25.552 Pain in left hip; M79.89 Other specified soft tissue disorders
CPT/HCPCS: 90471; 90656; 93971; 99212

== ENCOUNTER 2024-11-16 09:33 | Outpatient (AMB) | payer OTHER, SELFPAY ==
--- NOTE | 2024-11-16 09:48 | A.OFFPC_ITS ---
Vital Signs 3 11/16/24 09:49 Height 5 ft 5 in Weight 220 lb BMI 36.6 BP 132/80 Blood Pressure Location Lt brachial Position Sitting Pulse 80 Pulse Source Pulse Oximeter Pulse Oximetry (%) 92 Oxygen Delivery Method Room Air Intake Visit Reasons: [facility] 11/04 Intake Note: Patient is here to follow-up after a visit the emergency department at [facility] on 11/04/24 Filling Machine Tender Required: No Clinical Staff Educator: Not Required per policy Accompanied by: Self / Same As Patient Allergies aspirin [ASA] Allergy (Mild, Verified 11/16/24 09:49) BRUISE, bruising hydrocodone [From VICODIN] Allergy (Mild, Verified 11/16/24 09:49) ITCH/BRUISE ibuprofen [From MOTRIN] Allergy (Mild, Verified 11/16/24 09:49) BRUISE trazodone [TRAZODONE] Allergy (Mild, Verified 11/16/24 09:49) RESTLESS quetiapine [From SEROQUEL] Adverse Reaction (Mild, Verified 11/16/24 09:49) RESTLESS NSAIDS (Non-Steroidal Anti-Inflamma Adverse Reaction (Verified 11/16/24 09:49) Unknown Medication List - Last Reconciled 11/16/24 by Sisi Means PA-C acetaminophen (Tylenol Extra Strength) 500 mg PO Q6H PRN albuterol sulfate 90 mcg/actuation (Ventolin HFA) 2 puffs inhalation Q6H PRN diclofenac sodium 1% 2 grams topical QID fexofenadine (Leah Allergy) 180 mg PO DAILY fluticasone propionate 50 mcg/actuation (Flonase Allergy Relief) 2 sprays intranasal DAILY ketoconazole 2% 1 appl topical BID Lactobacillus rhamnosus GG (Culturelle) 1 cap PO DAILY lidocaine 5% (Lidoderm) 1 patch topical DAILY PRN MDD remove after 12 hours lidocaine 5% 1 patch topical DAILY methocarbamol 500 mg PO BEDTIME ondansetron 8 mg PO Q12H PRN peg 3350-electrolytes 236-22.74-6.74 -5.86 gram (Golytely) 240 mL PO Q10M polyethylene glycol 3350 (Miralax) 17 grams PO BID sennosides (senna) 17.2 mg (2 x 8.6 mg) PO ONCE simethicone (Gas Relief (simethicone)) 125 mg PO BID-QID PRN Tobacco use date assessed: 11/16/24 Fall risk assessment: No Falls in past year Last assessed Fall Risk: 11/16/24 Dental Screening Dental Screen Date: 08/30/24 HPI [facility] 11/04 2 HPI0 Details 64-year-old obese female with a history of post laminectomy syndrome, peripheral vascular disease, and asthma last seen 09/2024 coming in for hospital follow up.? In review of the notes patient was seen in [facility] 11/04/2024 for left leg lump. They did an ultrasound she is unsure of the results and we do not have the [facility] ER notes. Patient tells us today on her weight and she was told her total hip replacement on November 27 was canceled due to preoperative testing. She had an echocardiogram and pulmonary function testing as part of have preoperative clearance and was advised to follow up with a swimming coach or instructor and rivet hammer machine operator as well as a neurologist. She is now requiring cardiac and pulmonary clearance prior to the surgery and we will see all of the specialists through [facility]. She states the pain in the left leg has improved very slightly and the swelling improves in the morning and worsens throughout the day. She states she was not started on any new medication but was told there was follow up imaging that was recommended. [facility] Medical History Breast cancer screening by mammogram Lesion of colon Abdominal pain Stiffness of left wrist joint Stiffness of left hand joint Fracture of distal end of left radius with routine healing Chronic pain Hypothyroidism Surgical History Hx of colonoscopy S/P tonsillectomy Hx of hysterectomy History of surgery on wrist History of back surgery S/P arthroscopy of left shoulder S/P arthroscopy of right shoulder Hx of arthroscopy of right knee H/O tubal ligation Family History Sister Thyroid cancer Maternal Grandmother Colon cancer Son Substance abuse Depression Social History Housing: House Alcohol intake: former Patient Tobacco Use Status: Never used Tobacco e-Cigarette/Vaping Use: Never Used Second Hand Smoke Exposure: No service: No Current occupational status: disabled Cognitive needs: No Hearing needs: No Vision needs: Yes Questionnaire Thrive Questionnaire Date Thrive assessed: 01/23/24 ROMA-7 AMB Questionnaire ROMA-7 Date ROMA - 7 assessed: 04/27/24 Source: Developed by Drs. Lukas Walton, Liliana Naranjo, Andre Del Angel and colleagues, with an educational princess from [employer]. Review of Systems Const Denies body aches, Denies chills, Denies fever(s), Denies headache(s) and Denies poor appetite Eyes Reports no additional complaints ENT Denies dysphagia, Denies dizziness, Denies headache(s) and Denies odynophagia Card Denies chest pain, Denies syncope, Denies edema, Denies irregular heart rhythm, Denies lightheadedness, Reports dyspnea and Reports dyspnea on exertion Resp Denies cough, Reports dyspnea and Reports dyspnea on exertion GI Denies abdominal pain, Denies constipation, Denies dysphagia, Denies diarrhea, Denies nausea, Denies odynophagia and Denies vomiting Reports no additional complaints Musc Details: Left knee and hip pain Reports no additional complaints and Reports abnormal gait Skin/Breast Reports system reviewed and no additional complaints, except as documented Neuro Reports abnormal gait, Denies dizziness, Denies syncope and Denies headache(s) Psych Reports no additional complaints Physical exam (Primary Care) Vital Signs: Last Vital Signs Pulse 80 11/16/24 09:49 BP 132/80 11/16/24 09:49 Pulse Ox 92 11/16/24 09:49 Oxygen Delivery Method Room Air 11/16/24 09:49 BMI result Body Mass Index 36.6 Tobacco/Smoking Status: Tobacco use Status Tobacco use date assessed 11/16/24 11/16/24 09:49 Patient Tobacco Use Status Never used Tobacco 11/16/24 09:49 e-Cigarette/Vaping Use Never Used 11/16/24 09:49 Thrive Assessment: Date of Thrive Assessment Date Thrive assessed 01/23/24 12 09:49 Const General: cooperative, healthy appearing, comfortable and no acute distress Orientation/consciousness: patient oriented x3 HENMT Head: Yes normocephalic Ears: hearing grossly normal bilaterally General nose exam: Normal external nose present Eyes General: appearance normal, both eyes and all related structures Conjunctivae: conjunctivae normal Neck Neck: Yes full ROM and Yes no lymphadenopathy Resp Effort & Inspection: normal respiratory effort Auscultation: clear to auscultation bilaterally, no crackles, no rales, no rhonchi and no wheezes Cardio Rate: regular rate Rhythm: regular rhythm Skin General skin exam: no rashes or lesions noted Neuro General: patient oriented x3 Gait exam (Neuro): Normal gait present Extrem General: Yes normal to inspection, Yes full ROM and No edema Elbow/forearm/wrist images: 2 1. Soft, tender nonmobile mass Psych Affect: normal affect Attitude: cooperative Insight: Good insight present (Psych) Judgement: Good judgement present (Psych) Coding Level of Care Code Est Pt Level 4 (76652) Diagnoses Obesity (BMI 30-39.9) E66.9 Asthma J45.909 Left leg swelling M79.89 Left hip pain M25.552 Assessment & Plan Assessment & Plan (1) Obesity (BMI 30-39.9): Code(s): E66.9 - Obesity, unspecified Category: Medical Plan: Healthy diet and regular exercise is encouraged. (2) Asthma: Code(s): J45.909 - Unspecified asthma, uncomplicated Category: Medical Plan: Asthma currently controlled on present medications. Continue on albuterol as needed. Avoid triggers such as allergies. Patient was referred to pulmonology at her last visit was scheduled to have an appointment November 2024. Patient was seen for pulmonary function testing as part of a preoperative exam and failed this testing advised to follow up with a [facility] rivet hammer machine operator. She will sees a rivet hammer machine operator in the coming weeks. (3) Left leg swelling: Code(s): M79.89 - Other specified soft tissue disorders Category: Medical Plan: Patient having left knee swelling as well as soft, tender, nonmobile mass of the anterior lateral aspect of the left knee. Patient states this is evaluated at [facility] and recommend follow up imaging. At this time we do not have the [facility] discharge paperwork but we will obtain these in orders to follow. (4) Left hip pain: Code(s): M25.552 - Pain in left hip Category: Medical Plan: Patient complaining of left hip pain which is chronic was due to have a left total hip replacement with Dr. Lara at [facility] on November 27 however preoperative testing postponed her surgery. Patient had a cardiac echo and was advised to follow up with the swimming coach or instructor and pulmonary function testing and was advised to follow up with a rivet hammer machine operator. She was also recommended to follow up with a neurologist but unsure of the reason why. We will request the [facility] labs and results. She does continue to complain of left hip pain is requesting an alternative to methocarbamol and tizanidine was sent. Plan This note was constructed using voice recognition software. While every effort has been made to ensure accuracy and end user consultant, still areas may have been included sometimes these areas may affect the content or meeting of the given symptoms. Total time spent caring for the patient today was 30 minutes. This includes time spent before the visit reviewing the chart, time spent during the visit, and time spent after the visit and documentation. Medications: New 2 tizanidine 2 mg PO Q8H PRN 20 tabs 0RF muscle spasticity Refilled 2 albuterol sulfate 90 mcg/actuation (Ventolin HFA) 2 puffs inhalation Q6H PRN 8.5 grams 3RF shortness of breath or wheezing J45.909 - Unspecified asthma, uncomplicated Discontinued 2 methocarbamol Discontinued Reason: Patient no longer taking 500 mg PO BEDTIME 14 tabs 0RF
[2024-11-16 09:49] VITALS: BP 132/80; PULSE 80; O2SAT 92; BMI 36.6
== END 2024-11-16 10:30 | disposition home or self-care (01) ==
PROVIDERS: PCP Internal Medicine
DX: J45.909 Unspecified asthma, uncomplicated (principal); E66.9 Obesity, unspecified; Z68.36 Body mass index [BMI] 36.0-36.9, adult; M79.89 Other specified soft tissue disorders; M25.552 Pain in left hip

== ENCOUNTER → 2024-11-16 09:33 | Outpatient (BNVA) | payer OTHER, SELFPAY | PROVIDERS: PCP Internal Medicine | DX: E66.9 Obesity, unspecified (principal); J45.909 Unspecified asthma, uncomplicated; M79.89 Other specified soft tissue disorders; M25.552 Pain in left hip | CPT/HCPCS: 99212 ==

== ENCOUNTER 2025-01-07 13:34 | Outpatient (REF) | payer OTHER, SELFPAY ==
--- NOTE | ~2025-01-07 | XR_ITS ---
EXAMINATION: XR KNEE, LEFT CLINICAL INFORMATION: M25.562 - Pain in left knee COMPARISON: 07/27/2024 TECHNIQUE: Four views of the left knee. FINDINGS: No fracture or joint effusion. Alignment is anatomic. Mild medial and patellofemoral compartment osteoarthrosis. No abnormal soft tissue calcification. XR/XR knee LT 2V IMPRESSION: No acute findings left knee. Mild arthritis. Electronically signed by: Wil Subramainan MD 01/07/2025 03:42 PM NORAH
--- NOTE | ~2025-01-07 | XR_ITS ---
EXAMINATION: XR SHOULDER, LEFT CLINICAL INFORMATION: M25.512 - Pain in left shoulder COMPARISON: 06/23/2024. TECHNIQUE: AP external rotation, Grashey, scapular Y, and axillary views of the left shoulder. FINDINGS: No fracture, dislocation, or suspicious bone lesion. No malalignment. Minimal to moderate osteoarthritis glenohumeral joint and AC joint. Probable previous subacromial decompression procedure, with mild widening of the AC joint and blunting of the distal clavicle. No significant undersurface before meals spurring. No significant undersurface acromial spur. Subacromial space preserved. Remainder the bony and soft tissue structures appear normal. XR/XR shoulder LT min 2V IMPRESSION: 1. No acute findings left shoulder. Arthritic changes. 2. Probable sequela of subacromial decompression. Electronically signed by: Wil Subramanian MD 01/07/2025 03:37 PM NORAH
--- OUTSIDE RECORDS SUMMARY | 2025-01-07 16:08 | XMS_ITS | Patient Health Record ---
Author Organization [facility] Address [address] [place] [address] Care Team Providers Care Communications Representative Name Role Phone CAYLA SOMMERS Primary Care Provider [phone] Cayla Sommers Unavailable Unavailable Allergies Allergen (clinical drug ingredient) Drug/Non Drug Allergy documented on EMR Reaction Allergy Type Onset Date Status aspirin Aspirin Unknown Drug Allergy Active Motrin Unknown Drug Allergy Active quetiapine Seroquel Unknown Drug Allergy Active trazodone Trazodone HCl Unknown Drug Allergy Act jose alejandro Vicodin Unknown Drug Allergy Active Reason For Referral No Information Medications Medication SIG (Take, Route, Frequency, Duration) Notes Start Date End Date Status Diclofenac Sodium 75 MG 1 tablet Orally Twice a day for 30 day(s) 11/25/2020 Unknown Diflucan 150 MG 1 tablet Orally every 2 days for 14 day(s) Unknown Nasacort Allergy 24HR 55 MCG/ACT 1 spray in each nostril Nasally Once a day for 30 day(s) 03/19/2021 Unknown Ketoconazole 200 MG 1 tablet Orally Once a day for 10 day(s) 11/18/2020 Unknown Levothyroxine Sodium 50 MCG 1 tablet in the morning on an empty stomach Orally Once a day Unknown Cyclobenzaprine HCl 10 MG 1 tablet at bedtime as needed Orally Once a day for 30 day(s) 11/18/2020 Unknown Docusate Sodium 250 MG 1 capsule as needed Orally Once a day for 30 day(s) 11/18/2020 Unknown Nystatin 149239 UNIT/GM 1 application Externally Twice a day for 30 day(s) 11/25/2020 Unknown Lyrica 50 MG 1 capsule Orally Twice a day for 30 days 01/16/2021 Unknown oxyCODONE HCl 5 MG 1 capsule as needed Orally bid for 5 days Only one time prescription 07/22/2021 Unknown HYDROcodone-Acetaminop hen 5-325 MG 1 tablet as needed Orally bid for 30 days 01/16/2021 Unknown Cipro 500 MG 1 tablet Orally every 12 hrs for 5 day(s) 11/18/2020 Unknown Fexofenadine HCl 180 MG 1 tablet Orally Once a day for 30 day(s) 03/19/2021 Unknown Bactrim DS 800-160 MG 1 tablet Orally Twice a day for 5 day(s) 01/20/2021 Unknown Meclizine HCl 25 MG 1 tablet as needed Orally bid for 30 day(s) 08/12/2021 Unknown oxyCODONE HCl 5 MG 1 tablet as needed Orally bid for 5 days 07/22/2021 Unknown DULoxetine HCl 30 MG 1 capsule Orally Once a day for 30 day(s) 01/20/2021 Unknown Social History Tobacco Use: Social History Observation Description Date Details (start date - stop date) Never Smoker NA - NA Tobacco Use/Smoking Question Answer Notes Are you a: never smoker Tobacco use other than smoking: Question Answer Notes Are you an other tobacco user? No Problems Problem Type SNOMED Code ICD Code Onset Dates Problem Status W/U Status Risk Notes Problem Chronic pain syndrome (451298762) Chronic pain syndrome (G89.4) Active confirmed Problem Chronic kidney disease stage 2 (777241245) Chronic kidney disease, stage 2 (mild) (N18.2) Active confirmed Problem Anxiety (57880603) Anxiety (F41.9) Active confi rmed Problem Asthma (324395244) Asthma (J45.909) Active confirmed Problem Lumbosacral spondylosis without myelopathy (17036768) Degenerative joint disease (DJD) of lumbar spine (M47.816) Active confirmed Problem Recurrent falls (448520052) Frequent falls (R29.6) Active confirmed Problem Constipation (68427317) Constipation (K59.00) Active confirmed Problem Hypothyroid (12456999) Hypothyroid (E03.9) Active confirmed Problem Body mass index 30+ - obesity (685632935) BMI 30.0-30.9,adult (Z68.30) Active confirmed Problem Osteoporosis (61897977) Osteoporosis (M81.0) Active confirmed Problem Chronic pain (86685532) Chronic pain (G89.29) Active confirmed Problem Hyperlipidaemia (80725798) HLD (hyperlipidemia ) (E78.5) Active confirmed Problem Iron deficiency anemia (61370846) Fe deficiency anemia (D50.9) Active confirmed Problem Insomnia (281650991) Insomnia (G47.00) Active confirmed Problem Multiple joint pain (24607027) Multiple joint pain (M25.50) Active confirmed Problem Restless legs (12439673) RLS (restless legs syndrome) (G25.81) Active confirmed Problem Obesity (926064193) Obesity (E66.9) Active conf irmed Problem Rheumatoid arthritis (98312079) Rheumatoid arthritis (M06.9) Active confirmed Problem Allergic rhinitis (73517391) Rhinitis, Allergic (J30.9) Active confirmed Problem Vitamin D deficiency (85535579) Vitamin D deficiency (E55.9) Active confirmed Problem Hepatitis B (09099274) Hepatitis B (B16.9) Active confirmed Problem Peripheral neuropathy (039772651) Peripheral neuropathy (G62.9) Active confirmed Problem Chronic hepatitis C (567433731) Hep C w/o coma, chronic (B18.2) Active confirmed Problem Essential hypertension (47202168) HTN (hypertension) with goal to be determined (I10) Active confirmed Problem Rheumatoid arteritis (788727280) Rheumatoid arteritis (M05.20) Active confirmed Plan Of Treatment Pending Test Test Name Order Date Biopsy of skin (36230) 09/02/2021 EKG [40988] 05/18/2021 Drug Screen (Rapid Urine) 09/09/2021 Not currently using tobacco 09/02/2021 Not currently using tobacco 07/22/2021 Not currently using tobacco 08/12/2021 Not currently using tobacco 05/18/2021 Medication Review Completed 05/18/2021 Medication Review Completed 07/22/2021 Medication Review Completed 08/12/2021 Medication Review Completed 09/02/2021 BMI above normal (>25 age 18-64, >30 age 65+); follow up plan documented 09/02/2021 BMI above normal (>25 age 18-64, >30 age 65+); follow up plan documented 07/22/2021 BMI above normal (>25 age 18-64, >30 age 65+); follow up plan documented 08/12/2021 BMI above normal (>25 age 18-64, >30 age 65+); follow up plan documented 05/18/2021 Systolic BP <140 05/18/2021 Systolic BP <140 07/22/2021 Systolic BP <140 08/12/2021 Systolic BP <140 09/02/2021 Diastolic BP <90 08/12/2021 Diastolic BP <90 07/22/2021 Diastolic BP <90 09/02/2021 Diastolic BP <90 05/18/2021 Pain Assessment - pain present and quant ified 05/18/2021 Pain Assessment - pain present and quant ified 07/22/2021 Pain Assessment - pain present and quant ified 09/02/2021 Pain Assessment - pain present and quant ified 08/12/2021 Venipuncture [36253] 11/18/2020 Venipuncture [90973] 05/18/2021 CT BRAIN WITHOUT CONTRAST 07/22/2021 Venipuncture [19813] 07/22/2021 Future Test Test Name Order Date Colonoscopy 11/18/2020 DEXA 11/18/2020 ECHO 05/18/2021 Bone scan 05/18/2021 XRAY ABDOMINAL SERIES (3 VIEW) [16067] 0 05/18/2021 STRESS TEST EXERCISE 05/18/2021 Colonoscopy 07/22/2021 Fluoroscopic guidance for epidural injec tion of lumbar spine (85276) 09/14/2021 Bilateral Lumbar facet Single level (644 93) 09/14/2021 Bilateral Lumbar facet Second level (644 94) 09/14/2021 Bilateral Lumbar facet Third and more le vels (35391) 09/14/2021 Insurance Providers Payer Name Payer Address Payer Phone Subscriber Number Group Number Insured Name Patient Relationship to Insured Coverage Start Date Coverage End Date [facility] [address] [place], [place] [id number] JAVON ANDUJAR Self - patient is the insured Medications Administered Medication Instructions Date of Administration Dosage Notes ROCEPHIN (CEFTRIAXONE) [250 mg / 1 Unit] 01/20/2021 1 g Medical (General) History Medical History History ICD Code Arthritis Asthma Allergies Back pain Bone loss Dizziness Hypothyroidism Hepatitis C headaches Obesity
--- OUTSIDE RECORDS SUMMARY | 2025-01-07 16:09 | XMS_ITS | Data Portability ---
Author Organization [facility], [facility] Address [address] [place] [address] Care Team Providers Care Lap Machine Operator Name Role Phone JANETH MARINELLI Primary Care Provider [phone] Assessment Encounter Date Assessment Date Assessment LastModified by Organization Details LastModified Time 08/23/2024 08/23/2024 Patient seen und er general supervision of Dr. Persaud who was available but who did not see the patient. HPI: 64-year-old patient seen today regarding bilateral knee pain with right being greater than left. No specific inciting events or instance reported. Patient denies any falls or trauma. Began experiencing difficulty sometime ago which becoming progressively worse. Difficulty with ambulatory activities. Has tried cjwo-tiw-hraqwef pain relievers without significant relief. Patient has had cortisone injections in the past which did not provide real relief. Comes in today for orthopedic care. Denies numbness or tingling lower extremity. Past family, medical, social history and review of systems has been reviewed, updated and signed by me and is located in the patient? s chart. Examination: 64-year-old no acute distress alert and oriented. On examination of right knee, no significant effusion erythema or warmth. Range of motion 3-115? ? ?. Tenderness to palpation along the joint line appreciated. No gross instability elicited. Calf is soft and nontender. Lower extremity neurovascularly intact. X-rays ordered, obtained and reviewed at [facility] 4 views reveal noted arthritic change primarily about the medial compartment of the right knee,, no evidence of acute fracture. Impression: Right Knee arthritis Plan: Potential treatment options are discussed. Role of conservative management versus surgical intervention discussed. Possibilities including that of corticosteroid injection, viscous supplementation injection, total knee arthroplasty, bracing, sxkf-sur-obxthch medications, and physical therapy reviewed. Patient wished to proceed with right total knee arthroplasty. Surgery and recovery discussed in detail. Patient will be scheduled for follow-up visit with Dr. Simmons for evaluation of potential booking a right TKA. [facility] speech recognition supervisor laboratory software was used to create portions of this document. An attempt at proofreading has been made to minimize errors. Please call for corrections. [email or web address] Not available 08/23/2024 17:28:27 09/26/2024 09/26/2024 PROBLEM: Left Hi p Endstage Osteoarthritis HISTORY: The patient is a 64-year-old female who presents phenomenally for bilateral knee osteoarthritis. She has previously seen a PA in our office. Her complaint is more left than right knee pain. She notes increasing difficulty donning and doffing shoes. She needs help to do it. She is ambulated with a walker for a long period of time. She is a failed back surgery. The patient does describe some pain radiating down from her groin. She denies distal numbness and tingling. Most recent intra-articular steroid injections have provided no pain relief. The patient reports that she is nominally homeless. She takes Tylenol on a regular basis. She is on a muscle relaxant The patient's hip symptom profile form was reviewed and included in the record. The patient remains symptomatic and has had unsuccessful history of appropriate conservative therapy (non-surgical medical management). Non surgical medical management has been implemented for 3 months or more to assess effectiveness. Conservative treatment as clinically appropriate for the patient? s current episode of care including, but not limited to, one or more of the following: anti-inflammatory medications, analgesics, flexibility and muscle strengthening exercises, supervised physical therapy (Activities of daily living (ADLs) diminished despite completing a plan of care), activity restrictions as is reasonable, assistive device use, weight reduction as appropriate, and therapeutic injections into the joint as appropriate PFMSH and ROS have been reviewed, updated, and is located in the patient? s chart. PAST MEDICAL HISTORY: Past medical history is significant for asthma, shortness of breath, depression, osteoporosis, weakness, numbness, back pain, sciatica PAST SURGICAL HISTORY: Past surgical history includes spine surgery x 2, shoulder surgery x 2 MEDICATIONS: List is available for review in the chart . ALLERGIES: Patient reports an allergy to aspirin, Motrin, trazodone, Seroquel, Vicodin. Does not report an allergy to metal, latex, Iodine, tape, or adhesives. SOCIAL HISTORY: The patient states that she is disabled. She states she is currently homeless. She does not consume tobacco, alcohol, or illegal drugs. She is . PHYSICAL EXAMINATION: Please see vitals recorded below Mental status: Alert and lucid. Normal insight, affect, and grooming. TAX CLERK: Gross motor coordination is intact. No spasticity or clonus noted. Extremities: Calves are soft and non-tender. Skin intact. Palpable pedal pulses equal bilaterally. Peripheral vascular, lymphatic examination, skin, neurological coordination, reflexes, sensation are within normal limits. ORTHOPEDIC EXAMINATION: Negative SLR tests bilaterally. The patient has a notably positive Stinchfield test on the left. She has pain with internal/external rotation of her left hip. She has difficulty transitioning from sit to stand. The patient has a clear Trendelenburg with gait with ambulation. She has mild pain with range of motion of her left knee. Left knee range of motion is 0 to 120 degrees. IMAGING: Review of AP pelvis ordered, obtained and reviewed today in the office shows moderate to severe osteoarthritis of the left hip with near ngvq-hj-hhwg articulation. There is no evidence of fracture. Previously obtained X-rays reviewed in the office today on [facility] PACS: Weight bearing AP of Both knees, [place] view of Both Knees, [place] View of Both Knees, and Lateral of the Right knee; demonstrate severe end-stage osteoarthritis of the Right Knee. There is wbes-vv-vwop articulation medially, subchondral sclerosis, osteophyte formation. There is varus deformity and there is Moderate patellofemoral involvement. There is Kellgren Efrain grade 4 osteoarthritis.there are only mild signs of osteoarthritis of the left knee IMPRESSION: Left hip osteoarthritis PLAN: I reviewed with the patient surgical and nonsurgical means to control symptoms. The patient has some signs and symptoms most consistent with hip osteoarthritis. We did discuss intra-articular hip injection as a treatment modality. Patient would like to avoid this. Patient is very limited in how far she can walk which is problematic for her. Patient would like to proceed with surgery. I explained to her that she needs a discharge plan. The patient understands that they are at potential increased risk of postoperative infection and delayed recovery The patient has exhausted all conservative treatment, therapy and measures. The patient was thoroughly counseled today regarding their hip condition, its natural history and the options, both operative and non-operative. The nature of hip replacement surgery, the potential risks, benefits, and complications, the magnitude of the surgery, the intensity of postoperative recovery as well as its elective nature was explained at length today. Issues regarding lifelong dislocation, infection, and activity precautions were reviewed. The longevity of the implants was discussed. The pros and cons of the different bearing surfaces were explained. The patient understands the potential need for revision surgery within the next 15 years. The patient also understands the potential complexity of a revision situation as well. A copy of my hip replacement information packet was given. The patient will require clearance from a medical doctor prior to surgery. The patient wishes to schedule an elective total hip replacement at this time. They were educated about the goal of discharge home from the hospital and given a prescription for pre-hab physical therapy. Next planned follow-up is at the history and physical. The patient knows I will be happy to meet with them again at any time in order to review any additional questions or concerns that they might have. Patient was satisfied with this plan. I attempted to answer all of the patient's questions. [employer] speech recognition supervisor laboratory software was used to create portions of this document. An attempt at proofreading has been made to minimize errors. Please call for corrections. [email or web address] Not available 09/27/2024 13:32:10 10/10/2024 10/10/2024 Assessment: Melva ent presents with symptoms that are consistent with hip OA. Demonstrates good understanding of home program, post-operative mechanics for gait and stairs, hip kit, and expectations following surgery. ? Plan: Discharge patient to hip OA friendly [facility]. Follow up with patient post-operatively. [email or web address] Not available 10/10/2024 11:29:30 11/13/2024 11/13/2024 PRIMARY DIAGNOSIS: Osteoarthritis of the left hip. REASON FOR ADMISSION: The patient is being admitted for left total hip arthroplasty with Dr. Lara on 11/27/2024. HISTORY OF PRESENT ILLNESS: The patient is a 64-year-old female presenting today with left sided hip pain. Her pain has been going on for many years and has been getting progressively worse. Her pain level is 6/10 intensity at rest, increasing to 10/10 in intensity with weightbearing activities. She reports significant activity limitations, which include difficulty walking any prolonged distances, pivoting and stairs. She has difficulty getting in and out of the car and chair and transitioning from sit to stand. The patient has been ambulating with a walker. She has been taking Tylenol in order to manage her symptoms unfortunately with no relief. She reports significant activity limitations, which include difficulty walking any prolonged distances, pivoting and stairs. She states that she is now ready for left total hip arthroplasty with Dr. Lara on 11/27/2024. PAST MEDICAL HISTORY: 1. Osteoarthritis of the left hip. 2. History of polysubstance abuse in the form of cocaine, which she has been clean for many years. 3. Dry macular degeneration. 4. Allergic rhinitis. 5. Asthma. 6. Hearing loss. 7. Hypothyroidism. 8. Chronic low back pain. 9. Migraines. 10. Obesity with BMI of 39.0. 11. Tubular adenoma. 12. Perioral dermatitis. 13. Shoulder impingement syndrome. 14. Obstructive sleep apnea, which is untreated and the patient is not on any CPAP. 15. Left-sided lower extremity weakness from back surgery. 16. History of previous DVT in left leg, but the ultrasound that was done recently did not show any evidence of new clots. 17. Frequent PVCs. 18. Shortness of breath for which the patient is followed by pulmonology and will be seen by a mandarin chinese teacher. CT scan that was done recently in the ED ruled out PE. She was seen by pulmonology and will be seen by mandarin chinese teacher. Her echocardiogram is pending. 19. Hearing loss. PAST SURGICAL HISTORY: 1. Right rotator cuff repair in 2019. 2. L5-S1 disk excision in 2015. 3. Total hysterectomy with unilateral removal of ovary. 4. Right knee arthroscopy. 5. Left shoulder arthroscopy x2. CURRENT MEDICATION LIST: 1. Nystatin 10,000 units per gram powder under her breasts and abdomen. 2. Tylenol as needed for pain. ALLERGIES: THE PATIENT IS ALLERGIC TO SEROQUEL, WHICH CAUSES ITCHING; VICODIN, WHICH CAUSES ITCHINESS; ASPIRIN, WHICH CAUSES BRUISING; IBUPROFEN AND TRAZODONE, WHICH CAUSES HYPERACTIVITY. SOCIAL HISTORY: The patient is currently homeless. She is planning on staying with her mother postoperatively for at least 2 weeks. She has history of cocaine use in the past; however, has been clean for many years. She denies any use of tobacco products, alcohol use or illicit drug use. She is currently on disability. PHYSICIANS: Her primary care provider is Dr. Marinelli. Her mandarin chinese teacher is Dr. Ovalle. REVIEW OF SYSTEMS: Negative with exception of HPI. PHYSICAL EXAMINATION: VITAL SIGNS: Weight 221 pounds. GENERAL: The patient is alert and oriented. Normal insight, affect, and grooming. HEENT: Normocephalic. Conjunctivae pink. Sclerae are anicteric. SKIN: Intact without rash or lesions. Nails without clubbing or cyanosis. NECK: Supple. Trachea midline. No lymphadenopathy. CHEST: Lungs are clear to auscultation bilaterally. Breathing is unlabored. CARDIOVASCULAR: Heart has a regular rate and rhythm with normal S1, S2. No murmurs, rubs or gallops appreciated. No JVD. Carotid pulses without bruits. ABDOMEN: Soft, nontender with normal bowel sounds. No hepatosplenomegaly or masses noted. No bruits appreciated. EXTREMITIES: The patient has negative straight leg raise test bilaterally. Bilateral knees with full range of motion, no pain. Left hip has very limited and painful range of motion with pain referred to the groin. Motor sensation screening is intact. Calves supple and nontender. Ankle motion is satisfactory. Pedal pulse palpable bilaterally. Skin on her feet is intact. PREOPERATIVE DIAGNOSTIC DATA: EKG shows sinus rhythm with frequent premature ventricular complexes at 82 beats per minute. Echocardiogram is pending. Orthopedic x-rays demonstrate end-stage osteoarthritis of the left hip. There is cgrk-ef-dpae articulation, subchondral sclerosis and osteophyte formation. There is no evidence of fracture. LABORATORY DATA: CBC and coagulation studies and electrolytes within normal limits. A1c 5.6. Magnesium level 2.1. ASSESSMENT AND PLAN: The patient has advanced osteoarthritis of the left hip and is now scheduled for left total hip arthroplasty with Dr. Lara on 11/27/2024. The patient was seen by the medical consultative preoperative clinic and that dictation is still pending. The patient will be seen by her mandarin chinese teacher and that dictation is still pending. The patient will be seen by her naturopathic doctor and that dictation is still pending. The patient will receive intravenous tranexamic acid. She will be on Eliquis 2.5 mg p.o. b.i.d. x30 days postoperatively for DVT prophylaxis due to her inability to tolerate aspirin and her previous history of blood clots. We will monitor her end-tidal CO2 and O2 levels and utilize CPAP postoperatively if needed. She will not receive any Celebrex or tramadol due to inability to tolerate it. Her discharge plans will be to her mother's home as the patient is homeless. The patient has been counseled regarding the risks and benefits of proposed surgery. All questions have been answered and she acknowledges understanding. The patient wished to proceed with surgery and has signed consents. No prescriptions were given to her at this office visit. She will require prescriptions for Eliquis, pantoprazole, Colace and pain medications filled at [facility] prior to discharge. She will not receive any tramadol due to not tolerating in the past. CONTACTS: Her mother Sylvia with a cell phone number [phone]. [email or web address] Not available 11/13/2024 13:10:09 11/13/2024 11/13/2024 HPI: The patient presents for History and Physical and surgical consent for planned Lefttotal hip on 11/27/24. Past family, medical, social history and review of systems has been reviewed, updated and signed by me and is located in the patient's chart. The patient reports ongoing marked pain and difficulty with theLeft Hip Reports major impact in daily activities. IMAGING: X-rays ordered, obtained, and reviewed today on [facility] PACS: AP pelvis, Marking AP of the Left hip, and Direct Lateral of the Left Hip. Demonstrate end-stage osteoarthritis of the Left hip with bone on bone articulation. Subchondral sclerosis and osteophyte formation are visible. There is no significant dysplasia. PLAN: The patient has been thoroughly counseled regarding their hip osteoarthritis. The alternatives and the potential risks, benefits and complications of total hip replacement have been reviewed. The risks including infection, blood clot, persistent, new or increased pain, stiffness, scarring, limp, numbness, blood vessel, nerve, ligament or bone damage, malalignment, leg length inequality, instability, implant loosening, wear or breakage, risk of transfusion transmitted diseases, risk of major medical complications including heart attack and stroke, and risk to life and limb have been reviewed. Outpatient surgical intervention may have to be delayed due to discharge planning. Patient is homeless. During the office visit she did call her mother and may be able to get permission to stay with her in the early postoperative period. In addition, patient will need multiple medical clearance. Those are scheduled. But not yet occurred. I highlighted to the patient that we cannot proceed with surgical intervention until he discharge plan is created. A detailed consent form has been reviewed, as well as the fact that other potential complications, or the need for other procedures now, or in the future, may arise. The usual post-operative course has been outlined, as well as the fact that at times people may deviate substantially from this. The importance of participation in typically painful post-operative hip replacement exercises has been reviewed. The importance of lifelong total hip precautions has been reviewed. All questions have been answered, the patient appears to understand well, and very much wishes to proceed with total hip replacement surgery. Consent forms were signed and pre-operative instructions reviewed. [employer] speech recognition supervisor laboratory software was used to create portions of this document. An attempt at proofreading has been made to minimize errors. Please call for corrections. [email or web address] Not available 11/13/2024 11:37:29 Plan of Treatment Reminders Order Date Submit Date Provider Last Modified By Organization Details Last Modified Time Details Appointments None recorded . Lab None recorded . Referral None recorded . Procedures None recorded . Surgeries None recorded . Imaging XR, knee, 4 or more view - rm 120 marie knee 024 08/23/20 24 [email or web address] [facility], [address], [address], [place], [address], 4 16:33:20 XR, hip + pelvis, bilatera l, 2 view - 104, just AP pelvis 024 09/26/20 24 [email or web address] [facility], [address], [address], [place], [address], 4 13:19:44 XR, hip + pelvis, unilater al, 2 or 3 view - ROOM 223 LEFT HIP 3V WITH MARKER SJK 024 11/13/20 24 SUSY [facility], [address], [address], [place], [address], 4 11:43:19 Medication Orders None recorded . Patient TargetsNo targets recorded. Patient InstructionsNo instructions recorded. Reason for Referral None Reported. Results Created Date Observation Date Name Description Value Unit Range Abnormal Flag Note LastModifiedBy Organization Detail LastModifiedTime 07/27/20 24 03/22/2020 danieli ng/maria luisa adelaide tic resul t No observ ation record ed. [email or web address] Not Available 06/30 10:20:30 08/23/20 24 08/23/2024 XR, knee, 4 or more view [email or web address] ?Encry pted=s hAaTro YD8dLq bEUv6g %2BXZw aYqtaq 0bqfl% 2Fg9IQ a4ajBk vP9nXo QUaueC m3YtLR FvZl J[address] Streettai3 2j2662 AC0Kqa nSBU6q vKiQtr MwF INTERFACE [facility] [address], [place], [address], 08/23/2024 17:20:59 08/23/20 24 08/23/2024 XR, knee, 4 or more view [email or web address]:/ [email or web address] ?Encry pted=s hAaTro YD8dLq bEUv6g %2BXZw aYqtaq 0bqfl% 2Fg9IQ a4ajBk vP9nXo QUaueC m3YtLR FvZl [address] Streettai[address] [address] AC0Kqa nSBU6q vKiQtr MwF INTERFACE [facility] [address], [place], [address], 08/23/2024 17:21:00 09/26/20 24 09/26/2024 XR, hip + pelvi s, bilat eral, 2 view [email or web address] ?Encry pted=s hAaTro YD8dLq bEUv6g %2BXZw aYqtaq 0bqfl% 2Fg9IQ a4ajBk vP9nXo QUaueC m3YtLR FvZlgJ JJ8mAn HZtai3 9r7970 AC0Kqa H6CU6a vKiQtr MwF INTERFACE [facility] [address], [place], [address], 09/26/2024 18:19:53 09/26/20 24 09/26/2024 XR, hip + pelvi s, bilat eral, 2 view [email or web address]:/ [email or web address] ?Encry pted=s hAaTro YD8dLq bEUv6g %2BXZw aYqtaq 0bqfl% 2Fg9IQ a4ajBk vP9nXo QUaueC m3YtLR FvZlgJ JJ8mAn HZtai3 6v0974 AC0Kqa H6CU6a vKiQtr MwF INTERFACE [facility] [address], [place], [address], 09/26/2024 18:19:54 11/13/20 24 11/13/2024 XR, hip + pelvi s, unila teral , 2 or 3 view [email or web address]:/ [email or web address] ?Encry pted=s hAaTro YD8dLq bEUv6g %2BXZw aYqtaq 0bqfl% 2Fg9IQ a4ajBk vP9nXo QUaueC m3YtLR FvZlgJ JJ8mAn HZtai3 0g6800 AC0Kqb n6GVqG iKiQtr MwF INTERFACE [facility] [address], [place], [address], 11/13/2024 11:43:19 11/13/20 24 11/13/2024 XR, hip + pelvi s, unila teral , 2 or 3 view [email or web address] ?Encry pted=s hAaTro YD8dLq bEUv6g %2BXZw aYqtaq 0bqfl% 2Fg9IQ a4ajBk vP9nXo QUaueC m3YtLR FvZlgJ JJ8mAn HZtai3 1c3825 AC0Kqb n6GVqG iKiQtr MwF INTERFACE [facility] [address], [place], [address], 11/13/2024 11:43:22 Result Notes None recorded. Problems Name Problem SNOMED Code Status Onset Date Resolution Date Notes Provider Name and Address Organization Details Recorded Time No complaints 578249169 Active Status : 'I'; Not Available [facility] 4 09:17:16 Pain of bilateral knee joints 7942283916764 04 Active 2023 BEATRIZ SORTO [facility] 4 17:10:16 Osteoarthr itis of left hip joint 7767057027686 08 Active 2023 Db Lara MD [address], [place], [address] , [facility] 4 13:12:01 Pain of right knee joint 5251331754254 00 Active 2021 Status : 'A'; Not Available [facility] 4 11:27:19 Problem Notes None recorded. Procedures Surgical History Date Name Laterality Status Provider Name and Address Organization Details Recorded Time 4 98537 Therapeutic Exercise (1:1) completed Karlos Lowery, PT [address], [place], [address], [facility] 10/10/2024 11:34:10 4 34587: Low complexity PT Eval completed Karlos Lowery PT [address], [place], [address], [facility] 10/10/2024 11:34:13 Imaging Results Imaging Date Name Status LastModified by Organiz ation Details LastModified Time 03/22/2020 imaging/diag nostic result completed [email or web address] Information not available 07/27/2024 10:20:30 08/23/2024 XR, knee, 4 or more view completed INTER[facility] [address], [place], [address], 08/23/2024 17:20:59 08/23/2024 XR, knee, 4 or more view completed INTERFACE [facility] [address], [place], [address], 08/23/2024 17:21:00 09/26/2024 XR, hip + pelvis, bilateral, 2 view completed INTERFACE [facility] [address], [place], [address], 09/26/2024 18:19:53 09/26/2024 XR, hip + pelvis, bilateral, 2 view completed INTERFACE [facility] [address], [place], [address], 09/26/2024 18:19:54 11/13/2024 XR, hip + pelvis, unilateral, 2 or 3 view completed INTERFACE [facility] [address], [place], [address], 11/13/2024 11:43:19 11/13/2024 XR, hip + pelvis, unilateral, 2 or 3 view completed INTER[facility] [address], [place], [address], 11/13/2024 11:43:22 Procedure Notes None recorded. Medical Equipment None Reported. Allergies Allergen ID Allergen Name Allergen Category Reaction Reaction Severity Criticality Documentation Date Start Date Code Code System Note Provider Name and Address Organization Details Recorded Time 857070 Non-stero idal anti-infl ammatory agent (product) medicatio n Not available Not available Not available 08/21/2024 28030 005 SNOMED B[facility]NER [facility] 4 09:34:12 [id number] Seroquel medicatio n Not available Not available Not available 08/21/2024 16234 RxNorm [facility] 4 09:34:20 78103 Motrin medicatio n Not available Not available Not available 01/30/2024201948 8 RxNorm Not Available [facility] 4 13:27:41 89483 trazodone hydrochlo ride medicatio n Not available Not available Not available 01/30/20242014 03801 RxNorm Not Available [facility] 4 13:27:41 43826 acetamino phen / hydrocodo ne medicatio n Not available Not available Not available 01/30/20242014 70550 2 RxNorm Not Available [facility] 4 13:27:41 84132 aspirin medicatio n Not available Not available Not available 01/30/20242014 1191 RxNorm Not Available [facility] 4 13:27:41 Medications Name Sig Start Date Stop Date Status Note LastModified by Organization Details LastModified Time celecoxib 200 mg capsule TAKE 1 CAPSULE BY MOUTH TWICE A DAY active Not Available Not Available No t Available cyclobenzap rine 10 mg tablet TAKE 1 TABLET BY MOUTH AT BEDTIME NEEDED FOR MUSCLE SPASM 09/26 completed Not Available Not Available Not Available methocarbam ol 500 mg tablet TAKE 1 TABLET BY MOUTH AT BEDTIME active Not Available Not Available No t Available nystatin 100,000 unit/gram topical ointment APPLY TOPICALLY TO THE AFFECTED AREA TWICE DAILY. active Not Available Not Available No t Available tizanidine 4 mg tablet TAKE 1 TABLET BY MOUTH EVERY 6 HOURS NEEDED 09/26 completed Not Available Not Available Not Available fluconazole 150 mg tablet TAKE 1 TABLET BY MOUTH EVERY DAY FOR 5 DAYS 09/26 completed Not Available Not Available Not Available hydrocodone 5 mg-acetamin ophen 325 mg tablet TAKE 1 TABLET BY MOUTH EVERY 6 HOURS NEEDED 09/26 completed Not Available Not Available Not Available fexofenadin e 180 mg tablet TAKE 1 TABLET BY MOUTH EVERY DAY active Not Available Not Available No t Available sulfamethox azole 800 mg-trimetho prim 160 mg tablet TAKE 1 TABLET BY MOUTH TWICE A DAY 09/26 completed Not Available Not Available Not Available acetaminoph en 500 mg tablet TAKE 1 TABLET BY MOUTH EVERY 6 HOURS NEEDED FOR FEVER/LISETTE N active Not Available Not Available No t Available ondansetron 8 mg disintegrat ing tablet DISSOLVE 1 TABLET SUBLINGUA LLY EVERY 12 HOURS NEEDED FOR NAUSEA AND VOMITING 09/26 completed Not Available Not Available Not Available cephalexin 500 mg capsule TAKE 1 CAPSULE (500 MG) ORALLY 4 TIMES A DAY 09/26 completed Not Available Not Available Not Available pseudoephed rine-guaife nesin ER 80-700 mg tablet,exte nded release 1tab o5ypfir for prn pain 09/26 completed Statu s: 'Curr ent'; Not Available Not Available Not Available lidocaine 5 % topical patch PLACE 1 PATCH TOPICALLY TO MOST PAINFUL AREA AND LEAVE ON FOR UP TO 12HOURS DAILY NEEDED FOR PAIN 09/26 completed Not Available Not Available Not Available nystatin 100,000 unit/gram topical powder APPLY TOPICALLY TO AFFECTED AREA 3 TIMES A DAY FOR 21 DAYS active Not Available Not Available No t Available ketoconazol e 2 % topical cream 1 APPL TOPICALLY 2 TIMES A DAY 09/26 completed Not Available Not Available Not Available fluticasone propionate 50 mcg/actuati on nasal spray,suspe nsion 2 SPRAY INTRANASA LLY DAILY ADMINISTE R INTO EACH NOSTRIL 09/26 completed Not Available Not Available Not Available doxycycline hyclate 100 mg tablet TAKE 1 TABLET BY MOUTH TWICE A DAY 09/26 completed Not Available Not Available Not Available amoxicillin 875 mg-potassiu m clavulanate 125 mg tablet TAKE 1 TABLET BY MOUTH TWICE A DAY FOR 10 DAYS 09/26 completed Not Available Not Available Not Available amoxicillin 500 mg-potassiu m clavulanate 125 mg tablet TAKE 1 TABLET BY MOUTH THREE TIMES A DAY 09/26 completed Not Available Not Available Not Available Ventolin HFA 90 mcg/actuati on aerosol inhaler INHALE 2 PUFFS EVERY 6 HOURS NEEDED FOR SHORTNESS OF BREATH OR WHEEZING active Not Available Not Available No t Available oxycodone 5 mg tablet 5 MG ORALLY 3 TIMES A DAY NEEDED FOR PAIN FOR 3 DAYS PARTIAL FILL UPON PATIENT REQUEST. 09/26 completed Not Available Not Available Not Available cyclobenzap rine 5 mg tablet TAKE 1 TABLET BY MOUTH EVERY 8 HOURS NEEDED FOR PAIN FOR 5 DAYS 09/26 completed Not Available Not Available Not Available diclofenac 1 % topical gel PLEASE SEE ATTACHED FOR DETAILED DIRECTION S active Not Available Not Available No t Available oxycodone HCl-oxycodo ne-ASA as directed 1 Q 4-[address] WHILE ON THIS MEDICATIO N 07/10 completed Statu s: 'Disc ontin ued'; Not Available Not Available Not Available baclofen 5 mg tablet TAKE 1 TABLET BY MOUTH TWICE A DAY 09/26 completed Not Available Not Available Not Available Vitals Date Recorded Body height Body mass index (BMI) Body weight Provider Name and Address Organization Details Last Updated DateTime 08/23/2024 160.02 cm 39.9 kg/m2 365643.28 g BEATRIZ SORTO [facility] 08/23/2024 17:08:11 Date Recorded Body height Body mass index (BMI) Body weight Provider Name and Address Organization Details Last Updated DateTime 09/26/2024 160.02 cm 39 kg/m2 81769.32 g Darron Rivas [facility] 09/26/2024 18:04:23 Date Recorded Body height Body mass index (BMI) Body weight Provider Name and Address Organization Details Last Updated DateTime 11/13/2024 160.02 cm 39.1 kg/m2 251802.91 g SERGIO HUANG [facility] 11/13/2024 10:54:49 Social History None recorded. Functional Status None recorded. Mental Status None recorded. Family History Nothing Reported. Medical History Condition Response Allergies/Hayfever N Coronary Artery Disease N Anxiety/Depression N Breathing or lung disorders Y Emphysema N Nerve Disorders N Thyroid Problems Y COPD N Pacemaker N Anemia N Kidney/Bladder Problems N Vascular Disease N Heart Trouble N Heart Attack ([place]) N Gastrointestinal Disease N Cholesterol N Diabetes N Autoimmune disease N Bleeding Disorder N Inflammatory Joint disease N Orthotics N Arthritis N Seizures/Epilepsy N Blood Clot N AIDS/HIV N Congestive Heart Failure (CHF) N Acid Reflux (GERD) N Cancer N Stroke N Asthma Y Circulation Problems N Peripheral Vascular Disease N Sleep Apnea N Hepatitis N Heart Disease N Rheumatoid Arthritis N Arrhythmia N Pulmonary Embolism N Headaches N Fibromyalgia N Hypertension N Osteoporosis N Gynecological HistoryNo gynecological history recorded. Obstetrics History GPAL:G 0 P 0 0 0 0 Past Encounters Encounter ID Performer Location Encounter Start Date Encounter Closed Date Diagnosis/Indication Diagnosis SNOMED-CT Code Diagnosis ICD10 Code Diagnosis Note [id number] Karlos Onofre PA-C [facility] [address] [place] [address] 08/23/2024 16:53:39 09/04/2024 15:12:15 Pain of bilateral knee joints 2649920875 10670 M25.561 M25.562 Osteoarthr itis of knee 148549418 M17.9 [id number] MD Newton [facility] [address] [place] [address] 09/26/2024 17:36:04 10/19/2024 13:19:43 Hip pain 04490958 M25.551 M25.552 Osteoarthr itis of left hip joint 3591096342 87241 M16.12 [id number] Karlos Lowery, PT [facility] [address] [place] [address] 10/10/2024 08:11:42 10/10/2024 14:48:45 Osteoarthritis of hip 908754006 M16.12 [id number] Db Lara MD [facility] [address] [place] [address] 11/13/2024 11:06:46 12/06/2024 09:04:41 Osteoarthritis of left hip joint 6850804177 21692 M16.12 [id number] Paxton German APRN [facility] [address] [place] [address] 11/13/2024 10:46:01 12/10/2024 04:10:16 Osteoarthritis of left hip joint 9675465608 71212 M16.12 Health Concerns Section Related Observation LastModified by Organization Detai ls LastModified Time None Recorded Concern Status LastModified by Organization Details LastModified Time None Recorded Advance Directives Directive None Recorded Payers Encounter Date Sequence Insurance Name Policy Number Policy Bailon Covered Member ID Bailon Member ID Guarantor Name 08/23/2024 1 [facility] NET PLAN (MEDICAID HMO) RAUL[place]O Case [id number] Idania Case 09/26/2024 1 [facility] (MEDICAID HMO) [place]UL[place] Case [id number] Idania Case 10/10/2024 1 [facility] PLAN (MEDICAID HMO) [place]UL[place]O Case [id number] Idania Case 11/13/2024 1 [facility] PLAN (MEDICAID HMO) RAULITO Case [id number] Idania Case 11/13/2024 1 [facility] PLAN (MEDICAID HMO) RAULITO Case [id number] Idania Case Notes Date Note Type Note Provider Name and Address Organization Details Recorded Time 10/10/2024 text/html Patient is 64 ye ar old female, with chronic history of hip pain and OA. Presents today for prehab visit for scheduled LEIGHA on 11/06/24. Arrives today ambulating with rolling walker. Reviewed post-operative mobility and mechanics with appropriate assistive device. Demonstrates good understanding of post-operative expectations, hip kit, and HEP. Current vocational status is disabled Functional limitations include restricted hip ROM, difficulty ambulating community distances, and pain navigating stairs. Patient goal is to have no pain and walk normal. Karlos Lowery, PT [address] [facility] [address], [place], [address], [facility] 10/10/2024 11:35:02 OBGyn Episode No OBEpisode recorded.
--- OUTSIDE RECORDS SUMMARY | 2025-01-07 16:09 | XMS_ITS | Data Portability ---
Author Organization [place] [facility], Allergy Address [address] [address] Care Team Providers Care [employer]ke [employer] Name Role Phone ISISJANETH Primary Care Provider [phone] Assessment Encounter Date Assessment Date Assessment LastModified by Organization Details LastModified Time 05/09/2024 05/09/2024 63-year-old female presents for evaluation of hearing loss. On exam, bilateral tympanic membranes are intact with well aerated middle ear spaces. Audiometric testing demonstrated mild sensorineural hearing loss on the right and mild to moderate sensorineural hearing loss on the left. There is new asymmetric hearing loss. We discussed observation vs MRI of the IACs to rule out retrocochlear pathology. Patient elected to proceed with observation and will follow up in 6 months for repeat audiometric testing, or sooner with any changes in her hearing. Medical clearance for hearing aids was provided today. Audiogram reviewed with Dr. Cramer. She will follow-up with her family services specialist at [facility]. [email or web address] Not available 05/09/2024 14:42:06 Plan of Treatment Reminders Order Date Submit Date Provider Last Modified By Organization Details Last Modified Time Details Appointments None record ed. Lab None record ed. Referral None record ed. Procedures None record ed. Surgeries None record ed. Imaging None record ed. Medication Orders None record ed. Patient TargetsNo targets recorded. Patient InstructionsNo instructions recorded. Reason for Referral None Reported. Results Created Date Observation Date Name Description Value Unit Range Abnormal Flag Note LastModifiedBy Organization Detail LastModifiedTime 05/09/20 audio gram No observ ation record ed. BARCODE Not Available 2023 16:49:54 05/09/20 24 11/29/2023 audio gram No observ ation record ed. [email or web address] Not Available 2023 16:54:16 Result Notes None recorded. Problems Name Problem SNOMED Code Status Onset Date Resolution Date Notes Provider Name and Address Organization Details Recorded Time Sensorineural hearing loss of bilateral ears 535430589 Active 2023 CANDICE VELASQUEZ, AUD [address] [facility] [address], [address], [place] [facility] 4 10:42:10 Problem Notes None recorded. Procedures Surgical History Date Name Laterality Status Provider Name and Address Organization Details Recorded Time 05/09/2024 Comp Audio with Tymps (16324 & 64707) completed CANDICE VELASQUEZ, AUD [address] [facility],[address], [address], [facility] 05/09/2024 10:41:02 Imaging Results Imaging Date Name Status LastModified by Organiz ation Details LastModified Time 05/09/2024 audiogram completed BARCODE Information no t available 05/09/2024 16:49:54 11/29/2023 audiogram completed [email or web address] Information no t available 05/09/2024 16:54:16 Procedure Notes None recorded. Medical Equipment None Reported. Allergies Allergen ID Allergen Name Allergen Category Reaction Reaction Severity Criticality Documentation Date Start Date Code Code System Note Provider Name and Address Organization Details Recorded Time 778199 aspirin medicatio n Not available Not available Not available 05/09/2024 1191 RxNorm Alee Lara null, [place] [facility] 4 11:03:20 578589 ibuprofen medicatio n Not available Not available Not available 05/09/2024 5640 RxNorm Alee Lara null, [place] [facility] 4 11:03:29 638543 Seroquel medicatio n Not available Not available Not available 05/09/2024 02465 RxNorm Alee Lara null, [facility] 4 11:03:57 405421 acetamino phen / hydrocodo ne medicatio n Not available Not available Not available 05/09/2024 63822 2 RxNorm Alee guidry [place] - [facility] 4 11:04:04 Medications Name Sig Start Date Stop Date Status Note LastModified by Organization Details LastModified Time cyclobenzapr ine 10 mg tablet TAKE 1 TABLET BY MOUTH AT BEDTIME NEEDED FOR MUSCLE SPASM active Not Available Not Available No t Available nystatin 100,000 unit/gram topical ointment APPLY TOPICALLY TO THE AFFECTED AREA TWICE DAILY. active Not Available Not Available No t Available tizanidine 4 mg tablet TAKE 1 TABLET BY MOUTH EVERY 6 HOURS NEEDED active Not Available Not Available No t Available fluconazole 150 mg tablet TAKE 1 TABLET BY MOUTH EVERY DAY FOR 5 DAYS active Not Available Not Available No t Available hydrocodone 5 mg-acetamino phen 325 mg tablet TAKE 1 TABLET BY MOUTH EVERY 6 HOURS NEEDED active Not Available Not Available No t Available fexofenadine 180 mg tablet TAKE 1 TABLET BY MOUTH EVERY DAY active Not Available Not Available No t Available lidocaine 5 % topical patch 1 PATCH TOPICALLY DAILY LEAVE ON MOST PAINFUL AREA FOR UP TO 12 HRS active Not Available Not Available No t Available Gas Relief Extra Strength 125 mg capsule active Not Available Not Available N ot Available gabapentin 300 mg capsule TAKE 1 CAPSULE BY MOUTH EVERYDAY AT BEDTIME active Not Available Not Available No t Available gabapentin 100 mg capsule TAKE 1 CAPSULE BY MOUTH AT BEDTIME active Not Available Not Available No t Available nystatin 100,000 unit/gram topical powder APPLY TOPICALLY 3 TIMES A DAY active Not Available Not Available Not Available ketoconazole 2 % topical cream 1 APPL TOPICALLY 2 TIMES A DAY active Not Available Not Available Not Available fluticasone propionate 50 mcg/actuatio n nasal spray,suspen mamadou 2 SPRAY INTRANASALL Y DAILY ADMINISTER INTO EACH NOSTRIL active Not Available Not Available No t Available doxycycline hyclate 100 mg tablet TAKE 1 TABLET BY MOUTH TWICE A DAY FOR 10 DAYS. LIMIT SUN EXPOSURE WHILE ON ANTIBIOTIC. active Not Available Not Available Not Available amoxicillin 500 mg-potassium clavulanate 125 mg tablet TAKE 1 TABLET BY MOUTH THREE TIMES A DAY active Not Available Not Available Not Available Ventolin HFA 90 mcg/actuatio n aerosol inhaler INHALE 2 PUFFS EVERY 6 HOURS NEEDED FOR SHORTNESS OF BREATH OR WHEEZING active Not Available Not Available Not Available cyclobenzapr ine 5 mg tablet 5 MG ORALLY 3 TIMES A DAY NEEDED FOR MUSCLE SPASM active Not Available Not Available No t Available diclofenac 1 % topical gel PLEASE SEE ATTACHED FOR DETAILED DIRECTIONS active Not Available Not Available N ot Available GaviLyte-G 236 gram-22.74 gram-6.74 gram-5.86 gram oral solution MIX AND DRINK 240 ML ORALLY EVERY 10 MINUTES UNTIL FECAL EFFLUENT IS CLEAR active Not Available Not Available No t Available sodium,potas sium,mag sulfates 17.5 gram-3.13 gram-1.6 gram oral soln DILUTE AND CONSUME PER INSTRUCTION S active Not Available Not Available No t Available Vitals Date Recorded Body height Body mass index (BMI) Body weight Provider Name and Address Organization Details Last Updated DateTime 05/09/2024 165.1 cm 35.8 kg/m2 28070.36 g Alee Lara [place] - [facility] 05/09/2024 11:02:03 Social History None recorded. Functional Status None recorded. Mental Status None recorded. Family History Nothing Reported. Medical History No medical history recorded. Gynecological HistoryNo gynecological history recorded. Obstetrics History GPAL:G 0 P 0 0 0 0 Past Encounters Encounter ID Performer Location Encounter Start Date Encounter Closed Date Diagnosis/Indication Diagnosis SNOMED-CT Code Diagnosis ICD10 Code Diagnosis Note [id number] SHIRAZ CUMMINGS PA-C [facility] [address] [address] 05/09/2024 09:42:28 05/09/2024 11:07:02 Sensorineural hearing loss of bilateral ears 094730925 H90.3 Audiologic al evaluation results:Ri ght ear:{{Norm al sloping Mi ld* Modera te Moderat jaqueline-severe Severe Pr ofound}} to {{mild mod erate* mod erately-se sabiha sever e profound }} {{sensorin eural hearing loss with* cond uctive hearing loss with mixed hearing loss with}} {{excellen t* good fa ir poor no t measurable }} word recognitio n.Left ear:{{Norm al sloping Mi ld* Modera te Moderat jaqueline-severe Severe Pr ofound}} to {{mild mod erate* mod erately-se sabiha sever e profound }} {{sensorin eural hearing loss with* cond uctive hearing loss with mixed hearing loss with}} {{excellen t* good fa ir poor no t measurable }} word recognitio n. Tympanomet ry:Right Ear:{{Type A* Type As Type Ad Type C Type C, shallow & rounded Ty pe B Type B with large volume Cou ld not maintain a hermetic seal}}Left Ear:{{Type A* Type As Type Ad Type C Type C, shallow & rounded Ty pe B Type B with large volume Cou ld not maintain a hermetic seal}} Health Concerns Section Related Observation LastModified by Organization Detai ls LastModified Time None Recorded Concern Status LastModified by Organization Details LastModified Time None Recorded Advance Directives Directive None Recorded Payers Encounter Date Sequence Insurance Name Policy Number Policy Bailon Covered Member ID Bailon Member ID Guarantor Name 05/09/2024 1 [facility] HEALTH NET PLAN (MEDICAID HMO) RAULITO Case [id number] Idania Case Notes Date Note Type Note Provider Name and Address Organization Details Recorded Time 05/09/2024 text/html 63-year-old femwes kahn presents for evaluation of hearing loss. She reports longstanding hearing loss and previously used hearing aids about 15 years ago. She recently was evaluated over at [facility] in November and is here today for medical clearance for hearing aids. Admits to tinnitus and hearing loss bilaterally, but denies otalgia and otorrhea. Reports history of chronic ear infections and had tubes as a child. Reports ear popping and history of seasonal allergies. Denies vertigo. SHIRAZ CUMMINGS PA-C [address] [place] [address], [address], [facility] - [facility] 05/09/2024 14:43:33 OBGyn Episode No OBEpisode recorded.
== END 2025-01-07 13:35 | disposition home or self-care (01) ==
LOC: HO.XRAY 13:34
PROVIDERS: PCP Internal Medicine
DX: M25.512 Pain in left shoulder (principal); M25.562 Pain in left knee; M25.552 Pain in left hip; J45.909 Unspecified asthma, uncomplicated; E66.9 Obesity, unspecified; G89.4 Chronic pain syndrome
CPT/HCPCS: 73030; 73560; 99212

== ENCOUNTER 2025-01-07 13:34 | Outpatient (AMB) | payer OTHER, SELFPAY ==
--- NOTE | 2025-01-07 14:00 | MHC.PC.OV ---
Vital Signs 01/07/25 14:02 01/07/25 14:36 Height 5 ft 5 in Weight 215 lb BMI 35.8 BP 122/70 Blood Pressure Location Rt brachial Position Sitting Pulse 76 Pulse Source Pulse Oximeter Temp 97.3 F Temp Source Skin Pulse Oximetry (%) 91 L 96 Oxygen Delivery Method Room Air Room Air Intake Visit Reasons: f/u chronic pain - see comments Intake Note: Patient is here to follow up on Chronic Pain. Ophthalmic Lens Inspector Required: No Operational Intelligence Analyst: Not Required per policy Accompanied by: Self / Same As Patient Allergies aspirin [ASA] Allergy (Mild, Verified 01/07/25 14:01) BRUISE, bruising hydrocodone [From VICODIN] Allergy (Mild, Verified 01/07/25 14:01) ITCH/BRUISE ibuprofen [From MOTRIN] Allergy (Mild, Verified 01/07/25 14:01) BRUISE trazodone [TRAZODONE] Allergy (Mild, Verified 01/07/25 14:01) RESTLESS quetiapine [From SEROQUEL] Adverse Reaction (Mild, Verified 01/07/25 14:01) RESTLESS NSAIDS (Non-Steroidal Anti-Inflamma Adverse Reaction (Verified 01/07/25 14:01) Unknown Medication List - Last Reconciled 01/07/25 by Sisi Means PA-C acetaminophen (Tylenol Extra Strength) 500 mg PO Q6H PRN albuterol sulfate 90 mcg/actuation (Ventolin HFA) 2 puffs inhalation Q6H PRN diclofenac sodium 1% 2 grams topical QID fexofenadine (Leah Allergy) 180 mg PO DAILY fluticasone propionate 50 mcg/actuation (Flonase Allergy Relief) 2 sprays intranasal DAILY ketoconazole 2% 1 appl topical BID Lactobacillus rhamnosus GG (Culturelle) 1 cap PO DAILY lidocaine 5% (Lidoderm) 1 patch topical DAILY PRN MDD remove after 12 hours peg 3350-electrolytes 236-22.74-6.74 -5.86 gram (Golytely) 240 mL PO Q10M polyethylene glycol 3350 (Miralax) 17 grams PO BID sennosides (senna) 17.2 mg (2 x 8.6 mg) PO ONCE simethicone (Gas Relief (simethicone)) 125 mg PO BID-QID PRN tizanidine 2 mg PO Q8H PRN Tobacco use date assessed: 01/07/25 Fall risk assessment: 2 + Falls in past year Last assessed Fall Risk: 01/07/25 Dental Screening Dental Screen Date: 01/07/25 Did you have a dental visit in the last 12 months?: No Did you have a dental problem in the last 6 months where you did not have access to dental care?: No Was dental information given to patient?: No (no teeth) HPI f/u chronic pain - see comments HPI Details 64-year-old obese female with a history of post laminectomy syndrome, peripheral vascular disease, and asthma last seen 10/2024 coming in for follow up. Patient tells us today she recently had a fall due to left leg giving way, causing knee impact without head injury. She has had a few falls over the last several weeks but this most recent 1 caused significant pain and swelling in the left knee. Patient has a history of left hip osteoarthritis in his being evaluated by [facility] who is unable to operate at this time due to breathing issues.Faces shortness of breath due to lung muscle dysfunction; awaiting pulmonology follow-up through [facility] scheduled for 02/11/2025. Reports chronic muscle spasms, particularly in feet, with current tizanidine treatment insufficient. She also mentions having left shoulder pain that began atraumatically and is now causing significant decreased range of motion and was exacerbated by most recent fall. [facility] Medical History Breast cancer screening by mammogram Lesion of colon Abdominal pain Stiffness of left wrist joint Stiffness of left hand joint Fracture of distal end of left radius with routine healing Chronic pain Hypothyroidism Surgical History Hx of colonoscopy S/P tonsillectomy Hx of hysterectomy History of surgery on wrist History of back surgery S/P arthroscopy of left shoulder S/P arthroscopy of right shoulder Hx of arthroscopy of right knee H/O tubal ligation Family History Sister Thyroid cancer Maternal Grandmother Colon cancer Son Substance abuse Depression Other Mental health disorder Social History Housing: House Alcohol intake: former Patient Tobacco Use Status: Never used Tobacco e-Cigarette/Vaping Use: Never Used Second Hand Smoke Exposure: No service: No Current occupational status: disabled Cognitive needs: Yes (walker) Hearing needs: No Vision needs: Yes Questionnaire PHQ-9 Over the last 2 weeks, how often have you been bothered by any of the following problems? 1. Little interest or pleasure in doing things: not at all 2. Feeling down, depressed, or hopeless: not at all 3. Trouble falling or staying asleep, or sleeping too much: not at all 4. Feeling tired or having little energy: not at all 5. Poor appetite or overeating: not at all 6. Feeling bad about yourself - or that you are a failure or have let yourself or your family down: not at all 7. Trouble concentrating on things, such as reading the newspaper or watching television: not at all 8. Moving or speaking so slowly that other people could have noticed. Or the opposite - being so fidgety or restless that you have been moving around a lot more than usual: not at all 9. Thoughts that you would be better off or of hurting yourself in some way: not at all Total score: 0 Depression Screening Interpretation: Negative Depression Screening Done: Yes Source: Developed by Drs. Lukas Walton, Liliana Naranjo, Andre Del Angel and colleagues, with an educational princess from [employer]. Thrive Questionnaire Date Thrive assessed: 01/07/25 I am a: Patient What is your living situation today?: I have a steady place to live Within the past 12 months, did the food you bought not last and you didn't have the money to get more?: Never true Within the past 12 months, did you worry whether your food would run out before you got money to buy more?: Never true Do you have trouble paying for medicines?: No Do you have trouble getting transportation to medical appointments?: No Do you have trouble paying your heating and electricity bill?: No Do you have trouble taking care of your child, family member or friend?: No Do you have trouble with day-to-day activities such as bathing, preparing meals, shopping, managing finances, etc.?: No Are you currently unemployed and looking for a job?: No Are you interested in more education?: No Please select the resources that you would like help with: None Currently or been in a relationship where the following occur: No concerns reported THRIVE Score: 0 AUDIT C Alcohol Use Questionnaire (AUDIT-C) 1. How often do you have a drink containing alcohol?: Never Total Score: 0 ROMA-7 AMB Questionnaire ROMA-7 Date ROMA - 7 assessed: 01/07/25 Feeling nervous, anxious, or on edge: 0 = Not at all Not being able to stop or control worryin = Not at all Worrying too much about different things: 0 = Not at all Trouble relaxin = Not at all Being so restless that it is hard to sit still: 0 = Not at all Becoming easily annoyed or irritable: 0 = Not at all Feeling afraid as if something awful might happen: 0 = Not at all Total ROMA-7 score (0-4 normal; 5-9 mild; 10-14 moderate; 15-21 severe): 0 Source: Developed by Drs. Lukas Walton, Liliana Naranjo, Andre Del Angel and colleagues, with an educational princess from [employer]. Review of Systems Const Denies body aches, Denies chills, Denies fever(s), Denies headache(s) and Denies poor appetite Eyes Reports no additional complaints ENT Denies dizziness and Denies headache(s) Card Denies chest pain, Denies edema, Denies irregular heart rhythm, Denies lightheadedness, Reports dyspnea and Reports dyspnea on exertion Resp Denies cough, Reports dyspnea and Reports dyspnea on exertion GI Reports no additional complaints Reports no additional complaints Musc Reports abnormal gait Skin/Breast Reports system reviewed and no additional complaints, except as documented Neuro Reports abnormal gait, Denies dizziness and Denies headache(s) Psych Reports no additional complaints Physical exam (Primary Care) Vital Signs: Last Vital Signs Temp 97.3 F 01/07/25 14:02 Pulse 76 01/07/25 14:02 BP 122/70 01/07/25 14:02 Pulse Ox 96 01/07/25 14:36 Oxygen Delivery Method Room Air 01/07/25 14:36 BMI result Body Mass Index 35.8 Tobacco/Smoking Status: Tobacco use Status Tobacco use date assessed 01/07/25 01/07/25 14:09 Patient Tobacco Use Status Never used Tobacco 01/07/25 14:09 e-Cigarette/Vaping Use Never Used 01/07/25 14:09 PHQ-9: PHQ-9 Score PHQ-9: Total score 0 01/07/25 14:27 Depression Screening Interpretation: Negative Thrive Assessment: Date of Thrive Assessment Date Thrive assessed 01/07/25 01/07/25 14:09 Currently or been in a relationship where the following occur: No concerns reported Const General: cooperative, healthy appearing, comfortable and no acute distress Orientation/consciousness: patient oriented x3 HENMT Head: Yes normocephalic Ears: hearing grossly normal bilaterally General nose exam: Normal external nose present Eyes General: appearance normal, both eyes and all related structures Conjunctivae: conjunctivae normal Neck Neck: Yes full ROM and Yes no lymphadenopathy Resp Effort & Inspection: normal respiratory effort Auscultation: clear to auscultation bilaterally, no crackles, no rales, no rhonchi and no wheezes Cardio Rate: regular rate Rhythm: regular rhythm Skin General skin exam: no rashes or lesions noted Neuro General: patient oriented x3 Gait exam (Neuro): Normal gait present Extrem Other: Pain to palpation of over entirety of left shoulder with limited range of motion with extension and lateral raise. Pain to palpation over entirety of left knee without calf swelling, redness or warmth. General: Yes normal to inspection, Yes full ROM and No edema Psych Affect: normal affect Attitude: cooperative Insight: Good insight present (Psych) Judgement: Good judgement present (Psych) Coding Level of Care Code Est Pt Level 4 (62174) Diagnoses Left hip pain M25.552 Asthma J45.909 Obesity (BMI 30-39.9) E66.9 Chronic pain syndrome G89.4 Left knee pain M25.562 Left shoulder pain M25.512 Assessment & Plan Assessment & Plan (1) Left hip pain: Code(s): M25.552 - Pain in left hip Category: Medical Plan: Patient having left hip osteoarthritis being evaluated by Dr. Lara through [facility]. Was advised that she will be unable to have the left hip replacement until her breathing is better managed. Seeing pulmonology next month (2) Asthma: Code(s): J45.909 - Unspecified asthma, uncomplicated Category: Medical Plan: A refill of albuterol inhaler will be provided to manage her ongoing respiratory difficulties. We will continue monitoring her pulmonary condition with a follow-up appointment scheduled, and I plan to see her again in two months to evaluate any changes and ensure appropriate management is in place for her chronic conditions. Patient is seeing [facility] pulmonology next month (3) Obesity (BMI 30-39.9): Code(s): E66.9 - Obesity, unspecified Category: Medical Plan: Healthy diet and regular exercise is encouraged. (4) Chronic pain syndrome: Code(s): G89.4 - Chronic pain syndrome Category: Medical Plan: I will increase the patient's tizanidine dosage to better manage her muscle spasms, ensuring she is aware of the risk of drowsiness. (5) Left knee pain: Code(s): M25.562 - Pain in left knee Category: Medical Plan: An x-ray is ordered to evaluate the recent left knee injury after her fall. Low concern for DVT at this time due to lack of swelling, redness and warmth of bilateral calf. (6) Left shoulder pain: Code(s): M25.512 - Pain in left shoulder Category: Medical Plan: Patient having new onset left shoulder pain with limited range of motion ordered for left shoulder x-ray at patient's request. Plan Patient was informed and verbally consented to the use of an ambient scribe for clinic note documentation during this visit. This note was constructed using voice recognition software. While every effort has been made to ensure accuracy and linotype worker, still areas may have been included sometimes these areas may affect the content or meeting of the given symptoms. Total time spent caring for the patient today was 20 minutes. This includes time spent before the visit reviewing the chart, time spent during the visit, and time spent after the visit and documentation. Orders: Orders XR knee LT 2V Today M25.552 - Pain in left hip, M25.562 - Pain in left knee XR shoulder LT min 2V Today M25.512 - Pain in left shoulder Medications: New tizanidine 6 mg PO BEDTIME PRN 20 caps 0RF muscle spasticity walker (Ultra-Light Rollator misc) As directed 1 ea 0RF G89.4 - Chronic pain syndrome, M17.11 - Unilateral primary osteoarthritis, right knee, M17.12 - Unilateral primary osteoarthritis, left knee, M96.1 - Postlaminectomy syndrome, not elsewhere classified Refilled fluticasone propionate 50 mcg/actuation (Flonase Allergy Relief) administer into each nostril 2 sprays intranasal DAILY 16 grams 0RF R09.81 - Nasal congestion diclofenac sodium 1% apply to single elbow, wrist or hand; for hand includes palm/fingers/back of hand 2 grams topical QID 100 grams 0RF fexofenadine (Leah Allergy) 180 mg PO DAILY 30 tabs 3RF R09.81 - Nasal congestion albuterol sulfate 90 mcg/actuation (Ventolin HFA) 2 puffs inhalation Q6H PRN 8.5 grams 3RF shortness of breath or wheezing J45.909 - Unspecified asthma, uncomplicated
[2025-01-07 14:02] VITALS: BP 122/70; PULSE 76; TEMP 36.3; O2SAT 91; BMI 35.8
[2025-01-07 14:36] VITALS: O2SAT 96
--- OUTSIDE RECORDS SUMMARY | 2025-01-07 14:43 | XMS_ITS | Data Portability ---
Author Organization [facility] Jeovany Manning, [employer] - [facility] Address [address] [place] [address] Assessment Encounter Date Assessment Date Assessment LastModified by Organization Details LastModified Time 06/07/2016 06/07/2016 1. Left low back and gluteal pain with radiculopathy with history of recent anterior lumbar spinal fusion and subsequent posterior decompression Not available 06/08/2016 11:54:23 Plan of Treatment Reminders Order Date Submit Date Provider Last Modified By Organization Details Last Modified Time Details Appointments None recorded. Lab None recorded. Referral pain management referral - Evaluate for pain management [email or web address] [facility], [address] [place], [address], 6 12:01:58 Procedures None recorded. Surgeries None recorded. Imaging XR, pelvis [address] [facility], [address] [place], [address], 6 22:36:06 XR, lumbar spine [address] [facility], [address] [place], [address], 6 22:36:06 MRI, lumbar spine, w/wo contrast - Needs Open MRI Lumbar Spine w/wo- s/p L5-S1 ALIF and Left L5-S1 discectomy no precert required * 2015 016 [email or web address] Not available 6 07:42:15 Medication Orders Ultram 50 mg tablet 2015 016 [email or web address] Not available 6 10:06:54 prednisone 10 mg tablets in a dose pack 2015 016 [email or web address] Not available 6 07:42:18 oxycodone 5 mg tablet 2015 016 [email or web address] Not available 6 07:42:18 Patient TargetsNo targets recorded. Patient Instructions Encounter Date Encounter Id Patient Instructions Last Modified By Organization Details Last Modified Time 06/07/2016 [id number] hip pain: care instructions Not available 06/14/2016 10:02:52 back care and preventing injuries: care instructions [email or web address] Not available 06/14/2016 10:02:52 getting back to normal after low back pain: care instructions [email or web address] Not available 06/14/2016 10:02:52 learning about relief for back pain [email or web address] Not available 06/14/2016 10:02:52 I had a lengthy discussion with the patient regarding her current complaints. Her left lower extremity and gluteal pain sounds radicular in nature and states it is very similar to pain she was experiencing prior to her two previous surgeries, which were recent. She denies any bowel or bladder dysfunction and her complaint is primarily ? ? ?pain. I do not see any obvious abnormality with the hip itself. In light of her recent surgery as well as her ongoing radicular complaints, I will refer her to Dr. Bailon for further evaluation and management. We will hold off on obtaining any other MRI scan and will defer to him on further testing. With regards to her pain, she is requesting pain medication and states she has been on OxyCodone 10 and I did offer her Ultracet or Ultram, but she declines. We will refer her to Dr. Whatley or Dr. Chino for ongoing pain management.? ? ? She will followup with me as needed. She expressed good understanding of the above and agrees with the plan. Not available 06/08/2016 11:54:23 07/13/2016 [id number] Mrs. Case presents with symptoms and physical exam findings consistent with left L5 radiculitis that? ? ?are reportedly? ? ?worse since her last surgery the other month.? ? ? She has had a L5-S1 ALIF and subsequent left L5-S1 discectomy a few months later due to postoperative left leg.? ? ? The patient needs an updated postoperative MRI with and without contrast.? ? ? Other options may include nerve studies.? ? ? I provided her a prednisone Dosepak and oxycodone 5 mg twice a day when necessary for now.? ? ? SCRIPTS was reviewed.? ? ? Possibly trying Lyrica may be an option if covered by Medicaid.? ? ? She reports high-dose Neurontin was not effective.? ? ? She may benefit from a left L5 SCOTT.? ? ? Risks, benefits and side effects of the medications were reviewed. The patient no longer goes to [place] to see her spine surgeon for follow-up and may need to see one here to ensure the fusion is solid.? ? ? The treatment plan was reviewed with the patient. [email or web address] Not available 07/14/2016 07:42:18 Reason for Referral Pain Management Referral for Low back pain Evaluate for pain management Referring Physician: Se Arenas, Orthopedic Surgery, Encounter Date: 06/07/2016 Results Created Date Observation Date Name Description Value Unit Range Abnormal Flag Note LastModifiedBy Organization Detail LastModifiedTime 07/22/20 16 07/19/2016 MRI, lumba r spine , w/wo contr ast No observ ation record ed. [email or web address] [facility] [place] [facility] [address] [facility] [address], [place], [address], 08/03/2016 10:47:17 Result Notes None recorded. Problems Name Problem SNOMED Code Status Onset Date Resolution Date Notes Provider Name and Address Organization Details Recorded Time Hip pain [id number] [facility] 6 10:06:54 Low back pain 006501657 Active Abram guidry [facility] 6 10:06:54 Lumbosacral radiculitis 25300883 Christina guidry [facility] 6 07:42:18 Chronic postoperati ve pain [id number] 03 Christina guidry [facility] 6 07:42:18 Problem Notes None recorded. Procedures Surgical History Date Name Laterality Status Provider Name and Address Organization Details Recorded Time WATER REGISTRAR completed Lisa [facility]Khn [facility] 06/07/2016 11:49:12 Orthopedic Surgery completed Jon Chacorta [facility] 07/13/2016 11:05:03 Spine Surgery completed Jon [facility] 07/13/2016 11:05:03 Orthopedic Surgery completed Jon [facility] 07/13/2016 11:05:03 Imaging Results Imaging Date Name Status LastModified by Organiz ation Details LastModified Time 07/19/2016 MRI, lumbar spine, w/wo contrast completed [email or web address] [facility] [address] [facility] [address], [address], 08/03/2016 10:47:17 Procedure Notes None recorded. Medical Equipment None Reported. Allergies Allergen ID Allergen Name Allergen Category Reaction Reaction Severity Criticality Documentation Date Start Date Code Code System Note Provider Name and Address Organization Details Recorded Time 34180 aspirin medicatio n Not available Not available Not available 06/07/2016 1191 RxNorm Not Available Not Available Not Available 89542 Seroquel medicatio n Not available Not available Not available 06/07/2016 79133 RxNorm Not Available Not Available Not Available 33393 Motrin medicatio n Not available Not available Not available 06/07/2016 31419 8 RxNorm Not Available Not Available Not Available 20804 acetamino phen / hydrocodo ne medicatio n Not available Not available Not available 06/07/2016 92686 2 RxNorm Not Available Not Available Not Available 20687 trazodone medicatio n Not available Not available Not available 06/07/2016 75731 RxNorm Not Available Not Available Not Available Medications Name Sig Start Date Stop Date Status Note LastModified by Organization Details LastModified Time cyclobenzaprin e 10 mg tablet TAKE 1 TABLET BY MOUTH 3 TIMES A DAY NEEDED active Not Available Not Available No t Available prednisone 10 mg tablet TAKE DIRECTED ON ATTACHED PAPER active Not Available Not Available No t Available acetaminophen 300 mg-codeine 30 mg tablet TAKE 1 TO 2 TABLET(S) BY MOUTH EVERY 6 HOURS NEEDED FOR MILD TO MODERATE PAIN, TAKE WITH FOOD active Not Available Not Available No t Available tramadol 50 mg tablet TAKE 1 TABLET EVERY 6 HOURS NEEDED active Not Available Not Available No t Available prednisone 10 mg tablets in a dose pack Take by oral route as directed with food. 2015 active Not Available Not Available Not Rohan arana nystatin 100,000 unit/gram topical cream APPLY A THIN LAYER TO AFFECTED AREA(S) AND RUB IN WELL TWICE DAILY. active Not Available Not Available No t Available loratadine 10 mg tablet TAKE 1 TABLET BY MOUTH EVERY DAY active Not Available Not Available No t Available oxycodone 5 mg tablet Take 1 tablet twice a day by oral route as needed. 2015 active Not Available Not Available Not Rohan arana nitrofurantoin monohydrate/ma crocrystals 100 mg capsule TAKE ONE CAPSULE BY MOUTH EVERY 12 HOURS WITH FOOD UNTIL ALL GONE active Not Available Not Available No t Available oxycodone 10 mg tablet TAKE 1 TABLET EVERY 8 HOURS FOR 4 DAYS THEN TAKE 1 TABLET EVERY 12 HOURS NEEDED FOR PAIN active Not Available Not Available No t Available Vitals Date Recorded Body height Body weight Body mass index (BMI) Provider Name and Address Organization Details Last Updated DateTime 06/07/2016 165.1 cm 912140.4878 4 g 38.6 kg/m2 Lisa Kuhn [facility] 06/07/2016 11:49:12 Date Recorded Body weight Body mass index (BMI) Body height Heart rate Systolic blood pressure Diastolic blood pressure Provider Name and Address Organization Details Last Updated DateTime 6 517773. 27577 g 38.9 kg/m2 165.1 cm 72 /min 131 mm[Hg] 109 mm[Hg] Abram Wolf [facility] 6 10:06:54 Social History Question Answer Notes LastModified by Organizat ion Details LastModified Time Tobacco Smoking Status Never Smoker [facility] 06/07/2016 11:49:12 What Is Your Level Of Alcohol Consumption? None [email or web address] Information not available 06/07/2016 How Much Tobacco Do You Chew? None [email or web address] Information not available 06/07/2016 Are You Currently Employed? No [email or web address] Information not available 06/07/2016 What Type Of Diet Are You Following? REGULAR [email or web address] Information not available 06/07/2016 Which Of Your Hands Is Dominant? Right [email or web address] Information not available 06/07/2016 Marital Status [email or web address] Informati on not available 06/07/2016 How Many Children Do You Have? 2 [email or web address] Information not available 06/07/2016 How Much Tobacco Do You Smoke? No [email or web address] Information not available 06/07/2016 Sex: Unknown Functional Status None recorded. Mental Status None recorded. Family History Relationship Description Onset Age of this Age Resolved Age Notes LastModified by Organization Details LastModified Time Mother Arthritis metal disord ers [email or web address] Not available 07/13/2016 10:06:54 Mother Asthma [email or web address] Not available 07/13/2016 10:06:54 Sister Malignant neoplastic disease mental disord ers [email or web address] Not available 07/13/2016 10:06:54 Notes:father-mental disorder s Medical History Condition Response Bleeding Disorder Y Mental Disorders Y Arthritis Y Sleep Apnea Y Migraines Y Urinary Tract Infection Y Thyroid Problems Y Depression Y Asthma Y Gynecological HistoryNo gynecological history recorded. Obstetrics History GPAL:G 0 P 0 0 0 0 Past Encounters Encounter ID Performer Location Encounter Start Date Encounter Closed Date Diagnosis/Indication Diagnosis SNOMED-CT Code Diagnosis ICD10 Code Diagnosis Note [id number] Se Arenas [facility] [address] [place] [address] 06/07/2016 10:35:01 06/07/2016 13:44:46 Hip pain 01434924 M25.552 Low back pain 482203138 M54.5 [id number] Jon Whatley [facility] [address] [place] [address] 07/13/2016 09:43:04 07/13/2016 11:04:03 Lumbosacral radiculitis 71713387 M54.17 Chronic po stoperative pain 6600667496 33311 G89.28 Health Concerns Section Related Observation LastModified by Organization Detai ls LastModified Time None Recorded Concern Status LastModified by Organization Details LastModified Time None Recorded Advance Directives Directive None Recorded Payers Encounter Date Sequence Insurance Name Policy Number Policy Bailon Covered Member ID Bailon Member ID Guarantor Name 06/07/2016 1 [place] Idania Case [id number] Idania Case 07/13/2016 1 [place] Idania Case [id number] Idania Case Notes Date Note Type Note Provider Name and Address Organization Details Recorded Time 06/07/2016 text/html Lower [id number] bypatient.Location:[facility] Quality:sharp Severity:severe; pain level 8/10; worst pain 10/10 Duration:years Timing:morning; daytime; nighttime Alleviating Factors:nothing helps Aggravating Factors:sitting; standing; pushing/pulling Associated Symptoms:weakness;num bness;tingling Prior Imaging:MRI Previous Injections:did not help Previous PT:none Work Related:no Working:no MsRex Case is a 56-year-old female who presents today for evaluation of low back and left hip pain. The patient has a history of two prior back surgeries performed earlier this year. The first was performed din February by a surgeon in [place] which included an anterior lumbar interbody fusion at the L5-S1 level. She subsequently underwent a secondary surgery in March 2016 which included L5-U4jwgekjodhy. She recently moved her from [place] where her surgery was performed. She presented to [facility] and was sent her for further evaluation and management. She is complaining of pain radiating from her lower back to her left gluteal region with occasional pain radiating into her groin o the left. Patient states her pain has been present earlier this year prior to her previous surgeries. She denies any bowel or bladder dysfunction. She Se guidry, [place] - [facility] 06/10/2016 13:39:15 07/13/2016 text/html Lower [id number] bypatient.Associated Symptoms:no weakness; no numbness; no tingling; no swelling; no redness; no warmth; no ecchymosis; no catching/locking; no popping/clicking; no buckling; no grinding; no instability; no radiation down leg; no drainage; no fever; no chills; no weight loss; no change in bowel/bladder habitsNotes:Idania Case is a 56-year-old female who is a chronic history of low back pain since 1981. She reports her back pain peaked earlier this year and required an anterior L5-S1 fusion in February while living in [place]. She was attending physical therapy postoperatively and developed severe left leg pain requiring a second surgery with a left L5-S1 discectomy. She still has significant left groin, hip and buttock pain radiating down her left leg to the foot. The pain seems to be worse as the day goes on and with walking. She uses a walker to ambulate due to left leg weakness. The right leg is asymptomatic. She denies any hesham motor loss or sphincter dysfunction except for chronic stress urinary incontinence. The patient still wears her back brace. She denies any further physical therapy. Injections in the past were not overly helpful. The patient has been on chronic pain medications including methadone, oxycodone and fentanyl patches over the years. Presently she is not taking any opioids recently prescribed by any physicians. Her last MRI was in May noting L5-S1 interbody fusions and what appears to be a left L5-S1 disc fragment. ABHISHEK Gonzalez - [facility] 07/14/2016 07:42:19 OBGyn Episode No OBEpisode recorded.
== END 2025-01-07 14:47 | disposition home or self-care (01) ==
PROVIDERS: PCP Internal Medicine
DX: M25.552 Pain in left hip (principal); J45.909 Unspecified asthma, uncomplicated; E66.9 Obesity, unspecified; Z68.35 Body mass index [BMI] 35.0-35.9, adult; G89.4 Chronic pain syndrome; M25.562 Pain in left knee; M25.512 Pain in left shoulder

== ENCOUNTER → 2025-01-07 15:04 | Outpatient (BNV) | payer OTHER, SELFPAY | PROVIDERS: PCP Internal Medicine; Visit Provider Radiology Diagnostic Radiology | DX: M25.512 Pain in left shoulder (principal); M17.12 Unilateral primary osteoarthritis, left knee | CPT/HCPCS: 73030; 73560 ==

== ENCOUNTER 2025-04-02 09:51 | Outpatient (AMB) | payer OTHER, SELFPAY ==
--- NOTE | 2025-04-02 09:53 | MHC.PC.OV ---
Vital Signs 04/02/25 09:55 Height 5 ft 5 in Weight 221 lb BMI 36.8 BP 130/70 Blood Pressure Location Lt brachial Position Sitting Pulse 75 Pulse Source Pulse Oximeter Temp 97.3 F Temp Source Temporal Artery Scan Pulse Oximetry (%) 95 Oxygen Delivery Method Room Air Intake Visit Reasons: [facility] 03/13 Intake Note: Patient is here for hospital discharge follow up. Patient was discharged from [facility] on 03/13/25. Packing Shed Supervisor Required: No Tobacco Warehouse Agent: Not Required per policy Accompanied by: Self / Same As Patient Allergies aspirin [ASA] Allergy (Mild, Verified 04/02/25 10:16) BRUISE, bruising hydrocodone [From VICODIN] Allergy (Mild, Verified 04/02/25 10:16) ITCH/BRUISE ibuprofen [From MOTRIN] Allergy (Mild, Verified 04/02/25 10:16) BRUISE trazodone [TRAZODONE] Allergy (Mild, Verified 04/02/25 10:16) RESTLESS quetiapine [From SEROQUEL] Adverse Reaction (Mild, Verified 04/02/25 10:16) RESTLESS NSAIDS (Non-Steroidal Anti-Inflamma Adverse Reaction (Verified 04/02/25 10:16) Unknown Medication List - Last Reconciled 04/02/25 by Sisi Means PA-C acetaminophen (Tylenol Extra Strength) 500 mg PO Q6H PRN albuterol sulfate 90 mcg/actuation (Ventolin HFA) 2 puffs inhalation Q6H PRN diclofenac sodium 1% 2 grams topical QID fexofenadine (Leah Allergy) 180 mg PO DAILY fluticasone propionate 50 mcg/actuation (Flonase Allergy Relief) 2 sprays intranasal DAILY ketoconazole 2% 1 appl topical BID Lactobacillus rhamnosus GG (Culturelle) 1 cap PO DAILY lactulose 20 grams (30 mL) PO DAILY PRN lidocaine 5% (Lidoderm) 1 patch topical DAILY PRN MDD remove after 12 hours methocarbamol 500 mg PO BEDTIME peg 3350-electrolytes 236-22.74-6.74 -5.86 gram (Golytely) 240 mL PO Q10M polyethylene glycol 3350 (Miralax) 17 grams PO BID sennosides (senna) 17.2 mg (2 x 8.6 mg) PO ONCE simethicone (Gas Relief (simethicone)) 125 mg PO BID-QID PRN walker (Ultra-Light Rollator misc) As directed Tobacco use date assessed: 04/02/25 Fall risk assessment: No Falls in past year Last assessed Fall Risk: 04/02/25 Dental Screening Dental Screen Date: 01/07/25 [facility] 03/13 HPI Details 64-year-old obese female with a history of post laminectomy syndrome, peripheral vascular disease, and asthma last seen 12/2024 coming in for hospital discharge follow up.?First admission was for shortness or breath 03/10/2025-03/13/2025. Patient was seen in [facility] 03/18/2025 she was recently admitted to the hospital due to shortness of breath and was discharged 2 days prior. After discharge she began developing headache and slurred speech CT of the head and x-ray was negative patient was admitted for further observation. Patient tells us today she has been having continued pain. She due to receive tizanidine 6 mg from her orthopedic provider and found this beneficial. She will be seeing Neurology through [facility] coming up. She is also seeing pulmonology next month and consideration has been given for supplemental oxygen. She has no other concerns today Patient has upcoming appointment 04/18/2025 for Neurology, 05/22/2025 pulmonology, 05/30/2025 cardiology. [facility] Medical History Breast cancer screening by mammogram Lesion of colon Abdominal pain Stiffness of left wrist joint Stiffness of left hand joint Fracture of distal end of left radius with routine healing Chronic pain Hypothyroidism Surgical History Hx of colonoscopy S/P tonsillectomy Hx of hysterectomy History of surgery on wrist History of back surgery S/P arthroscopy of left shoulder S/P arthroscopy of right shoulder Hx of arthroscopy of right knee H/O tubal ligation Family History Sister Thyroid cancer Maternal Grandmother Colon cancer Son Substance abuse Depression Other Mental health disorder Social History Housing: House Alcohol intake: former Patient Tobacco Use Status: Never used Tobacco e-Cigarette/Vaping Use: Never Used Second Hand Smoke Exposure: No service: No Current occupational status: disabled Cognitive needs: Yes (walker) Hearing needs: No Vision needs: Yes Questionnaire Thrive Questionnaire Date Thrive assessed: 01/07/25 ROMA-7 AMB Questionnaire ROMA-7 Date ROMA - 7 assessed: 01/07/25 Source: Developed by Drs. Lukas Walton, Liliana Naranjo, Andre Del Angel and colleagues, with an educational princess from [email or web address]. Review of Systems Const Denies body aches, Denies chills, Denies fever(s), Denies headache(s) and Denies poor appetite Eyes Reports no additional complaints ENT Denies dizziness and Denies headache(s) Card Denies chest pain, Denies lightheadedness, Denies dyspnea and Reports dyspnea on exertion Resp Reports cough (Intermittent), Denies hemoptysis, Denies excessive phlegm production, Denies dyspnea and Reports dyspnea on exertion GI Denies nausea and Denies vomiting Reports no additional complaints Musc Reports as per HPI and Reports abnormal gait Skin/Breast Reports system reviewed and no additional complaints, except as documented Neuro Reports abnormal gait, Denies dizziness and Denies headache(s) Psych Reports no additional complaints Physical exam (Primary Care) Vital Signs: Last Vital Signs Temp 97.3 F 04/02/25 09:55 Pulse 75 04/02/25 09:55 BP 130/70 04/02/25 09:55 Pulse Ox 95 04/02/25 09:55 Oxygen Delivery Method Room Air 04/02/25 09:55 BMI result Body Mass Index 36.8 Tobacco/Smoking Status: Tobacco use Status Tobacco use date assessed 04/02/25 04/02/25 10:05 Patient Tobacco Use Status Never used Tobacco 04/02/25 10:05 e-Cigarette/Vaping Use Never Used 04/02/25 10:05 Thrive Assessment: Date of Thrive Assessment Date Thrive assessed 01/07/25 04/02/25 10:05 Const General: cooperative, healthy appearing, comfortable and no acute distress Orientation/consciousness: patient oriented x3 HENMT Head: Yes normocephalic Ears: hearing grossly normal bilaterally General nose exam: Normal external nose present Eyes General: appearance normal, both eyes and all related structures Conjunctivae: conjunctivae normal Neck Neck: Yes full ROM and Yes no lymphadenopathy Resp Effort & Inspection: normal respiratory effort Auscultation: clear to auscultation bilaterally, no crackles, no rales, no rhonchi and no wheezes Cardio Rate: regular rate Rhythm: regular rhythm Skin General skin exam: no rashes or lesions noted Neuro General: patient oriented x3 Gait exam (Neuro): Normal gait present Extrem General: Yes normal to inspection, Yes full ROM and No edema Psych Affect: normal affect Attitude: cooperative Insight: Good insight present (Psych) Judgement: Good judgement present (Psych) Coding Level of Care Code Est Pt Level 3 (79561) Diagnoses Left hip pain M25.552 Asthma J45.909 Obesity (BMI 30-39.9) E66.9 Chronic pain syndrome G89.4 Aneurysm I72.9 Assessment & Plan Assessment & Plan (1) Left hip pain: Code(s): M25.552 - Pain in left hip Category: Medical Plan: Patient having left hip osteoarthritis being evaluated by Dr. Lara through [facility]. Was advised that she will be unable to have the left hip replacement until her breathing is better managed. Seeing pulmonology next month (2) Asthma: Code(s): J45.909 - Unspecified asthma, uncomplicated Category: Medical Plan: We will continue monitoring her pulmonary condition with a follow-up appointment scheduled, and I plan to see her again in two months to evaluate any changes and ensure appropriate management is in place for her chronic conditions. Patient also given Mucinex as her postnasal drip has been worsening contributing to her asthma. Patient is seeing [facility] pulmonology next month and considering supplemental oxygen. (3) Obesity (BMI 30-39.9): Code(s): E66.9 - Obesity, unspecified Category: Medical Plan: Healthy diet and regular exercise is encouraged. (4) Chronic pain syndrome: Code(s): G89.4 - Chronic pain syndrome Category: Medical Plan: I did refill that tizanidine patient understands high dose may cause drowsiness and risk for falls. Also discussed with the patient that tizanidine may not be covered by insurance as it was denied last time. 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 She has a follow up with [facility] Neurology 04/18/2025 Plan This note was constructed using voice recognition software. While every effort has been made to ensure accuracy and credit collections specialist, still areas may have been included sometimes these areas may affect the content or meeting of the given symptoms. Total time spent caring for the patient today was 20 minutes. This includes time spent before the visit reviewing the chart, time spent during the visit, and time spent after the visit and documentation. Medications: New tizanidine 8 mg (2 x 4 mg) PO BEDTIME PRN 30 caps 0RF muscle spasticity tizanidine 4 mg PO BEDTIME PRN 30 caps 0RF muscle spasticity guaifenesin ER (Mucinex) 600 mg PO BID 20 tabs 0RF Refilled diclofenac sodium 1% apply to single elbow, wrist or hand; for hand includes palm/fingers/back of hand 2 grams topical QID 100 grams 0RF ketoconazole 2% 1 appl topical BID 60 grams 0RF B37.2 - Candidiasis of skin and nail lidocaine 5% (Lidoderm) leave on most painful area for up to 12 hrs 1 patch topical DAILY PRN 30 ea 0RF pain MDD remove after 12 hours
[2025-04-02 09:55] VITALS: BP 130/70; PULSE 75; TEMP 36.3; O2SAT 95; BMI 36.8
--- OUTSIDE RECORDS SUMMARY | 2025-04-02 11:05 | XMS_ITS | Data Portability ---
Author Organization [place] - Jeovany Manning, [employer] - [facility] Address [address] [place] [address] Assessment Encounter Date Assessment Date Assessment LastModified [...] - Evaluate for pain management [email or web address] [facility], [address] [place], [address], 6 12:01:58 Procedures None recorded. Surgeries None recorded. Imaging MRI, lumbar spine, w/wo contrast - Needs Open MRI Lumbar Spine w/wo- s/p L5-S1 ALIF and Left L5-S1 discectomy no precert required * 2015 016 [email or web address] Not available 6 07:42:15 XR, pelvis [address] [facility], [address] [place], [address], 6 22:36:06 XR, lumbar spine [address] [facility], [address] [place], [address], 6 22:36:06 Medication Orders prednisone 10 mg tablets in a dose pack 2015 016 [email or web address] Not available 6 07:42:18 oxycodone 5 mg tablet 2015 016 [email or web address] Not available 6 07:42:18 Ultram 50 mg tablet 2015 016 [email or web address] Not available 6 10:06:54 Patient TargetsNo targets recorded. Patient Instructions Encounter Date Encounter Id Patient Instructions Last Modified By Organization Details Last Modified Time 06/07/2016 [id number] hip pain: care instructions [email or web address] Not available 06/14/2016 10:02:52 back care and preventing injuries: care instructions [email or web address] Not available 06/14/2016 10:02:52 getting back to normal after low back pain: care instructions [email or web address] Not available 06/14/2016 10:02:52 learning about relief for back pain [email or web address] Not available 06/14/2016 10:02:52 I had a [...] the plan. Not available 06/08/2016 11:54:23 07/13/2016 [id number] Mrs. Case presents with symptoms and physical [...] reviewed. The patient no longer goes to [place] to see her spine surgeon for follow-up [...] ast No observ ation record ed. [email or web address] [facility] [address] [facility] [address] [facility] [address], [place], [address], 08/03/2016 10:47:17 Result Notes None recorded. Problems Name Problem SNOMED Code Status Onset Date Resolution Date Notes Provider Name and Address Organization Details Recorded Time Pain of hip region [id number] [facility] 6 10:06:54 Low back pain 922527180 Christina guidry [facility] 6 10:06:54 Lumbosacral radiculitis 47080287 Christina guidry [facility] 6 07:42:18 Chronic postoperati ve pain 1604159852912 03 Christina guidry [facility] Jeovany 6 07:42:18 Problem Notes None recorded. Procedures Surgical History Date Name Laterality Status Provider Name and Address Organization Details Recorded Time DEHYDROGENATION CONVERTER HELPER completed Lisa Kuhn [facility] Jeovany Henley 06/07/2016 11:49:12 Orthopedic Surgery completed Jon Chacorta [facility] Jeovany Henley 07/13/2016 11:05:03 Spine Surgery completed Jong[facility]la [facility]ri [facility] 07/13/2016 11:05:03 Orthopedic Surgery completed Jongayla [facility]sterri [facility] 07/13/2016 11:05:03 Imaging Results Imaging Date Name Status LastModified by Aram cameron Details LastModified Time 07/19/2016 MRI, lumbar spine, w/wo contrast completed [email or web address] [facility] [address] [facility] [address], [place], [address], 08/03/2016 10:47:17 Procedure Notes None recorded. Medical Equipment None Reported. Allergies Allergen ID Allergen Name Allergen Category Reaction Reaction Severity Criticality Documentation Date Start Date Code Code System Note Provider Name and Address Organization Details Recorded Time 21051 aspirin medicatio n Not available Not available Not available 06/07/2016 1191 RxNorm Lisa Kuhn brea [facility] 6 11:49:12 77865 Seroquel medicatio n Not available Not available Not available 06/07/2016 01930 RxNorm Lisa Bam guidry [facility] 6 11:49:12 78077 Motrin medicatio n Not available Not available Not available 06/07/201698416 8 RxNorm [place] guidry [facility] 6 11:49:12 75052 acetamino phen / hydrocodo ne medicatio n Not available Not available Not available 06/07/2016 08965 2 RxNorm [place] guidry [facility] 6 11:49:12 86086 trazodone medicatio n Not available Not available Not available 06/07/2016 60589 RxNorm Lisa guidry [facility] 6 11:49:12 Medications Name Sig Start Date Stop Date [...] active Not Available Not Available Not Rohan labcriss nystatin 100,000 unit/gram topical cream APPLY A [...] 2015 active Not Available Not Available Not Avai lable nitrofurantoin monohydrate/ma crocrystals 100 mg capsule TAKE [...] Details Last Updated DateTime 06/07/2016 165.1 cm 305046.7857 4 g 38.6 kg/m2 Lisa Kuhn [facility] 06/07/2016 11:49:12 Date Recorded Body weight Body mass index (BMI) Body height Heart rate Systolic blood pressure Diastolic blood pressure Provider Name and Address Organization Details Last Updated DateTime 6 572569. 57033 g 38.9 kg/m2 165.1 cm 72 /min 131 mm[Hg] 109 mm[Hg] Abram Wolf [facility] 6 10:06:54 Social History Question Answer Notes LastModified by Organizat ion Details LastModified Time Tobacco Smoking Status Never Smoker Lisa Kuhn brea, [facility] 06/07/2016 11:49:12 What Is Your Level Of Alcohol Consumption? None [email or web address] Information not available 06/07/2016 How Much Tobacco Do You Chew? None [email or web address] Information not available 06/07/2016 Are You Currently Employed? No [email or web address] Information not available 06/07/2016 What Type Of Diet Are You Following? REGULAR [email or web address] Information not available 06/07/2016 Which Of Your Hands Is Dominant? Right [email or web address] Information not available 06/07/2016 Marital Status [email or web address] Informati on not available 06/07/2016 How Many Children Do You Have? 2 [email or web address] Information not available 06/07/2016 How Much Tobacco Do You Smoke? No [email or web address] Information not available 06/07/2016 Sex: Unknown Functional [...] SNOMED-CT Code Diagnosis ICD10 Code Diagnosis Note [id number] MD MARIAJOSE Cano III_Aleksandr g [address] [place] [address] 06/07/2016 10:35:01 06/07/2016 13:44:46 Pain of hip region 21592640 M25.552 Low back pain 006094889 M54.5 [id number] Jon Whatley MD [facility] [address] [place] [address] 07/13/2016 09:43:04 07/13/2016 11:04:03 Lumbosacral radiculitis 82098899 M54.17 Chronic po stoperative pain 0975230129 10962 G89.28 Health Concerns Section Related Observation LastModified by Organization Detai ls LastModified Time None Recorded Concern Status LastModified by Organization Details LastModified Time None Recorded Advance Directives Directive None Recorded Payers Encounter Date Sequence Insurance Name Policy Number Policy Bailon Covered Member ID Bailon Member ID Guarantor Name 06/07/2016 1 [place] Idania Case [id number] Idania Case 07/13/2016 1 [place] Idania Case [id number] Idania Case Notes Date Note Type Note Provider Name and Address Organization Details Recorded Time 06/07/2016 text/html Lower [id number] bypatient.Location:[facility] Quality:sharp Severity:severe; pain level 8/10; worst pain 10/10 Duration:years Timing:morning; daytime; nighttime Alleviating Factors:nothing helps Aggravating Factors:sitting; standing; pushing/pulling Associated Symptoms:weakness;num bness;tingling Prior Imaging:MRI Previous Injections:did not help Previous PT:none Work Related:no Working:no Ms. Idania Case is a 56-year-old female who presents today for evaluation of low back and left hip pain. The patient has a history of two prior back surgeries performed earlier this year. The first was performed din February by a surgeon in [place] which included an anterior lumbar interbody fusion at the L5-S1 level. She subsequently underwent a secondary surgery in March 2016 which included L5-S6zypfjcrkrn. She recently moved her from [place] where her surgery was performed. She presented to [facility] and was sent her for further evaluation and management. She is complaining of pain radiating from her lower back to her left gluteal region with occasional pain radiating into her groin o the left. Patient states her pain has been present earlier this year prior to her previous surgeries. She denies any bowel or bladder dysfunction. She ABHISHEK Avery - [place] [employer] [employer] 06/10/2016 13:39:15 07/13/2016 text/html Lower [id number] bypatient.Associated Symptoms:no weakness; no numbness; no tingling; [...] L5-S1 fusion in February while living in [place]. She was attending physical therapy postoperatively and [...] to be a left L5-S1 disc fragment. Jon guidry [place] - [facility] LRexLFei 07/14/2016 07:42:19 OBGyn Episode No OBEpisode recorded.
--- OUTSIDE RECORDS SUMMARY | 2025-04-02 11:05 | XMS_ITS | Patient Health Record ---
Author Organization [facility] MAIN OFFICE Address [address] [place] [address] Care Team Providers Care Collar Starcher Name Role Phone CAYLA SOMMERS Primary Care Provider Cayla Sommers Unavailable Unavailable Allergies Allergen (clinical [...] day for 30 day(s) 11/18/2020 Unknown Nystatin 958400 UNIT/GM 1 application Externally Twice a day [...] Status Risk Notes Problem Chronic pain syndrome (274922190) Chronic pain syndrome (G89.4) Active confirmed Problem Chronic kidney disease stage 2 (481482461) Chronic kidney disease, stage 2 (mild) (N18.2) Active confirmed Problem Anxiety (83993454) Anxiety (F41.9) Active confi rmed Problem Asthma (590603366) Asthma (J45.909) Active confirmed Problem Lumbosacral spondylosis without myelopathy (07977908) Degenerative joint disease (DJD) of lumbar spine (M47.816) Active confirmed Problem Recurrent falls (002470554) Frequent falls (R29.6) Active confirmed Problem Constipation (58123119) Constipation (K59.00) Active confirmed Problem Hypothyroid (40329924) Hypothyroid (E03.9) Active confirmed Problem Body mass index 30+ - obesity (044214499) BMI 30.0-30.9,adult (Z68.30) Active confirmed Problem Osteoporosis (79541264) Osteoporosis (M81.0) Active confirmed Problem Chronic pain (22366223) Chronic pain (G89.29) Active confirmed Problem Hyperlipidaemia (09571103) HLD (hyperlipidemia ) (E78.5) Active confirmed Problem Iron deficiency anemia (29700218) Fe deficiency anemia (D50.9) Active confirmed Problem Insomnia (957015142) Insomnia (G47.00) Active confirmed Problem Multiple joint pain (48193177) Multiple joint pain (M25.50) Active confirmed Problem Restless legs (68997170) RLS (restless legs syndrome) (G25.81) Active confirmed Problem Obesity (570096333) Obesity (E66.9) Active conf irmed Problem Rheumatoid arthritis (47228361) Rheumatoid arthritis (M06.9) Active confirmed Problem Allergic rhinitis (96822130) Rhinitis, Allergic (J30.9) Active confirmed Problem Vitamin D deficiency (24777537) Vitamin D deficiency (E55.9) Active confirmed Problem Hepatitis B (32600345) Hepatitis B (B16.9) Active confirmed Problem Peripheral neuropathy (187706200) Peripheral neuropathy (G62.9) Active confirmed Problem Chronic hepatitis C (009802778) Hep C w/o coma, chronic (B18.2) Active confirmed Problem Essential hypertension (10862439) HTN (hypertension) with goal to be determined (I10) Active confirmed Problem Rheumatoid arteritis (115090884) Rheumatoid arteritis (M05.20) Active confirmed Plan Of Treatment Pending Test Test Name Order Date Biopsy of skin (88244) 09/02/2021 EKG [57541] 05/18/2021 Drug Screen (Rapid Urine) 09/09/2021 Not currently using tobacco 05/18/2021 Not currently using tobacco 09/02/2021 Not currently using tobacco 07/22/2021 Not currently using tobacco 08/12/2021 Medication Review Completed 08/12/2021 Medication Review Completed 07/22/2021 Medication Review Completed 09/02/2021 Medication Review Completed 05/18/2021 BMI above normal (>25 age 18-64, >30 age 65+); follow up plan documented 05/18/2021 BMI above normal (>25 age 18-64, >30 age 65+); follow up plan documented 09/02/2021 BMI above normal (>25 age 18-64, >30 age 65+); follow up plan documented 07/22/2021 BMI above normal (>25 age 18-64, >30 age 65+); follow up plan documented 08/12/2021 Systolic BP <140 09/02/2021 Systolic BP <140 07/22/2021 Systolic BP <140 08/12/2021 Systolic BP <140 05/18/2021 Diastolic BP <90 05/18/2021 Diastolic BP <90 09/02/2021 Diastolic BP <90 08/12/2021 Diastolic BP <90 07/22/2021 Pain Assessment - pain present and quant ified 07/22/2021 Pain Assessment - pain present and quant ified 08/12/2021 Pain Assessment - pain present and quant ified 09/02/2021 Pain Assessment - pain present and quant ified 05/18/2021 Venipuncture [12173] 11/18/2020 Venipuncture [72371] 05/18/2021 CT BRAIN WITHOUT CONTRAST 07/22/2021 Venipuncture [64237] 07/22/2021 Future Test Test Name Order Date Colonoscopy 11/18/2020 DEXA 11/18/2020 ECHO 05/18/2021 Bone scan 05/18/2021 XRAY ABDOMINAL SERIES (3 VIEW) [42185] 0 05/18/2021 STRESS TEST EXERCISE 05/18/2021 Colonoscopy 07/22/2021 Fluoroscopic guidance for epidural injec tion of lumbar spine (57672) 09/14/2021 Bilateral Lumbar facet Single level (644 93) 09/14/2021 Bilateral Lumbar facet Second level (644 94) 09/14/2021 Bilateral Lumbar facet Third and more le vels (92385) 09/14/2021 Insurance Providers Payer Name Payer Address Payer Phone Subscriber Number Group Number Insured Name Patient Relationship to Insured Coverage Start Date Coverage End Date [facility] [address] [place], [place] [phone] [id number] JVAON ANDUJAR Self - patient is the insured Medications Administered Medication Instructions Date of Administration Dosage Notes ROCEPHIN (CEFTRIAXONE) [250 mg / 1 Unit] 01/20/2021 1 g Medical (General) History Medical History History ICD Code Arthritis Asthma Allergies Back pain Bone loss Dizziness Hypothyroidism Hepatitis C headaches Obesity
--- OUTSIDE RECORDS SUMMARY | 2025-04-02 11:05 | XMS_ITS | Data Portability ---
Author Organization [place] [facility], Allergy Address [address] [address] Care Team Providers Care Residence Life Coordinator Name Role Phone ISISJANETH Primary Care Provider Assessment Encounter Date Assessment Date Assessment LastModified [...] Dr. Cramer. She will follow-up with her electrical systems design engineer at [facility] [place]. [email or web address] Not available 05/09/2024 14:42:06 Plan of Treatment [...] audio gram No observ ation record ed. Not Available 2023 16:54:16 Result Notes None recorded. Problems Name Problem SNOMED Code Status Onset Date Resolution Date Notes Provider Name and Address Organization Details Recorded Time Sensorineural hearing loss of bilateral ears 588436786 Active 2023 CANDICE VELASQUEZ, AUD 100 [facility] [address], [place], [address], [place] - [facility] 4 10:42:10 Problem Notes None recorded. Procedures Surgical History Date Name Laterality Status Provider Name and Address Organization Details Recorded Time 05/09/2024 Comp Audio with Tymps - 22007 & 03024 completed CANDICE VELASQUEZ, AUD 100 [facility] [[email or web address] [address], [place], [address], [facility] 05/09/2024 10:41:02 Imaging Results Imaging Date Name Status LastModified by Organiz ation Details LastModified Time 05/09/2024 audiogram completed BARCODE Information no t available 05/09/2024 16:49:54 11/29/2023 audiogram completed [email or web address] Information no t available 05/09/2024 16:54:16 Procedure Notes None recorded. Medical Equipment None Reported. Allergies Allergen ID Allergen Name Allergen Category Reaction Reaction Severity Criticality Documentation Date Start Date Code Code System Note Provider Name and Address Organization Details Recorded Time 630029 aspirin medicatio n Not available Not available Not available 05/09/2024 1191 RxNorm Alee Lara null, [place] - [facility] 4 11:03:20 738323 ibuprofen medicatio n Not available Not available Not available 05/09/2024 5640 RxNorm Alee Lara null, [place] - [facility] 4 11:03:29 740920 Seroquel medicatio n Not available Not available Not available 05/09/2024 86574 RxNorm Alee Lara null, [facility] 4 11:03:57 389955 acetamino phen / hydrocodo ne medicatio n Not available Not available Not available 05/09/2024 60469 2 RxNorm Alee Lara null, [place] - [facility] 4 11:04:04 Medications Name Sig Start [...] Updated DateTime 05/09/2024 165.1 cm 35.8 kg/m2 09748.36 g Alee Lara [place] - [facility] 05/09/2024 11:02:03 Social History None recorded. [...] Note 3712 SHIRAZ CUMMINGS PA-C [facility] [address] [address] 05/09/2024 09:42:28 05/09/2024 11:07:02 Sensorineural hearing loss of bilateral ears 500881047 H90.3 Audiologic al evaluation results:Ri ght ear:{{Norm [...] Bailon Member ID Guarantor Name 05/09/2024 1 [facility] - HEALTH NET PLAN (MEDICAID HMO) RAULITO Case [id number] Idania Case Notes Date Note Type Note Provider Name and Address Organization Details Recorded Time 05/09/2024 text/html 63-year-old femwes kahn presents for evaluation of hearing loss. She reports longstanding hearing loss and previously used hearing aids about 15 years ago. She recently was evaluated over at [facility] in November and is here today for medical clearance for hearing aids. Admits to tinnitus and hearing loss bilaterally, but denies otalgia and otorrhea. Reports history of chronic ear infections and had tubes as a child. Reports ear popping and history of seasonal allergies. Denies vertigo. SHIRAZ CUMMINGS PA-C [address] [place] [address], [phone], [facility] - [facility] 05/09/2024 14:43:33 OBGyn Episode No OBEpisode recorded.
--- OUTSIDE RECORDS SUMMARY | 2025-04-02 11:05 | XMS_ITS | Patient Health Record ---
Author Organization [facility] Address [address] [place], [place] [id number] Care Team Providers Care Frozen Food Department Manager Name Role Phone [facility] Primary Care Provider Un available Tiffany Mcdonald Unavailable [phone] Reason For Referral No Information Social History Sex Assigned At : Social History Observation Description Sex Assigned At Female Encounters Encounter Location Date Provider Diagnosis [facility] [address] [place] [phone] 02/26/2025 Tiffany Mcdonald [facility] [address] [place] [address] [phone] 03/22/2025 Tiffany Mcdonald [facility] [address] [place] [address] [phone] 02/15/2025 Tiffany Mcdonald Plan Of Treatment No Information Insurance Providers Payer Name Payer Address Payer Phone Subscriber Number Group Number Insured Name Patient Relationship to Insured Coverage Start Date Coverage End Date [facility] [employer] [address] [place] [address] [phone] [id number] Idania Case Self - patient is the insured [place] Medicaid Standard [address] [place] [address] [phone] [id number] Idania Case Self - patient is the insured
--- OUTSIDE RECORDS SUMMARY | 2025-04-02 11:05 | XMS_ITS ---
Author Organization [facility] Address [address] [place], [place] [address] Care Team Providers Care Welder/Fabricator Name Role Phone [facility] Primary Care Provider Un available Tiffany Mcdonald Unavailable Social History Sex Assigned At : Social History Observation Description Sex Assigned At Female Encounters Encounter Location Date Provider Diagnosis [facility] [address] [place], [place] [phone] 03/08/2025 Tiffany Mcdonald Plan Of Treatment No Information Progress Notes * Idania ANDUJAR SueDOB:1959 (64 yo F)Acc No.[id number]:03/08/2025 Case Management Patient:?Idania ANDUJAR Provider:Erich Mcdonald :1960???Age:64 Y???Sex:Female D ate:03/08/2025 Address:[facility] [address] [facility] Pcp:[facility] [place] Subjective: * Chief Complaints: * ??? * Medical History:? Objective: Assessment: Plan: * Treatment: * Images: Billing Information: * Visit Code:? * Procedure Codes:? Care Plan Details* * Electronic signature of Garcia Mcdonald on 04/02/2025 at 11:04 AM EDT Sign off status: Pending * Provider:Erich Mcdonald Date:? Generated for Abdifatah love/Falance/eTransmitting on:?04/02/2025 11:04 AM EDT
--- OUTSIDE RECORDS SUMMARY | 2025-04-02 11:06 | XMS_ITS | Data Portability ---
Author Organization [facility], [facility] Address [address] [place] [address] Care Team Providers Care Machinist Apprentice Wood Name Role Phone JANETH MCCRAY Primary Care Provider Assessment Encounter Date Assessment Date Assessment LastModified by Organization Details LastModified Time 09/26/2024 09/26/2024 PROBLEM: Left Hi p Endstage [...] and lucid. Normal insight, affect, and grooming. [employer] DIRECTION SPECIALIST: Gross motor coordination is intact. No spasticity [...] osteoarthritis of the left hip with near xyjs-sn-lyta articulation. There is no evidence of fracture. Previously obtained X-rays reviewed in the office today on [facility]: Weight bearing AP of Both knees, [place] view of Both Knees, [place] View of Both Knees, and Lateral of the Right knee; demonstrate severe end-stage osteoarthritis of the Right Knee. There is xhov-qg-efwt articulation medially, subchondral sclerosis, osteophyte formation. There [...] to answer all of the patient's questions. [employer] speech recognition manager hvac software was used to create portions of this document. An attempt at proofreading has been made to minimize errors. Please call for corrections. [email or web address] Not available 09/27/2024 13:32:10 10/10/2024 10/10/2024 Assessment: Melva ent presents with symptoms that are consistent with hip OA. Demonstrates good understanding of home program, post-operative mechanics for gait and stairs, hip kit, and expectations following surgery. ? Plan: Discharge patient to hip OA friendly [facility]. Follow up with patient post-operatively. [email or web address] [...] pulmonology and will be seen by a director manufacturing engineering. CT scan that was done recently in the ED ruled out PE. She was seen by pulmonology and will be seen by director manufacturing engineering. Her echocardiogram is pending. 19. Hearing loss. [...] PHYSICIANS: Her primary care provider is Dr. Mccray. Her director manufacturing engineering is Dr. Ovalle. REVIEW OF SYSTEMS: Negative [...] osteoarthritis of the left hip. There is jppy-rh-bcln articulation, subchondral sclerosis and osteophyte formation. There [...] The patient will be seen by her director manufacturing engineering and that dictation is still pending. The patient will be seen by her ell tutor and that dictation is still pending. The [...] pantoprazole, Colace and pain medications filled at [facility] prior to discharge. She will not receive any tramadol due to not tolerating in the past. CONTACTS: Her mother Sylvia with a cell phone number [phone]. [email or web address] Not available 11/13/2024 13:10:09 11/13/2024 11/13/2024 [...] X-rays ordered, obtained, and reviewed today on [facility]: AP pelvis, Marking AP of the [...] forms were signed and pre-operative instructions reviewed. [facility] speech recognition manager hvac software was used to create portions of this document. An attempt at proofreading has been made to minimize errors. Please call for corrections. [email or web address] Not available 11/13/2024 11:37:29 01/25/2025 01/25/2025 Patient diagnosi s discussed with patient today. At this time symptoms are most consistent with muscle spasms and cramping on that left side and believes myofascial in nature. Do not see any signs and symptoms of intra-articular hip pathology today. Discussed multiple treatment options and patient has had tizanidine does work well for her. Was getting ready to increase to 6 mg but has not had a fill and the last 2 months and do not feel comfortable refilling at 6 mg Concerta for 4 mg 12 he can transition back to primary care. Discussed role of primary care rule out other etiologies to include electrolyte imbalance and hydration for possible etiologies. All questions asked and answered. Follow-up as symptoms dictate [email or web address] Not available 01/25/2025 11:39:23 Plan of Treatment Reminders Order Date Submit Date Provider Last Modified By Organization Details Last Modified Time Details Appointments None recorded. Lab None recorded. Referral None recorded. Procedures None recorded. Surgeries None recorded. Imaging XR, hip + pelvis, unilateral, 2 or 3 view - room 205, R hip 2v 2024 025 [email or web address] [facility], [address], [place], [address], 5 11:45:00 XR, hip + pelvis, unilateral, 2 or 3 view - ROOM 223 LEFT HIP 3V WITH MARKER SJK 2023 024 [facility], [address], [place], [address], 4 11:43:19 XR, hip + pelvis, bilateral, 2 view - 104, just AP pelvis 2023 024 [email or web address] [facility], [address], [place], [address], 4 13:19:44 Medication Orders tizanidine 4 mg tablet 2024 025 [facility] #[id number], [address] [place], [address], 5 11:40:06 Patient TargetsNo targets recorded. Patient InstructionsNo instructions recorded. Reason for Referral None Reported. Results Created Date Observation Date Name Description Value Unit Range Abnormal Flag Note LastModifiedBy Organization Detail LastModifiedTime 09/26/20 24 09/26/2024 XR, hip + pelvi sjermaine, 2 view [email or web address]:/ [email or web address] ?Encry pted=s hAaTro YD8dLq bEUv6g %2BXZw aYqtaq 0bqfl% 2Fg9IQ a4ajBk vP9nXo QUaueC m3YtLR FvZlgJ JJ8mAn HZtai3 7d1763 AC0Kqa H6CU6a vKiQtr MwF INTERFACE [facility] [address], [place], [address], 09/26/2024 18:19:53 09/26/20 24 09/26/2024 XR, hip + pelvi s, bilat eral, 2 view [email or web address]:/ [email or web address] ?Encry pted=s hAaTro YD8dLq bEUv6g %2BXZw aYqtaq 0bqfl% 2Fg9IQ a4ajBk vP9nXo QUaueC m3YtLR FvZlgJ JJ8mAn HZtai3 0f3677 AC0Kqa H6CU6a vKiQtr MwF INTERFACE [facility] [address], [place], [address], 09/26/2024 18:19:54 11/13/20 24 11/13/2024 XR, hip + pelvi s, unila teral , 2 or 3 view [email or web address]:/ [email or web address] ?Encry pted=s hAaTro YD8dLq bEUv6g %2BXZw aYqtaq 0bqfl% 2Fg9IQ a4ajBk vP9nXo QUaueC m3YtLR FvZlgJ JJ8mAn HZtai3 6d1121 AC0Kqb n6GVqG iKiQtr MwF INTERFACE [facility] [address], [place], [address], 11/13/2024 11:43:19 11/13/20 24 11/13/2024 XR, hip + pelvi s, unila teral , 2 or 3 view [email or web address]:/ [email or web address] ?Encry pted=s hAaTro YD8dLq bEUv6g %2BXZw aYqtaq 0bqfl% 2Fg9IQ a4ajBk vP9nXo QUaueC m3YtLR FvZlgJ JJ8mAn HZtai3 9s9954 AC0Kqb n6GVqG iKiQtr MwF INTERFACE [facility] [address], [place], [address], 11/13/2024 11:43:22 01/25/20 25 01/25/2025 XR, hip + pelvi s, unila teral , 2 or 3 view http:/ [email or web address] ?Encry pted=s hAaTro YD8dLq bEUv6g %2BXZw aYqtaq 0bqfl% 2Fg9IQ a4ajBk vP9nXo QUaueC m3YtLR FvZlgJ JJ8mAn HZtai3 6s6865 AC0Kqb XiDV6W hKiQtr MwF INTERFACE [facility] [address], [place], [address], 01/25/2025 10:56:23 01/25/20 25 01/25/2025 XR, hip + pelvi s, unila teral , 2 or 3 view [email or web address]:/ [email or web address] ?Encry pted=s hAaTro YD8dLq bEUv6g %2BXZw aYqtaq 0bqfl% 2Fg9IQ a4ajBk vP9nXo QUaueC m3YtLR FvZlgJ JJ8mAn HZtai3 4e4115 AC0Kqb XiDV6W hKiQtr MwF INTERFACE [facility] [address], [place], [address], 01/25/2025 10:56:25 Result Notes None recorded. Problems Name Problem SNOMED Code Status Onset Date Resolution Date Notes Provider Name and Address Organization Details Recorded Time No complaints 518515381 Active Status : 'I'; Not Available [facility] 4 09:17:16 Pain of bilateral knee joints 0946663290097 04 Active 2023 BEATRIZ guidry [place] - [facility] 4 17:10:16 Osteoarthr itis of left hip joint 8928792165582 08 Active 2023 Db Lara MD [address], [place], [address] , [facility] - [facility] 4 13:12:01 Pain of right knee joint 0461312808512 00 Active 2021 Status : 'A'; Not Available [facility] 4 11:27:19 Problem Notes None recorded. Procedures Surgical History Date Name Laterality Status Provider Name and Address Organization Details Recorded Time 4 26671 Therapeutic Exercise (1:1) completed Karlos Lowery, PT [address], [place], [address], [place] [facility] 10/10/2024 11:34:10 4 02219: Low complexity PT Eval completed Karlos Lowery, PT [address], [place], [address], [facility] 10/10/2024 11:34:13 Imaging Results Imaging Date Name Status LastModified by Organiz ation Details LastModified Time 09/26/2024 XR, hip + pelvis, bilateral, 2 view completed INTERFACE [facility] [address], [place], [address], 09/26/2024 18:19:53 09/26/2024 XR, hip + pelvis, bilateral, 2 view completed INTERFACE [facility] [address], [place], [address], 09/26/2024 18:19:54 11/13/2024 XR, hip + pelvis, unilateral , 2 or 3 view completed INTERFACE [facility] [address], [place], [address], 11/13/2024 11:43:19 11/13/2024 XR, hip + pelvis, unilateral , 2 or 3 view completed INTERFACE [facility] [address], [place], [address], 11/13/2024 11:43:22 01/25/2025 XR, hip + pelvis, unilateral , 2 or 3 view completed INTERFACE [facility] [address], [place], [address], 01/25/2025 10:56:23 01/25/2025 XR, hip + pelvis, unilateral , 2 or 3 view completed INTERFACE [facility] [address], [place], [address], 01/25/2025 10:56:25 Procedure Notes None recorded. Medical Equipment None Reported. Allergies Allergen ID Allergen Name Allergen Category Reaction Reaction Severity Criticality Documentation Date Start Date Code Code System Note Provider Name and Address Organization Details Recorded Time 147657 Non-stero idal anti-infl ammatory agent (product) medicatio n Not available Not available Not available 08/21/2024 19560 005 SNOMED [facility] 4 09:34:12 406368 Seroquel medicatio n Not available Not available Not available 08/21/2024 28373 RxNorm [facility] 4 09:34:20 30606 Motrin medicatio n Not available Not available Not available 01/30/20242019 72343 8 RxNorm Not Available [facility] 4 13:27:41 94233 trazodone hydrochlo ride medicatio n Not available Not available Not available 01/30/20242014 17858 RxNorm Not Available [facility] 4 13:27:41 39806 acetamino phen / hydrocodo ne medicatio n Not available Not available Not available 01/30/20242014 85975 2 RxNorm Not Available [facility] 4 13:27:41 32086 aspirin medicatio n Not available Not available Not available 01/30/20242014 1191 RxNorm Not Available [facility] 4 13:27:41 Medications Name Sig Start Date [...] mg tablet TAKE 1 TABLET BY MOUTH ONCE DAILY AT BEDTIME active Not Available Not Available No t Available tizanidine 2 mg tablet TAKE 1 TABLET BY MOUTH EVERY 8 HOURS NEEDED FOR MUSCLE SPASTICIT Y active Not Available Not Available No t Available nystatin 100,000 unit/gram topical ointment APPLY TOPICALLY TO THE AFFECTED AREA TWICE DAILY. active Not Available Not Available No t Available tizanidine 4 mg tablet TAKE 1 TABLET BY MOUTH EVERY 6 HOURS NEEDED FOR SPASM FOR 14 DAYS active Not Available Not Available No t Available fluconazole 150 mg tablet TAKE 1 TABLET BY MOUTH EVERY DAY FOR 5 DAYS 09/26 completed Not Available Not Available Not Available hydrocodone 5 mg-acetamin ophen 325 mg tablet TAKE 1 TABLET BY MOUTH EVERY 6 HOURS NEEDED 09/26 completed Not Available Not Available Not Available prednisone 20 mg tablet TAKE 2 TABLETS BY MOUTH EVERY DAY FOR 5 DAYS active Not Available Not Available No t Available fexofenadin e 180 mg tablet TAKE [...] ER 80-700 mg tablet,exte nded release 1tab [id number] for prn pain 09/26 completed Statu s: 'Curr ent'; Not Available Not Available Not Available lidocaine 5 % topical patch PLEASE SEE ATTACHED FOR DETAILED DIRECTION S active Not Available Not Available No t Available Advair Diskus 250 mcg-50 mcg/dose powder for inhalation active Not Available Not Available N ot Available nystatin 100,000 unit/gram topical powder APPLY TOPICALLY TO AFFECTED AREA 3 TIMES A DAY FOR 21 DAYS active Not Available Not Available No t Available methylpredn isolone 4 mg tablets in a dose pack TAKE DIRECTED ON PACKAGE FOR 6 DAYS WITH FOOD active Not Available Not Available [...] Updated DateTime 09/26/2024 160.02 cm 39 kg/m2 82616.32 g Darron Gutierrezjustin [facility] 09/26/2024 18:04:23 Date Recorded Body height Body mass index (BMI) Body weight Provider Name and Address Organization Details Last Updated DateTime 11/13/2024 160.02 cm 39.1 kg/m2 712818.91 g SERGIO HUANG [facility] 11/13/2024 10:54:49 Date Recorded Body height Body mass index (BMI) Body weight Provider Name and Address Organization Details Last Updated DateTime 01/25/2025 160.02 cm 39 kg/m2 02630.32 g Gemma Esquivel [facility] 01/25/2025 10:38:07 Social History None recorded. Functional Status None recorded. Mental Status None recorded. Family History Nothing Reported. Medical History Condition Response Allergies/Hayfever N Coronary Artery Disease N Anxiety/Depression N Breathing or lung disorders Y Emphysema N Nerve Disorders N Thyroid Problems Y COPD N Pacemaker N Kidney/Bladder Problems N Anemia N Vascular Disease N Heart Trouble N Heart Attack ([place]) N Gastrointestinal Disease N Cholesterol N Diabetes N Autoimmune disease N Inflammatory Joint disease N Bleeding Disorder N Orthotics N Seizures/Epilepsy N Arthritis N Blood Clot N AIDS/HIV N Congestive Heart Failure (CHF) N Acid Reflux (GERD) N Cancer N Stroke N Asthma Y Circulation Problems N Peripheral Vascular Disease N Sleep Apnea N Hepatitis N Heart Disease N Rheumatoid Arthritis N Pulmonary Embolism N Arrhythmia N Headaches N Fibromyalgia N Hypertension N Osteoporosis N Gynecological HistoryNo gynecological history recorded. Obstetrics History GPAL:G 0 P 0 0 0 0 Past Encounters Encounter ID Performer Location Encounter Start Date Encounter Closed Date Diagnosis/Indication Diagnosis SNOMED-CT Code Diagnosis ICD10 Code Diagnosis Note [id number] CAITIE Sultana [address] [place] [address] 08/23/2024 16:53:39 09/04/2024 15:12:15 Pain of bilateral knee joints 1268226326 63598 M25.561 M25.562 Osteoarthr itis of knee 106224263 M17.9 [id number] MD Lucia Cash [address] [place] [address] 09/26/2024 17:36:04 10/19/2024 13:19:43 Pain of hip region 59883152 M25.551 M25.552 Osteoarthr itis of left hip joint 5269425626 20108 M16.12 [id number] Karlos Lowery, PT [facility] [address] [place] [address] 10/10/2024 08:11:42 10/10/2024 14:48:45 Osteoarthritis of hip 649511642 M16.12 [id number] Db Lara MD [facility] [address] [place] [address] 11/13/2024 11:06:46 12/06/2024 09:04:41 Osteoarthritis of left hip joint 3917075633 81259 M16.12 [id number] Rosamaria Scruggs PA-C [facility] [address] [place] [address] 11/13/2024 10:46:01 12/10/2024 04:10:16 Osteoarthritis of left hip joint 2179670659 99716 M16.12 [id number] CAITIE Noble [facility] [address] [place] [address] 01/25/2025 10:26:53 02/12/2025 13:32:23 Pain of hip region 24174246 M25.551 G89.29 Spasm 05753394 M62.838 Health Concerns Section Related Observation LastModified by Organization Detai ls LastModified Time None Recorded Concern Status LastModified by Organization Details LastModified Time None Recorded Advance Directives Directive None Recorded Payers Encounter Date Sequence Insurance Name Policy Number Policy Bailon Covered Member ID Bailon Member ID Guarantor Name 09/26/2024 1 [facility]MEDICAID HMO[facility] RAULITO Case [id number] Idania Case 10/10/2024 1 [facility] (MEDICAID HMO) RAULITO Case [id number] Idania Case 11/13/2024 1 [facility] (MEDICAID HMO) RAULITO Case [id number] Idania Case 11/13/2024 1 [facility] PLAN (MEDICAID HMO) RAULITO Case [id number] Idania Case 01/25/2025 1 [facility] (MEDICAID HMO) RAULITO Case [id number] Idania Case Notes Date Note Type Note [...] and walk normal. Karlos Lowery, PT [address], [place], [address], [facility] 10/10/2024 11:35:02 01/25/2025 text/html I am seeing the patient today under the supervision of {{Dr. Jane Gillespie* Dr. Grant}} who was available but who did not see the patient. Patient comes in for evaluation of right hip pain. States the pain has been going on for couple of weeks has gotten progressively worse. Does not recall any injury to account for this. Feels like there is cramping and muscle spasms in the lateral aspect of that hip. Pain discomfort any sort of hip flexion today. Was scheduled for left total of arthroplasty in October but got canceled due to the medical history workup required. No previous injury or surgery to the right side. Patient does have history of muscle spasms and previously was taking tizanidine for such. Dennis Jade PA-C [address], [place], [address], [facility] 01/25/2025 11:40:27 OBGyn Episode No OBEpisode recorded.
--- OUTSIDE RECORDS SUMMARY | 2025-04-02 11:06 | XMS_ITS ---
Author Name [facility] Organization Unknown Care Team Organization Name Specialty Phone Email Start Date End [facility] 10/18/2024
--- OUTSIDE RECORDS SUMMARY | 2025-04-02 11:06 | XMS_ITS ---
Author Organization [facility] Address [address], [place] [id number] Care Team Providers Care Treating Plant Supervisor Name Role Phone [facility] Primary Care Provider Un available Tiffany Mcdonald Unavailable Social History Sex Assigned At : Social History Observation Description Sex Assigned At Female Encounters Encounter Location Date Provider Diagnosis [facility] [address] [place], [place] [id number] 03/19/2025 Tiffany Mcdonald Plan Of Treatment No Information Progress Notes * Idania ANDUJAR SueDOB:1959 (64 yo F)Acc No.[id number]:03/19/2025 Case Management Patient:?Idania ANDUJAR Provider:Erich Mcdonald :1960???Age:64 Y???Sex:Female D ate:03/19/2025 Address:[facility] [address] [place], [place] Pcp:[facility] Earle Owanka Subjective: * Chief Complaints: * ??? * Medical History:? Objective: Assessment: Plan: * Treatment: * Images: Billing Information: * Visit Code:? * Procedure Codes:? Care Plan Details* * Electronic signature of Garcia Mcdonald on 04/02/2025 at 11:05 AM EDT Sign off status: Pending * Provider:Erich Mcdonald Date:? Generated for Abdifatah love/Falance/eTransmitting on:?04/02/2025 11:05 AM EDT
== END 2025-04-02 10:42 | disposition home or self-care (01) ==
LOC: HO.HMCH 09:52
PROVIDERS: PCP Internal Medicine
DX: M25.552 Pain in left hip (principal); J45.909 Unspecified asthma, uncomplicated; E66.9 Obesity, unspecified; Z68.36 Body mass index [BMI] 36.0-36.9, adult; G89.4 Chronic pain syndrome; I72.9 Aneurysm of unspecified site

== ENCOUNTER → 2025-04-02 09:51 | Outpatient (BNVA) | payer OTHER, SELFPAY | PROVIDERS: PCP Internal Medicine | DX: M25.552 Pain in left hip (principal); J45.909 Unspecified asthma, uncomplicated; E66.9 Obesity, unspecified; Z68.36 Body mass index [BMI] 36.0-36.9, adult; G89.4 Chronic pain syndrome; I72.9 Aneurysm of unspecified site | CPT/HCPCS: 99212 ==

== ENCOUNTER 2025-05-10 09:56 | Outpatient (AMB) | payer MEDICARE, MEDICAID, SELFPAY ==
--- NOTE | 2025-05-10 10:04 | A.OFFPC_ITS ---
Vital Signs 05/10/25 10:11 Height 5 ft 5 in Weight 222 lb BMI 36.9 BP 116/80 Blood Pressure Location Lt brachial Position Sitting Pulse 91 Pulse Source Pulse Oximeter Temp 97.3 F Temp Source Temporal Artery Scan Pulse Oximetry (%) 97 Oxygen Delivery Method Room Air Intake Visit Reasons: [facility] 04/23 Funeral Director Required: No Accompanied by: Self / Same As Patient Allergies aspirin [ASA] Allergy (Mild, Verified 05/10/25 10:14) BRUISE, bruising hydrocodone [From VICODIN] Allergy (Mild, Verified 05/10/25 10:14) ITCH/BRUISE ibuprofen [From MOTRIN] Allergy (Mild, Verified 05/10/25 10:14) BRUISE trazodone [TRAZODONE] Allergy (Mild, Verified 05/10/25 10:14) RESTLESS quetiapine [From SEROQUEL] Adverse Reaction (Mild, Verified 05/10/25 10:14) RESTLESS NSAIDS (Non-Steroidal Anti-Inflamma Adverse Reaction (Verified 05/10/25 10:14) Unknown Tobacco use date assessed: 04/02/25 Fall risk assessment: No Falls in past year Last assessed Fall Risk: 05/10/25 Dental Screening Dental Screen Date: 01/07/25 HPI HPI Comments History of Present Illness Details 64 y/o female patient who presents to [facility] today for EDF. She was admitted at [facility] on 05/03 for evaluation and treatment of Chronic left Shoulder pain. She has an appointment with her Orthopedics @ [facility] on Tuesday. [facility] Medical History (Updated 05/10/25 @ 10:55 by Gabby Sherman NP) Chronic left shoulder pain Breast cancer screening by mammogram Lesion of colon Abdominal pain Stiffness of left wrist joint Stiffness of left hand joint Fracture of distal end of left radius with routine healing Chronic pain Hypothyroidism Surgical History Hx of colonoscopy S/P tonsillectomy Hx of hysterectomy History of surgery on wrist History of back surgery S/P arthroscopy of left shoulder S/P arthroscopy of right shoulder Hx of arthroscopy of right knee H/O tubal ligation Family History Sister Thyroid cancer Maternal Grandmother Colon cancer Son Substance abuse Depression Other Mental health disorder Social History Housing: House Alcohol intake: former Patient Tobacco Use Status: Never used Tobacco e-Cigarette/Vaping Use: Never Used Second Hand Smoke Exposure: No service: No Current occupational status: disabled Cognitive needs: Yes (walker) Hearing needs: No Vision needs: Yes Questionnaire PHQ-9 Over the last 2 weeks, how often have you been bothered by any of the following problems? 1. Little interest or pleasure in doing things: nearly every day 2. Feeling down, depressed, or hopeless: nearly every day 3. Trouble falling or staying asleep, or sleeping too much: nearly every day 4. Feeling tired or having little energy: more than half the days 5. Poor appetite or overeating: not at all 6. Feeling bad about yourself - or that you are a failure or have let yourself or your family down: nearly every day 7. Trouble concentrating on things, such as reading the newspaper or watching television: several days 8. Moving or speaking so slowly that other people could have noticed. Or the opposite - being so fidgety or restless that you have been moving around a lot more than usual: nearly every day 9. Thoughts that you would be better off or of hurting yourself in some way: not at all Total score: 18 Source: Developed by Drs. Lukas Walton, Liliana Naranjo, Andre Del Angel and colleagues, with an educational princess from [employer]. Thrive Questionnaire Date Thrive assessed: 05/10/25 I am a: Patient What is your living situation today?: I choose not to answer this question Within the past 12 months, did the food you bought not last and you didn't have the money to get more?: Never true Within the past 12 months, did you worry whether your food would run out before you got money to buy more?: Never true Do you have trouble paying for medicines?: No Do you have trouble getting transportation to medical appointments?: Yes Do you have trouble paying your heating and electricity bill?: I choose not to answer this question Do you have trouble taking care of your child, family member or friend?: I choose not to answer this question Do you have trouble with day-to-day activities such as bathing, preparing meals, shopping, managing finances, etc.?: No Are you currently unemployed and looking for a job?: No Are you interested in more education?: No THRIVE Score: 1 ROMA-7 AMB Questionnaire ROMA-7 Date ROMA - 7 assessed: 01/07/25 Source: Developed by Drs. Lukas Walton, Liliana Naranjo, Andre Del Angel and colleagues, with an educational princess from [employer]. Review of Systems Const All systems reviewed & are unremarkable except as noted in HPI and below Physical exam (Primary Care) Vital Signs: Last Vital Signs Temp 97.3 F 05/10/25 10:11 Pulse 91 05/10/25 10:11 BP 116/80 05/10/25 10:11 Pulse Ox 97 05/10/25 10:11 Oxygen Delivery Method Room Air 05/10/25 10:11 BMI result Body Mass Index 36.9 Tobacco/Smoking Status: Tobacco use Status Tobacco use date assessed 04/02/25 05/10/25 10:04 Patient Tobacco Use Status Never used Tobacco 05/10/25 10:04 e-Cigarette/Vaping Use Never Used 05/10/25 10:04 PHQ-9: PHQ-9 Score PHQ-9: Total score 18 05/10/25 10:55 Thrive Assessment: Date of Thrive Assessment Date Thrive assessed 05/10/25 05/10/25 10:04 Const General: no acute distress; No comfortable Nutritional Appearance: obese Orientation/consciousness: patient oriented x3 Neuro General: patient oriented x3 Extrem Left upper extremity: shoulder/upper arm Details: tenderness Location: over the deltoid bursa and abnormal ROM Details: held in an abnormal fashion, pain with active ROM and pain with passive ROM; no swelling Coding Level of Care Code Est Pt Level 4 (93978) Diagnoses Chronic left shoulder pain M25.512; G89.29 Time Spent (min) 20 Assessment & Plan Assessment & Plan (1) Chronic left shoulder pain: Code(s): M25.512 - Pain in left shoulder; G89.29 - Other chronic pain Category: Medical Plan: Advised to use Acetaminophen for pain relief. Has an appointment with Orthopedics Tuesday.
[2025-05-10 10:11] VITALS: BP 116/80; PULSE 91; TEMP 36.3; O2SAT 97; BMI 36.9
--- OUTSIDE RECORDS SUMMARY | 2025-05-10 10:39 | XMS_ITS | Patient Health Record ---
Author Organization [facility] Address [address], [place] [id number] Care Team Providers Care Associate Professor Plant Pathology Name Role Phone [facility] Primary Care Provider Un available Tiffany Mcdonald Unavailable Reason For Referral No Information Social History Sex Assigned At : Social History Observation Description Sex Assigned At Female Encounters Encounter Location Date Provider Diagnosis [facility] [address] [place] [address] [phone] 02/26/2025 Tiffany Mcdonald [facility] [address] [place] [address] [phone] 03/22/2025 Tiffany Mcdonald [facility] [address] [place] [address] [id number] 02/15/2025 Tiffany Mcdonald Plan Of Treatment No Information Insurance Providers Payer Name Payer Address Payer Phone Subscriber Number Group Number Insured Name Patient Relationship to Insured Coverage Start Date Coverage End Date [facility] Healthy [address] [place] [address] [phone] [id number] Idania Case Self - patient is the insured [place] [address] [place] [address] [id number] Idania Case Self - patient is the insured
== END 2025-05-10 10:51 | disposition home or self-care (01) ==
LOC: HO.HMCH 09:57
PROVIDERS: PCP Internal Medicine; Visit Provider Nurse Practitioner Family
DX: M25.512 Pain in left shoulder (principal); G89.29 Other chronic pain

== ENCOUNTER → 2025-05-10 09:56 | Outpatient (BNVA) | payer MEDICAID, SELFPAY | PROVIDERS: PCP Internal Medicine; Visit Provider Nurse Practitioner Family | DX: M25.512 Pain in left shoulder (principal); G89.29 Other chronic pain | CPT/HCPCS: 99212 ==

== ENCOUNTER 2025-06-28 08:39 | Outpatient (AMB) | payer MEDICARE, MEDICAID, SELFPAY ==
--- NOTE | 2025-06-28 08:47 | MHC.PC.OV ---
Vital Signs 06/28/25 08:48 Height 5 ft 5 in Weight 224 lb 6 oz BMI 37.3 BP 134/64 Blood Pressure Location Rt brachial Position Sitting Pulse 76 Pulse Source Pulse Oximeter Temp 96.9 F Temp Source Temporal Artery Scan Pulse Oximetry (%) 95 Oxygen Delivery Method Room Air Intake Visit Reasons: [facility] 06/08 Intake Note: Patient is here for hospital discharge follow up. Patient was discharged from [facility] on 06/08/25. Metal Mine Inspector Required: No Rn Liaison: Not Required per policy Accompanied by: Self / Same As Patient Allergies aspirin (ASA) Allergy (Mild, Verified 06/28/25 08:48) BRUISE, bruising hydrocodone (From VICODIN) Allergy (Mild, Verified 06/28/25 08:48) ITCH/BRUISE ibuprofen (From MOTRIN) Allergy (Mild, Verified 06/28/25 08:48) BRUISE trazodone (TRAZODONE) Allergy (Mild, Verified 06/28/25 08:48) RESTLESS quetiapine (From SEROQUEL) Adverse Reaction (Mild, Verified 06/28/25 08:48) RESTLESS NSAIDS (Non-Steroidal Anti-Inflamma Adverse Reaction (Verified 06/28/25 08:48) Unknown Medication List - Last Reconciled 06/28/25 by Gabby Sherman, BERTO acetaminophen (Tylenol Extra Strength) 500 mg PO Q6H PRN albuterol sulfate 90 mcg/actuation (Ventolin HFA) 2 puffs inhalation Q6H PRN atorvastatin (Lipitor) 40 mg PO BEDTIME clopidogrel 75 mg PO DAILY diclofenac sodium 1% 2 grams topical QID fexofenadine (Leah Allergy) 180 mg PO DAILY fluticasone propionate 50 mcg/actuation (Flonase Allergy Relief) 2 sprays intranasal DAILY furosemide 40 mg PO DAILY isosorbide mononitrate ER 30 mg PO DAILY ketoconazole 2% 1 appl topical BID Lactobacillus rhamnosus GG (Culturelle) 1 cap PO DAILY lactulose 20 grams (30 mL) PO DAILY PRN lidocaine 5% (Lidoderm) 1 patch topical DAILY PRN MDD remove after 12 hours methocarbamol 500 mg PO BEDTIME peg 3350-electrolytes 236-22.74-6.74 -5.86 gram (Golytely) 240 mL PO Q10M polyethylene glycol 3350 (Miralax) 17 grams PO BID sennosides (senna) 17.2 mg (2 x 8.6 mg) PO ONCE simethicone (Gas Relief (simethicone)) 125 mg PO BID-QID PRN tizanidine 2 mg PO Q8H PRN walker (Ultra-Light Rollator misc) As directed Tobacco use date assessed: 06/28/25 Fall risk assessment: 2 + Falls in past year Last assessed Fall Risk: 06/28/25 Dental Screening Dental Screen Date: 01/07/25 HPI HPI Comments History of Present Illness Details 65 y/o Female patient who presents to the clinic today for HDF. Pt was admitted at [facility] on 06/03 - 06/08 for an evaluation and treatment of SOB due to Asthma Exacerbation and Ischemic Cardiomyopathy. She is being followed by [facility] Cardiology and Pulmonology. New medications started: Lasix, Clopidogrel, Isosorbide and Atorvastatin. Today reports feeling much better. She is sheduled to have Left Shoulder Arthroscopy surgery in Jul. [facility] Medical History (Updated 06/28/25 @ 09:30 by Gabby Sherman NP) SOB (shortness of breath) Asthma exacerbation Ischemic cardiomyopathy Chronic left shoulder pain Breast cancer screening by mammogram Lesion of colon Abdominal pain Stiffness of left wrist joint Stiffness of left hand joint Fracture of distal end of left radius with routine healing Chronic pain Hypothyroidism Surgical History Hx of colonoscopy S/P tonsillectomy Hx of hysterectomy History of surgery on wrist History of back surgery S/P arthroscopy of left shoulder S/P arthroscopy of right shoulder Hx of arthroscopy of right knee H/O tubal ligation Family History Sister Thyroid cancer Maternal Grandmother Colon cancer Son Substance abuse Depression Other Mental health disorder Social History Housing: House Alcohol intake: former Patient Tobacco Use Status: Never used Tobacco e-Cigarette/Vaping Use: Never Used Second Hand Smoke Exposure: No service: No Current occupational status: disabled Cognitive needs: Yes (walker) Hearing needs: No Vision needs: Yes Questionnaire Thrive Questionnaire Date Thrive assessed: 05/10/25 I am a: Patient What is your living situation today?: I choose not to answer this question Within the past 12 months, did the food you bought not last and you didn't have the money to get more?: Never true Within the past 12 months, did you worry whether your food would run out before you got money to buy more?: Never true Do you have trouble paying for medicines?: No Do you have trouble getting transportation to medical appointments?: Yes Do you have trouble paying your heating and electricity bill?: I choose not to answer this question Do you have trouble taking care of your child, family member or friend?: I choose not to answer this question Do you have trouble with day-to-day activities such as bathing, preparing meals, shopping, managing finances, etc.?: No Are you currently unemployed and looking for a job?: No Are you interested in more education?: No Please select the resources that you would like help with: Housing/Nursing Home Currently or been in a relationship where the following occur: No concerns reported THRIVE Score: 1 AUDIT C Alcohol Use Questionnaire (AUDIT-C) 1. How often do you have a drink containing alcohol?: Never Total Score: 0 ROMA-7 AMB Questionnaire ROMA-7 Date ROMA - 7 assessed: 06/28/25 Feeling nervous, anxious, or on edge: 3 = Nearly every day Not being able to stop or control worryin = Nearly every day Worrying too much about different things: 3 = Nearly every day Trouble relaxin = Nearly every day Being so restless that it is hard to sit still: 3 = Nearly every day Becoming easily annoyed or irritable: 3 = Nearly every day Feeling afraid as if something awful might happen: 0 = Not at all Total ROMA-7 score (0-4 normal; 5-9 mild; 10-14 moderate; 15-21 severe): 18 Source: Developed by Drs. Lukas Walton, Liliana Naranjo, Andre Del Angel and colleagues, with an educational princess from [employer]. Review of Systems Const All systems reviewed & are unremarkable except as noted in HPI and below Physical exam (Primary Care) Vital Signs: Last Vital Signs Temp 96.9 F 06/28/25 08:48 Pulse 76 06/28/25 08:48 BP 134/64 06/28/25 08:48 Pulse Ox 95 08/01/25 08:48 Oxygen Delivery Method Room Air 06/28/25 08:48 BMI result Body Mass Index 37.3 Tobacco/Smoking Status: Tobacco use Status Tobacco use date assessed 06/28/25 06/28/25 08:55 Patient Tobacco Use Status Never used Tobacco 06/28/25 08:55 e-Cigarette/Vaping Use Never Used 06/28/25 08:55 Thrive Assessment: Date of Thrive Assessment Date Thrive assessed 05/10/25 06/28/25 08:55 Currently or been in a relationship where the following occur: No concerns reported Const General: no acute distress Nutritional Appearance: obese Orientation/consciousness: patient oriented x3 Resp Effort & Inspection: normal respiratory effort and able to speak in complete sentences Auscultation: clear to auscultation bilaterally, no crackles, no rales, no rhonchi and no wheezes Cardio Heart sounds: S1 normal heart sound present and S2 normal heart sound present Neuro General: patient oriented x3, gait normal and moves all extremities Coding Level of Care Code Est Pt Level 4 (96491) Diagnoses Ischemic cardiomyopathy I25.5 Moderate persistent asthma with exacerbation J45.41 Asthma severity: moderate Asthma persistence: persistent SOB (shortness of breath) R06.02 Time Spent (min) 20 Assessment & Plan Assessment & Plan (1) Ischemic cardiomyopathy: Code(s): I25.5 - Ischemic cardiomyopathy Category: Medical Plan: Has an appointment with [facility] Cardiology on 07/03 Currently on Lasix, Imdur and Clopidogrel Stable (2) Asthma exacerbation: Code(s): J45.901 - Unspecified asthma with (acute) exacerbation Category: Medical Qualifiers: Asthma severity: moderate Asthma persistence: persistent Qualified Code(s): J45.41 - Moderate persistent asthma with (acute) exacerbation Plan: Continue on current treatment. Saw Pulmonology outpatient. She has a f/u Appointment on 07/26. Stable. (3) SOB (shortness of breath): Code(s): R06.02 - Shortness of breath Category: Medical Plan: Resolved. SOB was due to Asthma exacerbation. Medications: New furosemide 40 mg PO DAILY 30 tabs 0RF I25.5 - Ischemic cardiomyopathy Refilled ketoconazole 2% 1 appl topical BID 60 grams 0RF B37.2 - Candidiasis of skin and nail albuterol sulfate 90 mcg/actuation (Ventolin HFA) 2 puffs inhalation Q6H PRN 8.5 grams 3RF shortness of breath or wheezing J45.909 - Unspecified asthma, uncomplicated
[2025-06-28 08:48] VITALS: BP 134/64; PULSE 76; TEMP 36.1; O2SAT 95; BMI 37.3
--- OUTSIDE RECORDS SUMMARY | 2025-06-28 08:50 | XMS_ITS | Patient Health Record ---
Author Organization [facility] Address [address], [place] [id number] Care Team Providers Care School Occupational Therapist Name Role Phone [facility] Primary Care Provider Tiffany Mcdonald Unavailable Reason For Referral No Information Social History Sex Assigned At : Social History Observation Description Sex Assigned At Female Encounters Encounter Location Date Provider Diagnosis [facility] [address], [place] [phone] 02/26/2025 Tiffany Mcdonald [facility] [address] [place] [phone] 03/22/2025 Tiffany Mcdonald [facility] [address] [place] [phone] 02/15/2025 Tiffany Mcdonald Plan Of Treatment No Information Insurance Providers Payer Name Payer Address Payer Phone Subscriber Number Group Number Insured Name Patient Relationship to Insured Coverage Start Date Coverage End Date [facility] Be Healthy [address] [place] [address] [phone] [id number] Idania Case Self - patient is the insured [place] Medicaid Standard [address] [place] [address] [id number] Idania Case Self - patient is the insured
--- OUTSIDE RECORDS SUMMARY | 2025-06-28 08:51 | XMS_ITS | Clinical Summary ---
Author Organization [facility] Address [address] [place] [address] Phone Care Team Providers Care Chief Architect Name Role Phone Alan Mccray MD Primary Care Provider [phone] Encounters Date Type Department Care Team Description 06/10/[address] [phone] Rachael Esteban MD Hospital Follow-up from Last 3 Months Social History Tobacco Use Types Packs/Day Years Used Date Smoking Tobacco: Never Assessed Comments Unknown Sex and Gender Information Value Date Recorded Sex Assigned at Not on file Legal Sex Female 4:38 PM EDT Gender Identity Not on file Sexual Orientation Not on file Plan of Treatment Health Maintenance Due Date Last Done Comments Breast Cancer Screening 1960 DTaP,Tdap,and Td Vaccines (1 - Tdap) 1979 Cervical Cancer Screening: P ap Smear 1981 Pneumococcal Vaccine: 50+ Ye ars (1 of 1 - PCV) 2010 Zoster Vaccines (1 of 2) 2010 COVID-19 Vaccine ( - 2023-2 5 season) 2024 Colorectal Cancer Screening: Colonoscopy 09/23/2024 Hepatitis C Screening 09/23/2024 Medicare Annual Wellness Visit 09/23/2024 Osteoporosis Screening (Bone Density Screening) 09/23/2024 Social Influencers of Health Screening 09/23/2024 Depression Screening 11/28/2024 Falls Risk Assessment 2025 Influenza Vaccine (#1) 2025 RSV Immunization Adult Patie nts (1 - 1-dose 75+ series) 2035 HIB Vaccines Aged Out No longer eligi ble based on patient's age to complete this topic HPV Vaccines Aged Out No longer eligi ble based on patient's age to complete this topic Hepatitis A Vaccines Aged Out No long er eligible based on patient's age to complete this topic Hepatitis B Vaccines Aged Out No long er eligible based on patient's age to complete this topic IPV Vaccines Aged Out No longer eligi ble based on patient's age to complete this topic MMR Vaccines Aged Out No longer eligi ble based on patient's age to complete this topic Meningococcal ACWY Vaccine Aged Out N o longer eligible based on patient's age to complete this topic Meningococcal B Vaccine Aged Out No l onger eligible based on patient's age to complete this topic RSV Immunization Patients Un deven 20 months Aged Out No longer eligible b ased on patient's age to complete this topic Varicella Vaccines Aged Out No longer eligible based on patient's age to complete this topic Insurance MEDICARE MEDICAID - [place] Care Teams Chief Architect Relationship Specialty Start Date End Date Alan Mccray MD [address] [place] [address] [place] [address] PCP - General 09/17/24
--- OUTSIDE RECORDS SUMMARY | 2025-06-28 08:51 | XMS_ITS ---
Author Name [facility] Organization Unknown Care Team Organization Name Specialty Phone Email Start Date End [facility] 10/18/2024
--- OUTSIDE RECORDS SUMMARY | 2025-06-28 08:51 | XMS_ITS | Patient Health Record ---
Author Organization [facility] Address [address] [place] [id number] Care Team Providers Care Public Health Officer Name Role Phone CAYLA SOMMERS Primary Care Provider Cayla Crain Unavailable Unavailable Allergies Allergen (clinical drug ingredient) [...] 75 MG 1 tablet Orally Twice a day; Duration: 30 day(s) 11/25/2020 Unknown Diflucan 150 MG 1 tablet Orally every 2 days; Duration: 14 day(s) Unknown Nasacort Allergy 24HR 55 MCG/ACT 1 spray in each nostril Nasally Once a day; Duration: 30 day(s) 03/19/2021 Unknown Ketoconazole 200 MG 1 tablet Orally Once a day; Duration: 10 day(s) 11/18/2020 Unknown Levothyroxine Sodium 50 MCG 1 tablet in the morning on an empty stomach Orally Once a day Unknown Cyclobenzaprine HCl 10 MG 1 tablet at bedtime as needed Orally Once a day; Duration: 30 day(s) 11/18/2020 Unknown Docusate Sodium 250 MG 1 capsule as needed Orally Once a day; Duration: 30 day(s) 11/18/2020 Unknown Nystatin 577125 UNIT/GM 1 application Externally Twice a day; Duration: 30 day(s) 11/25/2020 Unknown Lyrica 50 MG 1 capsule Orally Twice a day; Duration: 30 days 01/16/2021 Unknown oxyCODONE HCl 5 MG 1 capsule as needed Orally bid; Duration: 5 days Only one time prescription 07/22/2021 Unknown HYDROcodone-Acetaminop hen 5-325 MG 1 tablet as needed Orally bid; Duration: 30 days 01/16/2021 Unknown Cipro 500 MG 1 tablet Orally every 12 hrs; Duration: 5 day(s) 11/18/2020 Unknown Fexofenadine HCl 180 MG 1 tablet Orally Once a day; Duration: 30 day(s) 03/19/2021 Unknown Bactrim DS 800-160 MG 1 tablet Orally Twice a day; Duration: 5 day(s) 01/20/2021 Unknown Meclizine HCl 25 MG 1 tablet as needed Orally bid; Duration: 30 day(s) 08/12/2021 Unknown oxyCODONE HCl 5 MG 1 tablet as needed Orally bid; Duration: 5 days 07/22/2021 Unknown DULoxetine HCl 30 MG 1 capsule Orally Once a day; Duration: 30 day(s) 01/20/2021 Unknown Social History Tobacco [...] Status Risk Notes Problem Chronic pain syndrome (095249891) Chronic pain syndrome (G89.4) Active confirmed Problem Chronic kidney disease stage 2 (646557880) Chronic kidney disease, stage 2 (mild) (N18.2) Active confirmed Problem Anxiety (56553878) Anxiety (F41.9) Active confi rmed Problem Asthma (638309248) Asthma (J45.909) Active confirmed Problem Lumbosacral spondylosis without myelopathy (38801116) Degenerative joint disease (DJD) of lumbar spine (M47.816) Active confirmed Problem Recurrent falls (590960322) Frequent falls (R29.6) Active confirmed Problem Constipation (57173490) Constipation (K59.00) Active confirmed Problem Hypothyroid (45201145) Hypothyroid (E03.9) Active confirmed Problem Body mass index 30+ - obesity (873903374) BMI 30.0-30.9,adult (Z68.30) Active confirmed Problem Osteoporosis (57641187) Osteoporosis (M81.0) Active confirmed Problem Chronic pain (15741204) Chronic pain (G89.29) Active confirmed Problem Hyperlipidaemia (78225621) HLD (hyperlipidemia ) (E78.5) Active confirmed Problem Iron deficiency anemia (55668727) Fe deficiency anemia (D50.9) Active confirmed Problem Insomnia (866969968) Insomnia (G47.00) Active confirmed Problem Multiple joint pain (89737406) Multiple joint pain (M25.50) Active confirmed Problem Restless legs (42665233) RLS (restless legs syndrome) (G25.81) Active confirmed Problem Obesity (632912099) Obesity (E66.9) Active conf irmed Problem Rheumatoid arthritis (42499999) Rheumatoid arthritis (M06.9) Active confirmed Problem Allergic rhinitis (08313516) Rhinitis, Allergic (J30.9) Active confirmed Problem Vitamin D deficiency (88304605) Vitamin D deficiency (E55.9) Active confirmed Problem Hepatitis B (72741783) Hepatitis B (B16.9) Active confirmed Problem Peripheral neuropathy (662484572) Peripheral neuropathy (G62.9) Active confirmed Problem Chronic hepatitis C (222691571) Hep C w/o coma, chronic (B18.2) Active confirmed Problem Essential hypertension (36010980) HTN (hypertension) with goal to be determined (I10) Active confirmed Problem Rheumatoid arteritis (019440257) Rheumatoid arteritis (M05.20) Active confirmed Plan Of Treatment Pending Test Test Name Order Date Biopsy of skin (62633) 09/02/2021 EKG [66158] 05/18/2021 Drug Screen (Rapid Urine) 09/09/2021 Not currently using tobacco 05/18/2021 Not currently using tobacco 09/02/2021 Not currently using tobacco 07/22/2021 Not currently using tobacco 08/12/2021 Medication Review Completed 08/12/2021 Medication Review Completed 09/02/2021 Medication Review Completed 05/18/2021 Medication Review Completed 07/22/2021 BMI above normal (>25 age 18-64, >30 age 65+); follow up plan documented 05/18/2021 BMI above normal (>25 age 18-64, >30 age 65+); follow up plan documented 09/02/2021 BMI above normal (>25 age 18-64, >30 age 65+); follow up plan documented 07/22/2021 BMI above normal (>25 age 18-64, >30 age 65+); follow up plan documented 08/12/2021 Systolic BP <140 07/22/2021 Systolic BP <140 08/12/2021 Systolic BP <140 09/02/2021 Systolic BP <140 05/18/2021 Diastolic BP <90 05/18/2021 Diastolic BP <90 09/02/2021 Diastolic BP <90 08/12/2021 Diastolic BP <90 07/22/2021 Pain Assessment - pain present and quant ified 08/12/2021 Pain Assessment - pain present and quant ified 09/02/2021 Pain Assessment - pain present and quant ified 05/18/2021 Pain Assessment - pain present and quant ified 07/22/2021 Venipuncture [25817] 11/18/2020 Venipuncture [33852] 05/18/2021 CT BRAIN WITHOUT CONTRAST 07/22/2021 Venipuncture [44448] 07/22/2021 Future Test Test Name Order Date Colonoscopy 11/18/2020 DEXA 11/18/2020 ECHO 05/18/2021 Bone scan 05/18/2021 XRAY ABDOMINAL SERIES (3 VIEW) [55974] 0 05/18/2021 STRESS TEST EXERCISE 05/18/2021 Colonoscopy 07/22/2021 Fluoroscopic guidance for epidural injec tion of lumbar spine (81688) 09/14/2021 Bilateral Lumbar facet Single level (644 93) 09/14/2021 Bilateral Lumbar facet Second level (644 94) 09/14/2021 Bilateral Lumbar facet Third and more le vels (90497) 09/14/2021 Insurance Providers Payer Name Payer Address Payer Phone Subscriber Number Group Number Insured Name Patient Relationship to Insured Coverage Start Date Coverage End Date [facility] [address] [place], [place] [id number] [phone] [id number] JAVON ANDUJAR Self - patient is the insured Medications Administered Medication Instructions Date of Administration Dosage Notes ROCEPHIN (CEFTRIAXONE) [250 mg / 1 Unit] 01/20/2021 1 g Medical (General) History Medical History History ICD Code Arthritis Asthma Allergies Back pain Bone loss Dizziness Hypothyroidism Hepatitis C headaches Obesity
== END 2025-06-28 11:26 | disposition home or self-care (01) ==
LOC: HO.HMCH 08:40
PROVIDERS: PCP Internal Medicine; Visit Provider Nurse Practitioner Family
DX: I25.5 Ischemic cardiomyopathy (principal); J45.41 Moderate persistent asthma with (acute) exacerbation; R06.02 Shortness of breath

== ENCOUNTER → 2025-06-28 08:39 | Outpatient (BNVA) | payer MEDICARE, MEDICAID, SELFPAY | PROVIDERS: PCP Internal Medicine; Visit Provider Nurse Practitioner Family | DX: I25.5 Ischemic cardiomyopathy (principal); J45.41 Moderate persistent asthma with (acute) exacerbation; R00.2 Palpitations | CPT/HCPCS: 99212 ==

== ENCOUNTER 2025-07-23 09:29 | Outpatient (AMB) | payer MEDICARE, MEDICAID, SELFPAY ==
--- OUTSIDE RECORDS SUMMARY | 2025-03-08 07:15 | XMS_ITS ---
Author Organization [facility] Address [address] [place], [place] [id number] Care Team Providers Care Altitude Chamber Technician Name Role Phone [facility] Primary Care Provider Tiffany Mcdonald Unavailable [phone] Social History Sex Assigned At : Social History Observation Description Sex Assigned At Female Encounters Encounter Location Date Provider Diagnosis [facility] [address] [place], [place] [id number] 03/08/2025 Tiffany Mcdonald Plan Of Treatment No Information Progress Notes * Idania ANDUJAR SueDOB:1959 (65 yo F)Acc No.[id number]:03/08/2025 Case Management Patient: Idania CHACON Provider: Sarika Mcdonald :1960 A ge:64 Y S ex:Female Date:03/08/2025 Address:[facility] [address] [place], [place] Pcp:[facility] [place] Subjective: * Chief Complaints: * * Medical History: Objective: Assessment: Plan: * Treatment: * Images: Billing Information: * Visit Code: * Procedure Codes: Care Plan Details* * Electronic signature of Garcia Mcdonald on 07/23/2025 at 10:05 AM EDT Sign off status: Pending * Provider: Sarika Mcdonald Date: 03/08/2025 Generated for Arthuri ng/Facristing/eTransmitting on: 0 07/23/2025 10:05 AM EDT
--- OUTSIDE RECORDS SUMMARY | 2025-03-19 07:00 | XMS_ITS ---
Author Organization [facility] Address [address] [place], [place] [phone] Care Team Providers Care Exhaust Equipment Operator Name Role Phone [facility] Primary Care Provider Tiffany Mcdonald Unavailable Social History Sex Assigned At : Social History Observation Description Sex Assigned At Female Encounters Encounter Location Date Provider Diagnosis [facility] [address], [place] [phone] 03/19/2025 Tiffany Mcdonald Plan Of Treatment No Information Progress Notes * Idania ANDUJAR SueDOB:1959 (65 yo F)Acc No.[id number]:03/19/2025 Case Management Patient: Idania CHACON Provider: Sarika Mcdonald :1960 A ge:64 Y S ex:Female Date:03/19/2025 Address:[facility] [address] [place], [place] Pcp:[facility] Earle [place] Subjective: * Chief Complaints: * * Medical History: Objective: Assessment: Plan: * Treatment: * Images: Billing Information: * Visit Code: * Procedure Codes: Care Plan Details* * Electronic signature of Garcia Mcdonald on 07/23/2025 at 10:05 AM EDT Sign off status: Pending * Provider: Sarika Mcdonald Date: 03/19/2025 Generated for Arthuri ng/Facristing/eTransmitting on: 0 07/23/2025 10:05 AM EDT
[2025-07-23 09:37] VITALS: BP 148/104; PULSE 76; TEMP 36.1; O2SAT 96; BMI 37.3
--- NOTE | 2025-07-23 09:37 | MHC.PC.OV ---
Vital Signs 07/23/25 09:37 07/23/25 09:53 Height 5 ft 5 in Weight 224 lb BMI 37.3 BP 148/104 H 110/70 Blood Pressure Location Lt brachial Lt brachial Position Sitting Sitting Pulse 76 Pulse Source Pulse Oximeter Temp 97.0 F Temp Source Temporal Artery Scan Pulse Oximetry (%) 96 Oxygen Delivery Method Room Air Intake Visit Reasons: 3mth f/u Allergies aspirin (ASA) Allergy (Mild, Verified 07/23/25 09:39) BRUISE, bruising hydrocodone (From VICODIN) Allergy (Mild, Verified 07/23/25 09:39) ITCH/BRUISE ibuprofen (From MOTRIN) Allergy (Mild, Verified 07/23/25 09:39) BRUISE trazodone (TRAZODONE) Allergy (Mild, Verified 07/23/25 09:39) RESTLESS quetiapine (From SEROQUEL) Adverse Reaction (Mild, Verified 07/23/25 09:39) RESTLESS NSAIDS (Non-Steroidal Anti-Inflamma Adverse Reaction (Verified 07/23/25 09:39) Unknown Tobacco use date assessed: 06/28/25 Fall risk assessment: 2 + Falls in past year Last assessed Fall Risk: 07/23/25 Dental Screening Dental Screen Date: 07/23/25 Did you have a dental visit in the last 12 months?: No Did you have a dental problem in the last 6 months where you did not have access to dental care?: No Was dental information given to patient?: Patient declined [facility] Medical History (Updated 07/23/25 @ 12:42 by Alan Mccray MD) SOB (shortness of breath) Asthma exacerbation Ischemic cardiomyopathy Chronic left shoulder pain Breast cancer screening by mammogram Lesion of colon Abdominal pain Stiffness of left wrist joint Stiffness of left hand joint Fracture of distal end of left radius with routine healing Chronic pain Hypothyroidism Surgical History Hx of colonoscopy S/P tonsillectomy Hx of hysterectomy History of surgery on wrist History of back surgery S/P arthroscopy of left shoulder S/P arthroscopy of right shoulder Hx of arthroscopy of right knee H/O tubal ligation Family History Sister Thyroid cancer Maternal Grandmother Colon cancer Son Substance abuse Depression Other Mental health disorder Social History Housing: House Alcohol intake: former Patient Tobacco Use Status: Never used Tobacco e-Cigarette/Vaping Use: Never Used Second Hand Smoke Exposure: No service: No Current occupational status: disabled Cognitive needs: Yes (walker) Hearing needs: No Vision needs: Yes Questionnaire PHQ-9 Over the last 2 weeks, how often have you been bothered by any of the following problems? 1. Little interest or pleasure in doing things: nearly every day 2. Feeling down, depressed, or hopeless: nearly every day 3. Trouble falling or staying asleep, or sleeping too much: nearly every day 4. Feeling tired or having little energy: more than half the days 5. Poor appetite or overeating: not at all 6. Feeling bad about yourself - or that you are a failure or have let yourself or your family down: nearly every day 7. Trouble concentrating on things, such as reading the newspaper or watching television: several days 8. Moving or speaking so slowly that other people could have noticed. Or the opposite - being so fidgety or restless that you have been moving around a lot more than usual: nearly every day 9. Thoughts that you would be better off or of hurting yourself in some way: not at all Total score: 18 Source: Developed by Drs. Lukas Walton, Liliana Naranjo, Andre Del Angel and colleagues, with an educational princess from [employer]. Thrive Questionnaire Date Thrive assessed: 05/10/25 I am a: Patient What is your living situation today?: I choose not to answer this question Within the past 12 months, did the food you bought not last and you didn't have the money to get more?: Never true Within the past 12 months, did you worry whether your food would run out before you got money to buy more?: Never true Do you have trouble paying for medicines?: No Do you have trouble getting transportation to medical appointments?: Yes Do you have trouble paying your heating and electricity bill?: I choose not to answer this question Do you have trouble taking care of your child, family member or friend?: I choose not to answer this question Do you have trouble with day-to-day activities such as bathing, preparing meals, shopping, managing finances, etc.?: No Are you currently unemployed and looking for a job?: No Are you interested in more education?: No Please select the resources that you would like help with: Housing/Long-Term Currently or been in a relationship where the following occur: No concerns reported THRIVE Score: 1 AUDIT C Alcohol Use Questionnaire (AUDIT-C) 1. How often do you have a drink containing alcohol?: Never 3. How often do you have six or more drinks on one occasion?: Never Total Score: 0 ROMA-7 AMB Questionnaire ROMA-7 Date ROMA - 7 assessed: 06/28/25 Feeling nervous, anxious, or on edge: 3 = Nearly every day Not being able to stop or control worryin = Nearly every day Worrying too much about different things: 3 = Nearly every day Trouble relaxin = Nearly every day Being so restless that it is hard to sit still: 3 = Nearly every day Becoming easily annoyed or irritable: 3 = Nearly every day Feeling afraid as if something awful might happen: 0 = Not at all Total ROMA-7 score (0-4 normal; 5-9 mild; 10-14 moderate; 15-21 severe): 18 Source: Developed by Drs. Lukas Walton, Liliana Naranjo, Andre Del Angel and colleagues, with an educational princess from [employer]. Physical exam (Primary Care) Vital Signs: Last Vital Signs Temp 97.0 F 07/23/25 09:37 Pulse 76 07/23/25 09:37 BP 110/70 07/23/25 09:53 Pulse Ox 96 07/23/25 09:37 Oxygen Delivery Method Room Air 07/23/25 09:37 BMI result Body Mass Index 37.3 Tobacco/Smoking Status: Tobacco use Status Tobacco use date assessed 06/28/25 07/23/25 09:37 Patient Tobacco Use Status Never used Tobacco 07/23/25 09:37 e-Cigarette/Vaping Use Never Used 07/23/25 09:37 PHQ-9: PHQ-9 Score PHQ-9: Total score 18 07/23/25 12:45 Thrive Assessment: Date of Thrive Assessment Date Thrive assessed 05/10/25 07/23/25 09:37 Currently or been in a relationship where the following occur: No concerns reported Const General: alert; No acute distress Eyes Conjunctivae: conjunctivae normal Resp Auscultation: clear to auscultation bilaterally Cardio Rate: regular rate Rhythm: regular rhythm GI Inspection: Yes normal to inspection Extrem General: Yes normal to inspection and No edema Coding Level of Care Code Est Pt Level 4 (59537) Complex EM visit Add On G2211 Diagnoses Ischemic cardiomyopathy I25.5 Obesity (BMI 30-39.9) E66.9 Asthma J45.909 Postlaminectomy syndrome M96.1 Chronic left shoulder pain M25.512; G89.29 Bipolar disorder F31.9 Tinea corporis B35.4 Assessment & Plan Assessment & Plan (1) Ischemic cardiomyopathy: Comment: Echocardiogram 06/06/2025 left ventricular ejection fraction 55-60% basal inferior basal inferoseptal wall is hypokinetic LV wall thickness mildly increased LV size is normal grade 1 mild diastolic dysfunction Code(s): I25.5 - Ischemic cardiomyopathy Category: Medical Plan: Patient was advised to follow-up with cardiology. patient deny having the problem. Received notes from [facility] June 17 stress nuclear with dobutamine no atropine given no chest pain pressure no ischemic EKG changes with pharmacologic stress. Perfusion scan June 17 probably no significant myocardial perfusion imaging defects following regadenoson administration has mild shifting breast tissue attenuation artifact although could not exclude a small area of anterior ischemia. Echocardiogram 06/06/2025 EF 55-60% basal inferior basal inferoseptal wall is hypokinetic LV wall thickness is mildly increased LV size is normal grade 1 mild diastolic dysfunction. (2) Obesity (BMI 30-39.9): Code(s): E66.9 - Obesity, unspecified Category: Medical Plan: Diet and exercise (3) Asthma: Code(s): J45.909 - Unspecified asthma, uncomplicated Category: Medical Plan: Patient on albuterol inhaler as needed and did see notes using advair (4) Postlaminectomy syndrome: Code(s): M96.1 - Postlaminectomy syndrome, not elsewhere classified Category: Medical Plan: Keep active lose the weight patient on muscle relaxants (5) Chronic left shoulder pain: Code(s): M25.512 - Pain in left shoulder; G89.29 - Other chronic pain Category: Medical Plan: Patient has seen Orthopedics and diagnosis of adhesive capsulitis. planned procedure arthroscopic under [facility] August 13, 2025 (6) Bipolar disorder: Comment: decline counselling Code(s): F31.9 - Bipolar disorder, unspecified Category: Medical Plan: Continue with medication (7) Tinea corporis: Code(s): B35.4 - Tinea corporis Category: Medical Plan History of Present Illness The patient is a 65-year-old female presenting for a follow-up visit. She has a history of post-laminectomy syndrome, which has been a persistent issue since her surgery. The patient also has bipolar disorder and asthma, both of which are chronic conditions she manages with medication. In July 2023, she was diagnosed with a tubular adenoma, which is being monitored. She also has ischemic cardiomyopathy, for which she is on furosemide and has had an echocardiogram. The patient has a diagnosis of adhesive capsulitis, and she is scheduled for surgery on her left shoulder on the of next month. She has undergone multiple surgeries on her shoulders and knees in the past. Recently, her asthma has been re-evaluated and reclassified as Chronic Obstructive Pulmonary Disease (COPD). She uses albuterol and Advair for management, with occasional use of steroids during exacerbations. Health Maintenance - Mammogram is due for preventative screening Social History Review of Systems Physical Exam Results - EMG: Normal, no polyneuropathy detected - Echocardiogram: Conducted for ischemic cardiomyopathy Plan Patient was informed and verbally consented to the use of an ambient scribe for clinic note documentation during this visit. 1. Post-Laminectomy Syndrome The patient continues to manage post-laminectomy syndrome, which has been persistent since her surgery. 2. Bipolar Disorder The patient is managing bipolar disorder with medication. 3. Asthma Asthma management includes the use of albuterol and Advair, with occasional steroids for exacerbations. 4. History Of Tubular Adenoma The patient was diagnosed with a tubular adenoma in July 2023, which is under surveillance. 5. Ischemic Cardiomyopathy Management of ischemic cardiomyopathy includes the use of furosemide and monitoring with echocardiograms. 6. Adhesive Capsulitis The patient is scheduled for surgery on her left shoulder for adhesive capsulitis on the of next month. 7. Chronic Obstructive Pulmonary Disease (Copd) COPD management includes the use of albuterol and Advair, with occasional steroids for exacerbations. Discussion Notes Patient Instructions - Continue current medications as prescribed. - Schedule and attend the upcoming surgery for adhesive capsulitis. - Follow up with cardiology for ischemic cardiomyopathy management. - Ensure mammogram is scheduled and completed. Orders: Orders Complete Blood Count Auto Diff Today I25.5 - Ischemic cardiomyopathy Hemoglobin A1c Today I25.5 - Ischemic cardiomyopathy Thyroid Stimulating Hormone Today I25.5 - Ischemic cardiomyopathy Lipid Panel Today E78.00 - Pure hypercholesterolemia, unspecified, I25.5 - Ischemic cardiomyopathy Uric Acid Today I25.5 - Ischemic cardiomyopathy Vitamin B12 and Folate Today I25.5 - Ischemic cardiomyopathy Vitamin D 25-OH Total Today I25.5 - Ischemic cardiomyopathy Magnesium Today I25.5 - Ischemic cardiomyopathy B Type Natriuretic Peptide Today I25.5 - Ischemic cardiomyopathy Comprehensive Met. Panel Today I25.5 - Ischemic cardiomyopathy Free T4 (Free Thyroxine) Today I25.5 - Ischemic cardiomyopathy Medications: New fluticasone propion-salmeterol 250-50 mcg/dose (Advair Diskus) 1 inh inhalation BID 60 ea 3RF nystatin 1 appl topical BID 30 grams 3RF Refilled tizanidine 2 mg PO Q8H PRN 30 tabs 0RF muscle spasticity Discontinued simethicone (Gas Relief (simethicone)) Discontinued Reason: Doctor's Order 125 mg PO BID-QID PRN 30 caps 0RF abdominal distention E66.9 - Obesity, unspecified
[2025-07-23 09:53] VITALS: BP 110/70
--- OUTSIDE RECORDS SUMMARY | 2025-07-23 10:05 | XMS_ITS | Patient Health Record ---
Author Organization [facility] Address [address] [place] [phone] Care Team Providers Care Consultant Teacher Name Role Phone CAYLA SOMMERS Primary Care [...] day; Duration: 30 day(s) 11/18/2020 Unknown Nystatin 995236 UNIT/GM 1 application Externally Twice a day; [...] Status Risk Notes Problem Chronic pain syndrome (188043680) Chronic pain syndrome (G89.4) Active confirmed Problem Chronic kidney disease stage 2 (026847025) Chronic kidney disease, stage 2 (mild) (N18.2) Active confirmed Problem Anxiety (12829392) Anxiety (F41.9) Active confi rmed Problem Asthma (137105849) Asthma (J45.909) Active confirmed Problem Lumbosacral spondylosis without myelopathy (31038972) Degenerative joint disease (DJD) of lumbar spine (M47.816) Active confirmed Problem Recurrent falls (570975831) Frequent falls (R29.6) Active confirmed Problem Constipation (21710576) Constipation (K59.00) Active confirmed Problem Hypothyroid (12807331) Hypothyroid (E03.9) Active confirmed Problem Body mass index 30+ - obesity (358822806) BMI 30.0-30.9,adult (Z68.30) Active confirmed Problem Osteoporosis (41431414) Osteoporosis (M81.0) Active confirmed Problem Chronic pain (43731384) Chronic pain (G89.29) Active confirmed Problem Hyperlipidaemia (29086825) HLD (hyperlipidemia ) (E78.5) Active confirmed Problem Iron deficiency anemia (94633777) Fe deficiency anemia (D50.9) Active confirmed Problem Insomnia (703584843) Insomnia (G47.00) Active confirmed Problem Multiple joint pain (29363621) Multiple joint pain (M25.50) Active confirmed Problem Restless legs (66707942) RLS (restless legs syndrome) (G25.81) Active confirmed Problem Obesity (369690908) Obesity (E66.9) Active conf irmed Problem Rheumatoid arthritis (16025436) Rheumatoid arthritis (M06.9) Active confirmed Problem Allergic rhinitis (81727560) Rhinitis, Allergic (J30.9) Active confirmed Problem Vitamin D deficiency (60382440) Vitamin D deficiency (E55.9) Active confirmed Problem Hepatitis B (07097534) Hepatitis B (B16.9) Active confirmed Problem Peripheral neuropathy (591734846) Peripheral neuropathy (G62.9) Active confirmed Problem Chronic hepatitis C (277334248) Hep C w/o coma, chronic (B18.2) Active confirmed Problem Essential hypertension (40789035) HTN (hypertension) with goal to be determined (I10) Active confirmed Problem Rheumatoid arteritis (408333794) Rheumatoid arteritis (M05.20) Active confirmed Plan Of Treatment Pending Test Test Name Order Date Biopsy of skin (82229) 09/02/2021 EKG [76284] 05/18/2021 Drug Screen (Rapid Urine) 09/09/2021 Not [...] pain present and quant ified 05/18/2021 Venipuncture [34296] 11/18/2020 Venipuncture [97879] 05/18/2021 CT BRAIN WITHOUT CONTRAST 07/22/2021 Venipuncture [55389] 07/22/2021 Future Test Test Name Order Date Colonoscopy 11/18/2020 DEXA 11/18/2020 ECHO 05/18/2021 Bone scan 05/18/2021 XRAY ABDOMINAL SERIES (3 VIEW) [37369] 0 05/18/2021 STRESS TEST EXERCISE 05/18/2021 Colonoscopy 07/22/2021 Fluoroscopic guidance for epidural injec tion of lumbar spine (26279) 09/14/2021 Bilateral Lumbar facet Single level (644 93) 09/14/2021 Bilateral Lumbar facet Second level (644 94) 09/14/2021 Bilateral Lumbar facet Third and more le vels (10722) 09/14/2021 Insurance Providers Payer Name Payer Address Payer Phone Subscriber Number Group Number Insured Name Patient Relationship to Insured Coverage Start Date Coverage End Date [facility] [address] [place], [place] [id number] JAVON ANDUJAR Self - patient is the insured Medications Administered Medication Instructions Date of Administration Dosage Notes ROCEPHIN (CEFTRIAXONE) [250 mg / 1 Unit] 01/20/2021 1 g Medical (General) History Medical History History ICD Code Arthritis Asthma Allergies Back pain Bone loss Dizziness Hypothyroidism Hepatitis C headaches Obesity
--- OUTSIDE RECORDS SUMMARY | 2025-07-23 10:05 | XMS_ITS | Clinical Summary ---
Author Organization [facility] Address [address] [place] [address] Phone Care Team Providers Care Department Operations Manager Name Role Phone Alan Mccray MD Primary Care Provider [phone] Encounters Date Type Department Care Team Description 06/10/[address] [phone] Rachael Esteban MD from Last 3 Months Social History Tobacco [...] Vaccines (1 of 2) 2010 COVID-19 Vaccine (2023-2 5 season) 2024 Colorectal Cancer Screening: Colonoscopy [...] Insurance MEDICARE [place]ICA[place] - [place] Care Teams Department Operations Manager Relationship Specialty Start Date End Date Alan Mccray MD [address] [place] [address] [address] [facility] [place] [address] [facility] - General 09/17/24
--- OUTSIDE RECORDS SUMMARY | 2025-07-23 10:05 | XMS_ITS | Patient Health Record ---
Author Organization [facility] Address [address] [place], [place] [id number] Care Team Providers Care News Clerk Name Role Phone [facility] Primary Care Provider Tiffany Mcdonald Unavailable Reason For Referral No Information Social History Sex Assigned At : Social History Observation Description Sex Assigned At Female Encounters Encounter Location Date Provider Diagnosis [facility] [address] [place], [place] [phone] 02/26/2025 Tiffany Mcdonald [facility] [address], [place] [phone] 03/22/2025 Tiffany Mcdonald [facility] [address] [place] [phone] 02/15/2025 Tiffany Mcdonald Plan Of Treatment No Information Insurance Providers Payer Name Payer Address Payer Phone Subscriber Number Group Number Insured Name Patient Relationship to Insured Coverage Start Date Coverage End Date [facility] Healthy [address] [place] [phone] [id number] Idania Case Self - patient is the insured [place] Medicaid Standard [address] [place] [address] [phone] [id number] Idania Case Self - patient is the insured
== END 2025-07-23 10:11 | disposition home or self-care (01) ==
LOC: HO.HMCH 09:30
PROVIDERS: PCP Internal Medicine; Visit Provider Internal Medicine
DX: I25.5 Ischemic cardiomyopathy (principal); E66.9 Obesity, unspecified; F31.9 Bipolar disorder, unspecified; Z68.37 Body mass index [BMI] 37.0-37.9, adult; J45.909 Unspecified asthma, uncomplicated; M96.1 Postlaminectomy syndrome, not elsewhere classified; M25.512 Pain in left shoulder; G89.29 Other chronic pain; B35.4 Tinea corporis

== ENCOUNTER → 2025-07-23 09:29 | Outpatient (BNVA) | payer MEDICARE, MEDICAID, SELFPAY | PROVIDERS: PCP Internal Medicine; Visit Provider Internal Medicine | DX: I25.5 Ischemic cardiomyopathy (principal); J45.909 Unspecified asthma, uncomplicated; M96.1 Postlaminectomy syndrome, not elsewhere classified; M25.512 Pain in left shoulder; G89.29 Other chronic pain; F31.9 Bipolar disorder, unspecified; B35.4 Tinea corporis; E66.9 Obesity, unspecified; Z68.37 Body mass index [BMI] 37.0-37.9, adult; Z71.3 Dietary counseling and surveillance | CPT/HCPCS: 99212 ==

== ENCOUNTER 2025-10-13 10:18 | Emergency (ER) | payer MEDICARE, MEDICAID, SELFPAY ==
--- NOTE | ~2025-10-13 | XR_ITS ---
CLINICAL HISTORY: rt great toe injury 3 view rightgreat toe Comparison: None provided Findings: Hallux valgus is present. No fractures or dislocations. No significant loss of joint space or osteophytes. No erosions. No radiopaque foreign body. IMPRESSION: No acute right great toe findings. This document has been electronically signed by: Griffin Hess MD on 10/13/2025 12:18:12
[2025-10-13 10:32] VITALS: BP 143/77; PULSE 84; RESP 18; TEMP 36.8; O2SAT 93; BMI 37.3
--- OUTSIDE RECORDS SUMMARY | 2025-10-13 11:53 | XMS_ITS | Data Portability ---
Author Organization [place] [facility], Allergy Address [address] [address] Care Team Providers Care Traffic Analyst Name Role Phone ISISJANETH Primary Care Provider [phone] Assessment Encounter Date Assessment Date Assessment LastModified [...] Dr. Cramer. 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 [email or web address] Not available 05/09/2024 14:42:06 Plan of Treatment [...] record ed. [email or web address] Not Available 2023 16:49:54 06/1211/29/2023 audio gram No observ ation record ed. [email or web address] Not Available 2023 16:54:16 Result Notes None recorded. Problems Name Problem SNOMED Code Status Onset Date Resolution Date Notes Provider Name and Address Organization Details Recorded Time Sensorineural hearing loss of bilateral ears 455566549 Active 2023 CANDICE EVA, [facility] [address] [facility],[address], [address], [place] - [facility] 4 10:42:10 Problem Notes None recorded. Procedures Surgical History Date Name Laterality Status Provider Name and Address Organization Details Recorded Time 05/09/2024 Comp Audio with Tymps - 87312 & 35940 completed CANDICE VELASQUEZ, [facility] [address] [facility],[address], [address], [facility] 05/09/2024 10:41:02 Imaging Results None recorded. Procedure Notes None recorded. Medical Equipment None Reported. Allergies Allergen ID Allergen Name Allergen Category Reaction Reaction Severity Criticality Documentation Date Start Date Code Code System Note Provider Name and Address Organization Details Recorded Time 559981 aspirin medicatio n Not available Not available Not available 05/09/2024 1191 RxNorm Alee Lara null, [place] [facility] 4 11:03:20 724757 ibuprofen medicatio n Not available Not available Not available 05/09/2024 5640 RxNorm Alee Lara null, [place] - [facility] 4 11:03:29 397753 Seroquel medicatio n Not available Not available Not available 05/09/2024 98637 RxNorm Alee Alra null, [place] - [facility] 4 11:03:57 330394 acetamino phen / hydrocodo ne medicatio n Not available Not available Not available 05/09/2024 78609 2 RxNorm Alee Lara null, [place] - [facility] 4 11:04:04 Medications Name Sig Start [...] Updated DateTime 05/09/2024 165.1 cm 35.8 kg/m2 11027.36 g Alee Lara [place] - [facility] 05/09/2024 11:02:03 Social History None recorded. Functional Status None recorded. Mental Status None recorded. Family History Nothing Reported. Medical History No medical history recorded. Gynecological HistoryNo gynecological history recorded. Obstetrics History GPAL:G 0 P 0 0 0 0 Past Encounters Encounter ID Performer Location Encounter Start Date Encounter Closed Date Diagnosis/Indication Diagnosis SNOMED-CT Code Diagnosis ICD10 Code Diagnosis IMO Codes Diagnosis Note [id number] HSIRAZ CUMMINGS PA-C [facility] [address] [address] 05/09/2024 09:42:28 05/09/2024 11:07:02 Sensorineural hearing loss of bilateral ears 790604677 H90.3 Audiologic al evaluation results:Ri ght ear:Mild to moderate sensorineu ral hearing loss with excellent word recognitio n.Left ear:Mild to moderate sensorineu ral hearing loss with excellent word recognitio n. Tympanomet ry:Right Ear:Type ALeft Ear:Type A Health Concerns Section Related Observation LastModified by Organization Detai ls LastModified Time None Recorded Concern Status LastModified by Organization Details LastModified Time None Recorded Advance Directives Directive None Recorded Payers Insurance Date Sequence Insurance Name Policy Number Policy Bailon Covered Member ID Bailon Member ID Guarantor Name 05/09/2024 1 [facility] - HEALTH NET PLAN (MEDICAID HMO) [place] Idania Carmona Evie [id number] Idania Carmona Evie 05/09/2024 1 [place] [facility] Idania Carmona Evie [id number] Idania Carmona Evie 05/09/2024 1 [place] [facility] Idania Carmona Evie [id number] Idania Carmona Evie 05/09/2024 1 [employer] [facility] (MEDICAID REPLACEMENT - HMO) Idania Case [id number] Idania Case Notes Date Note Type Note Provider Name and Address Organization Details Recorded Time 05/09/2024 text/html ROS as noted in the HPI 63-year-old female presents for evaluation of hearing loss. She reports longstanding hearing loss and previously used hearing aids about 15 years ago. She recently was evaluated over at [facility] in November and is here today for medical clearance for hearing aids. Admits to tinnitus and hearing loss bilaterally, but denies otalgia and otorrhea. Reports history of chronic ear infections and had tubes as a child. Reports ear popping and history of seasonal allergies. Denies vertigo. SHIRAZ CUMMINGS PA-C [address] [place] [address], [place], [address], [facility] - [facility] 05/09/2024 14:43:33 OBGyn Episode No OBEpisode recorded.
--- NOTE | 2025-10-13 12:27 | ED_ITS ---
HPI - Extremity Injury (Lower) General Chief Complaint: Extremity Injury, Lower Stated Complaint: General Medical Time Seen by Provider: 10/13/25 11:48 Source: patient Mode of arrival: ambulatory Limitations: no limitations History of Present Illness ED Provider: HPI Narrative: 65-year-old woman on Plavix, presented with right great toe injury after stubbing her toe, she feels like her nail we will come off and she is wondering whether it is needs to be removed Related Data Previous Rx's ?Medication ?Instructions ?Recorded peg 3350-electrolytes 236 240 ml PO Q10M colonoscopy # 4,000 02/22/24 gram-22.74 gram-6.74 gram-5.86 mL gram solution (Golytely) polyethylene glycol 3350 17 17 g PO BID #238 grams gram/dose oral powder (Miralax) acetaminophen 500 mg tablet 500 mg PO Q6H PRN fever or pain 06/23/24 (Tylenol Extra Strength) #14 tabs Lactobacillus rhamnosus GG 10 1 cap PO DAILY #20 caps 08/30/24 billion cell capsule (Culturelle) naveed (Ultra-Light Rollator misc) #1 ea 01/07/25 methocarbamol 500 mg tablet 500 mg PO BEDTIME #20 tabs 01/09/25 lactulose 10 gram/15 mL oral 20 g (30 mL) PO DAILY PRN 03/14/25 solution constipation #300 mL fluticasone propionate 50 2 spray intranasal DAILY #16 grams 04/10/25 mcg/actuation nasal spray,suspension (Flonase Allergy Relief) lidocaine 5 % topical patch 1 patch topical DAILY PRN pain #30 04/29/25 (Lidoderm) ea albuterol sulfate 90 mcg/actuation 2 puff inhalation Q 6H PRN 06/28/25 aerosol inhaler (Ventolin HFA) shortness of breath or wheezing #8.5 grams ketoconazole 2 % topical cream 1 appl topical BID #60 grams 06/28/25 clopidogrel 75 mg tablet 75 mg PO DAILY #90 tabs 06/28 07/22 sennosides 8.6 mg tablet (senna) 17.2 mg (2 x 8.6 mg) PO .QD PRN 07/15/25 constipation #60 tabs fluticasone 250 mcg-salmeterol 50 1 inh inhalation BID #60 ea 07/23/25 mcg/dose blistr powdr for inhalation (Advair Diskus) nystatin 100,000 unit/gram topical 1 appl topical BID #30 grams 07/23/25 cream furosemide 40 mg tablet 40 mg PO DAILY #30 tabs 07/29 12/22 fexofenadine 180 mg tablet 180 mg PO DAILY #90 tabs tizanidine 2 mg tablet 2 mg PO Q8H PRN muscle spast icity 08/10/25 #30 tabs diclofenac sodium 1 % topical gel 2 g topical QID #100 grams 09/21/25 atorvastatin 40 mg tablet (Lipitor) 40 mg PO BEDTIME # 90 tabs 10/13/25 cephalexin 500 mg capsule 500 mg PO BID 4 days #8 caps 10/13/25 isosorbide mononitrate 30 mg 30 mg PO DAILY #90 tabs 1 12/13/24 tablet,extended release 24 hr Allergies Allergy/AdvReac Type Severity Reaction Status Date / Time aspirin (ASA) Allergy Mild BRUISE, Verified 10/13/25 10:34 bruising hydrocodone (From VICODIN) Allergy Mild ITCH/BRUISE Verified 10/13/25 10:34 ibuprofen (From MOTRIN) Allergy Mild BRUISE Verified 10/13/25 10:34 trazodone (TRAZODONE) Allergy Mild RESTLESS Verified 10/13/25 10:34 quetiapine (From SEROQUEL) AdvReac Mild RESTLESS Verified 10/13/25 10:34 NSAIDS (Non-Steroidal AdvReac Unknown Verified 10/13/25 10:34 Anti-Inflamma Review of Systems Constitutional: Constitutional: Reports as per HPI [facility] Past Medical History Medical History (Updated 10/13/25 @ 12:34 by Marquez Tyler DO) SOB (shortness of breath) Asthma exacerbation Ischemic cardiomyopathy Chronic left shoulder pain Breast cancer screening by mammogram Lesion of colon Abdominal pain Stiffness of left wrist joint Stiffness of left hand joint Fracture of distal end of left radius with routine healing Chronic pain Hypothyroidism Surgical History Hx of colonoscopy S/P tonsillectomy Hx of hysterectomy History of surgery on wrist History of back surgery S/P arthroscopy of left shoulder S/P arthroscopy of right shoulder Hx of arthroscopy of right knee H/O tubal ligation Family History Family History Sister Thyroid cancer Maternal Grandmother Colon cancer Son Substance abuse Depression Other Mental health disorder Social History Social History Housing: House Alcohol intake: former Patient Tobacco Use Status: Never used Tobacco e-Cigarette/Vaping Use: Never Used Second Hand Smoke Exposure: No Advance Directives: No Advance Directives Information Provided: Yes Do you have a plan to hurt others: No Plan service: No Current occupational status: disabled Cognitive needs: Yes (walker) Hearing needs: No Vision needs: Yes Physical Exam Exam: Exam: Right lower extremity No ankle edema Distal pulses intact Partially elevated nail from the right great toe with no ongoing bleeding there was some dried blood, no deformity Vital Signs: Vital Signs: Last Vital Signs Temp 98.2 F 10/13/25 10:32 Pulse 84 10/13/25 10:32 Resp 18 10/13/25 10:32 BP 143/77 H 10/13/25 10:32 Pulse Ox 93 10/13/25 10:32 O2 Del Method Room Air 10/13/25 10:32 BMI result Body Mass Index 37.3 Medical Decision Making Medical Decision Making MDM Narrative: 12:31 PM 10/13/2025 (Dr. Marquez Tyler): No evidence for ankle injury, midfoot injury, x-ray to evaluate for toe fracture, discussed with the patient that there was no indication for the removing the nail, actually use Steri- Strips to hold it in place, we will start her on antibiotics to prevent infection, patient is without permanent residence She will wear shoes with toe protection Patient was told that she will likely lose the nail Differential Diagnosis Differential Diagnoses: The differential diagnosis associated with the presentation includes (Nail bed injury,, fracture, DVT, midfoot injury, ankle injury) Independent Interpretation I performed an independent interpretation of an: Plain X-Ray (No fractures) Radiology Impression Discussion of test interpretation with radiology: I have reviewed the radiologist's reading. Discharge Plan Discharge Clinical Impression: Injury of toe on right foot Patient Disposition: Home, Self-Care Additional Instructions: You are very much likely to lose the nail on the toe, I would just leave it alone to allow the new nail to grow if you lose the nail, Steri-Strips will come off by themselves I placed him there to actually hold the nail in place, antibiotics for the next few days to prevent infection, otherwise make sure to keep the area clean wash with soap and water, pat dry, clean socks and wear shoes with toe protection X-rays without fractures Prescriptions: New cephalexin 500 mg capsule 500 mg PO BID 4 Days Qty: 8 0RF No Action methocarbamol 500 mg tablet 500 mg PO BEDTIME Qty: 20 0RF lactulose 10 gram/15 mL solution 20 g PO DAILY PRN (Reason: constipation) Qty: 300 0RF fluticasone propionate [Flonase Allergy Relief] 50 mcg/actuation spray,suspension 2 spray intranasal DAILY Qty: 16 0RF Rx Instructions: administer into each nostril lidocaine [Lidoderm] 5 % adhesive patch,medicated 1 patch topical DAILY MDD remove after 12 hours PRN (Reason: pain) Qty: 30 0RF Rx Instructions: leave on most painful area for up to 12 hrs sennosides [senna] 8.6 mg tablet 17.2 mg PO .QD PRN (Reason: constipation) Qty: 60 0RF clopidogrel 75 mg tablet 75 mg PO DAILY Qty: 90 0RF furosemide 40 mg tablet 40 mg PO DAILY Qty: 30 4RF tizanidine 2 mg tablet 2 mg PO Q8H PRN (Reason: muscle spasticity) Qty: 30 2RF fexofenadine 180 mg tablet 180 mg PO DAILY Qty: 90 1RF diclofenac sodium 1 % gel 2 g topical QID Qty: 100 0RF Rx Instructions: apply to single elbow, wrist or hand; for hand includes palm/fingers/back of hand atorvastatin [Lipitor] 40 mg tablet 40 mg PO BEDTIME Qty: 90 0RF isosorbide mononitrate 30 mg tablet extended release 24 hr 30 mg PO DAILY Qty: 90 0RF acetaminophen [Tylenol Extra Strength] 500 mg tablet 500 mg PO Q6H PRN (Reason: fever or pain) Qty: 14 0RF peg 3350-electrolytes [Golytely] 236-22.74-6.74 -5.86 gram recon soln 240 ml PO Q10M Qty: 4000 0RF Rx Instructions: as per split prep instructions, until fecal effluent is clear polyethylene glycol 3350 [Miralax] 17 gram/dose powder 17 g PO BID Qty: 238 0RF Rx Instructions: Take twice a day starting 3 days before your colonoscopy ketoconazole 2 % cream 1 appl topical BID Qty: 60 0RF albuterol sulfate [Ventolin HFA] 90 mcg/actuation HFA aerosol inhaler 2 puff inhalation Q6H PRN (Reason: shortness of breath or wheezing) Qty: 8.5 3RF Culturelle 10 billion cell capsule 1 cap PO DAILY Qty: 20 0RF (DME) Ultra-Light Rollator Misc See Rx Instructions .Route Qty: 1 0RF Rx Instructions: As directed fluticasone propion-salmeterol [Advair Diskus] 250-50 mcg/dose blister with device 1 inh inhalation BID Qty: 60 3RF nystatin 100,000 unit/gram cream 1 appl topical BID Qty: 30 3RF Print Language: Korean
[2025-10-13 12:37] VITALS: BP 154/76; PULSE 529; RESP 18; TEMP 36.9; O2SAT 100
[2025-10-13 12:38] VITALS: BP 154/76; PULSE 59; RESP 18; TEMP 36.9; O2SAT 100
[2025-10-13 12:40] VITALS: BP 120/56; PULSE 73; RESP 16; TEMP 36.9; O2SAT 97
== END 2025-10-13 12:39 | disposition home or self-care (01) ==
PROVIDERS: Emergency Provider Emergency Medicine; PCP Internal Medicine
DX: S99.921A Unspecified injury of right foot, initial encounter (principal); W22.8XXA Striking against or struck by other objects, initial encounter; Y93.9 Activity, unspecified; Y92.9 Unspecified place or not applicable; Y99.9 Unspecified external cause status; Z88.5 Allergy status to narcotic agent; Z88.6 Allergy status to analgesic agent
CPT/HCPCS: 73660; 99283

== ENCOUNTER 2025-11-18 09:33 | Outpatient (AMB) | payer MEDICARE, MEDICAID, SELFPAY ==
--- OUTSIDE RECORDS SUMMARY | 2025-03-08 06:15 | XMS_ITS ---
Author Organization [facility] Address [address] [place] [address] Care Team Providers Care General Counsel Name Role Phone [facility] Primary Care Provider [phone] Tiffany Mcdonald Unavailable Social History Sex Assigned At : Social History Observation Description Sex Assigned At Female Encounters Encounter Location Date Provider Diagnosis [facility] [address] [place] [id number] 03/08/2025 Tiffany Mcdonald Plan Of Treatment No Information Progress Notes * Idania ANDUJAR SueDOB:1959 (65 yo F)Acc No.[id number]:03/08/2025 Case Management Patient: Idania CHACON Provider: Sarika Mcdonald :1960 A ge:64 Y S ex:Female Date:03/08/2025 Address:[facility] [address] [place], [place] Pcp:[facility] [place] Subjective: * Chief Complaints: * * Medical History: Objective: Assessment: Plan: * Treatment: * Images: Billing Information: * Visit Code: * Procedure Codes: Care Plan Details* * Electronic signature of Garcia Mcdonald on 11/18/2025 at 10:54 AM EST Sign off status: Pending * Provider: Sarika Mcdonald Date: 0 03/08/2025 Generated for Arthuri kate/Swapnil/eTransmitting on: 1 01/19/2025 10:54 AM EST
--- OUTSIDE RECORDS SUMMARY | 2025-03-19 06:00 | XMS_ITS ---
Author Organization [facility] Address [address] [place] [address] Care Team Providers Care Cashier Gambling Name Role Phone [facility] Primary Care Provider Tiffany Mcdonald Unavailable [phone] Social History Sex Assigned At : Social History Observation Description Sex Assigned At Female Encounters Encounter Location Date Provider Diagnosis [facility] [address] [place] [phone] 03/19/2025 Tiffany Mcdonald Plan Of Treatment No Information Progress Notes * Idania ANDUJAR SueDOB:1959 (65 yo F)Acc No.[id number]:03/19/2025 Case Management Patient: Idania CHACON Provider: Sarika Mcdonald :1960 A ge:64 Y S ex:Female Date:03/19/2025 Address:[facility] [address] [place], [place] Pcp:[facility] Earle [place] Subjective: * Chief Complaints: * * Medical History: Objective: Assessment: Plan: * Treatment: * Images: Billing Information: * Visit Code: * Procedure Codes: Care Plan Details* * Electronic signature of Garcia Mcdonald on 11/18/2025 at 10:55 AM EST Sign off status: Pending * Provider: Sarika Mcdonald Date: 0 03/19/2025 Generated for Arthuri kate/Swapnil/eTransmitting on: 1 01/19/2025 10:55 AM EST
--- OUTSIDE RECORDS SUMMARY | 2025-07-30 08:52 | XMS_ITS ---
Author Organization [facility] Address [address] [place] [address] Care Team Providers Care Performance Engineer Name Role Phone [facility] Primary Care Provider Tiffany Mcdonald Unavailable Social History Sex Assigned At : Social History Observation Description Sex Assigned At Female Encounters Encounter Location Date Provider Diagnosis [address] [address] 07/30/2025 Tiffany Mcdonald Plan Of Treatment No Information Progress Notes * Idania CASE AntoninaeDOB:1959 (65 yo F)Acc No.[id number]:07/30/2025 Patient: Idania CHACON :1960 A ge:65 Y S ex:Female Address:[facility] [place], [address] * * Date:
--- NOTE | 2025-11-18 09:44 | A.OFFPC_ITS ---
Vital Signs 11/18/25 09:48 Height 5 ft 4 in Weight 223 lb 8 oz BMI 38.4 BP 117/72 Blood Pressure Location Lt brachial Position Sitting Respiration 16 Pulse 85 Pulse Source Pulse Oximeter Temp 97.3 F Temp Source Tympanic Pulse Oximetry (%) 97 Oxygen Delivery Method Room Air Intake Visit Reasons: COPD Allergies aspirin (ASA) Allergy (Mild, Verified 11/18/25 09:42) BRUISE, bruising hydrocodone (From VICODIN) Allergy (Mild, Verified 11/18/25 09:42) ITCH/BRUISE ibuprofen (From MOTRIN) Allergy (Mild, Verified 11/18/25 09:42) BRUISE trazodone (TRAZODONE) Allergy (Mild, Verified 11/18/25 09:42) RESTLESS quetiapine (From SEROQUEL) Adverse Reaction (Mild, Verified 11/18/25 09:42) RESTLESS NSAIDS (Non-Steroidal Anti-Inflamma Adverse Reaction (Verified 11/18/25 09:42) Unknown Medication List - Last Reconciled 11/18/25 by Alan Mccray MD acetaminophen (Tylenol Extra Strength) 500 mg PO Q6H PRN albuterol sulfate 90 mcg/actuation (Ventolin HFA) 2 puffs inhalation Q6H PRN atorvastatin (Lipitor) 40 mg PO BEDTIME cephalexin 500 mg PO BID 4 days clopidogrel 75 mg PO DAILY diclofenac sodium 1% 2 grams topical QID fexofenadine 180 mg PO DAILY fluticasone propion-salmeterol 250-50 mcg/dose (Advair Diskus) 1 inh inhalation BID fluticasone propionate 50 mcg/actuation (Flonase Allergy Relief) 2 sprays intranasal DAILY furosemide 40 mg PO DAILY isosorbide mononitrate ER 30 mg PO DAILY ketoconazole 2% 1 appl topical BID Lactobacillus rhamnosus GG (Culturelle) 1 cap PO DAILY lactulose 20 grams (30 mL) PO DAILY PRN lidocaine 5% (Lidoderm) 1 patch topical DAILY PRN MDD remove after 12 hours methocarbamol 500 mg PO BEDTIME [motorized scooter As directed] nystatin 1 appl topical BID peg 3350-electrolytes 236-22.74-6.74 -5.86 gram (Golytely) 240 mL PO Q10M polyethylene glycol 3350 (Miralax) 17 grams PO BID sennosides (senna) 1.2 mg (0.1395 x 8.6 mg) PO DAILY PRN 90 days tizanidine 2 mg PO Q8H PRN walker (Ultra-Light Rollator misc) As directed Tobacco use date assessed: 06/28/25 Dental Screening Dental Screen Date: 07/23/25 HPI HPI Comments History of Present Illness Details History of Present Illness The patient is a 65-year-old obese female presenting for a follow-up visit for management of multiple chronic conditions. Her medical history includes ischemic cardiomyopathy, with an echocardiogram in May 2025 showing an ejection fraction of 55-60%, basal inferolateral hypokinesis, mildly increased left ventricular wall thickness, and grade 1 diastolic dysfunction. She also has hypercholesterolemia, treated with atorvastatin. Her history is significant for chronic pain syndrome and post-laminectomy syndrome. She is status post an arthroscopic right rotator cuff repair in July 2025 and an orthopedic follow-up in September. She attended physical therapy four times and then continued exercises on her own, now reporting no shoulder pain. The patient sustained a right toe injury, for which she was seen in the ER on October 13 and treated with cephalexin; the nail subsequently fell off and the toe has healed well. Other chronic conditions include asthma, for which she is prescribed Advair and an albuterol inhaler, bipolar disorder, and a history of hepatitis B and C. Her last colonoscopy in 2022 showed a tubular adenoma, and she is due for a repeat procedure. She has a known 3 cm cerebral aneurysm and was previously followed by a neurovascular surgeon. The patient has a history of sleep apnea but is non- compliant with her CPAP machine. Recently, she has been experiencing an increase in falls, migraines, pain on the left side of her face, and nosebleeds. She expresses concern that these symptoms may be related to her aneurysm. She has been feeling tired all the time and is currently residing in a nursing home, where sleep is difficult. Her last blood work was in July 2024 and showed a normal blood count. Health Maintenance The patient was reminded that she is due for a mammogram and a colonoscopy. Advised to keep active and counseled on diet and exercise. Plan to follow up in three months. Social History - Housing status: The patient is current ly staying in a nursing home. - Functional status: The patient reports frequent falls and that her legs are not holding her. - Activity and Mobility: She uses a high walker and has requested a scooter for mobility. - Sleep environment: She reports difficu lty sleeping as she is in a room with 30 other people and has to be up all day. Results - Echocardiogram (May 2025): Showed an EF of 55-60%, basal inferior, basal inferolateral, and inferoseptal wall hypokinesis, mildly increased left ventricular wall thickness, and grade 1 mild diastolic dysfunction. - Blood Work (July 2024): Revealed a normal blood count. - Serology: Positive for hepatitis B uma face antibody and hepatitis C antibody. - Colonoscopy (2022): Showed a tubular a denoma. - Toe X-ray: Noted as good. [facility] Medical History (Updated 11/18/25 @ 10:18 by Alan Mccray MD) Hypersomnia SOB (shortness of breath) Ischemic cardiomyopathy Chronic left shoulder pain Breast cancer screening by mammogram Lesion of colon Abdominal pain Stiffness of left wrist joint Stiffness of left hand joint Fracture of distal end of left radius with routine healing Chronic pain Hypothyroidism Surgical History Hx of colonoscopy S/P tonsillectomy Hx of hysterectomy History of surgery on wrist History of back surgery S/P arthroscopy of left shoulder S/P arthroscopy of right shoulder Hx of arthroscopy of right knee H/O tubal ligation Family History Sister Thyroid cancer Maternal Grandmother Colon cancer Son Substance abuse Depression Other Mental health disorder Social History Housing: House Alcohol intake: former Patient Tobacco Use Status: Never used Tobacco e-Cigarette/Vaping Use: Never Used Second Hand Smoke Exposure: No service: No Current occupational status: disabled Cognitive needs: Yes (walker) Hearing needs: No Vision needs: Yes Questionnaire PHQ-9 Over the last 2 weeks, how often have you been bothered by any of the following problems? 1. Little interest or pleasure in doing things: nearly every day 2. Feeling down, depressed, or hopeless: nearly every day 3. Trouble falling or staying asleep, or sleeping too much: not at all 4. Feeling tired or having little energy: nearly every day 5. Poor appetite or overeating: not at all 6. Feeling bad about yourself - or that you are a failure or have let yourself or your family down: nearly every day 7. Trouble concentrating on things, such as reading the newspaper or watching television: not at all 8. Moving or speaking so slowly that other people could have noticed. Or the opposite - being so fidgety or restless that you have been moving around a lot more than usual: nearly every day (Fidgety) 9. Thoughts that you would be better off or of hurting yourself in some way: not at all Total score: 15 61309 - PHQ-9 Billing: Yes Source: Developed by Drs. Lukas Walton, Liliana Naranjo, Andre Del Angel and colleagues, with an educational princess from [employer]. Thrive Questionnaire Date Thrive assessed: 11/18/25 I am a: Patient What is your living situation today?: I choose not to answer this question Within the past 12 months, did the food you bought not last and you didn't have the money to get more?: Never true Within the past 12 months, did you worry whether your food would run out before you got money to buy more?: Never true Do you have trouble paying for medicines?: No Do you have trouble getting transportation to medical appointments?: Yes Do you have trouble paying your heating and electricity bill?: I choose not to answer this question Do you have trouble taking care of your child, family member or friend?: I choose not to answer this question Do you have trouble with day-to-day activities such as bathing, preparing meals, shopping, managing finances, etc.?: No Are you currently unemployed and looking for a job?: No Are you interested in more education?: No Currently or been in a relationship where the following occur: No concerns reported THRIVE Score: 1 ROMA-7 AMB Questionnaire ROMA-7 Date ROMA - 7 assessed: 06/28/25 Source: Developed by Drs. Lukas Walton, Liliana Naranjo, Andre Del Angel and colleagues, with an educational princess from [employer]. Review of Systems Narrative Review of Systems - General: Reports being tired all the time. - Neurological: Reports falling a lot, migraines, pain down the left side of her face, and being very forgetful. - HEENT: Reports nosebleeds for no reason. - Respiratory: Reports still gasping for breath. - Musculoskeletal: Denies pain in her right shoulder. Physical exam (Primary Care) Vital Signs: Last Vital Signs Temp 97.3 F 11/18/25 09:48 Pulse 85 11/18/25 09:48 Resp 16 11/18/25 09:48 BP 117/72 11/18/25 09:48 Pulse Ox 97 11/18/25 09:48 Oxygen Delivery Method Room Air 11/18/25 09:48 BMI result Body Mass Index 38.4 Tobacco/Smoking Status: Tobacco use Status Tobacco use date assessed 06/28/25 11/18/25 09:46 Patient Tobacco Use Status Never used Tobacco 11/18/25 09:46 e-Cigarette/Vaping Use Never Used 11/18/25 09:46 PHQ-9: PHQ-9 Score PHQ-9: Total score 15 11/18/25 10:03 Thrive Assessment: Date of Thrive Assessment Date Thrive assessed 11/18/25 11/18/25 09:46 Currently or been in a relationship where the following occur: No concerns reported Narrative Physical Exam - Respiratory: Wheezing heard on auscultation. - Extremities: Examination of the right foot reveals it looks well-healed post- injury. Const General: alert; No acute distress Eyes Conjunctivae: conjunctivae normal Resp Auscultation: clear to auscultation bilaterally Cardio Rate: regular rate Rhythm: regular rhythm GI Inspection: Yes normal to inspection Extrem General: Yes normal to inspection and No edema Coding Level of Care Code Est Pt Level 4 (22980) Add On Problem Visit Only Diagnoses Ischemic cardiomyopathy I25.5 Obesity (BMI 30-39.9) E66.9 Tubular adenoma of colon D12.6 S/P arthroscopy of left shoulder Z98.890 Postlaminectomy syndrome M96.1 Asthma J45.909 Hypercholesterolemia E78.00 Hypersomnia G47.10 Aneurysm I72.9 Headache R51.9 Recurrent falls R29.6 Additional Codes PHQ-9 - 24834 - PHQ-9 Billing: Yes ([id number]) Assessment & Plan Assessment & Plan (1) Ischemic cardiomyopathy: Comment: Echocardiogram 06/06/2025 left ventricular ejection fraction 55-60% basal inferior basal inferoseptal wall is hypokinetic LV wall thickness mildly increased LV size is normal grade 1 mild diastolic dysfunction Code(s): I25.5 - Ischemic cardiomyopathy Category: Medical Plan: Patient on clopidogrel, Control the cholesterol, weight, blood pressure, patient was requested to have blood work done (2) Obesity (BMI 30-39.9): Code(s): E66.9 - Obesity, unspecified Category: Medical Plan: Diet and exercise (3) Tubular adenoma of colon: Comment: July 2023 Code(s): D12.6 - Benign neoplasm of colon, unspecified Category: Medical Plan: Reminded about colonoscopy (4) S/P arthroscopy of left shoulder: Code(s): Z98.890 - Other specified postprocedural states Category: Surgical Plan: Continue to follow-up with orthopedics and has been advised physical therapy (5) Postlaminectomy syndrome: Code(s): M96.1 - Postlaminectomy syndrome, not elsewhere classified Category: Medical Plan: Continuing muscle relaxants advised to keep active (6) Asthma: Code(s): J45.909 - Unspecified asthma, uncomplicated Category: Medical Plan: On Advair and albuterol inhaler (7) Hypercholesterolemia: Code(s): E78.00 - Pure hypercholesterolemia, unspecified Category: Medical Plan: Patient is reminded about blood work. Avoid fried foods, chicken skin, eggs, butter margarine, pastries and meat. 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 1. Hypercholesterolemia A request for new blood work was provided. The LDL goal is less than 70 mg/dL and triglyceride goal is less than 150 mg/dL. Continue atorvastatin 40 mg once daily, and a prescription was refilled. 2. Asthma Patient was noted to be wheezing and had run out of her Advair. Advised on the importance of regular Advair use and instructed to rinse her mouth after each use. Prescriptions for both Advair and albuterol inhalers were refilled. Informed the patient that the pharmacy can send requests for refills. 3. Chronic Pain Syndrome The patient will continue her muscle relaxants. Refilled prescriptions for tizanidine and lidocaine patches. 4. Migraine The patient's severe headaches were noted, with stress and poor sleep acknowledged as potential contributing factors. A referral to neurology for further evaluation and management will be placed. The patient's request for a letter to allow rest at her nursing home was declined due to the risk of blood clots. 5. Recurrent Falls In response to the patient's report of frequent falls, a prescription for a motorized scooter will be provided. A referral to physical therapy will be made for a formal scooter evaluation, which is a necessary step. 6. Sleep Apnea The patient has a history of sleep apnea but is non-compliant with CPAP and expressed interest in the Inspire device. A referral will be made to sleep medicine for a new sleep study, as a fresh study is required for further assessment. 7. Unruptured Cerebral Aneurysm To address concerns about her known 3 cm aneurysm, a referral will be placed to [facility] for follow-up. 8. Medication Reconciliation And Refills Refills were sent to the [facility] on [facility] for the following medications: at orvastatin, clopidogrel, tizanidine, senna, nystatin cream, isosorbide, Advair, albuterol, and lidocaine patches. Discussion Notes I conducted a follow-up visit with the patient to address her multiple chronic conditions and new concerns. I provided her with a lab request, as her blood work is overdue, and reminded her of the need for a mammogram and colonoscopy. Regarding her recurring falls, I agreed to prescribe a motorized scooter, but I explained that this is contingent on an evaluation by physical therapy, for which I am placing a referral. We discussed her non-compliance with CPAP for sleep apnea and her interest in the Inspire device. I explained that a new sleep study is a prerequisite, and I am referring her to sleep medicine for this. For her headaches and concerns about her known cerebral aneurysm, I am referring her to [facility]rology for further assessment. I explained her nosebleeds are likely due to being on a blood thinner and dry air. On physical exam, she had wheezing, and I discovered she had run out of her Advair. I stressed the importance of regular use and refilled it along with her other chronic medications as requested, sending them all to her preferred pharmacy. I declined her request for a letter to allow her to lie down during the day at the nursing home, explaining the increased risk of blood clots. I have asked her to follow up with me in three months, after completing her blood work. Patient Instructions - Please get your blood work done with the form we gave you before your next visit. - You are due for a mammogram and a colonoscopy; please schedule these tests. - We have sent refills for your medications to the [facility] on [facility]. - Use your Advair inhaler every day to help your breathing. Remember to rinse your mouth with water after you use it. - If you run out of Advair, you can ask the pharmacy to send us a request for a refill. - Please follow up with the appointment for a physical therapy evaluation for a scooter. - Please follow up with the sleep medicine clinic to schedule a new sleep study. - We are referring you back to the neurology clinic at [facility] to check on your aneurysm. - Try to eat a healthy diet and stay active. - Please schedule a follow-up appointment to see me in about three months. Orders: Orders PT Evaluation and Treatment Today R29.6 - Repeated falls Referrals Sleep Medicine Referral G47.10 - Hypersomnia, unspecified Neurosurgery Referral I72.9 - Aneurysm of unspecified site, R51.9 - Headache, unspecified Medications: New [motorized scooter] As directed 1 ea 0RF R29.6 - Repeated falls Refilled atorvastatin (Lipitor) 40 mg PO BEDTIME 90 tabs 2RF R29.6 - Repeated falls tizanidine 2 mg PO Q8H PRN 30 tabs 2RF muscle spasticity R29.6 - Repeated falls sennosides (senna) 1.2 mg (0.1395 x 8.6 mg) PO DAILY 90 days PRN 60 tabs 1RF for constipation R29.6 - Repeated falls nystatin 1 appl topical BID 30 grams 3RF R29.6 - Repeated falls albuterol sulfate 90 mcg/actuation (Ventolin HFA) 2 puffs inhalation Q6H PRN 8.5 grams 3RF shortness of breath or wheezing J45.909 - Unspecified asthma, uncomplicated clopidogrel 75 mg PO DAILY 90 tabs 0RF R29.6 - Repeated falls isosorbide mononitrate ER 30 mg PO DAILY 90 tabs 0RF R29.6 - Repeated falls fluticasone propion-salmeterol 250-50 mcg/dose (Advair Diskus) 1 inh inhalation BID 60 ea 3RF R29.6 - Repeated falls lidocaine 5% (Lidoderm) leave on most painful area for up to 12 hrs 1 patch topical DAILY PRN 30 ea 3RF pain MDD remove after 12 hours R29.6 - Repeated falls
[2025-11-18 09:48] VITALS: BP 117/72; PULSE 85; RESP 16; TEMP 36.3; O2SAT 97; BMI 38.4
--- OUTSIDE RECORDS SUMMARY | 2025-11-18 10:54 | XMS_ITS | Patient Health Record ---
Author Organization [facility] Address [address] [place] [address] Care Team Providers Care An/Ssn 2 4 Operator Name Role Phone [facility] Primary Care Provider Tiffany Mcdonald Unavailable Reason For Referral No Information Social History Sex Assigned At : Social History Observation Description Sex Assigned At Female Encounters Encounter Location Date Provider Diagnosis [facility] [address] [place] [address] [id number] 02/26/2025 Tiffany Mcdonald [facility] [address] [place] [address] [id number] 03/22/2025 Tiffany Mcdonald [facility] [address] [place] [address] [id number] 02/15/2025 Tiffany Mcdonald [facility] [address] [place] [address] 07/30/2025 Tiffany Mcdonald Plan Of Treatment No Information Insurance Providers Payer Name Payer Address Payer Phone Subscriber Number Group Number Insured Name Patient Relationship to Insured Coverage Start Date Coverage End Date [facility] [employer] [address] [place] [address] [id number] Idania Case Self - patient is the insured [place] Medicaid Standard [address] [place] [address] [id number] Idania Case Self - patient is the insured
--- OUTSIDE RECORDS SUMMARY | 2025-11-18 10:55 | XMS_ITS | Patient Health Record ---
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 Role Phone CAYLA SOMMERS Primary Care [...] End Date Status Diclofenac Sodium 75 MG Tablet Delayed Release 1 tablet Orally Twice a day; Duration: 30 day(s) 11/25/2020 Unknown Diflucan 150 MG Tablet 1 tablet Orally every 2 days; Duration: 14 day(s) Unknown Nasacort Allergy 24HR 55 MCG/ACT Aerosol 1 spray in each nostril Nasally Once a day; Duration: 30 day(s) 03/19/2021 Unknown Ketoconazole 200 MG Tablet 1 tablet Orally Once a day; Duration: 10 day(s) 11/18/2020 Unknown Levothyroxine Sodium 50 MCG Tablet 1 tablet in the morning on an empty stomach Orally Once a day Unknown Cyclobenzaprine HCl 10 MG Tablet 1 tablet at bedtime as needed Orally Once a day; Duration: 30 day(s) 11/18/2020 Unknown Docusate Sodium 250 MG Capsule 1 capsule as needed Orally Once a day; Duration: 30 day(s) 11/18/2020 Unknown Nystatin 864664 UNIT/GM Cream 1 application Externally Twice a day; Duration: 30 day(s) 11/25/2020 Unknown Lyrica 50 MG Capsule 1 capsule Orally Twice a day; Duration: 30 days 01/16/2021 Unknown oxyCODONE HCl 5 MG Capsule 1 capsule as needed Orally bid; Duration: 5 days Only one time prescription 07/22/2021 Unknown HYDROcodone-Acetaminop hen 5-325 MG Tablet 1 tablet as needed Orally bid; Duration: 30 days 01/16/2021 Unknown Cipro 500 MG Tablet 1 tablet Orally every 12 hrs; Duration: 5 day(s) 11/18/2020 Unknown Fexofenadine HCl 180 MG Tablet 1 tablet Orally Once a day; Duration: 30 day(s) 03/19/2021 Unknown Bactrim DS 800-160 MG Tablet 1 tablet Orally Twice a day; Duration: 5 day(s) 01/20/2021 Unknown Meclizine HCl 25 MG Tablet 1 tablet as needed Orally bid; Duration: 30 day(s) 08/12/2021 Unknown oxyCODONE HCl 5 MG Tablet 1 tablet as needed Orally bid; Duration: 5 days 07/22/2021 Unknown DULoxetine HCl 30 MG Capsule Delayed Release Particles 1 capsule Orally Once a day; Duration: 30 day(s) 01/20/2021 Unknown Social History Tobacco Use: Social History Observation Description Date Details (start date - stop date) Never Smoker NA - NA Social History Miscellaneous: Social Info Question Answer Notes Environmental/Occupational exposure Are you exposed to secondhand smoke Yes Are you exposed to asbestos No Drugs/Alcohol: Social Info Question Answer Notes Drugs Have you used drugs other than those for medical reasons in the past 12 months? No Caffeine Intake: none Tobacco Use: Social Info Question Answer Notes Tobacco Use/Smoking Are you a: never smoker Tobacco use other than smoking: Are you an other tobac co user? No Additional Details Category Social Info Options Details Drugs/Alcohol: Do you smoke marijuana? De nies Do you drink alcohol? 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 Problem Recurrent falls (729783179) Frequent falls (R29.6) Active confirmed Problem Constipation (84269870) Constipation (K59.00) Active confirmed Problem Hypothyroid (40588240) Hypothyroid (E03.9) Active confirmed Problem Body mass index 30+ - obesity (421016146) BMI 30.0-30.9,adult (Z68.30) Active confirmed Problem Osteoporosis (72625820) Osteoporosis (M81.0) Active confirmed Problem Chronic pain (81087421) Chronic pain (G89.29) Active confirmed Problem Hyperlipidaemia (30809881) HLD (hyperlipidemia ) (E78.5) Active confirmed Problem Iron deficiency anemia (57315995) Fe deficiency anemia (D50.9) Active confirmed Problem Insomnia (322016070) Insomnia (G47.00) Active confirmed Problem Multiple joint pain (73456243) Multiple joint pain (M25.50) Active confirmed Problem Restless legs (22113803) RLS (restless legs syndrome) (G25.81) Active confirmed Problem Obesity (553474860) Obesity (E66.9) Active conf irmed Problem Rheumatoid arthritis (34044136) Rheumatoid arthritis (M06.9) Active confirmed Problem Allergic rhinitis (81961290) Rhinitis, Allergic (J30.9) Active confirmed Problem Vitamin D deficiency (00862703) Vitamin D deficiency (E55.9) Active confirmed Problem Hepatitis B (67579216) Hepatitis B (B16.9) Active confirmed Problem Peripheral neuropathy (699064617) Peripheral neuropathy (G62.9) Active confirmed Problem Chronic hepatitis C (353254838) Hep C w/o coma, chronic (B18.2) Active confirmed Problem Essential hypertension (11223084) HTN (hypertension) with goal to be determined (I10) Active confirmed Problem Rheumatoid arteritis (182351702) Rheumatoid arteritis (M05.20) Active confirmed Plan Of Treatment Pending Test Test Name Order Date Biopsy of skin (81884) 09/02/2021 EKG [51385] 05/18/2021 Drug Screen (Rapid Urine) 09/09/2021 Not currently using tobacco 08/12/2021 Not currently using tobacco 05/18/2021 Not currently using tobacco 07/22/2021 Not currently using tobacco 09/02/2021 Medication Review Completed 07/22/2021 Medication Review Completed 05/18/2021 Medication Review Completed 08/12/2021 Medication Review Completed [...] age 65+); follow up plan documented 09/02/2021 Systolic BP <140 09/02/2021 Systolic BP <140 07/22/2021 Systolic BP <140 05/18/2021 Systolic BP <140 08/12/2021 Diastolic BP <90 08/12/2021 Diastolic BP <90 05/18/2021 Diastolic BP <90 07/22/2021 Diastolic BP <90 09/02/2021 Pain Assessment - pain present and quant ified 07/22/2021 Pain Assessment - pain present and quant ified 05/18/2021 Pain Assessment - pain present and quant ified 08/12/2021 Pain Assessment - pain present and quant ified 09/02/2021 Venipuncture [10949] 11/18/2020 Venipuncture [68085] 05/18/2021 CT BRAIN WITHOUT CONTRAST 07/22/2021 Venipuncture [58238] 07/22/2021 Future Test Test Name Order Date Colonoscopy 11/18/2020 DEXA 11/18/2020 ECHO 05/18/2021 Bone scan 05/18/2021 XRAY ABDOMINAL SERIES (3 VIEW) [21307] 0 05/18/2021 STRESS TEST EXERCISE 05/18/2021 Colonoscopy 07/22/2021 Fluoroscopic guidance for epidural injec tion of lumbar spine (16760) 09/14/2021 Bilateral Lumbar facet Single level (644 93) 09/14/2021 Bilateral Lumbar facet Second level (904 94) 09/14/2021 Bilateral Lumbar facet Third and more le vels (16460) 09/14/2021 Insurance Providers Payer Name Payer Address Payer Phone Subscriber Number Group Number Insured Name Patient Relationship to Insured Coverage Start Date Coverage End Date [facility] [address] [place], [place] [id number] JAVON ANDUJAR Self - patient is the insured Medications Administered Medication Instructions Date of Administration Dosage Notes ROCEPHIN (CEFTRIAXONE) [250 mg / 1 Unit] 01/20/2021 1 g Medical (General) History Medical History History ICD Code Arthritis Asthma Allergies Back pain Bone loss Dizziness Hypothyroidism Hepatitis C headaches Obesity
--- OUTSIDE RECORDS SUMMARY | 2025-11-18 10:55 | XMS_ITS | Clinical Summary ---
Author Organization [facility] [employer] [facility] Address [address] [place] [address] Phone Care Team Providers Care Dietary Aid Name Role Phone Alan Mccray MD Primary Care Provider [phone] Social History Tobacco Use Types Packs/Day Years Used Date Smoking Tobacco: Never Assessed Comments Unknown Sex and Gender Information Value Date Recorded Sex Assigned at Not on file Legal Sex Female 4:38 PM EDT Gender Identity Not on file Sexual Orientation Not on file Plan of Treatment Health Maintenance Due Date Last Done Comments Breast Cancer Screening 1960 Colorectal Cancer Screening: Colonoscopy 1960 DTaP,Tdap,and Td Vaccines (1 - Tdap) 1979 Cervical Cancer Screening: P ap Smear 1981 Pneumococcal Vaccine: 50+ Ye ars (1 of 1 - PCV) 2010 Zoster Vaccines (1 of 2) 2010 Hepatitis C Screening 09/23/2024 Medicare Annual Wellness Visit 09/23/2024 Osteoporosis Screening (Bone Density Screening) 09/23/2024 Social Influencers of Health Screening 09/23/2024 Depression Screening 11/28/2024 Falls Risk Assessment 2025 COVID-19 Vaccine ( - 2024-2 6 season) 2025 Influenza Vaccine (#1) 2025 RSV Immunization [...] Insurance MEDICARE MEDICAID - [place] Care Teams Dietary Aid Relationship Specialty Start Date End Date Alan Mccray MD [address] [place] [address] [address] [facility] [place] [address] PCP - General 09/17/24
== END 2025-11-18 10:30 | disposition home or self-care (01) ==
LOC: HO.HMCH 09:34
PROVIDERS: PCP Internal Medicine; Visit Provider Internal Medicine
DX: I25.5 Ischemic cardiomyopathy (principal); E66.9 Obesity, unspecified; D12.6 Benign neoplasm of colon, unspecified; Z98.890 Other specified postprocedural states; M96.1 Postlaminectomy syndrome, not elsewhere classified; J45.909 Unspecified asthma, uncomplicated; E78.00 Pure hypercholesterolemia, unspecified; G47.10 Hypersomnia, unspecified; I72.9 Aneurysm of unspecified site; R51.9 Headache, unspecified; R29.6 Repeated falls

== ENCOUNTER → 2025-11-18 09:33 | Outpatient (BNVA) | payer MEDICARE, MEDICAID, SELFPAY | PROVIDERS: PCP Internal Medicine; Visit Provider Internal Medicine | DX: I25.5 Ischemic cardiomyopathy (principal); E66.9 Obesity, unspecified; D12.6 Benign neoplasm of colon, unspecified; M96.1 Postlaminectomy syndrome, not elsewhere classified; J45.909 Unspecified asthma, uncomplicated; E78.00 Pure hypercholesterolemia, unspecified; G47.10 Hypersomnia, unspecified; I72.9 Aneurysm of unspecified site; R51.9 Headache, unspecified; R29.6 Repeated falls; Z13.31 Encounter for screening for depression; Z13.39 Encounter for screening examination for other mental health and behavioral disorders | CPT/HCPCS: 96127; 99212 ==